=== PATIENT | male | born 1970 | race African-American/Black ===

== ENCOUNTER 2016-06-14 00:32 | Inpatient (IN) | payer MEDICAID, MEDICARE ==
[2016-06-14] VITALS (7 sets, daily range): BP systolic 142–179; BP diastolic 80–104
[~2016-06-14] VITALS: Ht 165.1 cm; Wt 84.8 kg
[~2016-06-14 00:32] MED LIST: ACET-2154 PO; ACID1TAB4 PO; AMLO1CAP PO; CALC667C6 PO; CARV25TA PO; CINA90TA PO; CLON-418 PO; CLON0.2T PO; DIPH50VI5 IV; FOLI0.8T23 PO; HYDR-548 PO; HYDR500C2 PO; MINO2.5T PO; PROT946L PO
[2016-06-14] MEDS ORDERED: LABETALOL HCL 100 MG/20 ML VIAL IV ONE (00:45)
[2016-06-14] MEDS ORDERED: HYDROMORPHONE 1 MG/1 ML DISP.SYRIN IV ONE ×2 (00:45→01:45)
[2016-06-14] MEDS ORDERED: diphenhydrAMINE 50 MG/1 ML VIAL IV ONE ×2 (01:00→01:45)
[2016-06-14] MEDS ORDERED: diphenhydrAMINE 50 MG/1 ML VIAL ONE ×3 (01:10→05:18)
[2016-06-14] MEDS ORDERED: HYDROMORPHONE 2 MG/1 ML DISP.SYRIN ONE ×2 (01:10→05:19)
[2016-06-14] MEDS ORDERED: LABETALOL HCL 100 MG/20 ML VIAL ONE (01:10)
[2016-06-14 01:26] LABS: CALCIUM 7.1 mg/dL (8.5-10.1); POTASSIUM 5.8 mmol/L (3.5-5.1)
[2016-06-14 01:33] LABS: CREATININE 11.1 mg/dL (0.6-1.3)
[2016-06-14] MEDS ORDERED: HYDROMORPHONE 1 MG/1 ML DISP.SYRIN ONE (01:53)
[2016-06-14] MEDS ORDERED: SODIUM BICARBONATE 8.4% 50 MEQ/50 ML DISP.SYRIN IV ONE (02:14)
[2016-06-14] MEDS ORDERED: SODIUM BICARBONATE 8.4% 50 MEQ/50 ML VIAL IV ONE (02:15)
[2016-06-14 02:31] LABS: HEMOGLOBIN 5.7 g/dL (14.0-18.0); RED BLOOD CELL COUNT(AUTO) 1.96 MIL/uL (4.70-6.10); WHITE BLOOD COUNT (AUTO) 9.6 K/uL (4.0-11.2)
[2016-06-14 02:32] LABS: HEMATOCRIT 16.8 % (40.0-50.0); MEAN CORPUSCULAR HEMOGLOBIN 28.8 uug (27.0-31.0); MEAN CORPUSCULAR HGB CONC 34 g/dL (32.0-37.0); MEAN CORPUSCULAR VOLUME 85.3 fL (82.0-92.0); RED CELL DISTRIBUTION WIDTH 17.3 % (11.5-14.5)
[2016-06-14 02:33] LABS: BASOPHILS % (AUTO) 0.5 % (0.0-2.0); LYMPHOCYTES # (AUTO) 3.2 K/uL (0.8-4.8); LYMPHOCYTES % (AUTO) 32.8 % (20.5-51.5); MONOCYTES # (AUTO) 1.1 K/uL (0.1-1.30); MONOCYTES % (AUTO) 11.4 % (0.0-11.0); NEUTROPHILS # (AUTO) 4.9 K/uL (1.8-8.9); NEUTROPHILS % (AUTO) 51.3 % (38.5-71.5); PLATELET COUNT (AUTO) 38 K/uL (150-450)
[2016-06-14 02:34] LABS: EOSINOPHILS # (AUTO) 0.4 K/uL (0.0-0.7)
[2016-06-14] MEDS: diphenhydrAMINE 50 MG/1 ML VIAL IV PRN ×3 (05:17→19:30)
[2016-06-14] MEDS: HYDROMORPHONE 2 MG/1 ML DISP.SYRIN IV PRN ×4 (05:17→19:30)
[2016-06-14 05:33] LABS: BAND % (MANUAL) 4 % (0-10); EOSINOPHILS % (MANUAL) 6 % (0-8); LYMPHOCYTES % (MANUAL) 34 % (20-40); MONOCYTES % (MANUAL) 10 % (2-10); NEUTROPHILS % (MANUAL) 46 % (42-75)
[2016-06-14 05:34] LABS: PLATELET ESTIMATE DECREASED
[2016-06-14 05:35] LABS: ANISOCYTOSIS 2+
[2016-06-14] MEDS ORDERED: diphenhydrAMINE 50 MG/1 ML VIAL IV PRN (07:30)
[2016-06-14] MEDS ORDERED: CLONIDINE HCL 0.2 MG TABLET PO PRN (07:30)
[2016-06-14] MEDS ORDERED: HYDROCODONE/APAP 10-325 MG TABLET PO PRN (07:30)
[2016-06-14] MEDS ORDERED: MISCELLANEOUS MED XX PRN (07:30)
[2016-06-14] MEDS: PROTEIN SUPPLEMENT (PROSTAT) 30 ML LIQUID PO SCH ×2 (08:00→17:00)
[2016-06-14] MEDS: CALCIUM ACETATE 667 MG CAPSULE PO SCH ×3 (10:45→17:09)
[2016-06-14] MEDS: CLONIDINE HCL 0.2 MG TABLET PO SCH ×3 (10:48→17:09)
[2016-06-14] MEDS: CINACALCET HCL 30 MG TABLET PO SCH (10:48)
[2016-06-14] MEDS: ACIDOPHILUS/BULGARICUS CHEW TAB PO SCH ×2 (10:48→17:09)
[2016-06-14] MEDS: FOLIC ACID/VITAMIN B COMP W-C TABLET PO SCH (10:48)
[2016-06-14] MEDS: LISINOPRIL 20 MG TABLET PO SCH (10:49)
[2016-06-14] MEDS: MINOXIDIL 2.5 MG TABLET PO SCH ×3 (10:49→17:09)
[2016-06-14] MEDS: AMLODIPINE 10 MG TABLET PO SCH (10:49)
[2016-06-14] MEDS: HYDROXYUREA 500 MG CAPSULE PO SCH (10:51)
[2016-06-14] MEDS: CARVEDILOL 25 MG TABLET PO SCH ×2 (10:52→17:09)
[2016-06-15] VITALS: BP 143/76
[2016-06-15] MEDS: diphenhydrAMINE 50 MG/1 ML VIAL IV PRN ×6 (00:08→20:57)
[2016-06-15] MEDS: HYDROMORPHONE 2 MG/1 ML DISP.SYRIN IV PRN ×6 (00:08→20:29)
[2016-06-15 04:45] VITALS: BP 157/92
[2016-06-15 07:02] LABS: BILIRUBIN,TOTAL 1.4 mg/dL (0.2-1.0); CALCIUM 6.9 mg/dL (8.5-10.1); MAGNESIUM 2.4 mg/dL (1.8-2.4); PHOSPHOROUS 7.1 mg/dL (2.5-4.9); POTASSIUM 5.5 mmol/L (3.5-5.1); TOTAL PROTEIN, SERUM 6.9 g/dL (6.4-8.2)
[2016-06-15 07:04] LABS: CREATININE 9.6 mg/dL (0.6-1.3)
[2016-06-15 08:11] LABS: WHITE BLOOD COUNT (AUTO) 8.8 K/uL (4.0-11.2)
[2016-06-15 08:13] LABS: RED BLOOD CELL COUNT(AUTO) 2.38 MIL/uL (4.70-6.10)
[2016-06-15 08:14] LABS: HEMATOCRIT 20.2 % (40.0-50.0); HEMOGLOBIN 6.8 g/dL (14.0-18.0)
[2016-06-15 08:15] LABS: MEAN CORPUSCULAR HEMOGLOBIN 28.5 uug (27.0-31.0); MEAN CORPUSCULAR HGB CONC 34 g/dL (32.0-37.0)
[2016-06-15 08:16] LABS: PLATELET COUNT (AUTO) 39 K/uL (150-450)
[2016-06-15 08:17] LABS: BASOPHILS % (AUTO) 0.5 % (0.0-2.0); LYMPHOCYTES % (AUTO) 36.8 % (20.5-51.5); MONOCYTES % (AUTO) 11.6 % (0.0-11.0); NEUTROPHILS % (AUTO) 43.1 % (38.5-71.5)
[2016-06-15 08:19] LABS: EOSINOPHILS # (AUTO) 0.7 K/uL (0.0-0.7); LYMPHOCYTES # (AUTO) 3.2 K/uL (0.8-4.8); NEUTROPHILS # (AUTO) 3.8 K/uL (1.8-8.9)
[2016-06-15] MEDS: CARVEDILOL 25 MG TABLET PO SCH ×2 (08:24→18:00)
[2016-06-15] MEDS: MINOXIDIL 2.5 MG TABLET PO SCH ×3 (08:24→16:18)
[2016-06-15] MEDS: AMLODIPINE 10 MG TABLET PO SCH (08:24)
[2016-06-15] MEDS: LISINOPRIL 20 MG TABLET PO SCH (08:24)
[2016-06-15] MEDS: ACIDOPHILUS/BULGARICUS CHEW TAB PO SCH ×2 (08:24→16:12)
[2016-06-15] MEDS: CLONIDINE HCL 0.2 MG TABLET PO SCH ×3 (08:25→16:12)
[2016-06-15] MEDS: CALCIUM ACETATE 667 MG CAPSULE PO SCH ×3 (08:25→16:12)
[2016-06-15] MEDS: CINACALCET HCL 30 MG TABLET PO SCH (08:25)
[2016-06-15] MEDS: FOLIC ACID/VITAMIN B COMP W-C TABLET PO SCH (08:25)
[2016-06-15] MEDS: PROTEIN SUPPLEMENT (PROSTAT) 30 ML LIQUID PO SCH ×2 (08:26→16:13)
[2016-06-15] MEDS: HYDROXYUREA 500 MG CAPSULE PO SCH (08:29)
[2016-06-15 09:50] LABS: BASOPHILS % (MANUAL) 1 % (0-2); EOSINOPHILS % (MANUAL) 10 % (0-8); LYMPHOCYTES % (MANUAL) 36 % (20-40); MONOCYTES % (MANUAL) 8 % (2-10); NEUTROPHILS % (MANUAL) 45 % (42-75)
[2016-06-15 09:51] LABS: PLATELET ESTIMATE DECREASED
[2016-06-15 09:52] LABS: ANISOCYTOSIS 1+
[2016-06-15 09:53] LABS: OVALOCYTES 1+
[2016-06-15 10:24] VITALS: BP 147/82
[2016-06-15 16:00] VITALS: BP 145/80
[2016-06-15 20:00] VITALS: BP 122/74
[2016-06-16] VITALS (44 sets, daily range): BP systolic 64–135; BP diastolic 33–75
[2016-06-16] MEDS: HYDROMORPHONE 2 MG/1 ML DISP.SYRIN IV PRN ×6 (00:46→22:00)
[2016-06-16] MEDS: ACETAMINOPHEN 325 MG TABLET PO PRN ×3 (03:01→17:10)
[2016-06-16 03:49] LABS: CALCIUM 6.4 mg/dL (8.5-10.1); POTASSIUM 4.7 mmol/L (3.5-5.1)
[2016-06-16 03:51] LABS: CREATININE 8.9 mg/dL (0.6-1.3)
[2016-06-16 03:56] LABS: BASOPHILS % (AUTO) 0.3 % (0.0-2.0); EOSINOPHILS # (AUTO) 0.1 K/uL (0.0-0.7)
[2016-06-16 03:58] LABS: MAGNESIUM 1.9 mg/dL (1.8-2.4); PHOSPHOROUS 5.6 mg/dL (2.5-4.9)
[2016-06-16 03:59] LABS: EOSINOPHILS % (AUTO) 0.9 % (0.0-7.0); LYMPHOCYTES % (AUTO) 10.4 % (20.5-51.5); MEAN CORPUSCULAR HEMOGLOBIN 28.5 uug (27.0-31.0); MEAN CORPUSCULAR HGB CONC 34 g/dL (32.0-37.0); MEAN CORPUSCULAR VOLUME 82.7 fL (82.0-92.0); MONOCYTES # (AUTO) 0.6 K/uL (0.1-1.30); MONOCYTES % (AUTO) 6.4 % (0.0-11.0); NEUTROPHILS # (AUTO) 8.1 K/uL (1.8-8.9); RED CELL DISTRIBUTION WIDTH 15.7 % (11.5-14.5); WHITE BLOOD COUNT (AUTO) 9.8 K/uL (4.0-11.2)
[2016-06-16] MEDS ORDERED: DOSING BY PHARMACY-MD TO SPECIFY MED/ROUTE XX PRN ×2 (04:00→07:00)
[2016-06-16 04:09] LABS: HEMOGLOBIN 6.8 g/dL (14.0-18.0); RED BLOOD CELL COUNT(AUTO) 2.38 MIL/uL (4.70-6.10)
[2016-06-16 04:10] LABS: HEMATOCRIT 19.6 % (40.0-50.0); PLATELET COUNT (AUTO) 38 K/uL (150-450)
[2016-06-16 04:13] LABS: BAND % (MANUAL) 5 % (0-10); LYMPHOCYTES % (MANUAL) 12 % (20-40); MONOCYTES % (MANUAL) 4 % (2-10); NEUTROPHILS % (MANUAL) 77 % (42-75)
[2016-06-16 04:14] LABS: PLATELET ESTIMATE MARKED DECREASED
[2016-06-16] MEDS ORDERED: PIPERACILLIN/TAZO 0.75 G in IV DEXTROSE 5% 50 ML IV SCH (04:15)
[2016-06-16] MEDS ORDERED: VANCOMYCIN IV 1,250 MG in IV DEXTROSE 5% 500 ML IV ONE (04:15)
[2016-06-16 04:16] LABS: ANISOCYTOSIS 2+; HYPOCHROMASIA 1+; TARGET CELLS 1+
[2016-06-16] MEDS ORDERED: VANCOMYCIN 1000 MG VIAL ONE (04:38)
[2016-06-16] MEDS ORDERED: VANCOMYCIN HCL 500 MG VIAL ONE (04:38)
[2016-06-16] MEDS ORDERED: PIPERACILLIN/TAZO 2.25 GM VIAL ONE (04:39)
[2016-06-16] MEDS ORDERED: ALBUMIN HUMAN 25% 100 ML IV STA (06:41)
[2016-06-16] MEDS ORDERED: ALBUTEROL SULFATE 2.5 MG/ 0.5 ML NEBU NEB ONE (06:45)
[2016-06-16] MEDS: CARVEDILOL 25 MG TABLET PO SCH (08:00)
[2016-06-16] MEDS: PROTEIN SUPPLEMENT (PROSTAT) 30 ML LIQUID PO SCH ×2 (08:00→16:52)
[2016-06-16 08:22] LABS: ABG BASE EXCESS -1.6 mmol/L; ABG HCO3 24.6 mmol/L; ABG PCO2 49.5 mmHg (35.0-45.0); ABG PH 7.314 (7.350-7.450); ABG PO2 254.7 mmHg (75.0-100.0); ABG SITE LEFT RADIAL; ABG TOTAL HEMOGLOBIN 7.8 G/dL (13.5-18.0); COHb 2.8 % (0.5-1.5); MetHb 0.5 % (0.0-1.5); O2Hb 96.1 % (94.0-97.0); VENT MODE BIPAP
[2016-06-16] MEDS: diphenhydrAMINE 50 MG/1 ML VIAL IV PRN ×3 (08:50→22:00)
[2016-06-16] MEDS: CLONIDINE HCL 0.2 MG TABLET PO SCH (09:00)
[2016-06-16] MEDS: LISINOPRIL 20 MG TABLET PO SCH (09:00)
[2016-06-16] MEDS: ACIDOPHILUS/BULGARICUS CHEW TAB PO SCH ×2 (09:04→16:52)
[2016-06-16] MEDS: CALCIUM ACETATE 667 MG CAPSULE PO SCH ×3 (09:04→16:52)
[2016-06-16] MEDS: FOLIC ACID/VITAMIN B COMP W-C TABLET PO SCH (09:04)
[2016-06-16] MEDS: CINACALCET HCL 30 MG TABLET PO SCH (09:12)
[2016-06-16] MEDS: HYDROXYUREA 500 MG CAPSULE PO SCH (09:13)
[2016-06-16] MEDS ORDERED: ALBUTEROL SULFATE 1.25 MG/3 ML NEBU NEB PRN (09:15)
[2016-06-16] MEDS ORDERED: IPRATROPIUM BROMIDE 0.5 MG/2.5 ML NEBU NEB PRN (09:15)
[2016-06-16] MEDS ORDERED: PIPERACILLIN/TAZOBACTAM/D5W 2.25 G in PREMIXED 1 EACH IV SCH (11:00)
[2016-06-16] MEDS ORDERED: PIPERACILLIN/TAZO 0.75 G in IV DEXTROSE 5% 50 ML IV PRN (11:00)
[2016-06-16] MEDS: methylPREDNISolone SOD SUCC 40 MG/ML VIAL IV SCH ×2 (13:25→21:47)
[2016-06-16] MEDS: PIPERACILLIN/TAZOBACTAM/D5W 2.25 G in PREMIXED 1 EACH IV SCH ×2 (14:01→21:47)
[2016-06-16 15:14] LABS: ABG BASE EXCESS -1.2 mmol/L; ABG HCO3 23.9 mmol/L; ABG PCO2 41.3 mmHg (35.0-45.0); ABG PO2 104.5 mmHg (75.0-100.0); ABG SITE LEFT RADIAL; ABG TOTAL HEMOGLOBIN 8.1 G/dL (13.5-18.0); COHb 2.2 % (0.5-1.5); MetHb 0.7 % (0.0-1.5); O2Hb 94.6 % (94.0-97.0); VENT MODE BIPAP
[2016-06-16] MEDS ORDERED: ALBUMIN HUMAN 25% 50 ML IV ONE (15:15)
[2016-06-16] MEDS ORDERED: IV NORMAL SALINE 500 ML IV ONE (15:15)
[2016-06-16] MEDS: NOREPINEPHRINE BITARTRATE 16 MG in IV DEXTROSE 5% 500 ML IV PRN (17:43)
[2016-06-17] VITALS (100 sets, daily range): BP systolic 74–146; BP diastolic 23–90
[2016-06-17] MEDS: diphenhydrAMINE 50 MG/1 ML VIAL IV PRN ×4 (03:52→17:06)
[2016-06-17] MEDS: HYDROMORPHONE 2 MG/1 ML DISP.SYRIN IV PRN ×5 (03:56→21:12)
[2016-06-17 05:10] LABS: MEAN CORPUSCULAR VOLUME 84.4 fL (82.0-92.0); RED BLOOD CELL COUNT(AUTO) 2.61 MIL/uL (4.70-6.10)
[2016-06-17 05:13] LABS: BASOPHILS % (AUTO) 0.1 % (0.0-2.0); EOSINOPHILS % (AUTO) 0.2 % (0.0-7.0); HEMOGLOBIN 7.6 g/dL (14.0-18.0); LYMPHOCYTES # (AUTO) 1.6 K/uL (0.8-4.8); LYMPHOCYTES % (AUTO) 11.4 % (20.5-51.5); MEAN CORPUSCULAR HEMOGLOBIN 29.2 uug (27.0-31.0); MEAN CORPUSCULAR HGB CONC 35 g/dL (32.0-37.0); MONOCYTES # (AUTO) 0.7 K/uL (0.1-1.30); MONOCYTES % (AUTO) 4.8 % (0.0-11.0); NEUTROPHILS # (AUTO) 12.2 K/uL (1.8-8.9); NEUTROPHILS % (AUTO) 83.5 % (38.5-71.5); PLATELET COUNT (AUTO) 53 K/uL (150-450); RED CELL DISTRIBUTION WIDTH 15.9 % (11.5-14.5); WHITE BLOOD COUNT (AUTO) 14.5 K/uL (4.0-11.2)
[2016-06-17 05:18] LABS: ALBUMIN 2.3 g/dL (3.4-5.0); BILIRUBIN,TOTAL 5.8 mg/dL (0.2-1.0); CALCIUM 6.3 mg/dL (8.5-10.1); MAGNESIUM 1.9 mg/dL (1.8-2.4); POTASSIUM 4.9 mmol/L (3.5-5.1)
[2016-06-17] MEDS: methylPREDNISolone SOD SUCC 40 MG/ML VIAL IV SCH ×3 (05:18→21:10)
[2016-06-17] MEDS: PIPERACILLIN/TAZOBACTAM/D5W 2.25 G in PREMIXED 1 EACH IV SCH ×3 (05:19→21:10)
[2016-06-17 05:24] LABS: CREATININE 7.7 mg/dL (0.6-1.3)
[2016-06-17 05:44] LABS: BAND % (MANUAL) 13 % (0-10); EOSINOPHILS % (MANUAL) 1 % (0-8); LYMPHOCYTES % (MANUAL) 12 % (20-40); METAMYELOCYTES % 2 % (0-1); MONOCYTES % (MANUAL) 6 % (2-10); MYELOCYTES % 2 % (0-0); NEUTROPHILS % (MANUAL) 64 % (42-75)
[2016-06-17 05:46] LABS: ANISOCYTOSIS 1+; HYPOCHROMASIA 1+; PLATELET ESTIMATE MARKED DECREASED; TARGET CELLS 1+
[2016-06-17] MEDS: PROTEIN SUPPLEMENT (PROSTAT) 30 ML LIQUID PO SCH ×2 (08:00→16:22)
[2016-06-17] MEDS: FOLIC ACID/VITAMIN B COMP W-C TABLET PO SCH (08:06)
[2016-06-17] MEDS: CALCIUM ACETATE 667 MG CAPSULE PO SCH ×3 (08:06→16:22)
[2016-06-17] MEDS: ACIDOPHILUS/BULGARICUS CHEW TAB PO SCH ×2 (08:06→16:22)
[2016-06-17] MEDS: HYDROXYUREA 500 MG CAPSULE PO SCH (08:08)
[2016-06-17] MEDS: NOREPINEPHRINE BITARTRATE 16 MG in IV DEXTROSE 5% 500 ML IV PRN ×2 (08:11→17:15)
[2016-06-17 09:43] LABS: ABG BASE EXCESS -8.4 mmol/L; ABG HCO3 17.4 mmol/L; ABG PCO2 36.8 mmHg (35.0-45.0); ABG PH 7.293 (7.350-7.450); ABG PO2 58.3 mmHg (75.0-100.0); ABG SITE LEFT RADIAL; ABG TOTAL HEMOGLOBIN 9.2 G/dL (13.5-18.0); COHb 2.3 % (0.5-1.5); MetHb 0.4 % (0.0-1.5); O2Hb 84.2 % (94.0-97.0); VENT MODE Nasal Cannula
[2016-06-17] MEDS: ACETAMINOPHEN 325 MG TABLET PO PRN (11:16)
[2016-06-17] MEDS ORDERED: PHENYLEPHRINE IV 40 MG in IV DEXTROSE 5% 250 ML IV PRN (13:15)
[2016-06-17 15:03] LABS: PROTEIN, BODY FLUID 3.6 G/DL
[2016-06-17 16:18] LABS: TOTAL VOLUME,BODY FLUID 200 mL
[2016-06-17 16:19] LABS: MONOCYTES,BODY FLUID 2 %; POLYNUCLEAR, BODY FLUID 89 % (0-25%); WBC, BODY FLUID 19000 /cu. mm (0-200/cu.mm)
[2016-06-18] VITALS (88 sets, daily range): BP systolic 66–153; BP diastolic 25–81
[2016-06-18] MEDS: HYDROMORPHONE 2 MG/1 ML DISP.SYRIN IV PRN ×4 (01:03→19:36)
[2016-06-18] MEDS: diphenhydrAMINE 50 MG/1 ML VIAL IV PRN ×4 (01:08→19:33)
[2016-06-18 05:05] LABS: BASOPHILS % (AUTO) 0.1 % (0.0-2.0); EOSINOPHILS # (AUTO) 0.3 K/uL (0.0-0.7); LYMPHOCYTES # (AUTO) 1.2 K/uL (0.8-4.8); LYMPHOCYTES % (AUTO) 4.7 % (20.5-51.5); MEAN CORPUSCULAR HEMOGLOBIN 30.3 uug (27.0-31.0); MEAN CORPUSCULAR HGB CONC 36 g/dL (32.0-37.0); MEAN CORPUSCULAR VOLUME 83.8 fL (82.0-92.0); MONOCYTES # (AUTO) 0.7 K/uL (0.1-1.30); MONOCYTES % (AUTO) 2.7 % (0.0-11.0); NEUTROPHILS # (AUTO) 24.3 K/uL (1.8-8.9); NEUTROPHILS % (AUTO) 91.5 % (38.5-71.5); RED CELL DISTRIBUTION WIDTH 16.1 % (11.5-14.5); WHITE BLOOD COUNT (AUTO) 26.5 K/uL (4.0-11.2)
[2016-06-18 05:16] LABS: HEMOGLOBIN 7.3 g/dL (14.0-18.0); RED BLOOD CELL COUNT(AUTO) 2.41 MIL/uL (4.70-6.10)
[2016-06-18 05:17] LABS: HEMATOCRIT 20.2 % (40.0-50.0); PLATELET COUNT (AUTO) 34 K/uL (150-450)
[2016-06-18 05:21] LABS: ALBUMIN 2.2 g/dL (3.4-5.0); BAND % (MANUAL) 18 % (0-10); BILIRUBIN,TOTAL 11.9 mg/dL (0.2-1.0); LYMPHOCYTES % (MANUAL) 10 % (20-40); MAGNESIUM 2.1 mg/dL (1.8-2.4); METAMYELOCYTES % 1 % (0-1); MONOCYTES % (MANUAL) 6 % (2-10); MYELOCYTES % 2 % (0-0); NEUTROPHILS % (MANUAL) 63 % (42-75); PHOSPHOROUS 7.4 mg/dL (2.5-4.9)
[2016-06-18 05:22] LABS: PLATELET ESTIMATE MARKED DECREASED
[2016-06-18 05:23] LABS: ANISOCYTOSIS 1+; OVALOCYTES 1+
[2016-06-18 05:37] LABS: CALCIUM 5.4 mg/dL (8.5-10.1); POTASSIUM 6.6 mmol/L (3.5-5.1)
[2016-06-18 05:38] LABS: CREATININE 8.2 mg/dL (0.6-1.3)
[2016-06-18] MEDS: methylPREDNISolone SOD SUCC 40 MG/ML VIAL IV SCH ×3 (06:03→21:30)
[2016-06-18] MEDS: PIPERACILLIN/TAZOBACTAM/D5W 2.25 G in PREMIXED 1 EACH IV SCH ×3 (06:03→21:30)
[2016-06-18] MEDS: NOREPINEPHRINE BITARTRATE 16 MG in IV DEXTROSE 5% 500 ML IV PRN ×2 (06:42→18:35)
[2016-06-18] MEDS ORDERED: DOSING PER PHARMACY-AMIKACIN IV XX PRN (07:45)
[2016-06-18] MEDS: PROTEIN SUPPLEMENT (PROSTAT) 30 ML LIQUID PO SCH ×2 (08:00→17:00)
[2016-06-18] MEDS: CALCIUM ACETATE 667 MG CAPSULE PO SCH ×3 (08:47→18:00)
[2016-06-18] MEDS: FOLIC ACID/VITAMIN B COMP W-C TABLET PO SCH (08:47)
[2016-06-18] MEDS: ACIDOPHILUS/BULGARICUS CHEW TAB PO SCH ×2 (08:47→17:59)
[2016-06-18] MEDS: HYDROXYUREA 500 MG CAPSULE PO SCH (08:48)
[2016-06-18 08:57] LABS: ABG HCO3 17.9 mmol/L; ABG PCO2 38.2 mmHg (35.0-45.0); ABG PH 7.289 (7.350-7.450); ABG PO2 69.1 mmHg (75.0-100.0); ABG SITE LEFT RADIAL; COHb 3.7 % (0.5-1.5); MetHb 0.4 % (0.0-1.5); O2Hb 87.8 % (94.0-97.0); VENT MODE Nasal Cannula
[2016-06-18] MEDS ORDERED: VANCOMYCIN IV 1 G in PREMIXED 0 EACH IV ONE (16:00)
[2016-06-18] MEDS ORDERED: AMIKACIN IV ONE (18:00)
[2016-06-18] MEDS ORDERED: DEXTROSE 5% IV ONE (18:00)
[2016-06-18] MEDS ORDERED: AMIODARONE HCL IV 150 MG in IV DEXTROSE 5% 100 ML IV ONE (18:30)
[2016-06-18] MEDS ORDERED: AMIODARONE HCL IV 900 MG in IV DEXTROSE 5% 482 ML IV PRN (18:30)
[2016-06-19] VITALS (55 sets, daily range): BP systolic 83–145; BP diastolic 48–83
[2016-06-19] MEDS: diphenhydrAMINE 50 MG/1 ML VIAL IV PRN ×4 (00:57→20:23)
[2016-06-19] MEDS: HYDROMORPHONE 2 MG/1 ML DISP.SYRIN IV PRN ×5 (01:00→20:23)
[2016-06-19 05:02] LABS: EOSINOPHILS # (AUTO) 0.3 K/uL (0.0-0.7); EOSINOPHILS % (AUTO) 1.1 % (0.0-7.0); LYMPHOCYTES # (AUTO) 1.7 K/uL (0.8-4.8); MONOCYTES # (AUTO) 1.3 K/uL (0.1-1.30); MONOCYTES % (AUTO) 4.4 % (0.0-11.0); NEUTROPHILS # (AUTO) 25.8 K/uL (1.8-8.9); NEUTROPHILS % (AUTO) 88.5 % (38.5-71.5)
[2016-06-19 05:07] LABS: MEAN CORPUSCULAR HEMOGLOBIN 29.8 uug (27.0-31.0); MEAN CORPUSCULAR HGB CONC 35 g/dL (32.0-37.0); MEAN CORPUSCULAR VOLUME 84.6 fL (82.0-92.0); RED CELL DISTRIBUTION WIDTH 16.1 % (11.5-14.5); WHITE BLOOD COUNT (AUTO) 29.2 K/uL (4.0-11.2)
[2016-06-19] MEDS: methylPREDNISolone SOD SUCC 40 MG/ML VIAL IV SCH ×3 (05:08→22:08)
[2016-06-19] MEDS: PIPERACILLIN/TAZOBACTAM/D5W 2.25 G in PREMIXED 1 EACH IV SCH ×3 (05:08→22:09)
[2016-06-19 05:17] LABS: BILIRUBIN,TOTAL 14.7 mg/dL (0.2-1.0); MAGNESIUM 2.2 mg/dL (1.8-2.4); PHOSPHOROUS 6.2 mg/dL (2.5-4.9); TOTAL PROTEIN, SERUM 5.8 g/dL (6.4-8.2)
[2016-06-19 05:26] LABS: RED BLOOD CELL COUNT(AUTO) 2.17 MIL/uL (4.70-6.10)
[2016-06-19 05:27] LABS: HEMATOCRIT 18.3 % (40.0-50.0); HEMOGLOBIN 6.4 g/dL (14.0-18.0)
[2016-06-19 05:28] LABS: PLATELET COUNT (AUTO) 19 K/uL (150-450)
[2016-06-19 05:30] LABS: BAND % (MANUAL) 11 % (0-10); LYMPHOCYTES % (MANUAL) 4 % (20-40); METAMYELOCYTES % 1 % (0-1); MONOCYTES % (MANUAL) 2 % (2-10); MYELOCYTES % 1 % (0-0); NEUTROPHILS % (MANUAL) 81 % (42-75)
[2016-06-19 05:31] LABS: ANISOCYTOSIS 1+; PLATELET ESTIMATE MARKED DECREASED; TARGET CELLS 1+
[2016-06-19 05:34] LABS: CALCIUM 5.8 mg/dL (8.5-10.1); POTASSIUM 6.2 mmol/L (3.5-5.1)
[2016-06-19 05:35] LABS: CREATININE 6.9 mg/dL (0.6-1.3)
[2016-06-19] MEDS: CALCIUM ACETATE 667 MG CAPSULE PO SCH ×3 (08:35→17:22)
[2016-06-19] MEDS: ACIDOPHILUS/BULGARICUS CHEW TAB PO SCH ×2 (08:35→17:22)
[2016-06-19] MEDS: FOLIC ACID/VITAMIN B COMP W-C TABLET PO SCH (08:35)
[2016-06-19] MEDS: PROTEIN SUPPLEMENT (PROSTAT) 30 ML LIQUID PO SCH ×2 (08:36→17:00)
[2016-06-19] MEDS: HYDROXYUREA 500 MG CAPSULE PO SCH (08:36)
[2016-06-19 08:43] LABS: ABG BASE EXCESS -3.4 mmol/L; ABG HCO3 21.6 mmol/L; ABG PCO2 38.1 mmHg (35.0-45.0); ABG PH 7.371 (7.350-7.450); ABG PO2 65.6 mmHg (75.0-100.0); ABG SITE LEFT RADIAL; ABG TOTAL HEMOGLOBIN 6.5 G/dL (13.5-18.0); COHb 4.6 % (0.5-1.5); MetHb 0.3 % (0.0-1.5); O2Hb 86.7 % (94.0-97.0); VENT MODE room air
[2016-06-19 17:26] LABS: HEMATOCRIT 24.3 % (40.0-50.0); HEMOGLOBIN 8.5 g/dL (14.0-18.0); MEAN CORPUSCULAR HEMOGLOBIN 29.8 uug (27.0-31.0); MEAN CORPUSCULAR HGB CONC 35 g/dL (32.0-37.0); MEAN CORPUSCULAR VOLUME 84.8 fL (82.0-92.0); RED BLOOD CELL COUNT(AUTO) 2.87 MIL/uL (4.70-6.10); RED CELL DISTRIBUTION WIDTH 15.6 % (11.5-14.5); WHITE BLOOD COUNT (AUTO) 26.2 K/uL (4.0-11.2)
[2016-06-19 17:30] LABS: CALCIUM 8.7 mg/dL (8.5-10.1); POTASSIUM 3.6 mmol/L (3.5-5.1)
[2016-06-19] MEDS ORDERED: VANCOMYCIN IV 500 MG in IV DEXTROSE 5% 100 ML IV ONE (17:30)
[2016-06-19 17:33] LABS: PLATELET COUNT (AUTO) 16 K/uL (150-450)
[2016-06-19 17:36] LABS: ALBUMIN 2.4 g/dL (3.4-5.0); BILIRUBIN,TOTAL 15.8 mg/dL (0.2-1.0); CREATININE 3.8 mg/dL (0.6-1.3); MAGNESIUM 2.1 mg/dL (1.8-2.4); PHOSPHOROUS 4.3 mg/dL (2.5-4.9); TOTAL PROTEIN, SERUM 6.6 g/dL (6.4-8.2)
[2016-06-19 17:49] LABS: BAND % (MANUAL) 11 % (0-10); LYMPHOCYTES % (MANUAL) 2 % (20-40); MONOCYTES % (MANUAL) 1 % (2-10); NEUTROPHILS % (MANUAL) 86 % (42-75); PLATELET ESTIMATE MARKED DECREASED
[2016-06-19 17:50] LABS: ACANTHOCYTES 1+; ANISOCYTOSIS 1+
[2016-06-19] MEDS ORDERED: AMIODARONE HCL IV 150 MG in IV DEXTROSE 5% 100 ML IV ONE (20:45)
[2016-06-19] MEDS ORDERED: AMIODARONE HCL IV 900 MG in IV DEXTROSE 5% 482 ML IV PRN (20:45)
[2016-06-19] MEDS ORDERED: AMIKACIN IV PRN (20:45)
[2016-06-19] MEDS ORDERED: DEXTROSE 5% IV PRN (20:45)
[2016-06-20] VITALS (21 sets, daily range): BP systolic 13–141; BP diastolic 66–84
[2016-06-20] MEDS: diphenhydrAMINE 50 MG/1 ML VIAL IV PRN ×4 (02:09→19:49)
[2016-06-20] MEDS: HYDROMORPHONE 2 MG/1 ML DISP.SYRIN IV PRN ×4 (02:17→19:50)
[2016-06-20] MEDS: methylPREDNISolone SOD SUCC 40 MG/ML VIAL IV SCH ×2 (05:35→17:58)
[2016-06-20] MEDS: PIPERACILLIN/TAZOBACTAM/D5W 2.25 G in PREMIXED 1 EACH IV SCH ×3 (05:35→21:35)
[2016-06-20 05:51] LABS: ALBUMIN 2.1 g/dL (3.4-5.0); MAGNESIUM 2.3 mg/dL (1.8-2.4); PHOSPHOROUS 6.2 mg/dL (2.5-4.9); POTASSIUM 5.2 mmol/L (3.5-5.1); TOTAL PROTEIN, SERUM 6.2 g/dL (6.4-8.2)
[2016-06-20 05:54] LABS: CREATININE 5.1 mg/dL (0.6-1.3); HEMATOCRIT 23.4 % (40.0-50.0); HEMOGLOBIN 8.2 g/dL (14.0-18.0); MEAN CORPUSCULAR HEMOGLOBIN 29.8 uug (27.0-31.0); MEAN CORPUSCULAR HGB CONC 35 g/dL (32.0-37.0); PLATELET COUNT (AUTO) 96 K/uL (150-450); RED BLOOD CELL COUNT(AUTO) 2.75 MIL/uL (4.70-6.10); RED CELL DISTRIBUTION WIDTH 15.3 % (11.5-14.5); WHITE BLOOD COUNT (AUTO) 27.6 K/uL (4.0-11.2)
[2016-06-20] MEDS: HYDROXYUREA 500 MG CAPSULE PO SCH (08:41)
[2016-06-20] MEDS: CALCIUM ACETATE 667 MG CAPSULE PO SCH ×3 (08:42→17:57)
[2016-06-20] MEDS: FOLIC ACID/VITAMIN B COMP W-C TABLET PO SCH (08:42)
[2016-06-20] MEDS: ACIDOPHILUS/BULGARICUS CHEW TAB PO SCH ×2 (08:42→17:57)
[2016-06-20] MEDS: PROTEIN SUPPLEMENT (PROSTAT) 30 ML LIQUID PO SCH ×2 (08:43→17:58)
[2016-06-20 11:13] LABS: BAND % (MANUAL) 1 % (0-10); LYMPHOCYTES % (MANUAL) 13 % (20-40); MONOCYTES % (MANUAL) 1 % (2-10); NEUTROPHILS % (MANUAL) 85 % (42-75)
[2016-06-20 11:14] LABS: ANISOCYTOSIS 1+; HYPOCHROMASIA 1+; PLATELET ESTIMATE SLIGHT DECREASED; TARGET CELLS 1+
[2016-06-20] MEDS: METOPROLOL TARTRATE 25 MG TABLET PO SCH ×2 (12:28→21:10)
[2016-06-20] MEDS ORDERED: VANCOMYCIN IV 1 G in PREMIXED 0 EACH IV ONE (17:00)
[2016-06-21 00:01] VITALS: BP 130/77
[2016-06-21] MEDS: HYDROMORPHONE 2 MG/1 ML DISP.SYRIN IV PRN ×6 (00:28→22:05)
[2016-06-21] MEDS: diphenhydrAMINE 50 MG/1 ML VIAL IV PRN ×6 (00:28→22:04)
[2016-06-21 04:00] VITALS: BP 133/76
[2016-06-21 05:14] LABS: HEMATOCRIT 22.4 % (40.0-50.0); MEAN CORPUSCULAR HEMOGLOBIN 30.4 uug (27.0-31.0); MEAN CORPUSCULAR HGB CONC 36 g/dL (32.0-37.0); MEAN CORPUSCULAR VOLUME 84.9 fL (82.0-92.0); PLATELET COUNT (AUTO) 61 K/uL (150-450); RED BLOOD CELL COUNT(AUTO) 2.64 MIL/uL (4.70-6.10); RED CELL DISTRIBUTION WIDTH 15.2 % (11.5-14.5); WHITE BLOOD COUNT (AUTO) 23.7 K/uL (4.0-11.2)
[2016-06-21 05:36] LABS: BAND % (MANUAL) 4 % (0-10); LYMPHOCYTES % (MANUAL) 9 % (20-40); MONOCYTES % (MANUAL) 4 % (2-10); NEUTROPHILS % (MANUAL) 83 % (42-75)
[2016-06-21 05:38] LABS: ALBUMIN 2.1 g/dL (3.4-5.0); BILIRUBIN,TOTAL 12.8 mg/dL (0.2-1.0); CALCIUM 7.7 mg/dL (8.5-10.1); MAGNESIUM 2.3 mg/dL (1.8-2.4); PHOSPHOROUS 6.2 mg/dL (2.5-4.9); POTASSIUM 5.1 mmol/L (3.5-5.1); TOTAL PROTEIN, SERUM 6.1 g/dL (6.4-8.2)
[2016-06-21 05:40] LABS: PLATELET ESTIMATE DECREASED
[2016-06-21 05:41] LABS: ANISOCYTOSIS 1+; SMUDGE CELLS 1+; TARGET CELLS 1+
[2016-06-21 05:53] LABS: CREATININE 4.7 mg/dL (0.6-1.3)
[2016-06-21] MEDS: PIPERACILLIN/TAZOBACTAM/D5W 2.25 G in PREMIXED 1 EACH IV SCH ×3 (06:22→22:04)
[2016-06-21 08:00] VITALS: BP 133/76
[2016-06-21] MEDS: ACIDOPHILUS/BULGARICUS CHEW TAB PO SCH ×2 (08:04→17:05)
[2016-06-21] MEDS: METOPROLOL TARTRATE 25 MG TABLET PO SCH ×2 (08:04→21:10)
[2016-06-21] MEDS: methylPREDNISolone SOD SUCC 40 MG/ML VIAL IV SCH ×2 (08:04→17:05)
[2016-06-21] MEDS: FOLIC ACID/VITAMIN B COMP W-C TABLET PO SCH (08:04)
[2016-06-21] MEDS: CALCIUM ACETATE 667 MG CAPSULE PO SCH ×3 (08:04→17:05)
[2016-06-21] MEDS: PROTEIN SUPPLEMENT (PROSTAT) 30 ML LIQUID PO SCH ×2 (08:06→17:06)
[2016-06-21] MEDS: HYDROXYUREA 500 MG CAPSULE PO SCH (08:09)
[2016-06-21 12:00] VITALS: BP 111/70
[2016-06-21 16:00] VITALS: BP 118/70
[2016-06-21 20:00] VITALS: BP 124/84
[2016-06-22] VITALS (12 sets, daily range): BP systolic 110–132; BP diastolic 62–83
[2016-06-22] MEDS: diphenhydrAMINE 50 MG/1 ML VIAL IV PRN ×5 (03:44→22:34)
[2016-06-22] MEDS: HYDROMORPHONE 2 MG/1 ML DISP.SYRIN IV PRN ×5 (03:44→22:33)
[2016-06-22] MEDS: PIPERACILLIN/TAZOBACTAM/D5W 2.25 G in PREMIXED 1 EACH IV SCH ×3 (05:52→23:17)
[2016-06-22] MEDS: PROTEIN SUPPLEMENT (PROSTAT) 30 ML LIQUID PO SCH ×2 (08:00→17:46)
[2016-06-22] MEDS: methylPREDNISolone SOD SUCC 40 MG/ML VIAL IV SCH ×2 (08:09→17:46)
[2016-06-22] MEDS: FOLIC ACID/VITAMIN B COMP W-C TABLET PO SCH (08:10)
[2016-06-22] MEDS: CALCIUM ACETATE 667 MG CAPSULE PO SCH ×3 (08:10→17:46)
[2016-06-22] MEDS: ACIDOPHILUS/BULGARICUS CHEW TAB PO SCH ×2 (08:10→17:46)
[2016-06-22] MEDS: HYDROXYUREA 500 MG CAPSULE PO SCH (08:14)
[2016-06-22] MEDS: METOPROLOL TARTRATE 25 MG TABLET PO SCH ×2 (08:15→22:08)
[2016-06-22 08:44] LABS: MEAN CORPUSCULAR HEMOGLOBIN 29.7 uug (27.0-31.0); MEAN CORPUSCULAR HGB CONC 35 g/dL (32.0-37.0); MEAN CORPUSCULAR VOLUME 84.4 fL (82.0-92.0); RED CELL DISTRIBUTION WIDTH 15.1 % (11.5-14.5); WHITE BLOOD COUNT (AUTO) 24.5 K/uL (4.0-11.2)
[2016-06-22 08:49] LABS: BILIRUBIN,TOTAL 10.4 mg/dL (0.2-1.0); CALCIUM 7.7 mg/dL (8.5-10.1); HEMATOCRIT 18.5 % (40.0-50.0); HEMOGLOBIN 6.5 g/dL (14.0-18.0); MAGNESIUM 2.2 mg/dL (1.8-2.4); PHOSPHOROUS 7.6 mg/dL (2.5-4.9); POTASSIUM 5.9 mmol/L (3.5-5.1); TOTAL PROTEIN, SERUM 6.1 g/dL (6.4-8.2)
[2016-06-22 08:50] LABS: PLATELET COUNT (AUTO) 44 K/uL (150-450)
[2016-06-22 08:52] LABS: CREATININE 5.6 mg/dL (0.6-1.3)
[2016-06-22 13:43] LABS: BAND % (MANUAL) 3 % (0-10); LYMPHOCYTES % (MANUAL) 5 % (20-40); METAMYELOCYTES % 1 % (0-1); MONOCYTES % (MANUAL) 2 % (2-10); NEUTROPHILS % (MANUAL) 89 % (42-75)
[2016-06-22 13:44] LABS: ANISOCYTOSIS 1+; PLATELET ESTIMATE DECREASED
[2016-06-23] VITALS: BP 121/82
[2016-06-23] MEDS: HYDROMORPHONE 2 MG/1 ML DISP.SYRIN IV PRN ×5 (03:53→21:00)
[2016-06-23] MEDS: diphenhydrAMINE 50 MG/1 ML VIAL IV PRN ×5 (03:57→21:00)
[2016-06-23 04:00] VITALS: BP 112/72
[2016-06-23] MEDS: PIPERACILLIN/TAZOBACTAM/D5W 2.25 G in PREMIXED 1 EACH IV SCH ×3 (05:45→21:00)
[2016-06-23] MEDS: methylPREDNISolone SOD SUCC 40 MG/ML VIAL IV SCH ×2 (08:42→17:37)
[2016-06-23] MEDS: PROTEIN SUPPLEMENT (PROSTAT) 30 ML LIQUID PO SCH ×2 (08:42→17:37)
[2016-06-23] MEDS: ACIDOPHILUS/BULGARICUS CHEW TAB PO SCH ×2 (08:42→17:37)
[2016-06-23] MEDS: METOPROLOL TARTRATE 25 MG TABLET PO SCH ×2 (08:43→21:00)
[2016-06-23] MEDS: CALCIUM ACETATE 667 MG CAPSULE PO SCH ×3 (08:43→17:37)
[2016-06-23] MEDS: FOLIC ACID/VITAMIN B COMP W-C TABLET PO SCH (08:43)
[2016-06-23] MEDS: HYDROXYUREA 500 MG CAPSULE PO SCH (08:45)
[2016-06-23 11:40] VITALS: BP 128/69
[2016-06-23 12:10] VITALS: BP 127/82
[2016-06-23 16:16] VITALS: BP 126/84
[2016-06-23 19:00] VITALS: BP 135/79
[2016-06-24] MEDS: HYDROMORPHONE 2 MG/1 ML DISP.SYRIN IV PRN ×5 (00:23→20:31)
[2016-06-24] MEDS: diphenhydrAMINE 50 MG/1 ML VIAL IV PRN ×5 (00:23→20:31)
[2016-06-24 00:37] VITALS: BP 137/77
[2016-06-24 04:00] VITALS: BP 127/79
[2016-06-24] MEDS: PIPERACILLIN/TAZOBACTAM/D5W 2.25 G in PREMIXED 1 EACH IV SCH (05:24)
[2016-06-24 07:01] LABS: HEMATOCRIT 27.1 % (40.0-50.0); HEMOGLOBIN 9.1 g/dL (14.0-18.0); MEAN CORPUSCULAR HEMOGLOBIN 28.6 uug (27.0-31.0); MEAN CORPUSCULAR HGB CONC 34 g/dL (32.0-37.0); MEAN CORPUSCULAR VOLUME 85.6 fL (82.0-92.0); PLATELET COUNT (AUTO) 82 K/uL (150-450); RED BLOOD CELL COUNT(AUTO) 3.17 MIL/uL (4.70-6.10); RED CELL DISTRIBUTION WIDTH 14.5 % (11.5-14.5); WHITE BLOOD COUNT (AUTO) 23.1 K/uL (4.0-11.2)
[2016-06-24 07:42] LABS: ALBUMIN 2.1 g/dL (3.4-5.0); CALCIUM 8.4 mg/dL (8.5-10.1); MAGNESIUM 2.4 mg/dL (1.8-2.4); TOTAL PROTEIN, SERUM 6.3 g/dL (6.4-8.2)
[2016-06-24 07:50] LABS: CREATININE 6.4 mg/dL (0.6-1.3)
[2016-06-24 07:52] LABS: BILIRUBIN,TOTAL 8.1 mg/dL (0.2-1.0); PHOSPHOROUS 8.7 mg/dL (2.5-4.9); POTASSIUM 6.3 mmol/L (3.5-5.1)
[2016-06-24] MEDS: PROTEIN SUPPLEMENT (PROSTAT) 30 ML LIQUID PO SCH ×2 (09:00→17:00)
[2016-06-24] MEDS: ACIDOPHILUS/BULGARICUS CHEW TAB PO SCH ×2 (09:03→17:23)
[2016-06-24] MEDS: FOLIC ACID/VITAMIN B COMP W-C TABLET PO SCH (09:03)
[2016-06-24] MEDS: CALCIUM ACETATE 667 MG CAPSULE PO SCH ×3 (09:03→17:23)
[2016-06-24] MEDS: METOPROLOL TARTRATE 25 MG TABLET PO SCH ×2 (09:04→20:43)
[2016-06-24] MEDS: HYDROXYUREA 500 MG CAPSULE PO SCH (09:05)
[2016-06-24] MEDS: methylPREDNISolone SOD SUCC 40 MG/ML VIAL IV SCH ×2 (09:05→17:23)
[2016-06-24 09:15] LABS: LYMPHOCYTES % (MANUAL) 13 % (20-40); MONOCYTES % (MANUAL) 4 % (2-10); NEUTROPHILS % (MANUAL) 83 % (42-75)
[2016-06-24 09:16] LABS: PLATELET ESTIMATE DECREASED
[2016-06-24 11:54] VITALS: BP 139/88
[2016-06-24] MEDS ORDERED: LEVOFLOXACIN 750 MG TABLET PO SCH (13:00)
[2016-06-24 16:11] VITALS: BP 153/91
[2016-06-24 19:00] VITALS: BP 161/88
[2016-06-25] VITALS: BP 152/84
[2016-06-25] MEDS: diphenhydrAMINE 50 MG/1 ML VIAL IV PRN ×5 (01:24→23:23)
[2016-06-25] MEDS: HYDROMORPHONE 2 MG/1 ML DISP.SYRIN IV PRN ×6 (01:25→23:24)
[2016-06-25 05:00] VITALS: BP 149/98
[2016-06-25 06:52] LABS: HEMATOCRIT 24.8 % (40.0-50.0); HEMOGLOBIN 8.8 g/dL (14.0-18.0); MEAN CORPUSCULAR HEMOGLOBIN 30.1 uug (27.0-31.0); MEAN CORPUSCULAR HGB CONC 35 g/dL (32.0-37.0); MEAN CORPUSCULAR VOLUME 85.2 fL (82.0-92.0); PLATELET COUNT (AUTO) 93 K/uL (150-450); RED BLOOD CELL COUNT(AUTO) 2.91 MIL/uL (4.70-6.10); RED CELL DISTRIBUTION WIDTH 14.5 % (11.5-14.5); WHITE BLOOD COUNT (AUTO) 22.8 K/uL (4.0-11.2)
[2016-06-25 07:17] LABS: ALBUMIN 2.1 g/dL (3.4-5.0); CALCIUM 8.5 mg/dL (8.5-10.1); MAGNESIUM 2.1 mg/dL (1.8-2.4); PHOSPHOROUS 7.2 mg/dL (2.5-4.9); POTASSIUM 5.2 mmol/L (3.5-5.1); TOTAL PROTEIN, SERUM 6.2 g/dL (6.4-8.2)
[2016-06-25 07:32] LABS: CREATININE 5.7 mg/dL (0.6-1.3)
[2016-06-25 07:33] LABS: BILIRUBIN,TOTAL 6.7 mg/dL (0.2-1.0)
[2016-06-25] MEDS: ACIDOPHILUS/BULGARICUS CHEW TAB PO SCH ×2 (08:17→18:23)
[2016-06-25] MEDS: CALCIUM ACETATE 667 MG CAPSULE PO SCH ×3 (08:17→18:23)
[2016-06-25] MEDS: FOLIC ACID/VITAMIN B COMP W-C TABLET PO SCH (08:17)
[2016-06-25] MEDS: METOPROLOL TARTRATE 25 MG TABLET PO SCH ×2 (08:20→21:14)
[2016-06-25] MEDS: methylPREDNISolone SOD SUCC 40 MG/ML VIAL IV SCH ×2 (08:20→18:22)
[2016-06-25] MEDS: PROTEIN SUPPLEMENT (PROSTAT) 30 ML LIQUID PO SCH ×2 (08:21→17:00)
[2016-06-25] MEDS: HYDROXYUREA 500 MG CAPSULE PO SCH (08:30)
[2016-06-25 11:29] LABS: HYPOCHROMASIA 1+; LYMPHOCYTES % (MANUAL) 3 % (20-40); MONOCYTES % (MANUAL) 6 % (2-10); NEUTROPHILS % (MANUAL) 91 % (42-75); PLATELET ESTIMATE DECREASED
[2016-06-25 11:30] LABS: TARGET CELLS 1+
[2016-06-25 11:53] VITALS: BP 157/92
[2016-06-25] MEDS ORDERED: GUAIFENESIN/DEXTROMETHORPHAN 5 ML UDC PO PRN (13:00)
[2016-06-25 15:48] VITALS: BP 152/91
[2016-06-25 20:00] VITALS: BP 154/92
[2016-06-26] MEDS: HYDROMORPHONE 2 MG/1 ML DISP.SYRIN IV PRN ×5 (03:15→20:55)
[2016-06-26] MEDS: diphenhydrAMINE 50 MG/1 ML VIAL IV PRN ×5 (03:15→20:55)
[2016-06-26 04:00] VITALS: BP 157/95
[2016-06-26 07:39] LABS: HEMATOCRIT 23.6 % (40.0-50.0); HEMOGLOBIN 8.1 g/dL (14.0-18.0); MEAN CORPUSCULAR HEMOGLOBIN 29.6 uug (27.0-31.0); MEAN CORPUSCULAR HGB CONC 34 g/dL (32.0-37.0); MEAN CORPUSCULAR VOLUME 86.4 fL (82.0-92.0); PLATELET COUNT (AUTO) 86 K/uL (150-450); RED BLOOD CELL COUNT(AUTO) 2.73 MIL/uL (4.70-6.10); RED CELL DISTRIBUTION WIDTH 15.1 % (11.5-14.5)
[2016-06-26 07:57] LABS: BILIRUBIN,TOTAL 6.5 mg/dL (0.2-1.0); CALCIUM 8.6 mg/dL (8.5-10.1); PHOSPHOROUS 7.5 mg/dL (2.5-4.9); POTASSIUM 5.1 mmol/L (3.5-5.1); TOTAL PROTEIN, SERUM 6.1 g/dL (6.4-8.2)
[2016-06-26 08:04] LABS: WHITE BLOOD COUNT (AUTO) 32.4 K/uL (4.0-11.2)
[2016-06-26 08:09] LABS: CREATININE 5.5 mg/dL (0.6-1.3)
[2016-06-26] MEDS: methylPREDNISolone SOD SUCC 40 MG/ML VIAL IV SCH ×2 (08:15→16:33)
[2016-06-26] MEDS: FOLIC ACID/VITAMIN B COMP W-C TABLET PO SCH (08:16)
[2016-06-26] MEDS: ACIDOPHILUS/BULGARICUS CHEW TAB PO SCH ×2 (08:16→16:33)
[2016-06-26] MEDS: CALCIUM ACETATE 667 MG CAPSULE PO SCH ×3 (08:16→16:33)
[2016-06-26] MEDS: PROTEIN SUPPLEMENT (PROSTAT) 30 ML LIQUID PO SCH ×2 (08:17→16:35)
[2016-06-26] MEDS: METOPROLOL TARTRATE 25 MG TABLET PO SCH ×2 (08:17→20:13)
[2016-06-26] MEDS: HYDROXYUREA 500 MG CAPSULE PO SCH (08:22)
[2016-06-26] MEDS ORDERED: LEVO500T15 PO (08:56)
[2016-06-26] MEDS ORDERED: PRED20TA PO (08:59)
[2016-06-26 11:06] LABS: ANISOCYTOSIS 1+; TARGET CELLS 1+
[2016-06-26 11:07] LABS: NEUTROPHILS % (MANUAL) 68 % (42-75)
[2016-06-26 11:08] LABS: EOSINOPHILS % (MANUAL) 1 % (0-8); LYMPHOCYTES % (MANUAL) 27 % (20-40); MONOCYTES % (MANUAL) 4 % (2-10)
[2016-06-26 11:12] VITALS: BP 139/80
[2016-06-26] MEDS ORDERED: LEVOFLOXACIN 500 MG TABLET PO SCH (14:00)
[2016-06-26 15:10] VITALS: BP 154/84
[2016-06-26 19:00] VITALS: BP 175/99
[2016-06-27] MEDS: diphenhydrAMINE 50 MG/1 ML VIAL IV PRN ×5 (00:43→19:04)
[2016-06-27] MEDS: HYDROMORPHONE 2 MG/1 ML DISP.SYRIN IV PRN ×5 (00:44→19:01)
[2016-06-27 04:00] VITALS: BP 142/91
[2016-06-27] MEDS ORDERED: HYDROMORPHONE 2 MG/1 ML DISP.SYRIN ONE (04:52)
[2016-06-27] MEDS: methylPREDNISolone SOD SUCC 40 MG/ML VIAL IV SCH (08:38)
[2016-06-27] MEDS: FOLIC ACID/VITAMIN B COMP W-C TABLET PO SCH (08:39)
[2016-06-27] MEDS: ACIDOPHILUS/BULGARICUS CHEW TAB PO SCH (08:39)
[2016-06-27] MEDS: CALCIUM ACETATE 667 MG CAPSULE PO SCH ×2 (08:39→13:29)
[2016-06-27] MEDS: PROTEIN SUPPLEMENT (PROSTAT) 30 ML LIQUID PO SCH (08:39)
[2016-06-27] MEDS: HYDROXYUREA 500 MG CAPSULE PO SCH (08:41)
[2016-06-27] MEDS: METOPROLOL TARTRATE 25 MG TABLET PO SCH (08:41)
[2016-06-27 12:12] VITALS: BP 124/68
[2016-06-27 12:14] VITALS: BP 167/103
[2016-06-27 16:11] VITALS: BP 134/61
== END 2016-06-27 21:40 | disposition home or self-care (01) | DRG 720 ==
LOC: ER 00:35 → TELE 03:01 → MED 06-15 11:33 → CCU 06-16 06:45 → TELE 06-21 19:56 → MED 06-24 22:00
PROVIDERS: ADMIT Internal Medicine; ATTEND Internal Medicine
PROC: 30233N1 Transfusion of Nonautologous Red Blood Cells into Peripheral Vein, Percutaneous Approach (ICD-10-PCS; 2016-06-14)
PROC: 5A1D60Z (ICD-10-PCS; 2016-06-14)
PROC: 5A09457 Assistance with Respiratory Ventilation, 24-96 Consecutive Hours, Continuous Positive Airway Pressure (ICD-10-PCS; 2016-06-16)
PROC: 0W993ZZ Drainage of Right Pleural Cavity, Percutaneous Approach (ICD-10-PCS; principal; 2016-06-17)
PROC: 30233K1 Transfusion of Nonautologous Frozen Plasma into Peripheral Vein, Percutaneous Approach (ICD-10-PCS; 2016-06-17)
PROC: 30233R1 Transfusion of Nonautologous Platelets into Peripheral Vein, Percutaneous Approach (ICD-10-PCS; 2016-06-19)
DX: A41.9 Sepsis, unspecified organism (principal); I21.4 Non-ST elevation (NSTEMI) myocardial infarction; R65.21 Severe sepsis with septic shock; J86.9 Pyothorax without fistula; J96.01 Acute respiratory failure with hypoxia; J96.02 Acute respiratory failure with hypercapnia; I50.33 Acute on chronic diastolic (congestive) heart failure; J90 Pleural effusion, not elsewhere classified; D68.9 Coagulation defect, unspecified; N18.6 End stage renal disease; J15.0 Pneumonia due to Klebsiella pneumoniae; D57.1 Sickle-cell disease without crisis; J15.9 Unspecified bacterial pneumonia; Z99.2 Dependence on renal dialysis; M19.90 Unspecified osteoarthritis, unspecified site; K21.9 Gastro-esophageal reflux disease without esophagitis; G89.29 Other chronic pain; I31.3 Pericardial effusion (noninflammatory); D69.6 Thrombocytopenia, unspecified; E87.5 Hyperkalemia; I47.1 Supraventricular tachycardia; K21.0 Gastro-esophageal reflux disease with esophagitis; K29.50 Unspecified chronic gastritis without bleeding; K76.0 Fatty (change of) liver, not elsewhere classified; T38.0X5A Adverse effect of glucocorticoids and synthetic analogues, initial encounter; Z96.643 Presence of artificial hip joint, bilateral; Z87.01 Personal history of pneumonia (recurrent); I13.2 Hypertensive heart and chronic kidney disease with heart failure and with stage 5 chronic kidney disease, or end stage renal disease; D63.8 Anemia in other chronic diseases classified elsewhere; I36.1 Nonrheumatic tricuspid (valve) insufficiency; C64.9 Malignant neoplasm of unspecified kidney, except renal pelvis; C79.9 Secondary malignant neoplasm of unspecified site; I27.2 Other secondary pulmonary hypertension
CPT/HCPCS: 32555; 36415; 36600; 70030-TC; 71010; 83615; 83735; 83986; 84100; 84145; 84155; 85025; 85730; 86850; 86900; 86901; 86920; 87040; 87070; 87075; 87077; 87205; 87400; 87798; 90937; 93005; 93307; 94660; 94664; A4663; J0278; J0282; J1170; J1200; J2543; J2920; J3370; J3490; J7040; J7050; J7060; P9016-BL; P9017-BL; P9021; P9035-BL; P9047

== ENCOUNTER 2016-08-01 21:30 | Inpatient (IN) | payer MEDICAID, MEDICARE ==
[~2016-08-01] VITALS: Ht 177.8 cm; Wt 83.0 kg
[~2016-08-01 21:30] MED LIST changes: +LEVO500T15 PO; +PRED20TA PO
[2016-08-01 23:21] LABS: ALBUMIN 2.1 g/dL (3.4-5.0); BILIRUBIN,DIRECT 1.3 mg/dL (0.0-0.2); BILIRUBIN,TOTAL 1.8 mg/dL (0.2-1.0); CALCIUM 7.8 mg/dL (8.5-10.1); POTASSIUM 4.3 mmol/L (3.5-5.1); TOTAL PROTEIN, SERUM 7.9 g/dL (6.4-8.2)
[2016-08-01 23:22] LABS: BASOPHILS % (AUTO) 0.2 % (0.0-2.0); EOSINOPHILS # (AUTO) 0.3 K/uL (0.0-0.7); EOSINOPHILS % (AUTO) 2.3 % (0.0-7.0); LYMPHOCYTES # (AUTO) 2.2 K/uL (20.0-40.0); LYMPHOCYTES % (AUTO) 16.7 % (20.5-51.5); MEAN CORPUSCULAR HEMOGLOBIN 29.7 uug (23.8-33.4); MEAN CORPUSCULAR HGB CONC 34 g/dL (32.5-36.3); MEAN CORPUSCULAR VOLUME 86.4 fL (73.0-96.2); MONOCYTES # (AUTO) 1.4 K/uL (2.0-10.0); MONOCYTES % (AUTO) 10.9 % (0.0-11.0); NEUTROPHILS # (AUTO) 9.4 K/uL (1.8-8.9); NEUTROPHILS % (AUTO) 69.9 % (38.5-71.5); PLATELET COUNT (AUTO) 55 K/uL (152-348); RED CELL DISTRIBUTION WIDTH 15.2 % (12.1-16.2); WHITE BLOOD COUNT (AUTO) 13.3 K/uL (3.6-10.2)
[2016-08-01 23:23] LABS: RED BLOOD CELL COUNT(AUTO) 2.14 MIL/uL (4.06-5.63)
[2016-08-01 23:25] LABS: HEMATOCRIT 18.5 % (36.7-47.1); HEMOGLOBIN 6.4 g/dL (12.5-16.3)
[2016-08-01 23:28] LABS: CREATININE 7.3 mg/dL (0.6-1.3)
[2016-08-01 23:31] LABS: EOSINOPHILS % (MANUAL) 3 % (0-8); LYMPHOCYTES % (MANUAL) 20 % (20-40); MONOCYTES % (MANUAL) 11 % (2-10); NEUTROPHILS % (MANUAL) 66 % (42-75)
[2016-08-01 23:34] LABS: ANISOCYTOSIS 1+; PLATELET ESTIMATE DECREASED
[2016-08-01 23:35] LABS: TARGET CELLS 1+
[2016-08-01] MEDS ORDERED: HYDROMORPHONE 1 MG/1 ML DISP.SYRIN ONE (23:59)
[2016-08-02] MEDS ORDERED: diphenhydrAMINE 50 MG/1 ML VIAL IV ONE
[2016-08-02] MEDS ORDERED: HYDROMORPHONE 1 MG/1 ML DISP.SYRIN IV ONE
--- NOTE | 2016-08-02 01:00 | NUR ---
RECEIVED PATIENT VIA W/C FROM ER. PATIENT IS A/O X4. C/O DISCOMFORT UPON ADMISSION TO THE FLOOR. BP ELEVATED. ALL OTHER VSS. PLACED ON TELE ORDERED, SR IN THE 90'S. NO RESP. DISTRESS NOTED. FAY-CATH NOTED TO RIGHT UPPER CHEST AND AV SHUNT NOTED TO RIGHT UPPER ARM. CALL LIGHT IN REACH. ALL NEEDS ATTENDED. WILL CONTINUE TO MONITOR.
[2016-08-02 01:20] VITALS: BP 169/105
--- NOTE | 2016-08-02 01:24 | NUR ---
Pt. admitted to Telemetry , under care of Dr. Roberson. Dx: Anemia Belongs List completed
[2016-08-02] MEDS: HYDROMORPHONE 2 MG/1 ML DISP.SYRIN IV PRN ×5 (01:57→22:29)
[2016-08-02] MEDS ORDERED: HYDROMORPHONE 2 MG/1 ML DISP.SYRIN ONE ×2 (02:01→06:27)
--- NOTE | 2016-08-02 02:01 | NUR ---
PATIENT GIVEN DILAUDID 1MG IV PRN PER CLASSIFIED ADVERTISING SUPERVISOR FOR PAIN.
[2016-08-02 04:00] VITALS: BP 144/75
[2016-08-02] MEDS: diphenhydrAMINE 50 MG/1 ML VIAL IV PRN ×3 (06:24→22:28)
[2016-08-02] MEDS ORDERED: diphenhydrAMINE 50 MG/1 ML VIAL ONE ×2 (06:25)
--- NOTE | 2016-08-02 06:25 | NUR ---
PATIENT AWAKE IN BED. C/O PAIN. PATIENT GIVEN DILAUDID 1MG IV PRN FOR PAIN AND BENADRYL 25MG IV PRN FOR ITCHING. VSS. ON TELE SR. CALL LIGHT IN REACH, ALL NEEDS ATTENDED. WILL CONTINUE TO MONITOR.
--- NOTE | 2016-08-02 06:34 | NUR ---
PATIENT RESTING IN BED. SLEPT WELL THROUGHOUT THE NIGHT. VSS. NO RESP. DISTRESS NOTED. CONTINUED ON O2 2L NC. CALL LIGHT IN REACH. ALL NEEDS ATTENDED. WILL CONTINUE TO MONITOR. Addendum: 08/02/16 at 0636 by KATHERINE LARA LVN ERROR- INCORRECT PATIENT.
[2016-08-02] MEDS ORDERED: CLONIDINE HCL 0.2 MG TABLET PO PRN (08:00)
[2016-08-02] MEDS ORDERED: predniSONE 20 MG TABLET PO SCH (08:00)
[2016-08-02] MEDS ORDERED: PROTEIN SUPPLEMENT (PROSTAT) 30 ML LIQUID PO SCH (08:00)
[2016-08-02] MEDS ORDERED: diphenhydrAMINE 50 MG/1 ML VIAL IV PRN (08:00)
[2016-08-02] MEDS ORDERED: HYDROCODONE/APAP 10-325 MG TABLET PO PRN (08:00)
[2016-08-02] MEDS ORDERED: ACETAMINOPHEN 325 MG TABLET PO PRN (08:00)
[2016-08-02 08:36] LABS: BASOPHILS # (AUTO) 0.1 K/uL (0.0-8.0); BASOPHILS % (AUTO) 0.3 % (0.0-2.0); EOSINOPHILS # (AUTO) 0.5 K/uL (0.0-0.7); EOSINOPHILS % (AUTO) 2.6 % (0.0-7.0); LYMPHOCYTES # (AUTO) 3.3 K/uL (20.0-40.0); LYMPHOCYTES % (AUTO) 18.6 % (20.5-51.5); MEAN CORPUSCULAR HEMOGLOBIN 30.1 uug (23.8-33.4); MEAN CORPUSCULAR HGB CONC 35 g/dL (32.5-36.3); MONOCYTES # (AUTO) 2.1 K/uL (2.0-10.0); MONOCYTES % (AUTO) 11.5 % (0.0-11.0); NEUTROPHILS # (AUTO) 11.9 K/uL (1.8-8.9); PLATELET COUNT (AUTO) 53 K/uL (152-348); RED CELL DISTRIBUTION WIDTH 15.2 % (12.1-16.2); WHITE BLOOD COUNT (AUTO) 17.9 K/uL (3.6-10.2)
[2016-08-02 08:38] LABS: RED BLOOD CELL COUNT(AUTO) 2.29 MIL/uL (4.06-5.63)
[2016-08-02 08:42] LABS: HEMOGLOBIN 6.9 g/dL (12.5-16.3)
[2016-08-02 08:43] LABS: HEMATOCRIT 19.7 % (36.7-47.1)
[2016-08-02 08:44] LABS: CALCIUM 8.3 mg/dL (8.5-10.1); MAGNESIUM 2.5 mg/dL (1.8-2.4); PHOSPHOROUS 4.7 mg/dL (2.5-4.9); POTASSIUM 4.1 mmol/L (3.5-5.1)
[2016-08-02 08:49] LABS: CREATININE 7.7 mg/dL (0.6-1.3)
[2016-08-02] MEDS ORDERED: LEVOFLOXACIN 500 MG TABLET PO SCH (09:00)
[2016-08-02] MEDS ORDERED: ACIDOPHILUS/BULGARICUS CHEW TAB PO SCH (09:00)
[2016-08-02] MEDS ORDERED: Medication Not On Formulary EA (Amlodipine Besylate/Benazepril (Lotrel 10-20 Mg Capsule) PO SCH (09:00)
[2016-08-02 09:15] LABS: EOSINOPHILS % (MANUAL) 5 % (0-8); LYMPHOCYTES % (MANUAL) 25 % (20-40); MONOCYTES % (MANUAL) 7 % (2-10); NEUTROPHILS % (MANUAL) 63 % (42-75)
[2016-08-02 09:16] LABS: PLATELET ESTIMATE DECRE
[2016-08-02 09:17] LABS: ANISOCYTOSIS 1+
[2016-08-02 09:18] LABS: HYPOCHROMASIA 1+
[2016-08-02] MEDS: CLONIDINE HCL 0.2 MG TABLET PO SCH ×3 (09:48→22:27)
[2016-08-02] MEDS: CARVEDILOL 25 MG TABLET PO SCH ×2 (09:48→17:23)
[2016-08-02] MEDS: HYDROXYUREA 500 MG CAPSULE PO SCH (09:49)
[2016-08-02] MEDS: CALCIUM ACETATE 667 MG CAPSULE PO SCH ×3 (09:49→17:23)
[2016-08-02] MEDS: BENAZEPRIL HCL 20 MG TABLET PO SCH (09:50)
[2016-08-02] MEDS: MINOXIDIL 2.5 MG TABLET PO SCH ×3 (09:50→17:22)
[2016-08-02] MEDS: FOLIC ACID/VITAMIN B COMP W-C TABLET PO SCH (09:50)
[2016-08-02] MEDS: AMLODIPINE 10 MG TABLET PO SCH (09:50)
[2016-08-02] MEDS: CINACALCET HCL 30 MG TABLET PO SCH (09:51)
[2016-08-02 11:25] VITALS: BP 140/88
[2016-08-02 15:35] VITALS: BP 133/77
[2016-08-02 19:00] VITALS: BP 124/74
--- NOTE | 2016-08-02 20:00 | NUR ---
PATIENT ASLEEP IN BED, RECEIVING DIALYSIS. NO RESP. DISTRESS NOTED. VSS. CALL LIGHT IN REACH, ALL NEEDS ATTENDED. WILL CONTINUE TO MONITOR.
--- NOTE | 2016-08-02 21:00 | NUR ---
PATIENT FINISHED HD. 4L REMOVED.
[2016-08-03 00:06] VITALS: BP 121/63
[2016-08-03] MEDS: diphenhydrAMINE 50 MG/1 ML VIAL IV PRN ×6 (02:24→23:13)
[2016-08-03] MEDS: HYDROMORPHONE 2 MG/1 ML DISP.SYRIN IV PRN ×6 (02:25→23:14)
[2016-08-03 04:00] VITALS: BP 101/59
[2016-08-03] MEDS: CLONIDINE HCL 0.2 MG TABLET PO SCH ×3 (06:00→22:07)
--- NOTE | 2016-08-03 06:18 | NUR ---
PATIENT AWAKE IN BED. SLEPT AT SMALL INTERVALS. CLONIDINE NOT GIVEN AT 0600 DUE TO LOW BP 101/59. WILL CONTINUE TO MONITOR. ALL NEEDS ATTENDED.
[2016-08-03 07:52] LABS: BASOPHILS % (AUTO) 0.1 % (0.0-2.0); EOSINOPHILS # (AUTO) 0.4 K/uL (0.0-0.7); LYMPHOCYTES # (AUTO) 3.2 K/uL (20.0-40.0); LYMPHOCYTES % (AUTO) 15.9 % (20.5-51.5); MEAN CORPUSCULAR HEMOGLOBIN 31.3 uug (23.8-33.4); MEAN CORPUSCULAR HGB CONC 36 g/dL (32.5-36.3); MEAN CORPUSCULAR VOLUME 86.9 fL (73.0-96.2); MONOCYTES # (AUTO) 2.2 K/uL (2.0-10.0); NEUTROPHILS # (AUTO) 14.2 K/uL (1.8-8.9); PLATELET COUNT (AUTO) 56 K/uL (152-348); RED CELL DISTRIBUTION WIDTH 15.6 % (12.1-16.2)
[2016-08-03 08:07] LABS: HEMOGLOBIN 6.6 g/dL (12.5-16.3)
[2016-08-03 08:09] LABS: HEMATOCRIT 18.2 % (36.7-47.1)
[2016-08-03] MEDS: CALCIUM ACETATE 667 MG CAPSULE PO SCH ×3 (08:59→19:12)
[2016-08-03] MEDS: CARVEDILOL 25 MG TABLET PO SCH ×2 (08:59→19:11)
[2016-08-03] MEDS: AMLODIPINE 10 MG TABLET PO SCH (09:00)
[2016-08-03] MEDS: BENAZEPRIL HCL 20 MG TABLET PO SCH (09:00)
[2016-08-03] MEDS: MINOXIDIL 2.5 MG TABLET PO SCH ×3 (09:00→19:09)
[2016-08-03] MEDS: HYDROXYUREA 500 MG CAPSULE PO SCH (09:21)
[2016-08-03] MEDS: FOLIC ACID/VITAMIN B COMP W-C TABLET PO SCH (09:23)
[2016-08-03] MEDS: CINACALCET HCL 30 MG TABLET PO SCH (09:24)
[2016-08-03 10:05] LABS: EOSINOPHILS % (MANUAL) 4 % (0-8); LYMPHOCYTES % (MANUAL) 13 % (20-40); MONOCYTES % (MANUAL) 8 % (2-10); NEUTROPHILS % (MANUAL) 75 % (42-75)
[2016-08-03 10:06] LABS: ANISOCYTOSIS 1+; HYPOCHROMASIA 1+; PLATELET ESTIMATE DECREASED
[2016-08-03 10:53] LABS: ALBUMIN 2.3 g/dL (3.4-5.0); BILIRUBIN,TOTAL 2.1 mg/dL (0.2-1.0); CALCIUM 7.3 mg/dL (8.5-10.1); MAGNESIUM 2.3 mg/dL (1.8-2.4); POTASSIUM 4.7 mmol/L (3.5-5.1); TOTAL PROTEIN, SERUM 7.7 g/dL (6.4-8.2)
[2016-08-03 11:06] LABS: CREATININE 6.3 mg/dL (0.6-1.3)
--- NOTE | 2016-08-03 11:39 | NUR ---
Clinical Pharmacy Note: Vancomycin Dosing per Pharmacy Subjective: Vancomycin IV to start on this 45 yo male, HD patient for cellulitis Objective: BUN 60/Scr 6.3 WBC 20 Temperature 99.6 ht 5' 10'' wt 177 lb Assessment/Plan: No HD has been scheduled for today. Will give vancomycin 1250mg IVPB x1 dose today. Will continue to dose as per vancomycin dosing protocol for dialysis patient using vanco pre-HD level. Plan to order vancomycin random level before next HD (not yet ordered). Will continue to dose per pre-HD vancomycin level. Will follow closely daily with you.
[2016-08-03 11:51] VITALS: BP 140/86
[2016-08-03] MEDS ORDERED: VANCOMYCIN IV 1,250 MG in IV DEXTROSE 5% 500 ML IV ONE (13:00)
[2016-08-03] MEDS ORDERED: VANCOMYCIN IV 1,500 MG in IV DEXTROSE 5% 500 ML IV ONE (13:00)
[2016-08-03 16:10] VITALS: BP 134/82
[2016-08-03 16:12] VITALS: BP 132/61
--- NOTE | 2016-08-03 19:30 | NUR ---
RESTING IN BED COMFORTABLY. NO ACUTE DISTRESS NOTED. ABLE TO MAKE NEEDS KNOWN. NEEDS ATTENDED. CALL LIGHT WITHIN REACH. WILL CONTINUE TO MONITOR
[2016-08-03 20:00] VITALS: BP 130/74
[2016-08-04] VITALS (9 sets, daily range): BP systolic 98–127; BP diastolic 49–72
[2016-08-04] MEDS: diphenhydrAMINE 50 MG/1 ML VIAL IV PRN ×5 (03:13→22:59)
[2016-08-04] MEDS: HYDROMORPHONE 2 MG/1 ML DISP.SYRIN IV PRN ×6 (03:13→23:00)
[2016-08-04] MEDS: CLONIDINE HCL 0.2 MG TABLET PO SCH ×3 (05:50→22:00)
--- NOTE | 2016-08-04 06:18 | NUR ---
SLEPT INTERMITTENTLY DURING THE SHIFT. NO ACUTE DISTRESS NOTED. HELD AM BP MED D/T LOW BLOOD PRESSURE. PAIN CONTROLLED WITH MEDICATION ORDERED. ALL DUE MEDS GIVEN ORDERED. KEPT COMFORTABLE AT ALL TIMES. NEEDS ATTENDED. CALL LIGHT WITHIN REACH
[2016-08-04 07:38] LABS: EOSINOPHILS # (AUTO) 0.2 K/uL (0.0-0.7); EOSINOPHILS % (AUTO) 1.2 % (0.0-7.0); LYMPHOCYTES # (AUTO) 3.8 K/uL (20.0-40.0); LYMPHOCYTES % (AUTO) 19.8 % (20.5-51.5); MEAN CORPUSCULAR HEMOGLOBIN 29.2 uug (23.8-33.4); MEAN CORPUSCULAR HGB CONC 34 g/dL (32.5-36.3); MEAN CORPUSCULAR VOLUME 85.9 fL (73.0-96.2); MONOCYTES # (AUTO) 2.1 K/uL (2.0-10.0); MONOCYTES % (AUTO) 10.7 % (0.0-11.0); NEUTROPHILS # (AUTO) 13.2 K/uL (1.8-8.9); NEUTROPHILS % (AUTO) 68.3 % (38.5-71.5); PLATELET COUNT (AUTO) 59 K/uL (152-348); RED CELL DISTRIBUTION WIDTH 15.6 % (12.1-16.2); WHITE BLOOD COUNT (AUTO) 19.3 K/uL (3.6-10.2)
[2016-08-04 07:42] LABS: RED BLOOD CELL COUNT(AUTO) 2.03 MIL/uL (4.06-5.63)
[2016-08-04 07:43] LABS: HEMOGLOBIN 5.9 g/dL (12.5-16.3)
[2016-08-04 07:44] LABS: HEMATOCRIT 17.5 % (36.7-47.1)
[2016-08-04 07:57] LABS: ALBUMIN 2.2 g/dL (3.4-5.0); BILIRUBIN,TOTAL 2.2 mg/dL (0.2-1.0); MAGNESIUM 2.4 mg/dL (1.8-2.4); PHOSPHOROUS 4.7 mg/dL (2.5-4.9); POTASSIUM 5.4 mmol/L (3.5-5.1); TOTAL PROTEIN, SERUM 7.4 g/dL (6.4-8.2)
--- NOTE | 2016-08-04 08:00 | NUR ---
awake alert and oriented, states pain 06/20- explained plan of care-verbalized understanding, portacath on the right upper chest area, patent, right arm av shunt width good thrill/bruit, call klite within reach, needs attended
[2016-08-04] MEDS: CARVEDILOL 25 MG TABLET PO SCH ×2 (08:12→17:41)
[2016-08-04] MEDS: CALCIUM ACETATE 667 MG CAPSULE PO SCH ×3 (08:12→17:40)
[2016-08-04 08:18] LABS: CREATININE 7.3 mg/dL (0.6-1.3)
[2016-08-04] MEDS: CINACALCET HCL 30 MG TABLET PO SCH (08:33)
[2016-08-04] MEDS: FOLIC ACID/VITAMIN B COMP W-C TABLET PO SCH (08:33)
[2016-08-04] MEDS: HYDROXYUREA 500 MG CAPSULE PO SCH (08:36)
[2016-08-04] MEDS: BENAZEPRIL HCL 20 MG TABLET PO SCH ×2 (08:38→14:36)
[2016-08-04] MEDS: MINOXIDIL 2.5 MG TABLET PO SCH ×3 (08:39→17:41)
--- NOTE | 2016-08-04 09:00 | NUR ---
BP meds not given- for dialysis today
--- NOTE | 2016-08-04 09:30 | NUR ---
telephone diaphragm assembler here-opt to have 2 units PRBC with dialysis
--- NOTE | 2016-08-04 09:38 | NUR ---
first unit started- vss- will monitor closely
--- NOTE | 2016-08-04 09:55 | NUR ---
vs s- no blood reaction noted, dialysis in progress
--- NOTE | 2016-08-04 09:56 | NUR ---
clarified width Dr Holland re order of PRBC- pt needs only 2 PRBC which was ordered 08/02
--- NOTE | 2016-08-04 10:15 | NUR ---
first unit completed, 2 nd unit started thereafter, vs stable - will continue to monitor closely
[2016-08-04 10:49] LABS: BASOPHILS % (MANUAL) 1 % (0-2); EOSINOPHILS % (MANUAL) 2 % (0-8); LYMPHOCYTES % (MANUAL) 20 % (20-40); MONOCYTES % (MANUAL) 4 % (2-10); NEUTROPHILS % (MANUAL) 73 % (42-75)
[2016-08-04 10:50] LABS: HYPOCHROMASIA 1+; PLATELET ESTIMATE DECREASED
[2016-08-04 10:51] LABS: ANISOCYTOSIS 1+; TARGET CELLS 1+
--- NOTE | 2016-08-04 11:05 | NUR ---
BT completed, vs stable, no blood transfusion reaction noted
--- NOTE | 2016-08-04 13:29 | NUR ---
Discharge Plan: Spoke to Helena, admissions from [facility] [ ; [address], [place] [address]] and she confirmed that they will admit him once stable.
--- NOTE | 2016-08-04 16:50 | NUR ---
Clinical Pharmacy Note: Vancomycin Dosing per Pharmacy Subjective: Vancomycin IV to continue on this 45 yo male, HD patient for cellulitis Objective: BUN 71/Scr 7.3 WBC 19.3 Temperature 98.6 ht 5' 10'' wt 177 lb Pre HD level 15.6 Assessment/Plan: HD scheduled for today. Based on preHD level, will give vancomycin 500mg x1 dose today. Due at 1530 today after HD completed. Will continue to dose as per vancomycin dosing protocol for dialysis patient using vanco pre-HD level. Plan to order vancomycin random level before next HD (not yet ordered). Will continue to dose per pre-HD vancomycin level. Will follow closely daily with you.
[2016-08-04] MEDS ORDERED: VANCOMYCIN IV 500 MG in IV DEXTROSE 5% 100 ML IV ONE (17:30)
--- NOTE | 2016-08-04 18:34 | NUR ---
resting in bed, appetite fair to good, all needs attended and met, call light within reach, no distress noted
--- NOTE | 2016-08-04 20:00 | NUR ---
RECEIVED PATIENT ASLEEP IN BED. EASILY AROUSABLE. NO C/O PAIN AT THIS TIME. NO RESP. DISTRESS NOTED. VSS. CALL LIGHT IN REACH. ALL NEEDS ATTENDED. WILL CONTINUE TO MONITOR.
[2016-08-05] MEDS: diphenhydrAMINE 50 MG/1 ML VIAL IV PRN ×3 (03:05→11:40)
[2016-08-05] MEDS: HYDROMORPHONE 2 MG/1 ML DISP.SYRIN IV PRN ×4 (03:06→15:30)
[2016-08-05 04:00] VITALS: BP 102/60
[2016-08-05] MEDS: CLONIDINE HCL 0.2 MG TABLET PO SCH ×2 (06:00→14:09)
--- NOTE | 2016-08-05 06:18 | NUR ---
PATIENT ASLEEP IN BED. VSS. NO C/O PAIN OR DISCOMFORT AT THIS TIME. NO RESP. DISTRESS NOTED. CALL LIGHT IN REACH. ALL NEEDS ATTENDED. WILL CONTINUE TO MONITOR AND ASSESS .
[2016-08-05 06:52] LABS: EOSINOPHILS # (AUTO) 0.2 K/uL (0.0-0.7); EOSINOPHILS % (AUTO) 1.3 % (0.0-7.0); HEMATOCRIT 22.5 % (36.7-47.1); HEMOGLOBIN 8.1 g/dL (12.5-16.3); LYMPHOCYTES # (AUTO) 2.7 K/uL (20.0-40.0); LYMPHOCYTES % (AUTO) 18.2 % (20.5-51.5); MEAN CORPUSCULAR HEMOGLOBIN 30.8 uug (23.8-33.4); MEAN CORPUSCULAR HGB CONC 36 g/dL (32.5-36.3); MEAN CORPUSCULAR VOLUME 85.9 fL (73.0-96.2); MONOCYTES # (AUTO) 1.5 K/uL (2.0-10.0); MONOCYTES % (AUTO) 10.3 % (0.0-11.0); NEUTROPHILS # (AUTO) 10.5 K/uL (1.8-8.9); NEUTROPHILS % (AUTO) 70.2 % (38.5-71.5); PLATELET COUNT (AUTO) 65 K/uL (152-348); RED BLOOD CELL COUNT(AUTO) 2.62 MIL/uL (4.06-5.63); RED CELL DISTRIBUTION WIDTH 15.4 % (12.1-16.2); WHITE BLOOD COUNT (AUTO) 14.9 K/uL (3.6-10.2)
[2016-08-05 07:07] LABS: ALBUMIN 2.3 g/dL (3.4-5.0); CALCIUM 6.5 mg/dL (8.5-10.1); MAGNESIUM 2.1 mg/dL (1.8-2.4); PHOSPHOROUS 4.1 mg/dL (2.5-4.9); POTASSIUM 4.4 mmol/L (3.5-5.1); TOTAL PROTEIN, SERUM 7.8 g/dL (6.4-8.2)
[2016-08-05 07:35] LABS: CREATININE 6.2 mg/dL (0.6-1.3)
--- NOTE | 2016-08-05 08:00 | NUR ---
awake alert and oriented, medicated for c/o lower back, right arm av shunt with good thrill/bruit, right upper chest area portacath- patent and in place, explained plan of care- verbalized understanding, call lite within reach
[2016-08-05] MEDS: CARVEDILOL 25 MG TABLET PO SCH (08:10)
[2016-08-05] MEDS: CALCIUM ACETATE 667 MG CAPSULE PO SCH ×2 (08:10→12:23)
[2016-08-05] MEDS: MINOXIDIL 2.5 MG TABLET PO SCH ×2 (08:11→12:24)
[2016-08-05] MEDS: FOLIC ACID/VITAMIN B COMP W-C TABLET PO SCH (08:11)
[2016-08-05] MEDS: CINACALCET HCL 30 MG TABLET PO SCH (08:11)
[2016-08-05] MEDS: BENAZEPRIL HCL 20 MG TABLET PO SCH (08:11)
[2016-08-05] MEDS: HYDROXYUREA 500 MG CAPSULE PO SCH (08:13)
[2016-08-05] MEDS ORDERED: RXVAN XX (08:52)
[2016-08-05] MEDS ORDERED: BENA20TA2 PO (08:52)
--- NOTE | 2016-08-05 09:00 | NUR ---
Dr Shaikh here and saw pt [facility] pt informed and in agreement
[2016-08-05 11:38] VITALS: BP 125/71
[2016-08-05] MEDS ORDERED: VANCOMYCIN IV 500 MG in IV DEXTROSE 5% 100 ML IV ONE (11:45)
--- NOTE | 2016-08-05 12:00 | NUR ---
lunch served- appetite fair, all needs attended and met
--- NOTE | 2016-08-05 13:30 | NUR ---
ambulance here- report given, pt states car is parked at the pt loading only- security called and informed- spoke to pt- cannot move his car but will have car parked in the area until pt's friend will come to pick it up. Addendum: 08/05/16 at 1558 by BARRY YOUNGBLOOD RN erroe time should be 1530
--- NOTE | 2016-08-05 13:45 | NUR ---
called [facility] and report given to Naima - to leave portacat accessed- pt will be on Vancomycin post HD
--- NOTE | 2016-08-05 14:08 | NUR ---
Clinical Pharmacy Note: Vancomycin Dosing per Pharmacy Subjective: Vancomycin IV to continue on this 45 yo male, HD patient for cellulitis Objective: BUN 59/Scr 6.2 WBC 14.9 Temperature 97.7 Assessment/Plan: No HD scheduled for today. No dose shall be due today as per vancomycin dosing protocol for HD patients. Will continue to dose as Will continue to dose per pre-HD vancomycin level. Will follow closely daily with you.
[2016-08-05 14:09] VITALS: BP 119/65
--- NOTE | 2016-08-05 15:30 | NUR ---
c/o pain low back 11/20- medicated with Dilaudid 2mg iv as prn BP 119/65 HR 72
--- NOTE | 2016-08-05 15:40 | NUR ---
taken per stretcher in stable condition with all belongings
[2016-08-22] MEDS ORDERED: ACID1TAB4 PO (07:08)
== END 2016-08-05 15:35 | DRG 194 ==
LOC: ER 21:34 → TELE 08-02 00:31 → MED 08-03 08:05
PROVIDERS: ADMIT Internal Medicine; ATTEND Internal Medicine
PROC: 5A1D60Z (ICD-10-PCS; principal; 2016-08-02)
PROC: 30233N1 Transfusion of Nonautologous Red Blood Cells into Peripheral Vein, Percutaneous Approach (ICD-10-PCS; 2016-08-04)
DX: I13.2 Hypertensive heart and chronic kidney disease with heart failure and with stage 5 chronic kidney disease, or end stage renal disease (principal); N18.6 End stage renal disease; Z99.2 Dependence on renal dialysis; I50.32 Chronic diastolic (congestive) heart failure; D57.1 Sickle-cell disease without crisis; I25.10 Atherosclerotic heart disease of native coronary artery without angina pectoris; K21.9 Gastro-esophageal reflux disease without esophagitis; G89.4 Chronic pain syndrome; D72.829 Elevated white blood cell count, unspecified; Z96.643 Presence of artificial hip joint, bilateral; D64.9 Anemia, unspecified; N28.89 Other specified disorders of kidney and ureter
CPT/HCPCS: 36415; 70030-TC; 71010; 83735; 84100; 85025; 85730; 86850; 86900; 86901; 86920; 90937; 97001; 97110; 97116; 97530; A4663; J1170; J1200; J3370; J7030; J7050; J7060; P9016-BL; P9021

== ENCOUNTER 2016-08-12 02:02 | Inpatient (IN) | payer MEDICAID, MEDICARE ==
[~2016-08-12] VITALS: Ht 177.8 cm; Wt 84.4 kg
[2016-08-12] VITALS (10 sets, daily range): BP systolic 87–115; BP diastolic 47–75
[~2016-08-12 02:02] MED LIST changes: -ACID1TAB4 PO; -AMLO1CAP PO; +BENA20TA2 PO; -DIPH50VI5 IV; -LEVO500T15 PO; -PRED20TA PO; -PROT946L PO; +RXVAN XX
--- NOTE | 2016-08-12 02:15 | NUR ---
pt bib rescue, pt c/o generalized body pain. pt is alert, oriented x 4, no resp distress noted or reported upon assessment... md at bedside...
[2016-08-12] MEDS ORDERED: HYDROMORPHONE 1 MG/1 ML DISP.SYRIN IV ONE ×4 (02:30→07:15)
[2016-08-12] MEDS ORDERED: diphenhydrAMINE 50 MG/1 ML VIAL IV ONE ×3 (02:45→07:15)
[2016-08-12 02:51] LABS: CALCIUM 8.4 mg/dL (8.5-10.1); CREATININE 5.2 mg/dL (0.6-1.3); MEAN CORPUSCULAR HGB CONC 36 g/dL (32.5-36.3); POTASSIUM 4.2 mmol/L (3.5-5.1)
[2016-08-12] MEDS ORDERED: diphenhydrAMINE 50 MG/1 ML VIAL ONE ×3 (02:51→07:25)
[2016-08-12] MEDS ORDERED: HYDROMORPHONE 2 MG/1 ML DISP.SYRIN ONE (02:52)
[2016-08-12 02:54] LABS: MEAN CORPUSCULAR HEMOGLOBIN 30.3 uug (23.8-33.4); MEAN CORPUSCULAR VOLUME 84.2 fL (73.0-96.2); RED CELL DISTRIBUTION WIDTH 15.7 % (12.1-16.2); WHITE BLOOD COUNT (AUTO) 10.8 K/uL (3.6-10.2)
[2016-08-12 02:55] LABS: RED BLOOD CELL COUNT(AUTO) 1.91 MIL/uL (4.06-5.63)
[2016-08-12 02:56] LABS: HEMATOCRIT 16.1 % (36.7-47.1); HEMOGLOBIN 5.8 g/dL (12.5-16.3); PLATELET COUNT (AUTO) 36 K/uL (152-348)
[2016-08-12 02:57] LABS: ALBUMIN 2.1 g/dL (3.4-5.0); BILIRUBIN,DIRECT 1.7 mg/dL (0.0-0.2); BILIRUBIN,TOTAL 2.3 mg/dL (0.2-1.0); TOTAL PROTEIN, SERUM 7.1 g/dL (6.4-8.2)
[2016-08-12] MEDS ORDERED: ONDANSETRON 4 MG/2 ML VIAL ONE ×2 (03:00→04:57)
[2016-08-12] MEDS ORDERED: ONDANSETRON 4 MG/2 ML VIAL IV ONE ×2 (03:00→05:00)
[2016-08-12 03:05] LABS: EOSINOPHILS % (MANUAL) 3 % (0-8); LYMPHOCYTES % (MANUAL) 23 % (20-40); MONOCYTES % (MANUAL) 13 % (2-10); NEUTROPHILS % (MANUAL) 61 % (42-75)
[2016-08-12 03:06] LABS: PLATELET ESTIMATE MARKED DECREASED
[2016-08-12 03:07] LABS: ANISOCYTOSIS 2+; TARGET CELLS 1+
[2016-08-12] MEDS ORDERED: HYDROMORPHONE 1 MG/1 ML DISP.SYRIN ONE ×3 (03:55→07:26)
[2016-08-12] MEDS ORDERED: DICL30AD3 PO (04:03)
[2016-08-12] MEDS ORDERED: DILAUDID (04:06)
[2016-08-12] MEDS ORDERED: LACTOBACILLUS PO (04:10)
[2016-08-12] MEDS ORDERED: PROT946L PO (04:11)
--- NOTE | 2016-08-12 04:15 | NUR ---
SECRETARY OF STATE TO TAKE PT FOR SCAN...
[2016-08-12] MEDS ORDERED: VANC1VIA4 IV (04:16)
[2016-08-12] MEDS ORDERED: ASCO250T7 PO (04:17)
[2016-08-12] MEDS ORDERED: DIPH25PI2 IV (04:27)
--- NOTE | 2016-08-12 04:35 | NUR ---
PT RETURNED TO FROM CT SCAN...
--- NOTE | 2016-08-12 05:29 | NUR ---
PT IN BED AWAKE, RESTING, NO RESP DISTRESS NOTED OR REPORTED... WILL CONTINUE TO MONITOR PT FOR SAFETY, COMFORT, AND PAIN...
--- NOTE | 2016-08-12 05:50 | NUR ---
PER DEIRDRE CONTACTED [facility], SPOKE WITH GROOMING ASSISTANT CLINT WHO STATED WILL PAGE DR. RUSSO....
[2016-08-12] MEDS ORDERED: LEVOFLOXACIN 500 MG/D5W 100ML PIGGYBACK IV ONE (06:00)
[2016-08-12] MEDS ORDERED: PIPERACILLIN SODIUM/TAZOBACTAM 2.25 G in IV DEXTROSE 5% 50 ML IV ONE (06:00)
[2016-08-12] MEDS ORDERED: LEVOFLOXACIN 500 MG/D5W 100 ML ONE (06:07)
--- NOTE | 2016-08-12 06:16 | NUR ---
[facility] CALL [facility], SPOKE WITH JOAO, STATES WILL HAVE MD RUSSO PAGED...
[2016-08-12] MEDS ORDERED: PIPERACILLIN/TAZO 2.25 GM VIAL ONE (07:26)
[2016-08-12] MEDS ORDERED: PIPERACILLIN/TAZOBACTAM/D5W 50 ML IV ONE (07:27)
--- NOTE | 2016-08-12 07:46 | NUR ---
Pt trans to tele floor, NAD noted.
--- NOTE | 2016-08-12 07:54 | NUR ---
admitted from snf via er with adm dx of pneumonia/esrd alert and oreinted x3 no signs of acute distress, seen by dr HAGEN WITH ORDERS
[2016-08-12] MEDS ORDERED: ACETAMINOPHEN 325 MG TABLET PO PRN (09:00)
[2016-08-12] MEDS ORDERED: HYDROCODONE/APAP 10-325 MG TABLET PO PRN (09:00)
[2016-08-12] MEDS ORDERED: CLONIDINE HCL 0.2 MG TABLET PO PRN (09:00)
--- NOTE | 2016-08-12 09:15 | NUR ---
HEMODIALYSIS STARTED AT BEDSIDE
[2016-08-12] MEDS: HYDROMORPHONE 2 MG/1 ML DISP.SYRIN IV PRN ×3 (09:51→22:05)
[2016-08-12] MEDS: CINACALCET HCL 30 MG TABLET PO SCH (09:52)
[2016-08-12] MEDS: FOLIC ACID/VITAMIN B COMP W-C TABLET PO SCH (09:52)
[2016-08-12] MEDS: MINOXIDIL 2.5 MG TABLET PO SCH ×3 (09:52→17:00)
[2016-08-12] MEDS: ASCORBIC ACID 250 MG TABLET PO SCH (09:52)
[2016-08-12] MEDS: BENAZEPRIL HCL 20 MG TABLET PO SCH (09:53)
[2016-08-12] MEDS: CALCIUM ACETATE 667 MG CAPSULE PO SCH ×3 (09:54→17:24)
[2016-08-12] MEDS: CARVEDILOL 25 MG TABLET PO SCH ×2 (09:54→17:25)
--- NOTE | 2016-08-12 11:00 | NUR ---
FIRST UNIT OF BLOOD STARTED AND CLOSELY MONITORED
[2016-08-12] MEDS: HYDROXYUREA 500 MG CAPSULE PO SCH (11:10)
--- NOTE | 2016-08-12 11:32 | NUR ---
NO BLOOD TRANSFUSSION REACTION NOTED
--- NOTE | 2016-08-12 11:33 | NUR ---
FIRST UNIT OF BLOOD COMPLETED BY DIALYSIS
--- NOTE | 2016-08-12 11:41 | NUR ---
SECOND UNIT OF BLOOD STARTED
--- NOTE | 2016-08-12 12:03 | NUR ---
NO REACTION FROM SECOND UNIT OF BLOOD
--- NOTE | 2016-08-12 12:18 | NUR ---
END DIALYSIS, NO REACTIONS NOTED
--- NOTE | 2016-08-12 12:42 | NUR ---
Clinical Pharmacy Note: Vancomycin Dosing per Pharmacy Subjective: Vancomycin IV to continue on this 45 yo male dialysis patient for pna (continue from home) Objective: BUN 51/Scr 5.2 WBC 10.8 Temperature 97.4 Pre-HD level: 22.2 Assessment/Plan: HD has been scheduled for today as per HD RN. Since vancomycin pre-HD level is above 20 mcg/ml, no vancomycin dose shall be due today as per vancomycin dosing protocol for HD patients. Will continue to dose vancomycin per pre-HD level as per vancomycin dosing protocol for HD patients. Will continue to follow daily.
[2016-08-12] MEDS: PROTEIN SUPPLEMENT (PROSTAT) 30 ML LIQUID PO SCH ×2 (12:55→17:26)
--- NOTE | 2016-08-12 12:55 | NUR ---
1200 DOSE PHOSLO NOT GIVEN TOO FROM INITIAL DOSE
--- NOTE | 2016-08-12 12:57 | NUR ---
MINOXIDIL FOR 1300 NOT GIVEN TOO CLOSE FROM INITIAL DOSE
[2016-08-12] MEDS: ACIDOPHILUS/BULGARICUS CHEW TAB PO SCH ×2 (13:58→22:04)
[2016-08-12] MEDS: CLONIDINE HCL 0.2 MG TABLET PO SCH ×2 (13:58→22:00)
[2016-08-12] MEDS: diphenhydrAMINE 50 MG/1 ML VIAL IV PRN ×3 (13:58→22:05)
[2016-08-13] VITALS (9 sets, daily range): BP systolic 96–132; BP diastolic 46–64
[2016-08-13] MEDS: HYDROMORPHONE 2 MG/1 ML DISP.SYRIN IV PRN ×6 (02:07→23:07)
[2016-08-13] MEDS: diphenhydrAMINE 50 MG/1 ML VIAL IV PRN ×6 (02:08→23:00)
[2016-08-13] MEDS: CLONIDINE HCL 0.2 MG TABLET PO SCH ×2 (05:32→14:00)
[2016-08-13] MEDS: ACIDOPHILUS/BULGARICUS CHEW TAB PO SCH ×3 (06:03→21:01)
--- NOTE | 2016-08-13 06:37 | NUR ---
PT IN BED RESTING, ABLE TO MAKE NEEDS KNOWN. ON PAIN MANAGEMENT FOR LOWER BACK AND BILATERAL LEG PAIN, CONTROLLED WITH DILAUDID PRESCRIBED. CLONIDINE HELD LAST NIGHT AND THIS AM, BP LOW. V/S CHECKED AND RECORDED. AFEBRILE. FAY CATH ON R UPPER CHEST PATENT AND INTACT. ANURIC. SAFETY MAINTAINED. CALL LIGHT WITHIN REACH.
[2016-08-13 06:51] LABS: BASOPHILS # (AUTO) 0.1 K/uL (0.0-8.0); BASOPHILS % (AUTO) 0.4 % (0.0-2.0); EOSINOPHILS # (AUTO) 0.5 K/uL (0.0-0.7); EOSINOPHILS % (AUTO) 3.6 % (0.0-7.0); LYMPHOCYTES # (AUTO) 2.2 K/uL (20.0-40.0); LYMPHOCYTES % (AUTO) 16.4 % (20.5-51.5); MEAN CORPUSCULAR HEMOGLOBIN 30.6 uug (23.8-33.4); MEAN CORPUSCULAR HGB CONC 36 g/dL (32.5-36.3); MEAN CORPUSCULAR VOLUME 86.1 fL (73.0-96.2); MONOCYTES # (AUTO) 1.4 K/uL (2.0-10.0); MONOCYTES % (AUTO) 10.2 % (0.0-11.0); NEUTROPHILS # (AUTO) 9.3 K/uL (1.8-8.9); NEUTROPHILS % (AUTO) 69.4 % (38.5-71.5); RED CELL DISTRIBUTION WIDTH 15.8 % (12.1-16.2); WHITE BLOOD COUNT (AUTO) 13.5 K/uL (3.6-10.2)
[2016-08-13 07:20] LABS: RED BLOOD CELL COUNT(AUTO) 2.15 MIL/uL (4.06-5.63)
[2016-08-13 07:26] LABS: HEMOGLOBIN 6.6 g/dL (12.5-16.3)
[2016-08-13 07:27] LABS: HEMATOCRIT 18.5 % (36.7-47.1); PLATELET COUNT (AUTO) 21 K/uL (152-348)
[2016-08-13] MEDS: PROTEIN SUPPLEMENT (PROSTAT) 30 ML LIQUID PO SCH ×3 (08:00→17:00)
[2016-08-13] MEDS: CARVEDILOL 25 MG TABLET PO SCH ×2 (08:00→17:22)
--- NOTE | 2016-08-13 08:00 | NUR ---
RECEIVED PATIENT AWAKE, ALERT AND ORIENTED, NO S/S OF DISTRESS NOTED, NO SOB.
[2016-08-13] MEDS: CALCIUM ACETATE 667 MG CAPSULE PO SCH ×3 (08:24→17:21)
[2016-08-13] MEDS: FOLIC ACID/VITAMIN B COMP W-C TABLET PO SCH (08:24)
[2016-08-13] MEDS: CINACALCET HCL 30 MG TABLET PO SCH (08:24)
[2016-08-13] MEDS: ASCORBIC ACID 250 MG TABLET PO SCH (08:25)
[2016-08-13] MEDS: MINOXIDIL 2.5 MG TABLET PO SCH ×3 (08:26→17:00)
[2016-08-13] MEDS: HYDROXYUREA 500 MG CAPSULE PO SCH (08:26)
[2016-08-13] MEDS: BENAZEPRIL HCL 20 MG TABLET PO SCH (08:26)
[2016-08-13] MEDS ORDERED: VANCOMYCIN IV 1,250 MG in IV DEXTROSE 5% 500 ML IV ONE (08:30)
[2016-08-13 08:37] LABS: ALBUMIN 2.2 g/dL (3.4-5.0); BILIRUBIN,TOTAL 2.3 mg/dL (0.2-1.0); CALCIUM 7.4 mg/dL (8.5-10.1); MAGNESIUM 2.2 mg/dL (1.8-2.4); PHOSPHOROUS 4.9 mg/dL (2.5-4.9); POTASSIUM 5.3 mmol/L (3.5-5.1); TOTAL PROTEIN, SERUM 7.2 g/dL (6.4-8.2)
[2016-08-13 08:59] LABS: CREATININE 5.5 mg/dL (0.6-1.3)
--- NOTE | 2016-08-13 10:00 | NUR ---
SEEN BY DR PAGE, NOTED LABS AND STARTED PT ON ANTIBIOTICS.
[2016-08-13 11:17] LABS: EOSINOPHILS % (MANUAL) 2 % (0-8); LYMPHOCYTES % (MANUAL) 17 % (20-40); MONOCYTES % (MANUAL) 10 % (2-10); NEUTROPHILS % (MANUAL) 71 % (42-75); PLATELET ESTIMATE MARKED DECREASED
[2016-08-13 11:19] LABS: ANISOCYTOSIS 1+; HYPOCHROMASIA 2+; TARGET CELLS 1+
[2016-08-13 11:59] LABS: THYROID STIMULATING HORMONE 3.247 mIU/mL (0.358-3.740)
--- NOTE | 2016-08-13 12:00 | NUR ---
CONTINUE WITH PAIN MANAGEMENT, SCHEDULED FOR HEMODIALYSIS
--- NOTE | 2016-08-13 12:26 | NUR ---
Clinical Pharmacy Note: Vancomycin Dosing per Pharmacy Subjective: Vancomycin IV to continue on this 45 yo male dialysis patient for pna (continue from home) Objective: BUN 62/Scr 5.5 WBC 13.5 Temperature 98.6 Pre-HD level: 18.1 Assessment/Plan: HD has been scheduled for today, will dose one time of 500mg today after dialysis per pre-HD level per vancomycin dosing protocol for HD patients. Will continue to dose vancomycin per pre-HD level as per vancomycin dosing protocol for HD patients. Will continue to follow daily.
--- NOTE | 2016-08-13 13:00 | NUR ---
VOMITED SMALL AMOUNT OF ORANGE-LIKE VOMITUS, DR PAGE VERIFIED ORDERS FOR ZOFRAN W/GOOD RESULTS.
[2016-08-13] MEDS ORDERED: ONDANSETRON 4 MG/2 ML VIAL IV PRN (13:45)
--- NOTE | 2016-08-13 14:56 | NUR ---
FIRST UNIT OF BLOOD STARTED
--- NOTE | 2016-08-13 15:22 | NUR ---
FIRST UNIT COMPLETED NO REACTION NOTED
--- NOTE | 2016-08-13 15:25 | NUR ---
SECOND UNIT OF BLOOD STARTED
--- NOTE | 2016-08-13 15:45 | NUR ---
SECOND UNIT OF BLOOD COMPLETED NO ADVERSE REACTIONS
[2016-08-13] MEDS: PIPERACILLIN/TAZOBACTAM/D5W 50 ML IV SCH ×2 (16:52→21:01)
[2016-08-13] MEDS ORDERED: VANCOMYCIN IV 500 MG in IV DEXTROSE 5% 100 ML IV ONE (17:00)
[2016-08-13] MEDS ORDERED: PIPERACILLIN/TAZO 0.75 G in IV DEXTROSE 5% 50 ML IV ONE (18:00)
--- NOTE | 2016-08-13 18:16 | NUR ---
STARTED ZOSYN AND VANCOMYCIN WITH NO REACTION, WILL CONTINUE TO MONITOR VANCO TROUGH THROUGH PHARMACY, CONTINUE ORDERED.
--- NOTE | 2016-08-13 19:00 | NUR ---
PATIENT ALERT ORIENTED, NO SOB NO CHEST PAIN, SHUNT ON R UPPER ARM DRESSING INTACT NO BLEEDING NOTED, FAY CATH PATENT, NO S/S OF DISTRESS.
[2016-08-14] MEDS: HYDROMORPHONE 2 MG/1 ML DISP.SYRIN IV PRN ×5 (02:57→20:04)
[2016-08-14] MEDS: diphenhydrAMINE 50 MG/1 ML VIAL IV PRN ×5 (03:03→20:03)
--- NOTE | 2016-08-14 03:11 | NUR ---
Criteria Noted INITIAL ASSESSMENT Nutritional Assessment None of the Above Nutritional Risk Moderate Diagnosis ANEMIA Pertinent Medical Surgical History THYROID DISEASE LUNG MASS RESPIRATOR DISORDERS ESRD ANXIETY DEPRESSION SICKEL CELL DISEASE Subjective Information Pt is 45 y/o male who id admitted w/anemia sec to sickle cell s/p blood transfusion, patient was on HD time of visit. Education provided multiple times HEIGHT charted differently from when patient readmitted, as Ht was 65",69"70" Tolerating current diet, PO intake fluctuates, ranging between 0-100% of meals Anthropometry: Ht is 70", current wt is 192 lb,BMI 26.3, patient was 187lb on june 2016,wt might reflect due to fluid shift/HD Per MD notes; ESRD on HD today for uremia Sickle cell-transfusion with HD Physical assessment report suggest mild/moderate fat and muscle atrophy Current Diet Order renal 80 gm Pertinent Medications coreg, vit c, phoslo,nephrovite,vanco-no DNI Pertinent Labs 08/13: WBC-13.5 (h), h/h- 6.6/18.5 (l/l),Na-133 (l), k+5.3 (h), bun/cr-62/5.5 (h/h), Iron 207 (h), TIBC-175 (l), Ferritin-1136 (h), AST/ALT-106/113 (h/h), ALK Phos-248 (h) lactose dehydrogenase-236 (h), Hemocrit-18.2 (l) Intake and Output 5/3-1495 mls Height (Feet) 5 feet Height (Inches) 10.00 inches Patient Height 70 in Weight (Pounds) 183 pounds Patient Weight 192 Skin Breakdown No Skin Integrity Comment SKIN INTACT Recent Weight Change Yes - REFER TO SUBJ [place] Body Weight 166 % [place] Body Weight 110% Body Mass Index 26.3 Weight Status Above Difficulty With Chewing/Swallowing Prior to Admission No Food Allergies No Food Intolerances No Usual Diet At Home REGULAR Usual Appetite FAIR Cultural/Ethnic/Islam Considerations [place] Method Of Calculation 75 KB IBW Calories/Kcals/Kg 30-35 Kcals Calculated 9636-6740 Protein - g/kg 1.3-1.5 Protein Calculated 98-113 Fluid ml/kg 20-25 Fluid Calculated 2353-3234 Current Dietary Intake Fair(50-74%) Comments PO INTAKE < 75%,ELEVATED RENAL LABS,ANEMIA Abdominal Distention No Gastrointestinal Symptoms None Last BM 5/2 BM PRESENT Chewing/Swallowing NO DIFFICULTIES NOTED Nutrition Tolerance Comments TOLERATING CURRENT DIET Nutrition Problem #1 ALTERED NUTRITION LABS Nutrition Intervention/Recommendation #1 none indicated at this time Etiology #1 ESRD,ANEMIA Signs/Symptoms #1 REFER TO LABS Nutrition Problem #2 SUBOPTIMAL PO INTAKE Nutrition Intervention/Recommendation #2 IF PO INTAKE DECLINE < 75%,ADD KENNEDYJASIELYANN RENAL Etiology #2 CURRENT CONDITION,ON HD Signs/Symptoms #2 PO INTAKE < 75% OF MEALS Expected Outcomes/Goals IMPROVE IN PO INTAKE >60% IN 2-5 DAYS IMROVE IN RENAL,RBC ,WBC LABS IN 2-5 DAYS NO SIGNIFICANT WT CHANGES DURING HOSPITAL STAY NO N/V/D/c Addendum: 08/15/16 at [address] Amended: Links added.
[2016-08-14 04:00] VITALS: BP 112/63
[2016-08-14] MEDS: PIPERACILLIN/TAZOBACTAM/D5W 50 ML IV SCH ×3 (06:03→21:32)
[2016-08-14] MEDS: ACIDOPHILUS/BULGARICUS CHEW TAB PO SCH ×3 (06:03→21:32)
[2016-08-14 06:49] LABS: ALBUMIN 2.2 g/dL (3.4-5.0); BILIRUBIN,TOTAL 2.5 mg/dL (0.2-1.0); MAGNESIUM 2.1 mg/dL (1.8-2.4); PHOSPHOROUS 4.6 mg/dL (2.5-4.9); TOTAL PROTEIN, SERUM 7.3 g/dL (6.4-8.2)
[2016-08-14 06:56] LABS: CREATININE 5.5 mg/dL (0.6-1.3)
[2016-08-14 06:59] LABS: BASOPHILS % (AUTO) 0.1 % (0.0-2.0); EOSINOPHILS # (AUTO) 0.5 K/uL (0.0-0.7); EOSINOPHILS % (AUTO) 4.3 % (0.0-7.0); LYMPHOCYTES # (AUTO) 2.2 K/uL (20.0-40.0); MEAN CORPUSCULAR HEMOGLOBIN 30.3 UUG (27.0-31.0); MEAN CORPUSCULAR HGB CONC 35 g/dL (32.0-37.0); MEAN CORPUSCULAR VOLUME 86.8 FL (82.0-92.0); MONOCYTES # (AUTO) 1.4 K/uL (2.0-10.0); MONOCYTES % (AUTO) 12.3 % (0.0-11.0); NEUTROPHILS % (AUTO) 63.3 % (38.5-71.5); RED BLOOD CELL COUNT(AUTO) 2.61 MIL/UL (4.7-6.1); RED CELL DISTRIBUTION WIDTH 15.2 % (11.5-14.5); WHITE BLOOD COUNT (AUTO) 11.1 K/UL (4.0-11.2)
--- NOTE | 2016-08-14 07:07 | NUR ---
SLEPT MOST OF THE NIGHT, FAY CATH PATENT INTACT, SHUNT ON R UPPER ARM NO BLEEDING NOTED, CONT ON PAIN MANAGEMENT, NO DISTRESS.
[2016-08-14 07:28] LABS: HEMATOCRIT 22.6 % (40-50)
[2016-08-14 07:29] LABS: HEMOGLOBIN 7.9 G/DL (14.0-18.0); PLATELET COUNT (AUTO) 24 K/UL (150-450)
--- NOTE | 2016-08-14 07:46 | NUR ---
SEEN BY DR MELENDEZ WITH ORDERS. SEE NOTES
[2016-08-14] MEDS ORDERED: CARVEDILOL 25 MG TABLET PO SCH (08:00)
[2016-08-14] MEDS: PROTEIN SUPPLEMENT (PROSTAT) 30 ML LIQUID PO SCH ×3 (08:00→17:00)
[2016-08-14] MEDS: CINACALCET HCL 30 MG TABLET PO SCH (08:07)
[2016-08-14] MEDS: CALCIUM ACETATE 667 MG CAPSULE PO SCH ×3 (08:07→17:56)
[2016-08-14] MEDS: HYDROXYUREA 500 MG CAPSULE PO SCH (08:08)
[2016-08-14] MEDS: FOLIC ACID/VITAMIN B COMP W-C TABLET PO SCH (08:08)
[2016-08-14] MEDS: ASCORBIC ACID 250 MG TABLET PO SCH (08:08)
[2016-08-14 08:09] LABS: VIT D, 25-HYDROXY 9.3 ng/mL (30.0-100.0)
[2016-08-14] MEDS: BENAZEPRIL HCL 20 MG TABLET PO SCH (08:09)
[2016-08-14] MEDS: MINOXIDIL 2.5 MG TABLET PO SCH ×3 (08:09→17:57)
[2016-08-14] MEDS: CARVEDILOL 6.25 MG TABLET PO SCH ×2 (08:09→17:58)
--- NOTE | 2016-08-14 10:16 | NUR ---
Clinical Pharmacy Note: Vancomycin Dosing per Pharmacy Subjective: Vancomycin IV to continue on this 45 yo male dialysis patient for pna (continue from home) Objective: BUN 68/Scr 5.5 WBC 11.1 Temperature 97.8 Assessment/Plan: No HD has been scheduled for today per HD RN. No dose shall be due today per vancomycin dosing protocol for HD patients. Will continue to dose vancomycin per pre-HD level as per vancomycin dosing protocol for HD patients. Will continue to follow daily.
[2016-08-14 10:27] LABS: EOSINOPHILS % (MANUAL) 6 % (0-8); LYMPHOCYTES % (MANUAL) 20 % (20-40); MONOCYTES % (MANUAL) 11 % (2-10); NEUTROPHILS % (MANUAL) 63 % (42-75)
[2016-08-14 10:28] LABS: ANISOCYTOSIS 1+; PLATELET ESTIMATE MARKED DECREASED
[2016-08-14 10:29] LABS: OVALOCYTES 1+; TARGET CELLS 1+
[2016-08-14 10:31] LABS: HYPOCHROMASIA 1+
[2016-08-14 11:45] VITALS: BP 121/72
--- NOTE | 2016-08-14 12:00 | NUR ---
no acute change
--- NOTE | 2016-08-14 15:04 | NUR ---
Criteria Noted INITIAL ASSESSMENT Nutritional Assessment None of the Above Nutritional Risk Moderate Diagnosis ANEMIA Pertinent Medical Surgical History THYROID DISEASE LUNG MASS RESPIRATOR DISORDERS ESRD ANXIETY DEPRESSION SICKEL CELL DISEASE Subjective Information Pt is 45 y/o male who id admitted w/anemia sec to sickle cell s/p blood transfusion,is on HD, Education provided multiple times HEIGHT charted differently from when patient readmitted, as Ht was 65",69"70" Tolerating current diet, PO intake fluctuates, ranging between 0-100% of meals Anthropometry: Ht is 70", current wt is 192lb,BMI 27.6, patient was 187 lb on june 2016,wt might reflect due to fluid shift/HD Per MD notes; ESRD on HD today Sickle cell-transfusion with HD Physical assessment report suggest mild/moderate fat and muscle atrophy Current Diet Order renal 80 gm Pertinent Medications coreg, vit c, phoslo, nephrovite, vanco -no DNI Pertinent Labs 08/13: wbc-13.5 (h), h/h-6.6/18.5 (l/l), Na-133 (l),k+5.3 (h), BUN/Cr- 62/5.5 (h/h), ast/alt-106/113, alk phos-248 (h) lactose dehydrogenase-236 (h) Intake and Output 08/13-1495 mls Height (Feet) 5 feet Height (Inches) 10.00 inches Patient Height 70 in Weight (Pounds) 183 pounds Patient Weight 183 lb 183 lb Skin Breakdown No Skin Integrity Comment SKIN INTACT Recent Weight Change Yes - REFER TO SUBJ [place] Body Weight 166 % [place] Body Weight 110% Body Mass Index 26.3 Weight Status Above Difficulty With Chewing/Swallowing Prior to Admission No Food Allergies No Food Intolerances No Usual Diet At Home REGULAR Usual Appetite FAIR Cultural/Ethnic/Quaker Considerations [place] Method Of Calculation 75 KB IBW Calories/Kcals/Kg 30-35 Kcals Calculated 5582-4898 Protein - g/kg 1.3-1.5 Protein Calculated 98-113 Fluid ml/kg 20-25 Fluid Calculated 5495-4225 Current Dietary Intake Fair(50-74%) Comments PO INTAKE < 75%,ELEVATED RENAL LABS,ANEMIA Abdominal Distention No Gastrointestinal Symptoms None Last BM 08/03 BM PRESENT Chewing/Swallowing NO DIFFICULTIES NOTED Nutrition Tolerance Comments TOLERATING CURRENT DIET Nutrition Problem #1 ALTERED NUTRITION LABS Nutrition Intervention/Recommendation #1 REC NO PROTEIN RESTRICTION DIET,ON HD Etiology #1 ESRD,ANEMIA Signs/Symptoms #1 REFER TO LABS Nutrition Problem #2 SUBOPTIMAL PO INTAKE Nutrition Intervention/Recommendation #2 IF PO INTAKE DECLINE < 75%,WILL CONSIDER NOVASOURCE RENAL Etiology #2 CURRENT CONDITION,ON HD Signs/Symptoms #2 PO INTAKE < 75% OF MEALS Expected Outcomes/Goals IMPROVE IN PO INTAKE >60% IN 2-5 DAYS IMROVE IN RENAL,RBC ,WBC LABS IN 2-5 DAYS NO SIGNIFICANT WT CHANGES DURING HOSPITAL STAY NO N/V/D
[2016-08-14 15:48] VITALS: BP 114/62
--- NOTE | 2016-08-14 18:28 | NUR ---
CONTINUE WITH PAIN MANAGEMENT AND PLAN DC TOMORROW PER DR CLARK.
[2016-08-14 20:00] VITALS: BP 115/70
[2016-08-15] MEDS: HYDROMORPHONE 2 MG/1 ML DISP.SYRIN IV PRN ×6 (00:13→20:45)
[2016-08-15] MEDS: diphenhydrAMINE 50 MG/1 ML VIAL IV PRN ×6 (00:13→20:45)
[2016-08-15 05:06] LABS: HAPTOGLOBIN <10 mg/dL (34-200)
[2016-08-15] MEDS: ACIDOPHILUS/BULGARICUS CHEW TAB PO SCH ×3 (05:19→22:14)
[2016-08-15] MEDS: PIPERACILLIN/TAZOBACTAM/D5W 50 ML IV SCH ×3 (05:19→21:55)
[2016-08-15 06:01] VITALS: BP 121/75
--- NOTE | 2016-08-15 06:46 | NUR ---
PT RESTING IN BED, REMAINS ON PAIN MANAGEMENT. IN NO ACUTE SIGNS OF DISTRESS. ABLE TO MAKE NEEDS KNOWN. V/S CHECKED AND RECORDED. FAY CATH ON R CHEST PATENT AND INTACT. SAFETY MAINTAINED. CALL LIGHT WITHIN REACH.
--- NOTE | 2016-08-15 07:10 | NUR ---
PT IS LAYING IN BED COMFORTABLY. NO S/S OF RESPIRATORY DISTRESS NOTED. PT IS ON 3L NC. NO PAIN REPORTED. ALL SAFETY NEEDS ARE MET. WILL CONTINUE TO MONITOR.
[2016-08-15] MEDS: CARVEDILOL 6.25 MG TABLET PO SCH ×2 (08:00→18:07)
[2016-08-15] MEDS: FOLIC ACID/VITAMIN B COMP W-C TABLET PO SCH (08:08)
[2016-08-15] MEDS: ASCORBIC ACID 250 MG TABLET PO SCH (08:08)
[2016-08-15] MEDS: CALCIUM ACETATE 667 MG CAPSULE PO SCH ×3 (08:08→18:07)
[2016-08-15] MEDS: CINACALCET HCL 30 MG TABLET PO SCH (08:08)
[2016-08-15] MEDS: MINOXIDIL 2.5 MG TABLET PO SCH ×3 (08:09→16:15)
[2016-08-15] MEDS: BENAZEPRIL HCL 20 MG TABLET PO SCH (08:09)
[2016-08-15] MEDS: PROTEIN SUPPLEMENT (PROSTAT) 30 ML LIQUID PO SCH ×3 (08:17→16:16)
[2016-08-15] MEDS: HYDROXYUREA 500 MG CAPSULE PO SCH (08:17)
[2016-08-15 11:44] VITALS: BP 98/45
[2016-08-15 12:10] VITALS: BP 122/60
--- NOTE | 2016-08-15 13:24 | NUR ---
PT RECEIVED DIALYSIS, 3L OUT. NO S/S OF RESPIRATORY DISTRESS NOTED.
--- NOTE | 2016-08-15 15:14 | NUR ---
Clinical Pharmacy Note: Vancomycin Dosing per Pharmacy Subjective: Vancomycin IV to continue on this 45 yo male dialysis patient for pna (continue from home) Objective: BUN 68/Scr 5.5 (08/14) WBC 11.1 (08/14) Temperature 98.3 Post-HD level: 16.5 (today @1405), HD done in am and no am labs were taken today Assessment/Plan: HD done today, will dose one time 500mg vanco dose per post-HD level. Will continue to dose vancomycin per pre-HD level as per vancomycin dosing protocol for HD patients. Will continue to follow daily.
--- NOTE | 2016-08-15 15:33 | NUR ---
The patient will be discharged back to [facility] [ ; [address], [place] [address]] once medically cleared. Spoke to Val from [facility] who confirmed that they will re-admit the patient once stable.
[2016-08-15 15:50] VITALS: BP 127/67
[2016-08-15] MEDS ORDERED: VANCOMYCIN IV 500 MG in IV DEXTROSE 5% 100 ML IV ONE (16:00)
--- NOTE | 2016-08-15 18:32 | NUR ---
END OF SHIFT NOTE: V/S WNL. NO S/S OF RESPIRATORY DISTRESS NOTED. NO PAIN REPORTED/NOTED. ALL SAFETY NEEDS ARE MET.
[2016-08-15 19:00] VITALS: BP 121/64
--- NOTE | 2016-08-15 20:00 | NUR ---
RECEIVED PATIENT AWAKE IN BED. PATIENT IS A/O X4. C/O PAIN. PATIENT AWARE THAT PAIN MEDICATION IS NOT DUE UNTIL 2029. VSS. NO RESP. DISTRESS NOTED. FAY-CATH NOTED TO RIGHT UPPER CHEST. ON O2 3L NC. CALL LIGHT IN REACH. ALL NEEDS ATTENDED. WILL CONTINUE TO MONITOR.
[2016-08-15 20:14] VITALS: BP 121/64
[2016-08-16] VITALS (14 sets, daily range): BP systolic 115–144; BP diastolic 60–89
[2016-08-16] MEDS: HYDROMORPHONE 2 MG/1 ML DISP.SYRIN IV PRN ×6 (00:36→20:47)
[2016-08-16] MEDS: diphenhydrAMINE 50 MG/1 ML VIAL IV PRN ×5 (04:41→20:47)
[2016-08-16] MEDS: ACIDOPHILUS/BULGARICUS CHEW TAB PO SCH ×3 (05:26→21:38)
[2016-08-16] MEDS: PIPERACILLIN/TAZOBACTAM/D5W 50 ML IV SCH ×3 (05:36→21:38)
--- NOTE | 2016-08-16 06:20 | NUR ---
PATIENT DOZING ON AND OFF IN BED. NO S/S OF PAIN OR DISCOMFORT AT THIS TIME. NO RESP. DISTRESS NOTED. VSS. SLEPT AT INTERVALS THROUGHOUT THE NIGHT. CALL LIGHT IN REACH. ALL NEEDS ATTENDED. WILL CONTINUE TO MONITOR.
--- NOTE | 2016-08-16 07:00 | NUR ---
PT IS SLEEPING IN BED COMFORTABLY. NO S/S OF RESPIRATORY DISTRESS NOTED. PT IS ON 3L NC. NO PAIN NOTED. PORTACATH IS INTACT/PATENT. ALL SAFETY NEEDS ARE MET. WILL CONTINUE TO MONITOR.
[2016-08-16 07:02] LABS: BASOPHILS % (AUTO) 0.1 % (0.0-2.0); EOSINOPHILS # (AUTO) 0.6 K/uL (0.0-0.7); EOSINOPHILS % (AUTO) 5.1 % (0.0-7.0); LYMPHOCYTES # (AUTO) 2.6 K/uL (20.0-40.0); LYMPHOCYTES % (AUTO) 23.5 % (20.5-51.5); MEAN CORPUSCULAR HEMOGLOBIN 30.2 UUG (27.0-31.0); MEAN CORPUSCULAR HGB CONC 35 g/dL (32.0-37.0); MEAN CORPUSCULAR VOLUME 86.6 FL (82.0-92.0); MONOCYTES # (AUTO) 1.4 K/uL (2.0-10.0); MONOCYTES % (AUTO) 12.3 % (0.0-11.0); NEUTROPHILS # (AUTO) 6.5 K/uL (1.8-8.9); RED CELL DISTRIBUTION WIDTH 15.5 % (11.5-14.5); WHITE BLOOD COUNT (AUTO) 11.1 K/UL (4.0-11.2)
[2016-08-16 07:07] LABS: RED BLOOD CELL COUNT(AUTO) 2.47 MIL/UL (4.7-6.1)
[2016-08-16 07:08] LABS: ALBUMIN 2.2 g/dL (3.4-5.0); BILIRUBIN,TOTAL 1.8 mg/dL (0.2-1.0); CALCIUM 6.9 mg/dL (8.5-10.1); HEMATOCRIT 21.4 % (40-50); HEMOGLOBIN 7.5 G/DL (14.0-18.0); MAGNESIUM 2.1 mg/dL (1.8-2.4); PHOSPHOROUS 5.4 mg/dL (2.5-4.9); POTASSIUM 5.1 mmol/L (3.5-5.1); TOTAL PROTEIN, SERUM 7.3 g/dL (6.4-8.2)
[2016-08-16 07:09] LABS: PLATELET COUNT (AUTO) 22 K/UL (150-450)
[2016-08-16 07:12] LABS: CREATININE 5.7 mg/dL (0.6-1.3)
[2016-08-16] MEDS: BENAZEPRIL HCL 20 MG TABLET PO SCH (08:44)
[2016-08-16] MEDS: CINACALCET HCL 30 MG TABLET PO SCH (08:44)
[2016-08-16] MEDS: CALCIUM ACETATE 667 MG CAPSULE PO SCH ×3 (08:44→17:38)
[2016-08-16] MEDS: FOLIC ACID/VITAMIN B COMP W-C TABLET PO SCH (08:44)
[2016-08-16] MEDS: ASCORBIC ACID 250 MG TABLET PO SCH (08:44)
[2016-08-16] MEDS: MINOXIDIL 2.5 MG TABLET PO SCH ×3 (08:45→16:46)
[2016-08-16] MEDS: CARVEDILOL 6.25 MG TABLET PO SCH ×2 (08:45→17:38)
[2016-08-16] MEDS: HYDROXYUREA 500 MG CAPSULE PO SCH (08:47)
[2016-08-16] MEDS: PROTEIN SUPPLEMENT (PROSTAT) 30 ML LIQUID PO SCH ×3 (08:47→16:46)
--- NOTE | 2016-08-16 09:19 | NUR ---
DR. STEVENS STATES "PLEASE CALL ME, PT 'S LAB VALUE FOR HGB WILL BE LOW". NO NEW ORDERS Addendum: 08/16/16 at 1119 by CHRISTOPHER ALEX RN "PLEASE DON'T CALL ME..." PER DR. STEVENS
[2016-08-16 10:12] LABS: BASOPHILS % (MANUAL) 1 % (0-2); EOSINOPHILS % (MANUAL) 7 % (0-8); LYMPHOCYTES % (MANUAL) 18 % (20-40); MONOCYTES % (MANUAL) 12 % (2-10); NEUTROPHILS % (MANUAL) 62 % (42-75)
[2016-08-16 10:14] LABS: ANISOCYTOSIS 1+; TARGET CELLS 1+
[2016-08-16 10:15] LABS: PLATELET ESTIMATE MARKE
--- NOTE | 2016-08-16 13:37 | NUR ---
2700 ML OUT WITH DIALYSIS
--- NOTE | 2016-08-16 17:28 | NUR ---
Clinical Pharmacy Note: Vancomycin Dosing per Pharmacy Subjective: Vancomycin IV to continue on this 45 yo male dialysis patient for pna (continue from home) Objective: BUN 74/Scr 5.7 WBC 11.1 Temperature 98.7 PRE-HD level was ordered on AM blood (06:24)= 22.1 Assessment/Plan: HD done today, will hold the dose for now since level is above 20 and will order another level prior to next HD. Will continue to follow.
--- NOTE | 2016-08-16 19:27 | NUR ---
NO CHANGES NOTED. ALL SAFETY NEEDS ARE MET. NO S/S OF RESPIRATORY DISTRESS NOTED. PT IS ON 3L NC. V/S WNL. NO BLOOD TRANSFUSION REACTIONS NOTED.
--- NOTE | 2016-08-16 19:30 | NUR ---
SITTING ON BED. NO ACUTE DISTRESS NOTED. ABLE TO MAKE NEEDS KNOWN. S/P BLOOD TRANSFUSION. NO ADVERSE REACTION NOTED. CALL LIGHT WITHIN REACH. WILL CONTINUE TO MONITOR
--- NOTE | 2016-08-16 22:25 | NUR ---
PATIENT STATED HE HAD BM COUPLE OF DAYS WHILE HE IS ADMITTED. STILL OFFERED PRUNE JUICE
[2016-08-17] MEDS: diphenhydrAMINE 50 MG/1 ML VIAL IV PRN ×3 (00:47→08:48)
[2016-08-17] MEDS: HYDROMORPHONE 2 MG/1 ML DISP.SYRIN IV PRN ×3 (00:47→08:48)
[2016-08-17 05:25] VITALS: BP 135/84
[2016-08-17] MEDS: ACIDOPHILUS/BULGARICUS CHEW TAB PO SCH (05:31)
[2016-08-17] MEDS: PIPERACILLIN/TAZOBACTAM/D5W 50 ML IV SCH (05:31)
--- NOTE | 2016-08-17 06:04 | NUR ---
ABLE TO HAVE A BM TODAY. NO ACUTE DISTRESS NOTED. PAIN CONTROLLED WITH MEDICATIONS ORDERED. ALL DUE MEDS GIVEN ORDERED. NEEDS ATTENDED. CALL LIGHT WITHIN REACH
--- NOTE | 2016-08-17 07:48 | NUR ---
NO CHANGES NOTED. PT IS SLEEPING IN BED COMFORTABLY. ALL SAFETY NEEDS ARE MET.
[2016-08-17] MEDS: PROTEIN SUPPLEMENT (PROSTAT) 30 ML LIQUID PO SCH ×2 (08:12→11:14)
[2016-08-17] MEDS: BENAZEPRIL HCL 20 MG TABLET PO SCH (08:48)
[2016-08-17] MEDS: FOLIC ACID/VITAMIN B COMP W-C TABLET PO SCH (08:49)
[2016-08-17] MEDS: MINOXIDIL 2.5 MG TABLET PO SCH (08:49)
[2016-08-17] MEDS: CALCIUM ACETATE 667 MG CAPSULE PO SCH ×2 (08:49→11:14)
[2016-08-17] MEDS: CINACALCET HCL 30 MG TABLET PO SCH (08:49)
[2016-08-17] MEDS: CARVEDILOL 6.25 MG TABLET PO SCH (08:49)
[2016-08-17] MEDS: ASCORBIC ACID 250 MG TABLET PO SCH (08:49)
[2016-08-17] MEDS: HYDROXYUREA 500 MG CAPSULE PO SCH (08:59)
--- NOTE | 2016-08-17 10:06 | NUR ---
The patient will be discharged today back to [facility] [ ; [address] [place] [address]] via [facility]. He is in agreement with his discharge. His RN, Tatum, is aware of his discharge and will call the facility for the report.
[2016-08-17 11:30] VITALS: BP 136/80
--- NOTE | 2016-08-17 11:38 | NUR ---
DISCHARGE NOTE: PT IS ON 2L NC WITH 97% O2 SAT. NO RESPIRATORY DISTRESS NOTED. PORTACATH IS INTACT/PATENT. ALL SAFETY NEEDS ARE MET. BELONGING'S LIST IS SIGNED. EDUCATION IS PROVIDED. PT LEFT VIA AMBULANCE.
--- NOTE | 2016-08-17 11:40 | NUR ---
Clinical Pharmacy Note: Vancomycin Dosing per Pharmacy Subjective: Vancomycin IV to continue on this 45 yo male dialysis patient for pna (continue from home) Objective: BUN 74/Scr 5.7 (08/16) WBC 11.1 (08/16) Temperature 98.2 Assessment/Plan: No HD has been scheduled for today per HD RN. No dose shall be due today per vancomycin dosing protocol for HD patients. Will continue to dose vancomycin per pre-HD level as per vancomycin dosing protocol for HD patients. Will continue to follow daily.
== END 2016-08-17 11:44 | DRG 137 ==
LOC: ER 02:06 → TELE 07:32 → MED 08-13 08:54
PROVIDERS: ADMIT Internal Medicine; ATTEND Internal Medicine
PROC: 5A1D60Z (ICD-10-PCS; principal; 2016-08-12)
PROC: 30233N1 Transfusion of Nonautologous Red Blood Cells into Peripheral Vein, Percutaneous Approach (ICD-10-PCS; principal; 2016-08-12)
DX: J15.6 Pneumonia due to other Gram-negative bacteria (principal); I13.2 Hypertensive heart and chronic kidney disease with heart failure and with stage 5 chronic kidney disease, or end stage renal disease; D69.6 Thrombocytopenia, unspecified; N18.6 End stage renal disease; C79.9 Secondary malignant neoplasm of unspecified site; I27.2 Other secondary pulmonary hypertension; I50.32 Chronic diastolic (congestive) heart failure; C64.9 Malignant neoplasm of unspecified kidney, except renal pelvis; D57.1 Sickle-cell disease without crisis; Z99.2 Dependence on renal dialysis; K21.9 Gastro-esophageal reflux disease without esophagitis; N50.89 Other specified disorders of the male genital organs; G89.4 Chronic pain syndrome; Z96.643 Presence of artificial hip joint, bilateral; D64.9 Anemia, unspecified
CPT/HCPCS: 36415; 70030-TC; 71010; 82306; 82747; 83010; 83550; 83615; 83735; 84100; 84443; 85014; 85025; 85730; 86850; 86900; 86901; 86920; 87040; 93005; A4663; J1170; J1200; J1956; J2405; J2543; J3370; J7030; J7040; J7050; J7060; P9016-BL; P9021

== ENCOUNTER 2016-08-18 04:57 | Inpatient (IN) | payer MEDICAID, MEDICARE ==
[~2016-08-18] VITALS: Ht 177.8 cm; Wt 77.1 kg
[~2016-08-18 04:57] MED LIST changes: +ASCO250T7 PO; +DICL30AD3 PO; +DILAUDID; +DIPH25PI2 IV; +LACTOBACILLUS PO; +PROT946L PO; +VANC1VIA4 IV
[2016-08-18] MEDS ORDERED: HYDROMORPHONE 1 MG/1 ML DISP.SYRIN IV ONE ×3 (05:15→08:00)
[2016-08-18] MEDS ORDERED: ONDANSETRON 4 MG/2 ML VIAL IV ONE ×2 (05:15→08:00)
[2016-08-18] MEDS ORDERED: diphenhydrAMINE 50 MG/1 ML VIAL IV ONE ×2 (05:15→08:00)
--- NOTE | 2016-08-18 05:20 | NUR ---
pt in b/b private ambulance c/o nosebleed from rt nostril. c/o body ache (sickle cell).. seen and examined by dr Enamorado.
[2016-08-18 05:22] LABS: BASOPHILS # (AUTO) 0.1 K/uL (0.0-8.0); BASOPHILS % (AUTO) 0.7 % (0.0-2.0); EOSINOPHILS # (AUTO) 0.4 K/uL (0.0-0.7); EOSINOPHILS % (AUTO) 3.7 % (0.0-7.0); HEMOGLOBIN 7.7 G/DL (14.0-18.0); LYMPHOCYTES # (AUTO) 1.9 K/uL (20.0-40.0); LYMPHOCYTES % (AUTO) 18.5 % (20.5-51.5); MEAN CORPUSCULAR HEMOGLOBIN 29.2 UUG (27.0-31.0); MEAN CORPUSCULAR HGB CONC 34 g/dL (32.0-37.0); MEAN CORPUSCULAR VOLUME 85.3 FL (82.0-92.0); MONOCYTES # (AUTO) 1.2 K/uL (2.0-10.0); MONOCYTES % (AUTO) 11.5 % (0.0-11.0); NEUTROPHILS # (AUTO) 6.8 K/uL (1.8-8.9); NEUTROPHILS % (AUTO) 65.6 % (38.5-71.5); RED BLOOD CELL COUNT(AUTO) 2.62 MIL/UL (4.7-6.1); RED CELL DISTRIBUTION WIDTH 14.9 % (11.5-14.5); WHITE BLOOD COUNT (AUTO) 10.4 K/UL (4.0-11.2)
[2016-08-18] MEDS ORDERED: diphenhydrAMINE 50 MG/1 ML VIAL ONE ×2 (05:24→08:15)
[2016-08-18] MEDS ORDERED: HYDROMORPHONE 2 MG/1 ML DISP.SYRIN ONE (05:25)
[2016-08-18] MEDS ORDERED: ONDANSETRON 4 MG/2 ML VIAL ONE ×2 (05:25→08:16)
[2016-08-18 05:29] LABS: HEMATOCRIT 22.4 % (40-50); PLATELET COUNT (AUTO) 20 K/UL (150-450)
[2016-08-18] MEDS ORDERED: LET TOPICAL SOLUTION 8 ML UDC TP ONE (05:30)
[2016-08-18 05:34] LABS: ALBUMIN 2.3 g/dL (3.4-5.0); BILIRUBIN,DIRECT 1.1 mg/dL (0.0-0.2); BILIRUBIN,TOTAL 1.7 mg/dL (0.2-1.0); CALCIUM 7.5 mg/dL (8.5-10.1); POTASSIUM 4.9 mmol/L (3.5-5.1); TOTAL PROTEIN, SERUM 7.3 g/dL (6.4-8.2)
[2016-08-18 05:38] LABS: CREATININE 5.8 mg/dL (0.6-1.3)
[2016-08-18] MEDS ORDERED: LET TOPICAL SOLUTION 8 ML UDC ONE (05:41)
--- NOTE | 2016-08-18 05:51 | NUR ---
pt given iv pain meds and LET applied to nose.
--- NOTE | 2016-08-18 06:00 | NUR ---
short nasal packing inserted to rt nosetril by dr Enamorado.
[2016-08-18 06:25] LABS: BASOPHILS % (MANUAL) 1 % (0-2); EOSINOPHILS % (MANUAL) 5 % (0-8); LYMPHOCYTES % (MANUAL) 17 % (20-40); MONOCYTES % (MANUAL) 11 % (2-10); NEUTROPHILS % (MANUAL) 66 % (42-75)
[2016-08-18 06:27] LABS: PLATELET ESTIMATE MARKED DECREASED
[2016-08-18 06:28] LABS: ANISOCYTOSIS 1+; TARGET CELLS 1+; TEAR DROP CELLS 1+
[2016-08-18] MEDS ORDERED: HYDROMORPHONE 1 MG/1 ML DISP.SYRIN ONE ×2 (06:44→08:15)
--- NOTE | 2016-08-18 07:00 | NUR ---
pt for disch back to ns home, pt called and said he has chest pain, dr lama called and evaluated the pt , w/ orders.
[2016-08-18] MEDS ORDERED: NITROGLYCERIN 0.4 MG/TAB BOTTLE SL ONE ×2 (07:15→07:18)
--- NOTE | 2016-08-18 07:34 | NUR ---
Ntg sl, given to pt.x3.
--- NOTE | 2016-08-18 09:00 | NUR ---
hospital tray breakfast provided per pt request.
--- NOTE | 2016-08-18 09:45 | NUR ---
RECEIVED PATIENT FOR ADMISSION 45 YEARS OLD MALE FROM ED WITH DX OF CHEST PAIN PLACED INTO BED FIXED AND MADE COMFORTABLE.PATIENT IS ALERT AND ORIENTED DENIES PAIN OR DISCOMFORTS AT THIS TIME.HE HAS RIGHT NARES PACKING WITH NO BLEEDING AT THIS TIME.NO SHORTNESS OF BREATH.BOTH LOWER EXT VERY SWOLLEN ENCOURAGED TO ELEVATE ON THE PILLOW AND HE EXPRESSED UNDERSTANDING.PATIENT HAS RIGHT CHEST FAY CATH INTACT.RIGHT UPPER ARM WITH SHUNT INTACT.CALLED AND LEFT MESSAGE WITH DR MCKEON AWAITING FOR ORDERS.
[2016-08-18 10:00] VITALS: BP 142/112
[2016-08-18] MEDS ORDERED: MAGNESIUM HYDROXIDE 30 ML LIQUID UDC PO PRN (10:00)
[2016-08-18] MEDS ORDERED: ZOLPIDEM 5 MG TABLET PO PRN (10:00)
--- NOTE | 2016-08-18 10:30 | NUR ---
DR RUSHINGIAN AWARE THAT THE PATIENT IS HERE WITH NEW ORDERS AND NOTED.
[2016-08-18 11:52] VITALS: BP 156/98
[2016-08-18] MEDS: HYDROMORPHONE 1 MG/1 ML DISP.SYRIN IV PRN ×3 (12:06→21:35)
[2016-08-18] MEDS ORDERED: CLONIDINE HCL 0.2 MG PO SCH (12:15)
[2016-08-18] MEDS ORDERED: ACETAMINOPHEN 325 MG TABLET PO PRN (12:15)
[2016-08-18] MEDS ORDERED: CINACALCET HCL 90 MG PO SCH (12:15)
[2016-08-18] MEDS ORDERED: HYDROCODONE/APAP 10-325 MG TABLET PO SCH (12:15)
[2016-08-18] MEDS ORDERED: CLONIDINE HCL 0.2 MG TABLET PO PRN (12:45)
[2016-08-18] MEDS ORDERED: Medication Not On Formulary EA (Protein Supplement (Promod) 30 ML) PO SCH (13:00)
[2016-08-18] MEDS ORDERED: LACTOBACILLUS PO SCH (13:00)
[2016-08-18] MEDS: diphenhydrAMINE 50 MG/1 ML VIAL IV PRN ×3 (13:11→21:42)
[2016-08-18] MEDS: CINACALCET HCL 30 MG TABLET PO SCH (13:11)
[2016-08-18] MEDS: CARVEDILOL 25 MG TABLET PO SCH ×2 (13:12→17:04)
[2016-08-18] MEDS: ACIDOPHILUS/BULGARICUS CHEW TAB PO SCH ×2 (13:12→21:02)
[2016-08-18] MEDS: ASCORBIC ACID 250 MG TABLET PO SCH (13:12)
[2016-08-18] MEDS: CALCIUM ACETATE 667 MG CAPSULE PO SCH ×2 (13:12→17:00)
[2016-08-18] MEDS: CLONIDINE HCL 0.2 MG TABLET PO SCH ×2 (13:13→17:00)
[2016-08-18] MEDS: HYDROXYUREA 500 MG CAPSULE PO SCH (13:14)
[2016-08-18] MEDS: FOLIC ACID/VITAMIN B COMP W-C TABLET PO SCH (13:15)
[2016-08-18] MEDS: MINOXIDIL 2.5 MG TABLET PO SCH ×2 (13:16→17:00)
[2016-08-18] MEDS: PROTEIN SUPPLEMENT (PROSTAT) 30 ML LIQUID PO SCH ×2 (13:17→17:00)
[2016-08-18 15:15] VITALS: BP 143/73
[2016-08-18] MEDS: ONDANSETRON 4 MG/2 ML VIAL IV PRN (17:04)
--- NOTE | 2016-08-18 17:13 | NUR ---
PHARMACY CLINICAL NOTES ( VANCOMYCIN DOSING) Subjective: 45 yo HD patient was on vanco on previous admission for PNA. got discharged on 08/17 and was re-admitted today 08/18 MD ordered to continue Vancomycin per RX dosing. Patient is being dialyzed today Objective: BUN/SCR 84/5.8, WBC 10.4, Temp 98.3, ordered pre dialysis level 17.4 Assessment/plan : will administer Vancomycin 500 mg X 1 post dialysis and follow up dialysis schedule and order another pre-HD level and dose according to level.
--- NOTE | 2016-08-18 17:20 | NUR ---
PATIENT IS HAVING DIALYSIS AT THE MOMENT AND STATED THAT HE WILL NOT TAKE ANY MEDICATIONS AT THIS TIME.
--- NOTE | 2016-08-18 18:29 | NUR ---
PATIENT REMAIN ON DIALYSIS ORDERED AT THIS TIME AND IS TOLERATING WELL.
--- NOTE | 2016-08-18 19:09 | NUR ---
DIALYSIS COMPLETED AND THE OUTPUT IS 2700ML
--- NOTE | 2016-08-18 19:15 | NUR ---
PATIENT ALERT ORIENTED, NO SOB NO CHEST PAIN NOTED, NO FURTHER BLEEDING FROM THE NOSE, AV SHUNT DRESSING INTACT, FAY CATH PATENT, NO S/S OF DISTRESS, CONT TO MONITOR.
[2016-08-18] MEDS ORDERED: VANCOMYCIN IV 500 MG in IV DEXTROSE 5% 100 ML IV ONE (20:00)
[2016-08-18 20:23] VITALS: BP 139/82
[2016-08-18] MEDS ORDERED: AMOXICILLIN-CLAVUL 875-125MG TABLET PO SCH (21:00)
[2016-08-19] VITALS (12 sets, daily range): BP systolic 117–141; BP diastolic 65–76
[2016-08-19] MEDS: diphenhydrAMINE 50 MG/1 ML VIAL IV PRN ×5 (02:08→22:42)
[2016-08-19] MEDS: HYDROMORPHONE 1 MG/1 ML DISP.SYRIN IV PRN ×6 (02:09→22:43)
--- NOTE | 2016-08-19 05:20 | NUR ---
PATIENT SLEPT MOST OF THE NIGHT, CONT ON PAIN MANAGEMENT, PAIN MEDS EFFECTIVE AT THIS TIME, NO CHEST PAIN NO SOB, NO FURTHER NASAL BLEEDING NOTED, R UPPER ARM AV SHUNT DRESSING REMOVED BY PATIENT NO BLEEDING NOTED, FAY CATH PATENT CONT TO MONITOR
[2016-08-19] MEDS: ACIDOPHILUS/BULGARICUS CHEW TAB PO SCH ×3 (06:09→21:37)
[2016-08-19 06:33] LABS: BASOPHILS % (AUTO) 0.4 % (0.0-2.0); EOSINOPHILS # (AUTO) 0.3 K/uL (0.0-0.7); EOSINOPHILS % (AUTO) 2.7 % (0.0-7.0); HEMOGLOBIN 7.5 G/DL (14.0-18.0); LYMPHOCYTES # (AUTO) 2.6 K/UL (0.8-4.8); LYMPHOCYTES % (AUTO) 21.8 % (20.5-51.5); MEAN CORPUSCULAR HEMOGLOBIN 29.9 UUG (27.0-31.0); MEAN CORPUSCULAR HGB CONC 36 g/dL (32.0-37.0); MEAN CORPUSCULAR VOLUME 82.8 FL (82.0-92.0); MONOCYTES # (AUTO) 1.1 K/UL (0.1-1.30); MONOCYTES % (AUTO) 9.4 % (0.0-11.0); NEUTROPHILS # (AUTO) 7.9 K/UL (1.8-8.9); NEUTROPHILS % (AUTO) 65.7 % (38.5-71.5); RED BLOOD CELL COUNT(AUTO) 2.52 MIL/UL (4.7-6.1); RED CELL DISTRIBUTION WIDTH 14.8 % (11.5-14.5); WHITE BLOOD COUNT (AUTO) 11.9 K/UL (4.0-11.2)
[2016-08-19 06:40] LABS: HEMATOCRIT 20.9 % (40-50)
[2016-08-19 06:41] LABS: PLATELET COUNT (AUTO) 20 K/UL (150-450)
--- NOTE | 2016-08-19 06:58 | NUR ---
PATIENT HGH 7.5, HCT 20.9 , PLATELETS 20. LAB VALUES ARE LOWER COMPARE TO YESTERDAY LAB RESULTS, PLACE A CALL TO DR. STEVE HENDRIX, AWAITING FOR RESPONSE. ENDORSED TO NEXT SHIFT.
[2016-08-19 06:59] LABS: CALCIUM 7.6 mg/dL (8.5-10.1); MAGNESIUM 2.3 mg/dL (1.8-2.4); PHOSPHOROUS 4.6 mg/dL (2.5-4.9)
[2016-08-19 07:00] LABS: CREATININE 5.3 mg/dL (0.6-1.3)
--- NOTE | 2016-08-19 07:50 | NUR ---
CALL RECEIVED FROM DR SIMEON RUSHING H/H 7.5/20.9 WITH NO NEW ORDERS AT THIS TIME.
[2016-08-19 08:01] LABS: LYMPHOCYTES % (MANUAL) 26 % (20-40); MONOCYTES % (MANUAL) 2 % (2-10); NEUTROPHILS % (MANUAL) 72 % (42-75)
[2016-08-19 08:02] LABS: PLATELET ESTIMATE DECREASED; TARGET CELLS 1+
[2016-08-19] MEDS: CALCIUM ACETATE 667 MG CAPSULE PO SCH ×3 (08:35→17:12)
[2016-08-19] MEDS: CINACALCET HCL 30 MG TABLET PO SCH (08:35)
[2016-08-19] MEDS: ASCORBIC ACID 250 MG TABLET PO SCH (08:36)
[2016-08-19] MEDS: FOLIC ACID/VITAMIN B COMP W-C TABLET PO SCH (08:36)
[2016-08-19] MEDS: CARVEDILOL 25 MG TABLET PO SCH ×2 (08:38→17:14)
[2016-08-19] MEDS: CLONIDINE HCL 0.2 MG TABLET PO SCH ×3 (08:38→17:14)
[2016-08-19] MEDS: MINOXIDIL 2.5 MG TABLET PO SCH ×3 (08:38→17:12)
[2016-08-19] MEDS: PROTEIN SUPPLEMENT (PROSTAT) 30 ML LIQUID PO SCH ×3 (08:40→17:00)
[2016-08-19] MEDS: HYDROXYUREA 500 MG CAPSULE PO SCH (08:41)
[2016-08-19] MEDS ORDERED: AMOXICILLIN-CLAVUL 875-125MG TABLET PO SCH (09:00)
--- NOTE | 2016-08-19 09:04 | NUR ---
DR HAGEN HERE TO SEE PATIENT WITH NEW ORDERS AND NOTED. NO NASAL BLEEDING AT THIS TIME.
--- NOTE | 2016-08-19 09:13 | NUR ---
Clinical Pharmacy Note: Vancomycin Dosing per Pharmacy Subjective: Vancomycin IV to continue on this 45 yo male dialysis patient for pna (continue from home) Objective: BUN 75/Scr 5.3 WBC 11.9 Temperature 98.4 Assessment/Plan: No HD has been scheduled for today per HD RN. No dose shall be due today per vancomycin dosing protocol for HD patients. Will continue to dose vancomycin per pre-HD level as per vancomycin dosing protocol for HD patients. Will continue to follow daily. Addendum: 08/19/16 at 1307 by PASCUAL GODINEZ PATIENT WAS DIALYZED TODAY. VANCO PRE-HD LEVEL:19.7 PER VANCO DOSING PROTOCOL FOR HD PATIENTS, WILL GIVE VANCOMYCIN 500MG IVPB X1 DOSE TODAY
--- NOTE | 2016-08-19 09:34 | NUR ---
PATIENT STARTED ON DIALYSIS AND CALLED THE LAB TO GET THE PLATELETS BUT THEY STATED THAT IT IS NOT READY AND THEY WILL CALL US WHEN IT IS READY.
[2016-08-19] MEDS: ONDANSETRON 4 MG/2 ML VIAL IV PRN ×4 (10:25→22:42)
--- NOTE | 2016-08-19 12:17 | NUR ---
DIALYSIS COMPLETED AND 3000 ML REMOVED AND PATIENT TOLERATED PROCEDURE WELL.
[2016-08-19] MEDS ORDERED: AMOXICILLIN-CLAVUL 500-125MG TABLET PO PRN ×2 (12:45)
--- NOTE | 2016-08-19 14:54 | NUR ---
FIRST UNIT OF PLATELETS STARTED ORDERED AND WILL OBSERVE PATIENT.
--- NOTE | 2016-08-19 15:10 | NUR ---
VITALS CHECKED AND DOCUMENTED AND PATIENT IS TOLERATING THE PLATELETS WELL.
[2016-08-19] MEDS ORDERED: VANCOMYCIN IV 500 MG in IV DEXTROSE 5% 100 ML IV ONE (17:00)
--- NOTE | 2016-08-19 18:00 | NUR ---
SECOND UNIT OF PLATELETS COMPLETED ORDERED WITH NO ADVERSE OR ALLERGIC REACTIONS AT THIS TIME.
--- NOTE | 2016-08-19 19:45 | NUR ---
PT RECEIVED IN BED, DOZING OFF, EASILY AWOKEN. NO ACUTE DISTRESS NOTED. DENIES N/V AT THIS TIME. STATES PAIN AT TOLERABLE LEVEL THIS MOMENT. PT ON ROOM AIR, WITH EVEN AND NONLABORED BREATHING NOTED. CALL LIGHT IS WITHIN REACH AND SAFETY MEASURES IN PLACE. WILL CONTINUE MONITORING.
[2016-08-19] MEDS: AMOXICILLIN-CLAVUL 500-125MG TABLET PO SCH (21:37)
--- NOTE | 2016-08-19 22:45 | NUR ---
Patient endorsed to me midshift, endorsed by Ave. Received patient alert, responsive, in no acute distress. Will continue plan of care. Call light within reach, bed alarm on. Will continue to monitor.
--- NOTE | 2016-08-19 22:45 | NUR ---
PT C/O PAIN, NAUSEA AND ITCHING, PRN MEDS GIVEN PRESCRIBED. PLAN OF CARE ENDORSED TO MAR [place].
[2016-08-20] MEDS: diphenhydrAMINE 50 MG/1 ML VIAL IV PRN ×5 (02:51→18:58)
[2016-08-20] MEDS: HYDROMORPHONE 1 MG/1 ML DISP.SYRIN IV PRN ×6 (02:52→23:06)
[2016-08-20 04:00] VITALS: BP 129/72
--- NOTE | 2016-08-20 06:00 | NUR ---
Patient slept intermittently, in no acute distress. NOEMI dialysis access noted to have slight bleeding, reinforced with dressing. Will endorse to the AM shift RN. Call light within reach, bed alarm on, will continue to monitor.
[2016-08-20] MEDS: ACIDOPHILUS/BULGARICUS CHEW TAB PO SCH ×3 (06:25→21:00)
--- NOTE | 2016-08-20 08:05 | NUR ---
SBAR REPORT RECIVE FROM RICH/MAR.
--- NOTE | 2016-08-20 08:15 | NUR ---
PT.IN BED EATING BREAKFAST,NO S/S OF ACUTE DISTRESS,DENIES PAIN.
[2016-08-20] MEDS: ASCORBIC ACID 250 MG TABLET PO SCH (08:52)
[2016-08-20] MEDS: FOLIC ACID/VITAMIN B COMP W-C TABLET PO SCH (08:52)
[2016-08-20] MEDS: MINOXIDIL 2.5 MG TABLET PO SCH ×3 (08:52→17:33)
[2016-08-20] MEDS: CINACALCET HCL 30 MG TABLET PO SCH (08:52)
[2016-08-20] MEDS: CALCIUM ACETATE 667 MG CAPSULE PO SCH ×3 (08:52→17:33)
[2016-08-20] MEDS: CLONIDINE HCL 0.2 MG TABLET PO SCH ×3 (08:53→17:33)
[2016-08-20] MEDS: CARVEDILOL 25 MG TABLET PO SCH ×2 (08:53→17:34)
[2016-08-20] MEDS: PROTEIN SUPPLEMENT (PROSTAT) 30 ML LIQUID PO SCH ×3 (08:54→17:00)
--- NOTE | 2016-08-20 09:30 | NUR ---
PT.WAS SEEN BY .
--- NOTE | 2016-08-20 10:30 | NUR ---
Clinical Pharmacy Note: Vancomycin Dosing per Pharmacy Subjective: Vancomycin IV to continue on this 45 yo male dialysis patient for pna (continue from home) Objective: BUN 75/Scr 5.3 (08/19) WBC 11.9 (08/19) Temperature 98 Assessment/Plan: No HD has been scheduled for today per HD RN. No dose shall be due today per vancomycin dosing protocol for HD patients. Will continue to dose vancomycin per pre-HD level as per vancomycin dosing protocol for HD patients. Will continue to follow daily.
[2016-08-20 11:09] VITALS: BP 123/69
[2016-08-20 15:22] VITALS: BP 116/61
[2016-08-20] MEDS: ONDANSETRON 4 MG/2 ML VIAL IV PRN (17:35)
[2016-08-20 19:00] VITALS: BP 131/72
--- NOTE | 2016-08-20 19:18 | NUR ---
PATIENT ALERT ORIENTED, AV SHUNT ON RIGHT UPPER ARM DRESSING INTACT NO BLEEDING NOTED, NO NASAL BLEEDING NOTED, LEFT UPPER ARM DIALYSIS SITE INTACT NO BLEEDING NOTED, CONT TO MONITOR.
[2016-08-20] MEDS: AMOXICILLIN-CLAVUL 500-125MG TABLET PO SCH (20:49)
[2016-08-21] MEDS: HYDROMORPHONE 1 MG/1 ML DISP.SYRIN IV PRN ×6 (02:58→22:58)
[2016-08-21 05:00] VITALS: BP 123/64
--- NOTE | 2016-08-21 05:22 | NUR ---
PATIENT SLEPT MOST OF THE NIGHT, NO SOB NO CHEST PAIN, NO S/S OF BLEEDING NOTED, ON LEFT UPPER ARM DIALYSIS SITE, AND RIGHT UPPER ARM DIALYSIS SITE. CONT ON PAIN MANAGEMENT
[2016-08-21] MEDS: ACIDOPHILUS/BULGARICUS CHEW TAB PO SCH ×3 (06:00→21:03)
[2016-08-21] MEDS: diphenhydrAMINE 50 MG/1 ML VIAL IV PRN ×5 (06:57→22:58)
[2016-08-21 08:31] LABS: BASOPHILS % (AUTO) 0.3 % (0.0-2.0); EOSINOPHILS # (AUTO) 0.4 K/uL (0.0-0.7); EOSINOPHILS % (AUTO) 3.3 % (0.0-7.0); HEMOGLOBIN 7.2 G/DL (14.0-18.0); LYMPHOCYTES # (AUTO) 2.3 K/UL (0.8-4.8); LYMPHOCYTES % (AUTO) 21.1 % (20.5-51.5); MEAN CORPUSCULAR HEMOGLOBIN 29.8 UUG (27.0-31.0); MEAN CORPUSCULAR HGB CONC 35 g/dL (32.0-37.0); MEAN CORPUSCULAR VOLUME 84.5 FL (82.0-92.0); MONOCYTES % (AUTO) 9.4 % (0.0-11.0); NEUTROPHILS % (AUTO) 65.9 % (38.5-71.5); PLATELET COUNT (AUTO) 52 K/UL (150-450); RED CELL DISTRIBUTION WIDTH 14.8 % (11.5-14.5); WHITE BLOOD COUNT (AUTO) 10.7 K/UL (4.0-11.2)
[2016-08-21 08:44] LABS: ALBUMIN 2.3 g/dL (3.4-5.0); BILIRUBIN,TOTAL 1.5 mg/dL (0.2-1.0); CALCIUM 7.3 mg/dL (8.5-10.1); CREATININE 6.2 mg/dL (0.6-1.3); MAGNESIUM 2.3 mg/dL (1.8-2.4); PHOSPHOROUS 5.7 mg/dL (2.5-4.9); POTASSIUM 5.1 mmol/L (3.5-5.1); TOTAL PROTEIN, SERUM 7.2 g/dL (6.4-8.2)
[2016-08-21] MEDS: CLONIDINE HCL 0.2 MG TABLET PO SCH ×3 (08:46→17:06)
[2016-08-21] MEDS: CALCIUM ACETATE 667 MG CAPSULE PO SCH ×3 (08:46→17:05)
[2016-08-21] MEDS: PROTEIN SUPPLEMENT (PROSTAT) 30 ML LIQUID PO SCH ×3 (08:46→17:06)
[2016-08-21] MEDS: MINOXIDIL 2.5 MG TABLET PO SCH ×3 (08:46→17:05)
[2016-08-21] MEDS: ASCORBIC ACID 250 MG TABLET PO SCH (08:46)
[2016-08-21] MEDS: CINACALCET HCL 30 MG TABLET PO SCH (08:46)
[2016-08-21] MEDS: FOLIC ACID/VITAMIN B COMP W-C TABLET PO SCH (08:46)
[2016-08-21] MEDS: CARVEDILOL 25 MG TABLET PO SCH ×2 (08:46→18:48)
[2016-08-21 08:50] LABS: HEMATOCRIT 20.3 % (40-50)
[2016-08-21 09:10] LABS: EOSINOPHILS % (MANUAL) 4 % (0-8); LYMPHOCYTES % (MANUAL) 20 % (20-40); MONOCYTES % (MANUAL) 5 % (2-10); NEUTROPHILS % (MANUAL) 71 % (42-75); PLATELET ESTIMATE DECREASED
[2016-08-21 11:15] VITALS: BP 121/74
--- NOTE | 2016-08-21 12:50 | NUR ---
PT HAD DIALYSIS THIS AM WITH 2L OUT. AMOXICILLIN WAS GIVEN ORDERED DURING HD AND AFTER HD. PT IN BED EATING LUNCH A THIS TIME, ALL SAFETY AND COMFORT MEASURES ATTENDED TO, CALL LIGHT IN REACH
[2016-08-21] MEDS ORDERED: VANCOMYCIN IV 500 MG in IV DEXTROSE 5% 100 ML IV ONE (14:00)
[2016-08-21 15:08] VITALS: BP 120/60
--- NOTE | 2016-08-21 15:28 | NUR ---
Clinical Pharmacy Note: Vancomycin Dosing per Pharmacy Subjective: Vancomycin IV to continue on this 45 yo male dialysis patient for pna (continue from home) Objective: BUN 83/Scr 6.2 WBC 11.9 (08/19) Temperature 97.8 pre-HD level: 18.4 Assessment/Plan: HD scheduled and given today, thus scheduled 500mg x 1 post-HD per vancomycin dosing protocol for HD patients. Will continue to dose vancomycin per pre-HD level as per vancomycin dosing protocol for HD patients. Will continue to follow daily.
[2016-08-21 19:00] VITALS: BP 119/63
--- NOTE | 2016-08-21 19:15 | NUR ---
PATIENT ALERT ORIENTED, SHUNT DRESSING INTACT NO BLEEDING NOTED, CONT ON PAIN MANAGEMENT, NO S/S OF DISTRESS.
[2016-08-21] MEDS: AMOXICILLIN-CLAVUL 500-125MG TABLET PO SCH (21:03)
[2016-08-22] MEDS: HYDROMORPHONE 1 MG/1 ML DISP.SYRIN IV PRN ×5 (02:55→17:43)
--- NOTE | 2016-08-22 05:15 | NUR ---
PATIENT SLEPT ON AND OFF WATCHED TELEVISION, NO SOB NO CHEST PAIN NOTED, STILL ON PAIN MANAGEMENT, NO S/S BLEEDING NOTED AT THIS TIME. CONT TO MONITOR.
[2016-08-22] MEDS: ACIDOPHILUS/BULGARICUS CHEW TAB PO SCH ×2 (06:21→13:29)
[2016-08-22] MEDS: diphenhydrAMINE 50 MG/1 ML VIAL IV PRN ×4 (06:21→17:42)
[2016-08-22] MEDS ORDERED: ACID1TAB4 PO (07:08)
[2016-08-22] MEDS: ASCORBIC ACID 250 MG TABLET PO SCH (08:19)
[2016-08-22] MEDS: MINOXIDIL 2.5 MG TABLET PO SCH ×3 (08:19→16:48)
[2016-08-22] MEDS: CLONIDINE HCL 0.2 MG TABLET PO SCH ×3 (08:19→16:49)
[2016-08-22] MEDS: CALCIUM ACETATE 667 MG CAPSULE PO SCH ×2 (08:19→12:49)
[2016-08-22] MEDS: FOLIC ACID/VITAMIN B COMP W-C TABLET PO SCH (08:19)
[2016-08-22] MEDS: CARVEDILOL 25 MG TABLET PO SCH (08:19)
[2016-08-22] MEDS: CINACALCET HCL 30 MG TABLET PO SCH (08:19)
[2016-08-22] MEDS: PROTEIN SUPPLEMENT (PROSTAT) 30 ML LIQUID PO SCH ×3 (08:19→16:49)
--- NOTE | 2016-08-22 08:52 | NUR ---
PT AWAKE IN BED, NO SIGNS OF BLEEDING, NO COMPLAINTS OF CHEST PAIN, ALL DUE MEDICATIONS GIVEN. DISCHARGE ORDER NOTED. ALL SAFETY AND COMFORT MEASURES ATTENDED TO, CALL LIGHT IN REACH, WILL CONTINUE TO MONITOR
[2016-08-22 11:13] VITALS: BP 113/53
[2016-08-22 15:32] VITALS: BP 115/59
[2016-08-22 16:49] VITALS: BP 120/56
--- NOTE | 2016-08-22 17:34 | NUR ---
DISCHARGE PROTOCOL FOLLOWED, PT BELONGINGS ACCOUNTED FOR AND RETURNED TO PT. EDUCATION ON DISCHARGE PROVIDED TO PT, PT VERBALIZED UNDERSTANDING. REPORT GIVEN TO RN AT SNF. AWAITING AMBULANCE ARRIVAL. REPORT GIVEN TO CHARGE NURSE.
--- NOTE | 2016-08-22 18:21 | NUR ---
AMBULANCE HERE TO PICK PT UP, REPORT GIVEN TO AMBULANCE STAFF. PT LEFT VIA GURNEY WITH AMBULANCE STAFF
== END 2016-08-22 18:23 | DRG 662 ==
LOC: ER 05:01 → TELE 09:11 → MED 19:40
PROVIDERS: ADMIT Internal Medicine; ATTEND Internal Medicine
PROC: 2Y41X5Z Packing of Nasal Region using Packing Material (ICD-10-PCS; principal; 2016-08-18)
PROC: 5A1D60Z (ICD-10-PCS; principal; 2016-08-18)
PROC: 30233R1 Transfusion of Nonautologous Platelets into Peripheral Vein, Percutaneous Approach (ICD-10-PCS; 2016-08-19)
DX: D57.00 Hb-SS disease with crisis, unspecified (principal); I13.2 Hypertensive heart and chronic kidney disease with heart failure and with stage 5 chronic kidney disease, or end stage renal disease; J18.9 Pneumonia, unspecified organism; N18.6 End stage renal disease; C79.9 Secondary malignant neoplasm of unspecified site; E44.0 Moderate protein-calorie malnutrition; D69.6 Thrombocytopenia, unspecified; I50.32 Chronic diastolic (congestive) heart failure; I27.2 Other secondary pulmonary hypertension; R04.0 Epistaxis; K21.9 Gastro-esophageal reflux disease without esophagitis; Z99.2 Dependence on renal dialysis; Z85.118 Personal history of other malignant neoplasm of bronchus and lung; Z87.01 Personal history of pneumonia (recurrent); Z87.891 Personal history of nicotine dependence; Z96.643 Presence of artificial hip joint, bilateral; G89.4 Chronic pain syndrome; C64.9 Malignant neoplasm of unspecified kidney, except renal pelvis; D50.0 Iron deficiency anemia secondary to blood loss (chronic); Z68.24 Body mass index [BMI] 24.0-24.9, adult; D63.1 Anemia in chronic kidney disease; N50.89 Other specified disorders of the male genital organs
CPT/HCPCS: 36415; 70030-TC; 71010; 83735; 84100; 85025; 85730; 86900; 86901; 93005; A4663; J1170; J1200; J2405; J3370; J7050; J7060; P9021; P9035-BL

== ENCOUNTER 2016-08-27 02:55 | Emergency (ER) | payer MEDICARE, MEDICAID ==
[~2016-08-27] VITALS: Ht 175.3 cm; Wt 77.1 kg
[~2016-08-27 02:55] MED LIST changes: +ACID1TAB4 PO; -DICL30AD3 PO; -DILAUDID
[2016-08-27] MEDS ORDERED: diphenhydrAMINE 50 MG/1 ML VIAL IV ONE ×2 (03:15→04:00)
[2016-08-27] MEDS ORDERED: HYDROMORPHONE 1 MG/1 ML DISP.SYRIN IV ONE ×2 (03:15→03:45)
[2016-08-27] MEDS ORDERED: HYDROMORPHONE 2 MG/1 ML DISP.SYRIN ONE ×2 (03:29→04:04)
[2016-08-27] MEDS ORDERED: diphenhydrAMINE 50 MG/1 ML VIAL ONE ×2 (03:30→04:04)
--- NOTE | 2016-08-27 03:30 | NUR ---
Patient arrived with accessed portacath, site noted with visible dirt, tubing noted with visible dirt and hair. Old access tubing/need removed. Site cleaned. Right upper chest portacath reaccessed. no complications noted. Blood return noted. Flushed with no complications.
[2016-08-27 03:42] LABS: MEAN CORPUSCULAR HEMOGLOBIN 31.5 UUG (27.0-31.0); MEAN CORPUSCULAR HGB CONC 38 g/dL (32.0-37.0); MEAN CORPUSCULAR VOLUME 83.5 FL (82.0-92.0); WHITE BLOOD COUNT (AUTO) 10.2 K/UL (4.0-11.2)
[2016-08-27 03:43] LABS: ALBUMIN 2.4 g/dL (3.4-5.0); BILIRUBIN,DIRECT 1.6 mg/dL (0.0-0.2); BILIRUBIN,TOTAL 2.2 mg/dL (0.2-1.0); CALCIUM 8.9 mg/dL (8.5-10.1); POTASSIUM 4.2 mmol/L (3.5-5.1); TOTAL PROTEIN, SERUM 7.7 g/dL (6.4-8.2)
[2016-08-27 03:45] LABS: RED BLOOD CELL COUNT(AUTO) 1.98 MIL/UL (4.7-6.1)
[2016-08-27 03:46] LABS: HEMATOCRIT 16.5 % (40-50); HEMOGLOBIN 6.2 G/DL (14.0-18.0); PLATELET COUNT (AUTO) 36 K/UL (150-450)
[2016-08-27 03:51] LABS: EOSINOPHILS % (MANUAL) 7 % (0-8); LYMPHOCYTES % (MANUAL) 27 % (20-40); MONOCYTES % (MANUAL) 6 % (2-10); NEUTROPHILS % (MANUAL) 60 % (42-75)
[2016-08-27 03:52] LABS: ANISOCYTOSIS 1+; PLATELET ESTIMATE MARKED DECREASED; TARGET CELLS 1+
--- NOTE | 2016-08-27 04:19 | NUR ---
Patient discharged to home in stable conditon. Written and verbal after care instructions given. Patient verbalizes understanding of instructions. Patient picked up by BLS transport [facility] . All belongings with patient. Report given to Juany Evans Charge nurse Indira.
[2016-08-27 04:23] VITALS: BP 137/82
[2016-08-28] MEDS ORDERED: HYDR2DIS IV (15:32)
[2016-08-28] MEDS ORDERED: DIPH50DI IV (15:32)
[2016-08-28] MEDS ORDERED: GABA-532 PO (15:32)
[2016-08-28] MEDS ORDERED: LACT1TAB20 PO (15:32)
[2016-08-28] MEDS ORDERED: DIPH25CA83 PO (15:32)
[2016-08-31] MEDS ORDERED: HYDR-548 PO (11:51)
== END 2016-08-27 04:24 | disposition home or self-care (01) ==
LOC: ER 03:00
DX: D57.00 Hb-SS disease with crisis, unspecified (principal); I12.0 Hypertensive chronic kidney disease with stage 5 chronic kidney disease or end stage renal disease; N18.6 End stage renal disease; K21.9 Gastro-esophageal reflux disease without esophagitis; F10.20 Alcohol dependence, uncomplicated; Z99.2 Dependence on renal dialysis
CPT/HCPCS: 36415; 85025; A4663; J1170; J1200

== ENCOUNTER 2016-08-28 14:38 | Inpatient (IN) | payer MEDICAID, MEDICARE ==
[~2016-08-28] VITALS: Ht 172.7 cm; Wt 80.1 kg
[2016-08-28] VITALS (7 sets, daily range): BP systolic 104–119; BP diastolic 47–74
[2016-08-28] MEDS ORDERED: GABA-532 PO (15:32)
[2016-08-28] MEDS ORDERED: LACT1TAB20 PO (15:32)
[2016-08-28] MEDS ORDERED: DIPH25CA83 PO (15:32)
[2016-08-28] MEDS ORDERED: HYDR2DIS IV (15:32)
[2016-08-28] MEDS ORDERED: DIPH50DI IV (15:32)
--- NOTE | 2016-08-28 15:44 | NUR ---
PT HAS PORT A CATH ON RT CHEST THAT WAS ACCESSED IN THE GROUP HOME. ABLE TO SALINE FLUSH AND DRAW BLOOD. AWARE.
[2016-08-28 16:09] LABS: MEAN CORPUSCULAR HEMOGLOBIN 28.5 UUG (27.0-31.0); MEAN CORPUSCULAR HGB CONC 34 g/dL (32.0-37.0); MEAN CORPUSCULAR VOLUME 84.2 FL (82.0-92.0); WHITE BLOOD COUNT (AUTO) 10.5 K/UL (4.0-11.2)
[2016-08-28] MEDS ORDERED: diphenhydrAMINE 50 MG/1 ML VIAL IV ONE (16:15)
[2016-08-28] MEDS ORDERED: ONDANSETRON 4 MG/2 ML VIAL IV ONE (16:15)
[2016-08-28] MEDS ORDERED: HYDROMORPHONE 1 MG/1 ML DISP.SYRIN IV ONE (16:15)
[2016-08-28 16:16] LABS: BILIRUBIN,DIRECT 2.2 mg/dL (0.0-0.2); POTASSIUM 5.1 mmol/L (3.5-5.1); TOTAL PROTEIN, SERUM 7.8 g/dL (6.4-8.2)
[2016-08-28 16:17] LABS: CREATININE 5.4 mg/dL (0.6-1.3)
[2016-08-28 16:19] LABS: RED BLOOD CELL COUNT(AUTO) 1.94 MIL/UL (4.7-6.1)
[2016-08-28 16:20] LABS: HEMATOCRIT 16.4 % (40-50); HEMOGLOBIN 5.6 G/DL (14.0-18.0); PLATELET COUNT (AUTO) 40 K/UL (150-450)
[2016-08-28] MEDS ORDERED: diphenhydrAMINE 50 MG/1 ML VIAL ONE (16:26)
[2016-08-28] MEDS ORDERED: HYDROMORPHONE 1 MG/1 ML DISP.SYRIN ONE (16:27)
[2016-08-28] MEDS ORDERED: ONDANSETRON 4 MG/2 ML VIAL ONE (16:27)
--- NOTE | 2016-08-28 16:42 | NUR ---
Patient is resting comfortably in bed with eyes closed, NAD noted.
--- NOTE | 2016-08-28 16:56 | NUR ---
paged dr sanabria for admin. awaiting call back.
[2016-08-28 17:50] LABS: EOSINOPHILS % (MANUAL) 3 % (0-8); NEUTROPHILS % (MANUAL) 65 % (42-75)
[2016-08-28 17:52] LABS: LYMPHOCYTES % (MANUAL) 17 % (20-40); MONOCYTES % (MANUAL) 15 % (2-10)
--- NOTE | 2016-08-28 18:27 | NUR ---
45 year old male pt received from via [facility] for severe anemia .v/s are stable .
[2016-08-28] MEDS ORDERED: ZOLPIDEM 5 MG TABLET PO PRN (18:30)
[2016-08-28] MEDS ORDERED: ONDANSETRON 4 MG/2 ML VIAL IV PRN (18:30)
[2016-08-28] MEDS ORDERED: HYDROCODONE/APAP 10-325 MG TABLET PO PRN ×2 (19:00→19:45)
[2016-08-28] MEDS ORDERED: ACETAMINOPHEN 325 MG TABLET PO PRN (19:00)
[2016-08-28] MEDS ORDERED: HYDROMORPHONE 2 MG/1 ML DISP.SYRIN IV PRN (19:15)
[2016-08-28] MEDS ORDERED: diphenhydrAMINE 25 MG CAP PO PRN ×2 (19:15→19:45)
[2016-08-28] MEDS ORDERED: CLONIDINE HCL 0.2 MG TABLET PO PRN (19:15)
[2016-08-28] MEDS ORDERED: diphenhydrAMINE 50 MG/1 ML VIAL IV PRN (19:15)
[2016-08-28] MEDS: diphenhydrAMINE 50 MG/1 ML VIAL IV PRN ×2 (19:58→23:41)
[2016-08-28] MEDS: HYDROMORPHONE 1 MG/1 ML DISP.SYRIN IV PRN ×2 (19:59→23:41)
--- NOTE | 2016-08-28 20:49 | NUR ---
start 1 unit of prbc,recheck vital signs and stable ,patient tolerated well,no immediate reverse reaction noted,continue closely monitor.
[2016-08-28] MEDS ORDERED: ACIDOPHILUS/BULGARICUS CHEW TAB GT SCH (22:00)
[2016-08-28] MEDS: ACIDOPHILUS/BULGARICUS CHEW TAB PO SCH (22:07)
--- NOTE | 2016-08-28 23:35 | NUR ---
1 unit of prbc completed ,vital signs stable , no reaction noted,patient c/o abdominal pain and itching, medicated with Dilaudid and Benadryl iv as needed ,effective.
[2016-08-29] VITALS (8 sets, daily range): BP systolic 97–130; BP diastolic 54–68
--- NOTE | 2016-08-29 01:28 | NUR ---
patient sleeping appears comfortable,NSR on monitor.
[2016-08-29] MEDS: HYDROMORPHONE 1 MG/1 ML DISP.SYRIN IV PRN ×5 (04:19→21:06)
[2016-08-29] MEDS: diphenhydrAMINE 50 MG/1 ML VIAL IV PRN ×5 (04:20→21:06)
[2016-08-29] MEDS: ACIDOPHILUS/BULGARICUS CHEW TAB PO SCH ×3 (06:12→21:06)
[2016-08-29 06:40] LABS: BILIRUBIN,TOTAL 3.5 mg/dL (0.2-1.0); CREATININE 6.1 mg/dL (0.6-1.3); MAGNESIUM 2.5 mg/dL (1.8-2.4); PHOSPHOROUS 6.3 mg/dL (2.5-4.9); TOTAL PROTEIN, SERUM 7.6 g/dL (6.4-8.2)
[2016-08-29] MEDS: PROTEIN SUPPLEMENT (PROSTAT) 30 ML LIQUID PO SCH ×3 (08:00→16:14)
[2016-08-29] MEDS: CARVEDILOL 25 MG TABLET PO SCH ×2 (08:00→17:20)
[2016-08-29 08:01] LABS: MEAN CORPUSCULAR HEMOGLOBIN 28.7 UUG (27.0-31.0); MEAN CORPUSCULAR HGB CONC 34 g/dL (32.0-37.0); MEAN CORPUSCULAR VOLUME 84.2 FL (82.0-92.0); WHITE BLOOD COUNT (AUTO) 12.6 K/UL (4.0-11.2)
[2016-08-29] MEDS: ASCORBIC ACID 250 MG TABLET PO SCH (08:01)
[2016-08-29] MEDS: CINACALCET HCL 30 MG TABLET PO SCH (08:01)
[2016-08-29] MEDS: MINOXIDIL 2.5 MG TABLET PO SCH ×3 (08:01→16:13)
[2016-08-29] MEDS: FOLIC ACID/VITAMIN B COMP W-C TABLET PO SCH (08:01)
[2016-08-29] MEDS: CALCIUM ACETATE 667 MG CAPSULE PO SCH ×3 (08:01→16:13)
[2016-08-29] MEDS: HYDROXYUREA 500 MG CAPSULE PO SCH (08:02)
[2016-08-29] MEDS: BENAZEPRIL HCL 20 MG TABLET PO SCH (08:12)
[2016-08-29] MEDS: CLONIDINE HCL 0.2 MG TABLET PO SCH ×3 (08:12→16:13)
[2016-08-29 08:22] LABS: RED BLOOD CELL COUNT(AUTO) 2.15 MIL/UL (4.7-6.1)
[2016-08-29 08:23] LABS: HEMATOCRIT 18.1 % (40-50); HEMOGLOBIN 6.2 G/DL (14.0-18.0); PLATELET COUNT (AUTO) 37 K/UL (150-450)
[2016-08-29] MEDS ORDERED: GABAPENTIN 100 MG CAPSULE PO SCH ×2 (09:00)
[2016-08-29 09:44] LABS: BAND % (MANUAL) 1 % (0-10); BASOPHILS % (MANUAL) 1 % (0-2); EOSINOPHILS % (MANUAL) 6 % (0-8); LYMPHOCYTES % (MANUAL) 19 % (20-40); MONOCYTES % (MANUAL) 7 % (2-10); NEUTROPHILS % (MANUAL) 66 % (42-75)
[2016-08-29] MEDS ORDERED: GABAPENTIN 100 MG CAPSULE PO ONE (13:00)
--- NOTE | 2016-08-29 17:14 | NUR ---
ONE UNIT PRBC GIVEN PER MD ORDERS WITH DIALYSIS,TOLERATED WELL.NO A/R NOTED.
[2016-08-30] VITALS (7 sets, daily range): BP systolic 109–136; BP diastolic 55–84
[2016-08-30] MEDS: HYDROMORPHONE 1 MG/1 ML DISP.SYRIN IV PRN ×6 (00:57→20:52)
[2016-08-30] MEDS: diphenhydrAMINE 50 MG/1 ML VIAL IV PRN ×6 (00:57→20:53)
[2016-08-30] MEDS: ACIDOPHILUS/BULGARICUS CHEW TAB PO SCH ×3 (05:35→21:44)
[2016-08-30 07:20] LABS: BILIRUBIN,TOTAL 3.2 mg/dL (0.2-1.0); MAGNESIUM 2.3 mg/dL (1.8-2.4); PHOSPHOROUS 5.5 mg/dL (2.5-4.9); TOTAL PROTEIN, SERUM 7.8 g/dL (6.4-8.2)
[2016-08-30 07:25] LABS: CREATININE 5.4 mg/dL (0.6-1.3)
[2016-08-30 07:52] LABS: MEAN CORPUSCULAR HEMOGLOBIN 28.4 UUG (27.0-31.0); MEAN CORPUSCULAR HGB CONC 34 g/dL (32.0-37.0); MEAN CORPUSCULAR VOLUME 83.7 FL (82.0-92.0); WHITE BLOOD COUNT (AUTO) 11.2 K/UL (4.0-11.2)
[2016-08-30] MEDS: CARVEDILOL 25 MG TABLET PO SCH ×2 (07:56→18:00)
[2016-08-30] MEDS: PROTEIN SUPPLEMENT (PROSTAT) 30 ML LIQUID PO SCH ×3 (07:56→16:19)
[2016-08-30] MEDS: GABAPENTIN 100 MG CAPSULE PO SCH (08:04)
[2016-08-30] MEDS: CALCIUM ACETATE 667 MG CAPSULE PO SCH ×3 (08:04→16:18)
[2016-08-30] MEDS: ASCORBIC ACID 250 MG TABLET PO SCH (08:04)
[2016-08-30] MEDS: CINACALCET HCL 30 MG TABLET PO SCH (08:04)
[2016-08-30] MEDS: HYDROXYUREA 500 MG CAPSULE PO SCH (08:04)
[2016-08-30] MEDS: BENAZEPRIL HCL 20 MG TABLET PO SCH (08:05)
[2016-08-30] MEDS: FOLIC ACID/VITAMIN B COMP W-C TABLET PO SCH (08:05)
[2016-08-30] MEDS: CLONIDINE HCL 0.2 MG TABLET PO SCH ×3 (08:05→16:19)
[2016-08-30] MEDS: MINOXIDIL 2.5 MG TABLET PO SCH ×3 (08:05→16:18)
[2016-08-30 08:32] LABS: HEMATOCRIT 20.4 % (40-50); HEMOGLOBIN 6.9 G/DL (14.0-18.0); RED BLOOD CELL COUNT(AUTO) 2.43 MIL/UL (4.7-6.1)
[2016-08-30 08:33] LABS: PLATELET COUNT (AUTO) 44 K/UL (150-450)
[2016-08-30 08:50] LABS: BAND % (MANUAL) 1 % (0-10); EOSINOPHILS % (MANUAL) 1 % (0-8); LYMPHOCYTES % (MANUAL) 21 % (20-40); MONOCYTES % (MANUAL) 6 % (2-10); NEUTROPHILS % (MANUAL) 71 % (42-75)
--- NOTE | 2016-08-30 17:57 | NUR ---
ONE UNIT PRBC GIVEN WITH DIALYSIS PER MD ORDERS.V/S ARE STABLE.NO A/R NOTED.
--- NOTE | 2016-08-30 21:00 | NUR ---
patient resting in bed,vital signs stable,no acute distress noted,continue pain management with Dilaudid 1 mg iv as needed with relieved and Benadryl given for c/o itching,patient appears comfortable.
[2016-08-31 00:16] VITALS: BP 123/71
[2016-08-31] MEDS: HYDROMORPHONE 1 MG/1 ML DISP.SYRIN IV PRN ×5 (00:58→17:03)
[2016-08-31 04:30] VITALS: BP 115/65
[2016-08-31] MEDS: diphenhydrAMINE 50 MG/1 ML VIAL IV PRN ×4 (05:05→17:03)
[2016-08-31] MEDS: ACIDOPHILUS/BULGARICUS CHEW TAB PO SCH ×2 (05:06→13:04)
--- NOTE | 2016-08-31 06:00 | NUR ---
no acute change /shift, patient remains stable,continue medicated with Dilaudid iv for pain control,bp 115/65,NSR on tele monitor,needs attended.
[2016-08-31 06:49] LABS: MEAN CORPUSCULAR HEMOGLOBIN 28.7 UUG (27.0-31.0); MEAN CORPUSCULAR HGB CONC 34 g/dL (32.0-37.0); MEAN CORPUSCULAR VOLUME 84.3 FL (82.0-92.0); RED BLOOD CELL COUNT(AUTO) 2.51 MIL/UL (4.7-6.1); WHITE BLOOD COUNT (AUTO) 9.6 K/UL (4.0-11.2)
[2016-08-31 07:15] LABS: BILIRUBIN,TOTAL 2.2 mg/dL (0.2-1.0); MAGNESIUM 2.2 mg/dL (1.8-2.4); PHOSPHOROUS 5.4 mg/dL (2.5-4.9); POTASSIUM 4.6 mmol/L (3.5-5.1); TOTAL PROTEIN, SERUM 7.6 g/dL (6.4-8.2)
[2016-08-31 07:18] LABS: PLATELET COUNT (AUTO) 39 K/UL (150-450)
[2016-08-31 07:19] LABS: HEMATOCRIT 21.2 % (40-50); HEMOGLOBIN 7.2 G/DL (14.0-18.0)
[2016-08-31 07:20] LABS: CREATININE 5.2 mg/dL (0.6-1.3)
[2016-08-31 07:29] LABS: EOSINOPHILS % (MANUAL) 4 % (0-8); LYMPHOCYTES % (MANUAL) 20 % (20-40); MONOCYTES % (MANUAL) 9 % (2-10); NEUTROPHILS % (MANUAL) 67 % (42-75)
[2016-08-31] MEDS: PROTEIN SUPPLEMENT (PROSTAT) 30 ML LIQUID PO SCH ×3 (07:46→16:19)
[2016-08-31] MEDS: CALCIUM ACETATE 667 MG CAPSULE PO SCH ×3 (07:47→16:19)
[2016-08-31] MEDS: CARVEDILOL 25 MG TABLET PO SCH (07:49)
[2016-08-31] MEDS: CINACALCET HCL 30 MG TABLET PO SCH (08:01)
[2016-08-31] MEDS: GABAPENTIN 100 MG CAPSULE PO SCH (08:01)
[2016-08-31] MEDS: MINOXIDIL 2.5 MG TABLET PO SCH ×3 (08:01→16:19)
[2016-08-31] MEDS: FOLIC ACID/VITAMIN B COMP W-C TABLET PO SCH (08:01)
[2016-08-31] MEDS: ASCORBIC ACID 250 MG TABLET PO SCH (08:02)
[2016-08-31] MEDS: CLONIDINE HCL 0.2 MG TABLET PO SCH ×3 (08:02→16:19)
[2016-08-31] MEDS: HYDROXYUREA 500 MG CAPSULE PO SCH (08:02)
[2016-08-31] MEDS: BENAZEPRIL HCL 20 MG TABLET PO SCH (08:03)
[2016-08-31 11:39] VITALS: BP 125/68
[2016-08-31] MEDS ORDERED: HYDR-548 PO (11:51)
[2016-08-31 15:22] VITALS: BP 138/80
[2016-08-31 16:19] VITALS: BP 138/80
--- NOTE | 2016-08-31 17:49 | NUR ---
D/C ORDERS RECEIVED NOTED AND CARRIED OUT.D/C INSTRUCTIONS AND RN REPORT GIVEN OVER [facility].PT LEFT THE FACILITY VIA AMBULANCES IN STABLE CONDITION.
== END 2016-08-31 18:00 | DRG 662 ==
LOC: ER 14:45 → TELE 17:24
PROVIDERS: ADMIT Internal Medicine; ATTEND Internal Medicine
PROC: 30233N1 Transfusion of Nonautologous Red Blood Cells into Peripheral Vein, Percutaneous Approach (ICD-10-PCS; principal; 2016-08-28)
PROC: 5A1D60Z (ICD-10-PCS; principal; 2016-08-28)
DX: D57.00 Hb-SS disease with crisis, unspecified (principal); I13.2 Hypertensive heart and chronic kidney disease with heart failure and with stage 5 chronic kidney disease, or end stage renal disease; E43 Unspecified severe protein-calorie malnutrition; J15.6 Pneumonia due to other Gram-negative bacteria; N18.6 End stage renal disease; D69.6 Thrombocytopenia, unspecified; I27.2 Other secondary pulmonary hypertension; I50.32 Chronic diastolic (congestive) heart failure; C64.9 Malignant neoplasm of unspecified kidney, except renal pelvis; E87.5 Hyperkalemia; E44.0 Moderate protein-calorie malnutrition; Z99.2 Dependence on renal dialysis; K21.9 Gastro-esophageal reflux disease without esophagitis; G89.29 Other chronic pain; Z96.643 Presence of artificial hip joint, bilateral; D50.0 Iron deficiency anemia secondary to blood loss (chronic); R91.8 Other nonspecific abnormal finding of lung field; K80.20 Calculus of gallbladder without cholecystitis without obstruction; N50.89 Other specified disorders of the male genital organs; Z79.899 Other long term (current) drug therapy; S30.22XA Contusion of scrotum and testes, initial encounter
CPT/HCPCS: 36415; 70030-TC; 71010; 83735; 84100; 85025; 85730; 86850; 86900; 86901; 86920; 90937; 93005; 97161; A4663; J1170; J1200; J2405; J7050; P9016-BL; P9021

== ENCOUNTER 2016-09-04 22:27 | Inpatient (IN) | payer MEDICAID, MEDICARE ==
[~2016-09-04] VITALS: Ht 177.8 cm; Wt 83.5 kg
[~2016-09-04 22:27] MED LIST changes: +DIPH25CA83 PO; -DIPH25PI2 IV; +DIPH50DI IV; +GABA-532 PO; +HYDR2DIS IV; +LACT1TAB20 PO; -LACTOBACILLUS PO; -RXVAN XX; -VANC1VIA4 IV
[2016-09-04] MEDS ORDERED: ONDANSETRON 4 MG/2 ML VIAL IV ONE (22:45)
[2016-09-04] MEDS ORDERED: diphenhydrAMINE 50 MG/1 ML VIAL IV ONE (22:45)
[2016-09-04] MEDS ORDERED: HYDROMORPHONE 1 MG/1 ML DISP.SYRIN IV ONE (22:45)
[2016-09-04] MEDS ORDERED: BENA20TA2 PO (22:51)
[2016-09-04] MEDS ORDERED: diphenhydrAMINE 50 MG/1 ML VIAL ONE (23:03)
[2016-09-04] MEDS ORDERED: HYDROMORPHONE 1 MG/1 ML DISP.SYRIN ONE (23:03)
[2016-09-04] MEDS ORDERED: ONDANSETRON 4 MG/2 ML VIAL ONE (23:03)
[2016-09-04 23:31] LABS: MEAN CORPUSCULAR HGB CONC 35 g/dL (32.0-37.0); MEAN CORPUSCULAR VOLUME 83.9 FL (82.0-92.0); WHITE BLOOD COUNT (AUTO) 8.6 K/UL (4.0-11.2)
[2016-09-04 23:32] LABS: RED BLOOD CELL COUNT(AUTO) 2.11 MIL/UL (4.7-6.1)
[2016-09-04 23:33] LABS: BILIRUBIN,DIRECT 1.3 mg/dL (0.0-0.2); HEMATOCRIT 17.7 % (40-50); HEMOGLOBIN 6.1 G/DL (14.0-18.0); PLATELET COUNT (AUTO) 19 K/UL (150-450); POTASSIUM 4.8 mmol/L (3.5-5.1); TOTAL PROTEIN, SERUM 7.6 g/dL (6.4-8.2)
[2016-09-04 23:46] LABS: CREATININE 4.9 mg/dL (0.6-1.3)
--- NOTE | 2016-09-04 23:48 | NUR ---
PER DEIRDRE, PAGED DR MCKEON GROUP, PER [employer]OP BLACKSMITH ADVISED DR. HENDRIX WILL BE CALLING BACK....
[2016-09-04 23:52] LABS: EOSINOPHILS % (MANUAL) 1 % (0-8); LYMPHOCYTES % (MANUAL) 26 % (20-40); MONOCYTES % (MANUAL) 8 % (2-10); NEUTROPHILS % (MANUAL) 65 % (42-75)
[2016-09-05] VITALS (16 sets, daily range): BP systolic 92–117; BP diastolic 49–66
--- NOTE | 2016-09-05 00:07 | NUR ---
Pt. admitted to TELE, under care of Dr. Hodges Belongs List completed
--- NOTE | 2016-09-05 00:25 | NUR ---
RECEIVED PATIENT VIA GURNEY FROM ER. PATIENT IS A/O X4. C/O PAIN UPON ARRIVAL TO FLOOR. PATIENT PLACED ON TELE ORDERED, SR. VSS. NO RESP. DISTRESS NOTED. FAY-CATH NOTED TO RIGHT UPPER CHEST AND AV SHUNT NOTED TO RIGHT ARM. SKIN INTACT. BILATERAL SWELLING NOTED TO LOWER EXTREMITIES. HEELS OFF-LOADED FOR PRESSURE RELIEF. NO SKIN ISSUES NOTED ON ADMISSION. ORIENTED PATIENT TO ROOM AND CALL LIGHT. CALL LIGHT IN REACH. ALL NEEDS ATTENDED. WILL CONTINUE TO MONITOR. Addendum: 09/05/16 at 0653 by KATHERINE LARA LVN CLARIFICATION- PATIENTS SKIN RE-ASSESSED AND SMALL OPEN AREA NOTED TO SACRAL AREA. PICTURE TAKEN AND PLACED IN CHART. MEPILEX APPLIED TO AFFECTED AREA. WILL CONTINUE TO MONITOR.
[2016-09-05] MEDS: diphenhydrAMINE 50 MG/1 ML VIAL IV PRN ×6 (00:59→21:44)
[2016-09-05] MEDS: HYDROMORPHONE 2 MG/1 ML DISP.SYRIN IV PRN ×7 (01:00→21:57)
--- NOTE | 2016-09-05 01:00 | NUR ---
PATIENT GIVEN DILAUDID 2MG IV AND BENADRYL 25MG IV PER THERMITE WELDER. VSS. WILL CONTINUE TO MONITOR.
[2016-09-05] MEDS ORDERED: HYDROMORPHONE 2 MG/1 ML DISP.SYRIN ONE ×2 (01:02→05:15)
--- NOTE | 2016-09-05 01:05 | NUR ---
RECEIVED ORDER FOR PATIENT TO HAVE 2 UNITS OF PRBC TO BE INFUSED OVER 4 HOURS. CONSENT SIGNED. 1ST UNIT STARTED PER CUE WORKER. VSS. CALL LIGHT IN REACH. ALL NEEDS ATTENDED. WILL CONTINUE TO MONITOR.
--- NOTE | 2016-09-05 01:20 | NUR ---
1ST UNIT OF BLOOD TRANSFUSING WELL. NO TRANSFUSION REACTION NOTED. NO RESP. DISTRESS NOTED. VSS. CALL LIGHT IN REACH. ALL NEEDS ATTENDED, WILL CONTINUE TO MONITOR.
--- NOTE | 2016-09-05 02:00 | NUR ---
PATIENT ASLEEP IN BED. EASILY AROUSABLE. VSS. CALL LIGHT IN REACH. ALL NEEDS ATTENDED. WILL CONTINUE TO MONITOR.
--- NOTE | 2016-09-05 05:07 | NUR ---
1ST UNIT OF BLOOD TRANSFUSED. VSS. AFEBRILE. PATIENT C/O PAIN AND ITCHING. PATIENT GIVEN DILAUDID 2MG IV AND BENADRYL 25MG IV PER TRAY PACKER. PATIENT ON O2 2L NC SATING 99%. WILL CONTINUE TO MONITOR.
[2016-09-05] MEDS ORDERED: diphenhydrAMINE 50 MG/1 ML VIAL ONE (05:14)
--- NOTE | 2016-09-05 05:52 | NUR ---
UNABLE TO ADMINISTER 2ND UNIT OF BLOOD DUE TO BARCODE NOT SCANNING. DIGITAL MEDIA COORDINATOR AT BEDSIDE. BLOOD RETURNED TO LAB AND WILL RE-ORDER 1 UNIT OF PRBC. HOME HELP AIDE AT BEDSIDE. PATIENTS NOSE BLEEDING. PATIENT STATED, "THIS HAPPENS ALL THE TIME." CALLED OUT TO DR. HENDRIX FOR FURTHER ORDERS.
--- NOTE | 2016-09-05 05:56 | NUR ---
PATIENT GIVEN NOSE CLIP TO HELP STOP THE BLEEDING. CALL MADE OUT TO DR. HENDRIX FOR FURTHER ORDERS.
--- NOTE | 2016-09-05 06:00 | NUR ---
SPOKE WITH DR. HENDRIX REGARDING NOSE BLEED. NO NEW ORDERS AT THIS TIME. WAITING FOR CALL BACK FROM LAB FOR 2ND UNIT OF BLOOD. ALL NEEDS ATTENDED.
--- NOTE | 2016-09-05 06:34 | NUR ---
2ND UNIT OF BLOOD STARTED. VSS. WILL CONTINUE TO MONITOR.
--- NOTE | 2016-09-05 06:49 | NUR ---
2ND UNIT OF BLOOD TRANSFUSING WELL. VSS. NO REACTION NOTED. NOSE CLIP ON PATIENT AND NOSE BLEEDING DIMINISHED. MD AWARE OF BLEEDING WITH NO NEW ORDERS. TIE CARRIER AWARE. ON TELE SR. CALL LIGHT IN REACH. ALL NEEDS ATTENDED. WILL CONTINUE TO MONITOR.
--- NOTE | 2016-09-05 07:23 | NUR ---
INFORMED DR. MCKEON OF PATIENTS NOSE BLEEDING. MD AWARE AND WILL ORDER PLATELETS. RN RECEIVING PATIENT NOTIFIED THAT MD WILL ORDER.
--- NOTE | 2016-09-05 08:00 | NUR ---
Awake, complaining of pain. Blood transfusion infusing to right chest portacath. Vital signs taken and recorded. Noted nose bleeding.
[2016-09-05] MEDS ORDERED: DESMOPRESSIN INJ 20 MCG in IV NORMAL SALINE 50 ML IV ONE (09:00)
[2016-09-05] MEDS ORDERED: HYDROCODONE/APAP 10-325 MG TABLET PO PRN (09:30)
[2016-09-05] MEDS: CLONIDINE HCL 0.2 MG TABLET PO SCH ×3 (09:30→21:32)
[2016-09-05] MEDS: CARVEDILOL 25 MG TABLET PO SCH ×2 (09:30→17:00)
[2016-09-05] MEDS: BENAZEPRIL HCL 20 MG TABLET PO SCH (09:30)
[2016-09-05] MEDS ORDERED: ACETAMINOPHEN 325 MG TABLET PO PRN (09:30)
[2016-09-05] MEDS ORDERED: CLONIDINE HCL 0.2 MG TABLET PO PRN (09:30)
[2016-09-05] MEDS: MINOXIDIL 2.5 MG TABLET PO SCH ×3 (09:30→21:31)
--- NOTE | 2016-09-05 09:45 | NUR ---
2nd unit PRBC finished. No blood transfusion reaction noted.
[2016-09-05] MEDS: VITAMIN E CREAM 56.7 GM JAR TP SCH ×2 (10:12→21:32)
[2016-09-05] MEDS: ACIDOPHILUS/BULGARICUS CHEW TAB PO SCH ×3 (10:26→18:00)
[2016-09-05] MEDS: CALCIUM ACETATE 667 MG CAPSULE PO SCH ×3 (10:27→18:00)
[2016-09-05] MEDS: FOLIC ACID/VITAMIN B COMP W-C TABLET PO SCH (10:27)
[2016-09-05] MEDS: ASCORBIC ACID 250 MG TABLET PO SCH (10:28)
[2016-09-05] MEDS: CINACALCET HCL 30 MG TABLET PO SCH (10:28)
[2016-09-05 11:52] LABS: MEAN CORPUSCULAR HEMOGLOBIN 28.4 UUG (27.0-31.0); MEAN CORPUSCULAR HGB CONC 33 g/dL (32.0-37.0); WHITE BLOOD COUNT (AUTO) 11.6 K/UL (4.0-11.2)
[2016-09-05] MEDS: PROTEIN SUPPLEMENT (PROSTAT) 30 ML LIQUID PO SCH ×2 (12:00→17:00)
[2016-09-05 12:13] LABS: POTASSIUM 5.6 mmol/L (3.5-5.1)
[2016-09-05 12:17] LABS: CREATININE 5.5 mg/dL (0.6-1.3)
[2016-09-05 12:35] LABS: HEMATOCRIT 20.9 % (40-50); RED BLOOD CELL COUNT(AUTO) 2.45 MIL/UL (4.7-6.1)
[2016-09-05 12:36] LABS: PLATELET COUNT (AUTO) 18 K/UL (150-450)
[2016-09-05] MEDS: GABAPENTIN 100 MG CAPSULE PO SCH ×2 (13:17→18:00)
[2016-09-05] MEDS: HYDROXYUREA 500 MG CAPSULE PO SCH (13:17)
--- NOTE | 2016-09-05 14:17 | NUR ---
WOUND CARE CONSULT: PT NOT SEEN FOR SKIN ASSESSMENT AT THIS TIME DUE TO PT HAVING DIALYSIS. RECOMMENDATIONS MADE BASED ON NURSING REPORT OF PARTIAL THICKNESS WOUND TO SACRUM, PRESENT ON ADMISSION. WILL SEE PT PT CONDITION PERMITS. CULLEN SCORE IS 19. IN AGREEMENT WITH PLAN OF CARE.
[2016-09-05 14:23] LABS: EOSINOPHILS % (MANUAL) 2 % (0-8); LYMPHOCYTES % (MANUAL) 19 % (20-40); MONOCYTES % (MANUAL) 9 % (2-10); NEUTROPHILS % (MANUAL) 70 % (42-75)
--- NOTE | 2016-09-05 15:00 | NUR ---
HD ongoing. Platelet followed up several times, still not available.
--- NOTE | 2016-09-05 18:30 | NUR ---
Platelet followed up again , still not available. Kept dry and comfortable. Still with nose bleeding. Endorsed for further care
--- NOTE | 2016-09-05 21:57 | NUR ---
Dilaudid IV 2mg wasted, accidentally fell on the floor.
[2016-09-06] VITALS (7 sets, daily range): BP systolic 91–127; BP diastolic 43–67
[2016-09-06] MEDS: diphenhydrAMINE 50 MG/1 ML VIAL IV PRN ×6 (02:18→22:57)
[2016-09-06] MEDS: HYDROMORPHONE 2 MG/1 ML DISP.SYRIN IV PRN ×6 (02:18→22:57)
--- NOTE | 2016-09-06 02:31 | NUR ---
S/P 1 unit platelets transfusion, patient tolerated. No signs of transfusion reaction noted. Sinus rhythm on th monitor.
[2016-09-06] MEDS: MINOXIDIL 2.5 MG TABLET PO SCH ×3 (05:41→21:17)
[2016-09-06] MEDS: CLONIDINE HCL 0.2 MG TABLET PO SCH ×3 (05:41→21:17)
--- NOTE | 2016-09-06 06:30 | NUR ---
Morning care provided. Nasal bleeding stopped. No acute resp distress. Pain management continues. Morning BP meds held for now due to low blood pressure. Sinus rhythm on the monitor.
[2016-09-06 06:32] LABS: BILIRUBIN,TOTAL 1.9 mg/dL (0.2-1.0); MAGNESIUM 2.2 mg/dL (1.8-2.4); PHOSPHOROUS 7.1 mg/dL (2.5-4.9); POTASSIUM 5.1 mmol/L (3.5-5.1); TOTAL PROTEIN, SERUM 7.7 g/dL (6.4-8.2)
[2016-09-06 06:40] LABS: MEAN CORPUSCULAR HEMOGLOBIN 29.6 UUG (27.0-31.0); MEAN CORPUSCULAR HGB CONC 35 g/dL (32.0-37.0); MEAN CORPUSCULAR VOLUME 85.4 FL (82.0-92.0); WHITE BLOOD COUNT (AUTO) 10.6 K/UL (4.0-11.2)
[2016-09-06 07:06] LABS: CREATININE 5.3 mg/dL (0.6-1.3)
[2016-09-06 07:50] LABS: HEMATOCRIT 18.2 % (40-50); HEMOGLOBIN 6.3 G/DL (14.0-18.0); PLATELET COUNT (AUTO) 38 K/UL (150-450); RED BLOOD CELL COUNT(AUTO) 2.13 MIL/UL (4.7-6.1)
[2016-09-06] MEDS: PROTEIN SUPPLEMENT (PROSTAT) 30 ML LIQUID PO SCH ×3 (08:00→16:34)
--- NOTE | 2016-09-06 08:00 | NUR ---
H/H 6.3/18.2 DR CHOE AWARE WITH NO NEW ORDERS AT THIS TIME
[2016-09-06 08:45] LABS: EOSINOPHILS % (MANUAL) 5 % (0-8); LYMPHOCYTES % (MANUAL) 26 % (20-40); MONOCYTES % (MANUAL) 8 % (2-10); NEUTROPHILS % (MANUAL) 61 % (42-75)
[2016-09-06] MEDS: BENAZEPRIL HCL 20 MG TABLET PO SCH (08:53)
[2016-09-06] MEDS: CARVEDILOL 25 MG TABLET PO SCH ×2 (08:54→16:37)
[2016-09-06] MEDS: CALCIUM ACETATE 667 MG CAPSULE PO SCH ×3 (09:11→16:34)
[2016-09-06] MEDS: GABAPENTIN 100 MG CAPSULE PO SCH ×3 (09:12→16:34)
[2016-09-06] MEDS: CINACALCET HCL 30 MG TABLET PO SCH (09:12)
[2016-09-06] MEDS: ASCORBIC ACID 250 MG TABLET PO SCH (09:12)
[2016-09-06] MEDS: FOLIC ACID/VITAMIN B COMP W-C TABLET PO SCH (09:12)
[2016-09-06] MEDS: ACIDOPHILUS/BULGARICUS CHEW TAB PO SCH ×3 (09:12→16:34)
[2016-09-06] MEDS: HYDROXYUREA 500 MG CAPSULE PO SCH (09:13)
[2016-09-06] MEDS: VITAMIN E CREAM 56.7 GM JAR TP SCH ×2 (09:14→21:17)
--- NOTE | 2016-09-06 13:00 | NUR ---
DR HAGEN HERE REMINDED HIM OF TH LOW H/H STATED THAT HE WILL HAVE THE HEMATOLOGY ONCOLOGIST TO SEE PATIENT DID NOT WANT TO TRANSFUSE PATIENT AT THIS TIME.
--- NOTE | 2016-09-06 18:00 | NUR ---
PATIENT REMAIN ON PAIN MEDICATION ORDERED AND HELPFUL HE WAS ALSO EDUCATED ON LYING SIDE TO SIDE TO AVOID PRESSURE ON HIS SACRAL AREA AND HE EXPRESSED UNDERSTANDING.
[2016-09-07] VITALS (10 sets, daily range): BP systolic 110–137; BP diastolic 56–81
[2016-09-07] MEDS: HYDROMORPHONE 2 MG/1 ML DISP.SYRIN IV PRN ×6 (03:12→22:45)
[2016-09-07] MEDS: diphenhydrAMINE 50 MG/1 ML VIAL IV PRN ×6 (03:12→22:46)
[2016-09-07] MEDS: CLONIDINE HCL 0.2 MG TABLET PO SCH ×3 (06:00→21:57)
[2016-09-07] MEDS: MINOXIDIL 2.5 MG TABLET PO SCH ×3 (06:00→21:57)
[2016-09-07 07:09] LABS: BASOPHILS # (AUTO) 0.1 K/uL (0.0-8.0); BASOPHILS % (AUTO) 0.6 % (0.0-2.0); EOSINOPHILS # (AUTO) 0.2 K/uL (0.0-0.7); EOSINOPHILS % (AUTO) 1.3 % (0.0-7.0); LYMPHOCYTES # (AUTO) 3.1 K/UL (0.8-4.8); LYMPHOCYTES % (AUTO) 25.8 % (20.5-51.5); MEAN CORPUSCULAR HEMOGLOBIN 28.3 UUG (27.0-31.0); MEAN CORPUSCULAR HGB CONC 33 g/dL (32.0-37.0); MEAN CORPUSCULAR VOLUME 84.9 FL (82.0-92.0); MONOCYTES # (AUTO) 1.5 K/UL (0.1-1.30); MONOCYTES % (AUTO) 12.5 % (0.0-11.0); NEUTROPHILS % (AUTO) 59.8 % (38.5-71.5); WHITE BLOOD COUNT (AUTO) 11.9 K/UL (4.0-11.2)
[2016-09-07 07:16] LABS: PLATELET COUNT (AUTO) 24 K/UL (150-450); POTASSIUM 6.1 mmol/L (3.5-5.1); RED BLOOD CELL COUNT(AUTO) 2.12 MIL/UL (4.7-6.1)
[2016-09-07 07:17] LABS: CREATININE 6.4 mg/dL (0.6-1.3)
--- NOTE | 2016-09-07 07:45 | NUR ---
H/H IS 6.0/24.0 RECEIVED FROM THE LAB AND CALLED TO DR HAGEN WITH NO NEW ORDERS AT THIS TIME.
[2016-09-07] MEDS: PROTEIN SUPPLEMENT (PROSTAT) 30 ML LIQUID PO SCH ×3 (08:00→16:32)
[2016-09-07] MEDS: CINACALCET HCL 30 MG TABLET PO SCH (08:10)
[2016-09-07] MEDS: ASCORBIC ACID 250 MG TABLET PO SCH (08:10)
[2016-09-07] MEDS: GABAPENTIN 100 MG CAPSULE PO SCH ×3 (08:11→16:32)
[2016-09-07] MEDS: ACIDOPHILUS/BULGARICUS CHEW TAB PO SCH ×3 (08:11→16:32)
[2016-09-07] MEDS: CALCIUM ACETATE 667 MG CAPSULE PO SCH ×3 (08:11→16:32)
[2016-09-07] MEDS: FOLIC ACID/VITAMIN B COMP W-C TABLET PO SCH (08:11)
[2016-09-07] MEDS: CARVEDILOL 25 MG TABLET PO SCH ×2 (08:11→16:33)
[2016-09-07] MEDS: BENAZEPRIL HCL 20 MG TABLET PO SCH (08:12)
[2016-09-07] MEDS: HYDROXYUREA 500 MG CAPSULE PO SCH (08:14)
[2016-09-07] MEDS: VITAMIN E CREAM 56.7 GM JAR TP SCH ×2 (08:17→20:43)
[2016-09-07 08:48] LABS: EOSINOPHILS % (MANUAL) 2 % (0-8); LYMPHOCYTES % (MANUAL) 31 % (20-40); MONOCYTES % (MANUAL) 11 % (2-10); NEUTROPHILS % (MANUAL) 56 % (42-75)
--- NOTE | 2016-09-07 12:18 | NUR ---
DR HAGEN HERE TO SEE PATIENT WITH ORDER TO TRANSFUSE 2 UNITS OF BLOOD WITH DIALYSIS.
--- NOTE | 2016-09-07 15:00 | NUR ---
SPOKE WITH THE LINING MAKER AND SHE STATED WILL BE HERE IN ABOUT 2 HORS FOR THE DIALYSIS AND WILL TRANSFUSE THE PATIENT THEN.PATIENT AWARE AND HAD PREVIOUSLY SIGNED THE BLOOD TRANSFUSION CONSCENT.
--- NOTE | 2016-09-07 17:13 | NUR ---
BOILERS INSPECTOR HERE AND FIRST UNIT OF BLOOD TRANSFUSSION STARTED ORDERED GIVEN BY WITH THE DIALYSIS.
--- NOTE | 2016-09-07 17:54 | NUR ---
2 UNITS OF BLOOD COMPLETED WITH DIALYSIS WITH NO ADVERSE OR ALLERGIC REACTIONS AT THIS TIME.DIALYSIS REMAIN IN PROGRESS AND TOLERATING WELL.
--- NOTE | 2016-09-07 19:03 | NUR ---
DIALYSIS REMAINS IN PROGRESS ORDERED AND TOLERATING WELL.
--- NOTE | 2016-09-07 19:45 | NUR ---
RESTING IN BED COMFORTABLY IN BED. ABLE TO MAKE NEEDS KNOWN. NO ACUTE DISTRESS NOTED. HD FINISHED, TOLERATED WELL. 3700 FLUID OUT. V/S STABLE. NEEDS ATTENDED. CALL LIGHT WITHIN REACH
[2016-09-08 00:10] VITALS: BP 137/72
[2016-09-08] MEDS: HYDROMORPHONE 2 MG/1 ML DISP.SYRIN IV PRN ×6 (02:43→22:49)
[2016-09-08] MEDS: diphenhydrAMINE 50 MG/1 ML VIAL IV PRN ×6 (02:43→22:49)
[2016-09-08 04:00] VITALS: BP 126/63
[2016-09-08] MEDS: MINOXIDIL 2.5 MG TABLET PO SCH ×3 (05:35→21:09)
[2016-09-08] MEDS: CLONIDINE HCL 0.2 MG TABLET PO SCH ×3 (05:35→21:09)
--- NOTE | 2016-09-08 06:02 | NUR ---
SLEPT INTERMITTENTLY DURING THE SHIFT. NO ACUTE DISTRESS NOTED. SINUS RHYTHM ON MONITOR. ALL DUE MEDS GIVEN ORDERED. PAIN CONTROLLED WITH MEDICATION ORDERED. NO BLEEDING NOTED THROUGH OUT THE SHIFT. NEEDS ATTENDED. KEPT COMFORTABLE AT ALL TIMES. CALL LIGHT WITHIN REACH
[2016-09-08 07:36] LABS: MEAN CORPUSCULAR HEMOGLOBIN 30.8 UUG (27.0-31.0); MEAN CORPUSCULAR HGB CONC 36 g/dL (32.0-37.0); MEAN CORPUSCULAR VOLUME 86.3 FL (82.0-92.0)
[2016-09-08 07:42] LABS: POTASSIUM 5.1 mmol/L (3.5-5.1)
[2016-09-08 07:45] LABS: CREATININE 6.6 mg/dL (0.6-1.3)
[2016-09-08 07:55] LABS: RED BLOOD CELL COUNT(AUTO) 2.44 MIL/UL (4.7-6.1)
[2016-09-08 07:56] LABS: HEMOGLOBIN 7.5 G/DL (14.0-18.0)
[2016-09-08 07:57] LABS: PLATELET COUNT (AUTO) 46 K/UL (150-450)
[2016-09-08] MEDS: PROTEIN SUPPLEMENT (PROSTAT) 30 ML LIQUID PO SCH ×3 (08:00→16:07)
[2016-09-08] MEDS: CALCIUM ACETATE 667 MG CAPSULE PO SCH ×3 (08:12→16:07)
[2016-09-08] MEDS: BENAZEPRIL HCL 20 MG TABLET PO SCH (08:12)
[2016-09-08] MEDS: ACIDOPHILUS/BULGARICUS CHEW TAB PO SCH ×3 (08:12→16:07)
[2016-09-08] MEDS: ASCORBIC ACID 250 MG TABLET PO SCH (08:12)
[2016-09-08] MEDS: CINACALCET HCL 30 MG TABLET PO SCH (08:12)
[2016-09-08] MEDS: GABAPENTIN 100 MG CAPSULE PO SCH ×3 (08:12→16:07)
[2016-09-08] MEDS: FOLIC ACID/VITAMIN B COMP W-C TABLET PO SCH (08:12)
[2016-09-08] MEDS: CARVEDILOL 25 MG TABLET PO SCH ×2 (08:13→16:08)
[2016-09-08] MEDS: VITAMIN E CREAM 56.7 GM JAR TP SCH ×2 (08:26→21:10)
--- NOTE | 2016-09-08 08:30 | NUR ---
ALERT ORIENTED AND VERBALLY RESPONSIVE STATED COMFORTABLE AT THIS TIME WITH NO PAIN.RIGHT CHEST FAY CATH REMAINS INTACT AND RIGHT UPPER ARM AV SHUNT WITH BRUIT AND THRILL ENCOURAGED TO TURN AND REPOSITION MADE COMFORTABLE WITH NO DISTRESS AT THIS TIME.
[2016-09-08 08:54] LABS: EOSINOPHILS % (MANUAL) 3 % (0-8); LYMPHOCYTES % (MANUAL) 22 % (20-40); METAMYELOCYTES % 2 % (0-1); MONOCYTES % (MANUAL) 7 % (2-10); NEUTROPHILS % (MANUAL) 66 % (42-75)
[2016-09-08] MEDS: HYDROXYUREA 500 MG CAPSULE PO SCH (09:20)
[2016-09-08 11:42] VITALS: BP 107/54
--- NOTE | 2016-09-08 12:54 | NUR ---
PATIENT SEEN AND EXAMINED BY DR HAGEN WITH NEW ORDERS AND NOTED.
[2016-09-08 15:34] VITALS: BP 113/65
--- NOTE | 2016-09-08 17:42 | NUR ---
THE DEAD MAIL CHECKER HERE AND PATIENT IS FOR DIALYSIS TODAY
--- NOTE | 2016-09-08 18:27 | NUR ---
REMAIN ON DIALYSIS ORDERED WITH NO ADVERSE EFFECTS AT THIS TIME.WILL CONTINUE TO MONITOR.
--- NOTE | 2016-09-08 20:00 | NUR ---
Patient post dialysis, dozing intermittently, in no acute distress, no c/o of SOB, chest pain, nausea/vomiting. Output of 3700cc per correctional nurse. NOEMI AV shunt with bruit and thrill, dressing dry/clean/intact, no signs of bleeding noted. Patient is on tele - sinus rhythm. Call light within reach, bed alarm on. Will continue plan of care and monitor.
[2016-09-08 20:40] VITALS: BP 111/61
[2016-09-09] VITALS: BP 123/69
[2016-09-09] MEDS: diphenhydrAMINE 50 MG/1 ML VIAL IV PRN ×4 (03:43→16:01)
[2016-09-09] MEDS: HYDROMORPHONE 2 MG/1 ML DISP.SYRIN IV PRN ×4 (03:44→16:02)
[2016-09-09 04:00] VITALS: BP 121/69
[2016-09-09] MEDS: MINOXIDIL 2.5 MG TABLET PO SCH ×2 (05:28→13:19)
[2016-09-09] MEDS: CLONIDINE HCL 0.2 MG TABLET PO SCH ×2 (05:32→13:18)
--- NOTE | 2016-09-09 05:41 | NUR ---
Patient slept intermittently, in no acute distress, no SOB or chest pain, remains afebrile. Patient is on tele SR. Pain management administered as ordered. Right upper chest port-a-cath patent, no s/s of infection/bleeding, dressing changed per protocol. NOEMI AV shunt with bruit and thrill, dressing clean/dry/intact, no s/s of bleeding. Sacral ulcer cleansed with NS, applied hydrogel and cover with mepilex as ordered, no s/s of infection. Call light within reach, bed alarm on. Will continue plan of care and monitor
[2016-09-09] MEDS: PROTEIN SUPPLEMENT (PROSTAT) 30 ML LIQUID PO SCH ×3 (08:00→16:28)
[2016-09-09] MEDS ORDERED: HYDR2DIS IV (08:31)
[2016-09-09] MEDS: CALCIUM ACETATE 667 MG CAPSULE PO SCH ×3 (08:38→16:27)
[2016-09-09] MEDS: ASCORBIC ACID 250 MG TABLET PO SCH (08:39)
[2016-09-09] MEDS: GABAPENTIN 100 MG CAPSULE PO SCH ×3 (08:39→16:27)
[2016-09-09] MEDS: ACIDOPHILUS/BULGARICUS CHEW TAB PO SCH ×3 (08:39→16:27)
[2016-09-09] MEDS: FOLIC ACID/VITAMIN B COMP W-C TABLET PO SCH (08:39)
[2016-09-09] MEDS: CINACALCET HCL 30 MG TABLET PO SCH (08:39)
[2016-09-09] MEDS: CARVEDILOL 25 MG TABLET PO SCH ×2 (08:40→16:28)
[2016-09-09] MEDS: VITAMIN E CREAM 56.7 GM JAR TP SCH (08:41)
[2016-09-09] MEDS: BENAZEPRIL HCL 20 MG TABLET PO SCH (08:41)
[2016-09-09] MEDS: HYDROXYUREA 500 MG CAPSULE PO SCH (08:43)
--- NOTE | 2016-09-09 08:49 | NUR ---
PATIENT SEEN AND EXAMINED BY DR HAGEN WITH ORDER TO DISCHARGE PATIENT BACK TO [facility] TODAY.PATIENT IS AWARE AND STATED THAT HE WANTS TO LEAVE AFTER LUNCH. ALERT ORIENTED WITH S/S OF BLEEDING AT THIS TIME.PATIENT WAS MEDICATED FOR PAIN AND HE IS COMFORTABLE AT THIS TIME.
[2016-09-09 11:40] VITALS: BP 101/47
--- NOTE | 2016-09-09 11:54 | NUR ---
PER THE TONGUE STITCHER THE PRE WAVE ASSEMBLER IS STILL ARRANGING HIS DISCHARGE DESTINATION.PATIENT AWARE.
--- NOTE | 2016-09-09 13:00 | NUR ---
NEW ORDERS NOTED FROM DR MICHAELS TO D/C TELEMETRY AND NOTED.
[2016-09-09 15:33] VITALS: BP 113/51
--- NOTE | 2016-09-09 16:04 | NUR ---
CALLED MARILEE ADAM AND REPORT GIVEN TO RADHA FOR CONTINUING CARE PATIENT WILL BE PICKED UP ABOUT 183 BY THE [facility] AND PATIENT AWARE.
[2016-09-09 16:28] VITALS: BP 107/66
--- NOTE | 2016-09-09 17:30 | NUR ---
DISCHARGE INSTRUCTIONS GIVEN AND EXPLAINED TO PATIENT THAT HE SHOULD CONTINUE WITH HIS DIALYSIS ORDERED AND FOLLOW UP WITH HIS PRIMARY DOCTOR WITHIN THE NEXT ONE TO TWO WEEKS AND HE SIGNED AND EXPRESSED UNDERSTANDING AWAITING FOR THE AMBULANCE GRINDING WHEEL OPERATOR SCHEDULED FOR 1829
--- NOTE | 2016-09-09 19:35 | NUR ---
Patient picked up by ambulance via gurney. Report given to paramedics. Patient is alert, responsive, in no acute distress. All belongings with him and accounted for.
== END 2016-09-09 19:52 | DRG 662 ==
LOC: ER 22:32 → TELE 23:00 → MED 09-09 13:11
PROVIDERS: ADMIT Internal Medicine Nephrology; ATTEND Internal Medicine
PROC: 30233N1 Transfusion of Nonautologous Red Blood Cells into Peripheral Vein, Percutaneous Approach (ICD-10-PCS; principal; 2016-09-04)
PROC: 30233R1 Transfusion of Nonautologous Platelets into Peripheral Vein, Percutaneous Approach (ICD-10-PCS; 2016-09-05)
PROC: 5A1D60Z (ICD-10-PCS; 2016-09-05)
DX: D57.00 Hb-SS disease with crisis, unspecified (principal); I13.2 Hypertensive heart and chronic kidney disease with heart failure and with stage 5 chronic kidney disease, or end stage renal disease; D61.818 Other pancytopenia; J18.9 Pneumonia, unspecified organism; E44.0 Moderate protein-calorie malnutrition; N18.6 End stage renal disease; I50.32 Chronic diastolic (congestive) heart failure; D69.6 Thrombocytopenia, unspecified; K80.20 Calculus of gallbladder without cholecystitis without obstruction; Z99.2 Dependence on renal dialysis; G89.4 Chronic pain syndrome; D64.9 Anemia, unspecified; C64.9 Malignant neoplasm of unspecified kidney, except renal pelvis; R04.0 Epistaxis
CPT/HCPCS: 36415; 70030-TC; 71010; 83735; 84100; 85025; 85730; 86850; 86900; 86901; 86920; 93005; A4663; J1170; J1200; J2405; J2597; J3490; J7040; J7050; P9016-BL; P9021; P9035-BL

== ENCOUNTER 2016-09-17 23:25 | Inpatient (IN) | payer MEDICAID, MEDICARE ==
[~2016-09-17] VITALS: Ht 177.8 cm; Wt 86.8 kg
[~2016-09-17 23:25] MED LIST changes: -ACID1TAB4 PO; -DIPH25CA83 PO
[2016-09-18] VITALS (9 sets, daily range): BP systolic 98–133; BP diastolic 51–63
[2016-09-18] MEDS ORDERED: HYDROMORPHONE 1 MG/1 ML DISP.SYRIN IV ONE
[2016-09-18] MEDS ORDERED: diphenhydrAMINE 50 MG/1 ML VIAL IV ONE
[2016-09-18] MEDS ORDERED: ONDANSETRON IV *ER 4 MG/2 ML VIAL IV ONE
--- NOTE | 2016-09-18 | NUR ---
PATIENT BROUGHT IN BY [facility] AMBULANCE FROM SNF FOR C/O RIGHT NARES NOSE BLEED X1 DAY. PATIENT ARRIVED WITH RIGHT UPPER CHEST FAY CATH WHICH WAS ALREADY ACCESS
[2016-09-18] MEDS ORDERED: diphenhydrAMINE 50 MG/1 ML VIAL ONE ×2 (00:19→03:00)
[2016-09-18] MEDS ORDERED: ONDANSETRON 4 MG/2 ML VIAL ONE (00:19)
[2016-09-18] MEDS ORDERED: HYDROMORPHONE 2 MG/1 ML DISP.SYRIN ONE ×2 (00:19→03:01)
[2016-09-18 00:20] LABS: MEAN CORPUSCULAR HEMOGLOBIN 29.9 UUG (27.0-31.0); MEAN CORPUSCULAR HGB CONC 36 g/dL (32.0-37.0); WHITE BLOOD COUNT (AUTO) 9.1 K/UL (4.0-11.2)
[2016-09-18 00:24] LABS: CREATININE 3.5 mg/dL (0.6-1.3); POTASSIUM 4.1 mmol/L (3.5-5.1)
[2016-09-18 00:30] LABS: BILIRUBIN,TOTAL 1.7 mg/dL (0.2-1.0); TOTAL PROTEIN, SERUM 7.2 g/dL (6.4-8.2)
[2016-09-18 00:31] LABS: HEMOGLOBIN 5.4 G/DL (14.0-18.0); RED BLOOD CELL COUNT(AUTO) 1.81 MIL/UL (4.7-6.1)
[2016-09-18 00:32] LABS: HEMATOCRIT 15.2 % (40-50); PLATELET COUNT (AUTO) 43 K/UL (150-450)
[2016-09-18 00:35] LABS: BAND % (MANUAL) 1 % (0-10); EOSINOPHILS % (MANUAL) 1 % (0-8); LYMPHOCYTES % (MANUAL) 19 % (20-40); MONOCYTES % (MANUAL) 14 % (2-10); NEUTROPHILS % (MANUAL) 65 % (42-75)
--- NOTE | 2016-09-18 01:14 | NUR ---
TRANSFERED TO MED SURG 2ND FLOOR VIA [facility]
--- NOTE | 2016-09-18 01:15 | NUR ---
RECEIVED PATIENT AWAKE IN BED. PATIENT IS A/O X 4. C/O PAIN, PATIENT WAS MEDICATED AT 0015 PER RN. PATIENT ON RA SATING 91%, DENIES ANY SOB. NO RESP. DISTRESS NOTED. PATIENT PLACED ON O2 2L NC. ALL OTHER VSS. FAY-CATH NOTED TO RIGHT UPPER CHEST, INTACT AND AV SHUNT NOTED TO RIGHT UPPER ARM. ORIENTED PATIENT TO ROOM AND CALL LIGHT. CALL LIGHT IN REACH. ALL NEEDS ATTENDED. WILL CONTINUE TO MONITOR.
--- NOTE | 2016-09-18 01:30 | NUR ---
CLOSED HEALED WOUND NOTED TO SACRAL. SCARRED AND SLIGHT PINK NOTED AROUND SCAR. MEPILEX AND HYDROGEL APPLIED FOR PREVENTION AND PATIENT EDUCATION ON PRESSURE RELIEF.
[2016-09-18] MEDS ORDERED: ONDANSETRON 4 MG/2 ML VIAL IV PRN (01:45)
[2016-09-18] MEDS ORDERED: DESMOPRESSIN 0.1 MG TABLET PO PRN (01:45)
--- NOTE | 2016-09-18 02:00 | NUR ---
PATIENT ASLEEP IN BED. NO S/S OF PAIN OR DISCOMFORT. NO FACIAL GRIMACE NOTED. ALL NEEDS ATTENDED. CALL LIGHT IN REACH.
--- NOTE | 2016-09-18 04:00 | NUR ---
PATIENT GIVEN DILAUDID 2 MG AND BENADRYL 25 MG IV GIVEN PER RN. PATIENT ON RA SATING 89-91%. PATIENT REFUSES TO WEAR O2. TURF KEEPER NOTIFIED. WILL CONTINUE TO MONITOR.
--- NOTE | 2016-09-18 06:30 | NUR ---
PATIENT ASLEEP IN BED. VSS. ON RA SATING 92%. O2 2L NC AT BEDSIDE. ALL NEEDS ATTENDED, WILL CONTINUE TO MONITOR.
[2016-09-18] MEDS: diphenhydrAMINE 50 MG/1 ML VIAL IV PRN ×5 (06:49→22:35)
[2016-09-18] MEDS: HYDROMORPHONE 2 MG/1 ML DISP.SYRIN IV PRN ×5 (06:51→22:35)
[2016-09-18 07:53] LABS: BILIRUBIN,TOTAL 1.8 mg/dL (0.2-1.0); CREATININE 3.8 mg/dL (0.6-1.3); MAGNESIUM 2.1 mg/dL (1.8-2.4); PHOSPHOROUS 5.7 mg/dL (2.5-4.9); POTASSIUM 4.7 mmol/L (3.5-5.1); TOTAL PROTEIN, SERUM 7.3 g/dL (6.4-8.2)
--- NOTE | 2016-09-18 07:57 | NUR ---
Awake, alert, oriented x 4, on moderate high back rest. O2 at 2L/NC. Discussed plan of care.
[2016-09-18 08:41] LABS: MEAN CORPUSCULAR HEMOGLOBIN 29.3 UUG (27.0-31.0); MEAN CORPUSCULAR HGB CONC 35 g/dL (32.0-37.0); MEAN CORPUSCULAR VOLUME 83.8 FL (82.0-92.0); WHITE BLOOD COUNT (AUTO) 9.3 K/UL (4.0-11.2)
[2016-09-18 08:55] LABS: HEMATOCRIT 15.2 % (40-50); HEMOGLOBIN 5.3 G/DL (14.0-18.0); PLATELET COUNT (AUTO) 29 K/UL (150-450); RED BLOOD CELL COUNT(AUTO) 1.81 MIL/UL (4.7-6.1)
[2016-09-18] MEDS: CARVEDILOL 25 MG TABLET PO SCH ×2 (09:00→17:32)
[2016-09-18] MEDS ORDERED: CLONIDINE HCL 0.2 MG TABLET PO PRN (09:00)
[2016-09-18] MEDS: HYDROXYUREA 500 MG CAPSULE PO SCH (09:00)
[2016-09-18] MEDS: MINOXIDIL 2.5 MG TABLET PO SCH ×3 (09:00→17:00)
[2016-09-18] MEDS ORDERED: ACETAMINOPHEN 325 MG TABLET PO PRN (09:00)
[2016-09-18] MEDS ORDERED: HYDROCODONE/APAP 10-325 MG TABLET PO PRN (09:00)
[2016-09-18] MEDS: BENAZEPRIL HCL 20 MG TABLET PO SCH (09:00)
[2016-09-18] MEDS ORDERED: HYDROMORPHONE 2 MG/1 ML DISP.SYRIN IV PRN (09:00)
[2016-09-18] MEDS: CLONIDINE HCL 0.2 MG TABLET PO SCH ×3 (09:00→17:00)
[2016-09-18] MEDS ORDERED: diphenhydrAMINE 50 MG/1 ML VIAL IV PRN (09:00)
[2016-09-18] MEDS: LACTOBACILLUS RHAMNOSUS GG 1 EACH CAPSULE PO SCH ×3 (09:23→17:29)
[2016-09-18] MEDS: CALCIUM ACETATE 667 MG CAPSULE PO SCH ×3 (09:23→17:30)
[2016-09-18] MEDS: FOLIC ACID/VITAMIN B COMP W-C TABLET PO SCH (09:23)
[2016-09-18] MEDS: GABAPENTIN 100 MG CAPSULE PO SCH ×3 (09:24→17:30)
[2016-09-18] MEDS: CINACALCET HCL 30 MG TABLET PO SCH (09:24)
[2016-09-18] MEDS: ASCORBIC ACID 250 MG TABLET PO SCH (09:24)
--- NOTE | 2016-09-18 09:34 | NUR ---
BP medications not given, for HD today
[2016-09-18 10:52] LABS: BAND % (MANUAL) 3 % (0-10); LYMPHOCYTES % (MANUAL) 23 % (20-40); MONOCYTES % (MANUAL) 9 % (2-10); NEUTROPHILS % (MANUAL) 65 % (42-75)
--- NOTE | 2016-09-18 11:40 | NUR ---
Hemodialysis started. Hgb5.3, Hct 15.2, 1st unit PRBC given
--- NOTE | 2016-09-18 11:55 | NUR ---
2nd unit PRBC given with Hemodialysis.
[2016-09-18] MEDS: PROTEIN SUPPLEMENT (PROSTAT) 30 ML LIQUID PO SCH ×2 (12:00→17:00)
--- NOTE | 2016-09-18 13:30 | NUR ---
Hemodialysis done with 3L output. BP 106/51
--- NOTE | 2016-09-18 17:30 | NUR ---
Dilaudid and Benadryl IV given for pain and itchiness. BP medications not given for low BP. Not in distress, no bleeding noted.
--- NOTE | 2016-09-18 19:30 | NUR ---
RECEIVED REPORT FROM AM NURSE. PATIENT ASLEEP WITH BED IN HIGH FOWLERS POSITION, SIDE RAILS X'S 2. PATIENT IS IN 2L O2 NC. FAY-CATH IN THE UPPER RIGHT CHEST, CLEAN, PATENT AND INTACT. SAFETY INITIATED. NO ACUTE DISTRESS NOTED. CALL LIGHT WITHIN REACH.
[2016-09-19] VITALS (8 sets, daily range): BP systolic 83–115; BP diastolic 42–66
[2016-09-19] MEDS: HYDROMORPHONE 2 MG/1 ML DISP.SYRIN IV PRN ×6 (02:24→22:12)
[2016-09-19] MEDS: diphenhydrAMINE 50 MG/1 ML VIAL IV PRN ×6 (02:24→22:12)
--- NOTE | 2016-09-19 06:43 | NUR ---
PATIENT SLEPT INTERMITTENTLY THROUGHOUT THE NIGHT. FREQUENTLY ASKS FOR PAIN MEDICATIONS ORDERED FOR DILAUDID 2 MG IVP. STATED RELIEF. ALL MEDS GIVEN ORDERED. ALL NEEDS MET. CALL LIGHT WITHIN REACH.
[2016-09-19 06:56] LABS: MEAN CORPUSCULAR HEMOGLOBIN 31.1 UUG (27.0-31.0); MEAN CORPUSCULAR HGB CONC 38 g/dL (32.0-37.0); MEAN CORPUSCULAR VOLUME 82.9 FL (82.0-92.0)
[2016-09-19 07:29] LABS: HEMATOCRIT 18.1 % (40-50); HEMOGLOBIN 6.8 G/DL (14.0-18.0); PLATELET COUNT (AUTO) 37 K/UL (150-450); RED BLOOD CELL COUNT(AUTO) 2.18 MIL/UL (4.7-6.1)
--- NOTE | 2016-09-19 08:00 | NUR ---
CRITICAL VALUES RECEIVED BY [employer]. NOTIFIED DR. COLEY. PATIENT IS IN ROOM IN STABLE CONDITIONS. NC 2L. WILL CONTINUE MONITORING THROUGHOUT THE DAY.
[2016-09-19] MEDS: CINACALCET HCL 30 MG TABLET PO SCH (08:09)
[2016-09-19] MEDS: CARVEDILOL 25 MG TABLET PO SCH ×2 (08:10→18:11)
[2016-09-19] MEDS: CLONIDINE HCL 0.2 MG TABLET PO SCH ×3 (08:11→16:59)
[2016-09-19] MEDS: BENAZEPRIL HCL 20 MG TABLET PO SCH (08:12)
[2016-09-19] MEDS: MINOXIDIL 2.5 MG TABLET PO SCH ×3 (08:12→16:59)
[2016-09-19] MEDS: PROTEIN SUPPLEMENT (PROSTAT) 30 ML LIQUID PO SCH ×3 (08:13→16:59)
[2016-09-19] MEDS: LACTOBACILLUS RHAMNOSUS GG 1 EACH CAPSULE PO SCH ×3 (08:15→16:58)
[2016-09-19] MEDS: ASCORBIC ACID 250 MG TABLET PO SCH (08:15)
[2016-09-19] MEDS: FOLIC ACID/VITAMIN B COMP W-C TABLET PO SCH (08:15)
[2016-09-19] MEDS: CALCIUM ACETATE 667 MG CAPSULE PO SCH ×3 (08:15→16:58)
[2016-09-19] MEDS: GABAPENTIN 100 MG CAPSULE PO SCH ×3 (08:16→16:58)
[2016-09-19] MEDS: HYDROXYUREA 500 MG CAPSULE PO SCH (08:19)
[2016-09-19 10:40] LABS: EOSINOPHILS % (MANUAL) 3 % (0-8); LYMPHOCYTES % (MANUAL) 25 % (20-40); MONOCYTES % (MANUAL) 3 % (2-10); NEUTROPHILS % (MANUAL) 69 % (42-75)
--- NOTE | 2016-09-19 11:43 | NUR ---
WOUND CARE CONSULT: PT REFUSED SKIN ASSESSMENT AT THIS TIME. SCARRING NOTED TO SACRAL AREA IN ADMISSION PHOTO. CONTINUE ALL SKIN PROTECTION MEASURES. MD IN AGREEMENT WITH PLAN OF CARE.
[2016-09-19] MEDS: Z GUARD REMEDY PASTE 57 GM TUBE TOP SCH ×2 (11:45→21:00)
[2016-09-19] MEDS ORDERED: Z GUARD REMEDY PASTE 57 GM TUBE TOP PRN (11:45)
--- NOTE | 2016-09-19 12:12 | NUR ---
Patient started to have nose bleed. Refused to have his oxygen NC. o2 SAT 86% PER abraham Chaparro report. Humidified oxygen was administered by RT. Dialyzes RN at the room at this moment. Will continue monitoring
--- NOTE | 2016-09-19 15:00 | NUR ---
UNIT OF PRBC WAS ADMINISTERED BY DIALYSIS NURSE, VERIFIED BY MAR GOMEZ AND MAR BRADLEY. NO REACTION NOTED, V/S WNL. 3 LITERS OF FLUIDS WAS TAKING OUT IN DIALYSIS. PATIENT CONTINUE BLEEDING FROM THE NOSE, ENCOURAGE TO MAINTAIN HIS HEAD BACK TO DECREASE BLEEDING. WILL CONTINUE MONITORING.
--- NOTE | 2016-09-19 18:18 | NUR ---
PATIENT IN BED EATING NOW. NO S/S OF DISTRESS NOTED DURING MY SHIFT. C/O OF LOWER BACK PAIN, MEDICATED ORDERED. PATIENT REFUSED TO HAVE HUMIDIFIED OXYGEN STATING THAT HIS BLEEDING IS GETTING WORST. BP BEEN CONTROLLED. SAFETY AND COMFORT PROVIDED DURING BY THE STAFF. WILL CONTINUE MONITORING.
--- NOTE | 2016-09-19 19:10 | NUR ---
Bedside reporting with MAR Maldonado. Received patient awake, sitting on bed, eating his salad. Assessed pain, its location, intensity, duration, effect and affect, claiming on scale of 2/10 at this time. Denies itchiness. Generalized edema noted. Refused elevation of BLE at this time. Will continue to monitor.
[2016-09-20] MEDS: diphenhydrAMINE 50 MG/1 ML VIAL IV PRN ×5 (02:02→21:29)
[2016-09-20] MEDS: HYDROMORPHONE 2 MG/1 ML DISP.SYRIN IV PRN ×4 (02:02→16:18)
[2016-09-20 05:31] VITALS: BP 111/50
--- NOTE | 2016-09-20 06:28 | NUR ---
Medicated for pain every 4 hours as ordered and needed with moderate effect. All needs attended and met. No significant event reported all night. Continue care as planned.
[2016-09-20] MEDS: MINOXIDIL 2.5 MG TABLET PO SCH ×3 (08:02→16:19)
[2016-09-20] MEDS: CARVEDILOL 25 MG TABLET PO SCH ×2 (08:02→17:09)
[2016-09-20] MEDS: LACTOBACILLUS RHAMNOSUS GG 1 EACH CAPSULE PO SCH ×3 (08:02→16:16)
[2016-09-20] MEDS: BENAZEPRIL HCL 20 MG TABLET PO SCH (08:03)
[2016-09-20] MEDS: ASCORBIC ACID 250 MG TABLET PO SCH (08:03)
[2016-09-20] MEDS: CINACALCET HCL 30 MG TABLET PO SCH (08:03)
[2016-09-20] MEDS: GABAPENTIN 100 MG CAPSULE PO SCH ×3 (08:03→16:17)
[2016-09-20] MEDS: CLONIDINE HCL 0.2 MG TABLET PO SCH ×3 (08:06→16:19)
[2016-09-20] MEDS: HYDROXYUREA 500 MG CAPSULE PO SCH (08:09)
[2016-09-20] MEDS: PROTEIN SUPPLEMENT (PROSTAT) 30 ML LIQUID PO SCH ×3 (08:10→16:17)
[2016-09-20] MEDS: Z GUARD REMEDY PASTE 57 GM TUBE TOP SCH ×2 (08:10→21:29)
[2016-09-20] MEDS: FOLIC ACID/VITAMIN B COMP W-C TABLET PO SCH (08:13)
[2016-09-20] MEDS: CALCIUM ACETATE 667 MG CAPSULE PO SCH ×3 (08:13→16:17)
--- NOTE | 2016-09-20 09:25 | NUR ---
Patient in bed eating breakfast. No s/s of distress noted. No signs of nose bleed. Refused to have Oxygen on. Patient is breathing fine, no complains of SOB at the moment. Pain medication was given as ordered for low back and legs pain. Safety and comfort provided. Will continue monitoring.
[2016-09-20 11:49] VITALS: BP 99/55
[2016-09-20 16:33] VITALS: BP 165/68
[2016-09-20 20:00] VITALS: BP 100/56
[2016-09-21] MEDS: HYDROMORPHONE 2 MG/1 ML DISP.SYRIN IV PRN ×6 (00:54→21:40)
[2016-09-21] MEDS: diphenhydrAMINE 50 MG/1 ML VIAL IV PRN ×6 (00:54→21:38)
[2016-09-21 04:00] VITALS: BP 113/59
[2016-09-21 05:00] VITALS: BP 113/59
[2016-09-21 07:36] LABS: MEAN CORPUSCULAR HEMOGLOBIN 29.2 UUG (27.0-31.0); MEAN CORPUSCULAR HGB CONC 35 g/dL (32.0-37.0); MEAN CORPUSCULAR VOLUME 83.8 FL (82.0-92.0); WHITE BLOOD COUNT (AUTO) 9.1 K/UL (4.0-11.2)
[2016-09-21] MEDS: CARVEDILOL 25 MG TABLET PO SCH ×2 (08:00→18:00)
--- NOTE | 2016-09-21 08:00 | NUR ---
AWAKE COOERATE WELL NO SOB EAT BREAKFAST MOD AMT STATE PAIN MEDICINE HELP RELIEF PAIN ON FALL PRECAUTION CALL LIGHT WITHIN REACH AND REMIND TO CALL WHEN NEEDED
[2016-09-21 08:06] LABS: CREATININE 5.7 mg/dL (0.6-1.3); MAGNESIUM 2.2 mg/dL (1.8-2.4); PHOSPHOROUS 5.8 mg/dL (2.5-4.9)
[2016-09-21 08:08] LABS: HEMATOCRIT 20.1 % (40-50); PLATELET COUNT (AUTO) 32 K/UL (150-450)
[2016-09-21] MEDS: MINOXIDIL 2.5 MG TABLET PO SCH ×3 (08:41→16:55)
[2016-09-21] MEDS: LACTOBACILLUS RHAMNOSUS GG 1 EACH CAPSULE PO SCH ×3 (08:41→16:55)
[2016-09-21] MEDS: FOLIC ACID/VITAMIN B COMP W-C TABLET PO SCH (08:41)
[2016-09-21] MEDS: GABAPENTIN 100 MG CAPSULE PO SCH ×3 (08:41→16:55)
[2016-09-21] MEDS: CALCIUM ACETATE 667 MG CAPSULE PO SCH ×3 (08:41→16:55)
[2016-09-21] MEDS: ASCORBIC ACID 250 MG TABLET PO SCH (08:41)
[2016-09-21] MEDS: Z GUARD REMEDY PASTE 57 GM TUBE TOP SCH ×2 (08:48→21:38)
[2016-09-21] MEDS: HYDROXYUREA 500 MG CAPSULE PO SCH (08:48)
[2016-09-21] MEDS: PROTEIN SUPPLEMENT (PROSTAT) 30 ML LIQUID PO SCH ×3 (08:52→16:56)
[2016-09-21] MEDS: BENAZEPRIL HCL 20 MG TABLET PO SCH (09:00)
[2016-09-21] MEDS: CLONIDINE HCL 0.2 MG TABLET PO SCH ×3 (09:00→16:53)
[2016-09-21] MEDS: CINACALCET HCL 30 MG TABLET PO SCH ×2 (09:00→15:00)
[2016-09-21 11:16] LABS: EOSINOPHILS % (MANUAL) 4 % (0-8); LYMPHOCYTES % (MANUAL) 27 % (20-40); MONOCYTES % (MANUAL) 6 % (2-10); NEUTROPHILS % (MANUAL) 63 % (42-75)
[2016-09-21 11:53] VITALS: BP 108/67
--- NOTE | 2016-09-21 13:00 | NUR ---
SCHEDULE FOR HD TODAY INFORM TO PATIENT ,UNDERSTAND
[2016-09-21 15:45] VITALS: BP 98/46
--- NOTE | 2016-09-21 17:30 | NUR ---
HD START AT BEDSIDE GARCIA PROCEDURE WELL EAT DINNER MOD AMT
--- NOTE | 2016-09-21 18:09 | NUR ---
HEMODYNAMIC STATUS STABLE ,PAIN UNDER CONTROL SAFETY MEASURE PROVIDED CALL LIGHT WITHIN REACH NO RESPIRATORY DISTRESS
[2016-09-21 20:00] VITALS: BP 122/71
--- NOTE | 2016-09-21 20:00 | NUR ---
H/D DONE, REMOVED 1500 ML,PATIENT TOLERATED WELL.
--- NOTE | 2016-09-21 22:10 | NUR ---
DILAUDID 2 MG IV AND BENADRYL 25 MG IV ADMIN FOR PAIN AND ITCHING,EFFECTIVE.
--- NOTE | 2016-09-22 00:37 | NUR ---
HANDS OFF REPORT FROM MAR RUDD.
[2016-09-22] MEDS: diphenhydrAMINE 50 MG/1 ML VIAL IV PRN ×6 (01:39→21:20)
[2016-09-22] MEDS: HYDROMORPHONE 2 MG/1 ML DISP.SYRIN IV PRN ×6 (01:39→21:20)
[2016-09-22 04:31] VITALS: BP 109/55
--- NOTE | 2016-09-22 06:30 | NUR ---
PT IN BED, SLEEPING, AROUSABLE TO NAME AND TOUCH. ON PAIN MANAGEMENT DILAUDID FOR GEN PAIN, EFFECTIVE FOR FEW HOURS. ALL NEEDS RENDERED. SAFETY MAINTAINED. CALL LIGHT WITHIN REACH.
[2016-09-22 06:46] LABS: MEAN CORPUSCULAR HEMOGLOBIN 29.7 UUG (27.0-31.0); MEAN CORPUSCULAR HGB CONC 35 g/dL (32.0-37.0)
[2016-09-22 07:11] LABS: CREATININE 5.6 mg/dL (0.6-1.3); MAGNESIUM 2.2 mg/dL (1.8-2.4); PHOSPHOROUS 5.2 mg/dL (2.5-4.9); POTASSIUM 4.7 mmol/L (3.5-5.1)
[2016-09-22 07:13] LABS: HEMATOCRIT 19.2 % (40-50); HEMOGLOBIN 6.8 G/DL (14.0-18.0); PLATELET COUNT (AUTO) 28 K/UL (150-450); RED BLOOD CELL COUNT(AUTO) 2.28 MIL/UL (4.7-6.1)
--- NOTE | 2016-09-22 07:18 | NUR ---
SPOKE TO [facility] (LAB) CRITICAL LAB RESULT FOR H/H 6.8/ 19.[address] HENDRIX, SHED HAND FOR DR. MCKEON. AWAITING TO CALL BACK. Addendum: 09/22/16 at 0720 by CHRISTY EDWARDS RN ENDORSED TO BRANDON CALLAHAN.
--- NOTE | 2016-09-22 07:29 | NUR ---
DR. HENDRIX CALLED BACK, ORDERED 2 UNITS OF PRBC TO TRANSFUSE. ENDORSED TO AM NURSE.
[2016-09-22] MEDS: PROTEIN SUPPLEMENT (PROSTAT) 30 ML LIQUID PO SCH ×3 (08:00→17:00)
[2016-09-22] MEDS: CARVEDILOL 25 MG TABLET PO SCH (08:00)
--- NOTE | 2016-09-22 08:30 | NUR ---
RESTING WELL NO SOB OR PAIN EAT BREAKFAST MOD AMT SAFETY MEASURE PROVIDED CALL HORTON IN REACH
[2016-09-22] MEDS: MINOXIDIL 2.5 MG TABLET PO SCH ×3 (08:53→19:06)
[2016-09-22] MEDS: FOLIC ACID/VITAMIN B COMP W-C TABLET PO SCH (08:53)
[2016-09-22] MEDS: ASCORBIC ACID 250 MG TABLET PO SCH (08:53)
[2016-09-22] MEDS: CINACALCET HCL 30 MG TABLET PO SCH (08:53)
[2016-09-22] MEDS: CALCIUM ACETATE 667 MG CAPSULE PO SCH ×3 (08:53→19:05)
[2016-09-22] MEDS: LACTOBACILLUS RHAMNOSUS GG 1 EACH CAPSULE PO SCH ×3 (08:53→19:05)
[2016-09-22] MEDS: GABAPENTIN 100 MG CAPSULE PO SCH ×3 (08:53→19:06)
[2016-09-22] MEDS: CLONIDINE HCL 0.2 MG TABLET PO SCH (08:56)
[2016-09-22] MEDS: BENAZEPRIL HCL 20 MG TABLET PO SCH (08:56)
--- NOTE | 2016-09-22 09:00 | NUR ---
DR MCKEON SEE PATIENT AND LAB RESULT ORDER TO HAVE HD TODAY AND OK TO GIVE BLOOD 1 UNIT DURING HD TODAY ORDER
[2016-09-22] MEDS: HYDROXYUREA 500 MG CAPSULE PO SCH (09:09)
[2016-09-22] MEDS: Z GUARD REMEDY PASTE 57 GM TUBE TOP SCH ×2 (09:10→20:22)
[2016-09-22 10:27] LABS: NEUTROPHILS % (MANUAL) 61 % (42-75)
[2016-09-22 10:28] LABS: LYMPHOCYTES % (MANUAL) 31 % (20-40)
[2016-09-22 10:29] LABS: EOSINOPHILS % (MANUAL) 4 % (0-8); MONOCYTES % (MANUAL) 4 % (2-10)
[2016-09-22] MEDS: CLONIDINE HCL 0.1 MG TABLET PO SCH ×2 (12:19→17:00)
[2016-09-22] MEDS ORDERED: CLONIDINE HCL 0.2 MG TABLET PO SCH (13:00)
[2016-09-22 13:14] VITALS: BP 119/65
--- NOTE | 2016-09-22 15:30 | NUR ---
START HD AT THIS TIME GARCIA PROCEDURE WELL RESTING VS STABLE
[2016-09-22 16:00] VITALS: BP 101/52
[2016-09-22 16:47] VITALS: BP 102/50
--- NOTE | 2016-09-22 16:47 | NUR ---
START BLOOD TRANSFUSION BY HD NURSE DURING HD ORDER GARCIA PROCEDURE WELL NO REACTION VS TAKEN STABLE NO PAIN OR SOB CLOSED OBSERVATION
--- NOTE | 2016-09-22 17:00 | NUR ---
VS STABLE SEE HD VS RECORD SHEET REFUSED TO EAT DINNER AT THIS TIME ,WILL EAT AND TAKE PO MEDICINE LATER
[2016-09-22 17:15] VITALS: BP 98/51
--- NOTE | 2016-09-22 17:15 | NUR ---
BLOOD TRANSFUSION COMPLETE BY HD NURSE VS TAKEN STABLE NO FEVER NO REACTION
--- NOTE | 2016-09-22 17:30 | NUR ---
STABLE HEMODYNAMIC ,PAIN UNDER CONTROL NO RESPIRATORY DISTRESS SAFETY MEASURE PROVIDED CALL HORTON IN REACH
[2016-09-22] MEDS ORDERED: CARVEDILOL 25 MG TABLET PO SCH (18:00)
[2016-09-22] MEDS: CARVEDILOL 12.5 MG TABLET PO SCH (18:30)
--- NOTE | 2016-09-22 19:00 | NUR ---
HD TAKE OUT FLD 2000ML EAT DINNER WELL AT THIS TIME
--- NOTE | 2016-09-22 19:51 | NUR ---
PATIENT COMFORTABLE. ALERT AND ORIENTED X4. NO ACUTE DISTRESS NOTED. SAFETY INITIATED. CALL LIGHT WITHIN REACH.
[2016-09-22 20:00] VITALS: BP 112/47
[2016-09-23] VITALS (8 sets, daily range): BP systolic 94–120; BP diastolic 49–66
[2016-09-23] MEDS: diphenhydrAMINE 50 MG/1 ML VIAL IV PRN ×6 (02:18→22:39)
[2016-09-23] MEDS: HYDROMORPHONE 2 MG/1 ML DISP.SYRIN IV PRN ×6 (02:18→22:39)
--- NOTE | 2016-09-23 06:55 | NUR ---
SLEPT INTERMITTENTLY THROUGHOUT THE NIGHT. NO ACUTE DISTRESS NOTED. FREQUENTLY ASKS FOR PAIN MEDS ORDERED, PAIN CONTROLLED. STATED RELIEF. ALL ORDERED MEDS GIVEN. CALL LIGHT WITHIN REACH. NEEDS ATTENDED.
--- NOTE | 2016-09-23 08:30 | NUR ---
UNITE PRBC WERE ORDERED YESTERDAY, ONE UNIT WAS GIVEN YESTERDAY WAS NEE. I CALLED LAB TO VERIFY, AND THEY STATED THAT THEY HAVE 3UNITS READY FOR PATIENT. I VERIFIED THE ORDER WITH DR. ERNST AND HE SAID TO GIVE ONLY ONE UNIT TODAY.
[2016-09-23] MEDS: GABAPENTIN 100 MG CAPSULE PO SCH ×3 (08:42→17:21)
[2016-09-23] MEDS: CINACALCET HCL 30 MG TABLET PO SCH (08:42)
[2016-09-23] MEDS: CALCIUM ACETATE 667 MG CAPSULE PO SCH ×3 (08:42→17:21)
[2016-09-23] MEDS: FOLIC ACID/VITAMIN B COMP W-C TABLET PO SCH (08:42)
[2016-09-23] MEDS: MINOXIDIL 2.5 MG TABLET PO SCH ×3 (08:42→17:00)
[2016-09-23] MEDS: CARVEDILOL 12.5 MG TABLET PO SCH ×2 (08:43→17:23)
[2016-09-23] MEDS: PROTEIN SUPPLEMENT (PROSTAT) 30 ML LIQUID PO SCH ×3 (08:43→17:23)
[2016-09-23] MEDS: CLONIDINE HCL 0.1 MG TABLET PO SCH ×3 (08:43→17:00)
[2016-09-23] MEDS: ASCORBIC ACID 250 MG TABLET PO SCH (08:43)
[2016-09-23] MEDS: LACTOBACILLUS RHAMNOSUS GG 1 EACH CAPSULE PO SCH ×3 (08:43→17:21)
[2016-09-23] MEDS: Z GUARD REMEDY PASTE 57 GM TUBE TOP SCH ×2 (08:44→20:39)
[2016-09-23] MEDS: HYDROXYUREA 500 MG CAPSULE PO SCH (08:46)
--- NOTE | 2016-09-23 16:30 | NUR ---
PATIENT RECEIVING UNIT OF PRBC ORDERED BY DR. ERNST. NO S/S OF DISTRESS OR REACTION NOTED. V/S WNL. WILL CONTINUE MONITORING
--- NOTE | 2016-09-23 18:45 | NUR ---
PATIENT IN BED SLEEPING INTERMITTENTLY. NO S/S OF DISTRESS NOTED. C/O OF LOWER BACK PAIN DURING THE DAY. MEDICATED ORDERED. UNIT OF BLOOD STILL INFUSING. NO REACTION NOTED. BP CONTROLLED DURING THE DAY. BP MEDS WERE HELD DUE TO LOVER MICKEY SBP <100. SAFETY AND COMFORT COMFORT PROVIDED. WILL CONTINUE MONITORING.
--- NOTE | 2016-09-23 19:30 | NUR ---
1 UNIT OF PRBC COMPLETED,PATIENT TOLERATED WELL, NO REACTION ,TEMP 98.1,PULSE 74,BP 95/59, O2 SAT 96% IN ROOM AIR,PATIENT RESTING APPEARS COMFORTABLE.
[2016-09-24] MEDS: HYDROMORPHONE 2 MG/1 ML DISP.SYRIN IV PRN ×6 (02:39→22:18)
[2016-09-24] MEDS: diphenhydrAMINE 50 MG/1 ML VIAL IV PRN ×6 (02:40→22:18)
[2016-09-24 04:44] VITALS: BP 123/59
--- NOTE | 2016-09-24 06:00 | NUR ---
PATIENT RECEIVED DILAUDID 2 MG IV FOR PAIN CONTROL AND BENADRYL 25 MG IV FOR C/O ITCHING,BP RE CHECK AND HAS BEEN STABLE,WNL,NO S/S OF ANY ACTIVE BLEEDING NOTED.
[2016-09-24 06:39] LABS: MEAN CORPUSCULAR HEMOGLOBIN 28.9 UUG (27.0-31.0); MEAN CORPUSCULAR HGB CONC 35 g/dL (32.0-37.0); MEAN CORPUSCULAR VOLUME 83.1 FL (82.0-92.0); RED BLOOD CELL COUNT(AUTO) 2.59 MIL/UL (4.7-6.1)
[2016-09-24 07:05] LABS: BILIRUBIN,TOTAL 2.5 mg/dL (0.2-1.0); CREATININE 5.9 mg/dL (0.6-1.3); MAGNESIUM 2.3 mg/dL (1.8-2.4); TOTAL PROTEIN, SERUM 7.6 g/dL (6.4-8.2)
[2016-09-24 07:30] LABS: HEMATOCRIT 21.5 % (40-50); HEMOGLOBIN 7.5 G/DL (14.0-18.0); PLATELET COUNT (AUTO) 23 K/UL (150-450)
--- NOTE | 2016-09-24 07:38 | NUR ---
Pt was seen by
[2016-09-24] MEDS: CARVEDILOL 12.5 MG TABLET PO SCH ×2 (07:58→16:32)
[2016-09-24] MEDS: PROTEIN SUPPLEMENT (PROSTAT) 30 ML LIQUID PO SCH ×3 (08:00→16:32)
[2016-09-24] MEDS: LACTOBACILLUS RHAMNOSUS GG 1 EACH CAPSULE PO SCH ×3 (08:00→16:31)
[2016-09-24] MEDS: GABAPENTIN 100 MG CAPSULE PO SCH ×3 (08:00→16:31)
[2016-09-24] MEDS: ASCORBIC ACID 250 MG TABLET PO SCH (08:00)
[2016-09-24] MEDS: CINACALCET HCL 30 MG TABLET PO SCH (08:01)
[2016-09-24] MEDS: MINOXIDIL 2.5 MG TABLET PO SCH ×3 (08:01→16:31)
[2016-09-24] MEDS: FOLIC ACID/VITAMIN B COMP W-C TABLET PO SCH (08:01)
[2016-09-24] MEDS: CALCIUM ACETATE 667 MG CAPSULE PO SCH ×3 (08:01→16:30)
[2016-09-24] MEDS: CLONIDINE HCL 0.1 MG TABLET PO SCH ×3 (08:01→16:30)
[2016-09-24] MEDS: HYDROXYUREA 500 MG CAPSULE PO SCH (08:02)
[2016-09-24] MEDS: Z GUARD REMEDY PASTE 57 GM TUBE TOP SCH ×2 (08:03→20:52)
[2016-09-24 09:27] LABS: BAND % (MANUAL) 2 % (0-10); LYMPHOCYTES % (MANUAL) 22 % (20-40); MONOCYTES % (MANUAL) 7 % (2-10); NEUTROPHILS % (MANUAL) 69 % (42-75)
--- NOTE | 2016-09-24 12:00 | NUR ---
PT.HAVING HD,TOLERATED WELL.
--- NOTE | 2016-09-24 14:23 | NUR ---
PT.EATING LUNCH,WATCHING TV,NO S/S OF ACUTE DISTRESS.
[2016-09-24 15:42] VITALS: BP 126/71
--- NOTE | 2016-09-24 18:45 | NUR ---
NO CHANGES IN PT.CONDITION NO S/S OF ACUTE DISTRESS OR PAIN NOTED.WATCHING TV
[2016-09-24 20:04] VITALS: BP 100/52
[2016-09-25] MEDS: HYDROMORPHONE 2 MG/1 ML DISP.SYRIN IV PRN ×4 (02:15→14:18)
[2016-09-25] MEDS: diphenhydrAMINE 50 MG/1 ML VIAL IV PRN ×4 (02:15→14:18)
[2016-09-25 05:10] VITALS: BP 117/59
--- NOTE | 2016-09-25 05:48 | NUR ---
PT SLEPT INTERMITTENTLY, IN NO ACUTE DISTRESS. PAIN MANAGEMENT PRN Q4H ORDERED. NOEMI AV SHUNT INTACT, NO S/S OF BLEEDING. CALL LIGHT WITHIN REACH, BED ALARM ON. WILL CONTINUE TO MONITOR.
[2016-09-25] MEDS: CINACALCET HCL 30 MG TABLET PO SCH (08:05)
[2016-09-25] MEDS: GABAPENTIN 100 MG CAPSULE PO SCH ×2 (08:06→12:40)
[2016-09-25] MEDS: LACTOBACILLUS RHAMNOSUS GG 1 EACH CAPSULE PO SCH ×2 (08:06→12:42)
[2016-09-25] MEDS: CARVEDILOL 12.5 MG TABLET PO SCH (08:09)
[2016-09-25] MEDS: CALCIUM ACETATE 667 MG CAPSULE PO SCH ×2 (08:09→12:41)
[2016-09-25] MEDS: FOLIC ACID/VITAMIN B COMP W-C TABLET PO SCH (08:10)
[2016-09-25] MEDS: CLONIDINE HCL 0.1 MG TABLET PO SCH ×2 (08:10→12:41)
[2016-09-25] MEDS: MINOXIDIL 2.5 MG TABLET PO SCH ×2 (08:10→12:41)
[2016-09-25] MEDS: ASCORBIC ACID 250 MG TABLET PO SCH (08:10)
[2016-09-25] MEDS: Z GUARD REMEDY PASTE 57 GM TUBE TOP SCH (08:11)
[2016-09-25] MEDS: HYDROXYUREA 500 MG CAPSULE PO SCH (08:12)
[2016-09-25] MEDS: PROTEIN SUPPLEMENT (PROSTAT) 30 ML LIQUID PO SCH ×2 (08:12→12:42)
[2016-09-25 11:38] VITALS: BP 113/69
--- NOTE | 2016-09-25 13:02 | NUR ---
PATIENT BEEN DISCHARGE TO [facility] IN STABLE CONDITION. NO S/S OF DISTRESS NOTED. NC ON PLACE 2 L O2 SAT >95%. DISCHARGE INSTRUCTIONS WERE SIGNED, BELONGINGS WITH HIM. NO BLEEDING NOTED DURING MY SHIFT. SAFETY AND COMFORT PROVIDED DURING THE DAY. WILL CONTINUE MONITORING.
--- NOTE | 2016-09-25 15:25 | NUR ---
REPORT WAS GIVEN TO MAR KINGSLEY FROM [facility]. PATIENT WAS TAKEN IN AMBULANCE IN SAFE AND STABLE CONDITIONS. ALL BELONGINGS WERE TAKEN. SAFETY AND COMFORT PROVIDED DURING MY SHIFT.
[2016-09-25 15:35] VITALS: BP 95/41
== END 2016-09-25 17:25 | DRG 662 ==
LOC: ER 23:26 → MED 09-18 01:00
PROVIDERS: ADMIT Internal Medicine; ATTEND Internal Medicine
PROC: 30233N1 Transfusion of Nonautologous Red Blood Cells into Peripheral Vein, Percutaneous Approach (ICD-10-PCS; principal; 2016-09-18)
PROC: 5A1D60Z (ICD-10-PCS; principal; 2016-09-18)
DX: D57.00 Hb-SS disease with crisis, unspecified (principal); I50.33 Acute on chronic diastolic (congestive) heart failure; N18.6 End stage renal disease; D69.6 Thrombocytopenia, unspecified; I27.2 Other secondary pulmonary hypertension; E46 Unspecified protein-calorie malnutrition; C64.9 Malignant neoplasm of unspecified kidney, except renal pelvis; K80.20 Calculus of gallbladder without cholecystitis without obstruction; I13.2 Hypertensive heart and chronic kidney disease with heart failure and with stage 5 chronic kidney disease, or end stage renal disease; Z99.2 Dependence on renal dialysis; D63.1 Anemia in chronic kidney disease; K21.9 Gastro-esophageal reflux disease without esophagitis; D63.8 Anemia in other chronic diseases classified elsewhere; S30.22XD Contusion of scrotum and testes, subsequent encounter; X58.XXXD Exposure to other specified factors, subsequent encounter; Z96.643 Presence of artificial hip joint, bilateral; Z87.891 Personal history of nicotine dependence; Z79.899 Other long term (current) drug therapy; R04.0 Epistaxis; G89.29 Other chronic pain; Z68.27 Body mass index [BMI] 27.0-27.9, adult; D57.1 Sickle-cell disease without crisis
CPT/HCPCS: 36415; 83735; 84100; 85025; 85610; 86850; 86900; 86901; 86920; 90937; A4663; J1170; J1200; J2405; J7050; P9016-BL; P9021

== ENCOUNTER 2016-10-08 09:15 | Inpatient (IN) | payer MEDICAID, MEDICARE ==
[~2016-10-08] VITALS: Ht 177.8 cm; Wt 86.2 kg
[2016-10-08] MEDS ORDERED: CINA30TA2 PO (09:54)
[2016-10-08] MEDS ORDERED: PANT40TA2 PO (09:54)
[2016-10-08] MEDS ORDERED: DIPH50CA37 PO (09:54)
[2016-10-08] MEDS ORDERED: MORP30TA PO (09:54)
[2016-10-08] MEDS ORDERED: ACET-2154 PO (09:54)
[2016-10-08] MEDS ORDERED: ASCO500T10 PO (09:54)
[2016-10-08] MEDS ORDERED: AMLO1CAP PO (09:54)
[2016-10-08] MEDS ORDERED: CARV25TA PO (09:54)
[2016-10-08] MEDS ORDERED: FOLI0.8T23 PO (09:54)
[2016-10-08] MEDS ORDERED: MORPHINE SULFATE IV (09:54)
[2016-10-08] MEDS ORDERED: ONDANSETRON IV *ER 4 MG/2 ML VIAL IV ONE (10:45)
[2016-10-08] MEDS ORDERED: MORPHINE SULFATE 4 MG/1 ML DISP.SYRIN IV ONE ×3 (10:45→13:45)
[2016-10-08] MEDS ORDERED: diphenhydrAMINE 50 MG/1 ML VIAL IV ONE ×2 (10:45→12:45)
[2016-10-08] MEDS ORDERED: diphenhydrAMINE 50 MG/1 ML VIAL ONE ×2 (11:03→12:56)
[2016-10-08] MEDS ORDERED: ONDANSETRON 4 MG/2 ML VIAL ONE (11:03)
[2016-10-08] MEDS ORDERED: MORPHINE SULFATE 4 MG/1 ML DISP.SYRIN ONE ×2 (11:03→12:56)
[2016-10-08 11:27] LABS: MEAN CORPUSCULAR HEMOGLOBIN 28.4 UUG (27.0-31.0); MEAN CORPUSCULAR HGB CONC 33 g/dL (32.0-37.0); MEAN CORPUSCULAR VOLUME 85.1 FL (82.0-92.0); POTASSIUM 5.1 mmol/L (3.5-5.1); WHITE BLOOD COUNT (AUTO) 12.2 K/UL (4.0-11.2)
[2016-10-08 11:35] LABS: BILIRUBIN,TOTAL 2.4 mg/dL (0.2-1.0); HEMOGLOBIN 6.3 G/DL (14.0-18.0); PLATELET COUNT (AUTO) 45 K/UL (150-450); RED BLOOD CELL COUNT(AUTO) 2.23 MIL/UL (4.7-6.1); TOTAL PROTEIN, SERUM 6.9 g/dL (6.4-8.2)
[2016-10-08 11:39] LABS: EOSINOPHILS % (MANUAL) 3 % (0-8); LYMPHOCYTES % (MANUAL) 22 % (20-40); MONOCYTES % (MANUAL) 4 % (2-10); NEUTROPHILS % (MANUAL) 71 % (42-75)
[2016-10-08 15:00] VITALS: BP 95/55
[2016-10-08] MEDS ORDERED: CLONIDINE HCL 0.2 MG TABLET PO PRN (18:45)
[2016-10-08 19:00] VITALS: BP 91/70
[2016-10-08] MEDS: PANTOPRAZOLE SODIUM 40 MG TABLET.DR PO SCH (20:20)
[2016-10-08] MEDS: HYDROMORPHONE 2 MG/1 ML DISP.SYRIN IV PRN (20:20)
[2016-10-08] MEDS: CARVEDILOL 25 MG TABLET PO SCH (20:20)
[2016-10-08] MEDS: diphenhydrAMINE 50 MG/1 ML VIAL IV PRN (20:20)
[2016-10-08] MEDS: ACIDOPHILUS/BULGARICUS CHEW TAB GT SCH (23:17)
[2016-10-08] MEDS: CLONIDINE HCL 0.1 MG TABLET PO SCH (23:18)
[2016-10-08 23:19] VITALS: BP 135/69
[2016-10-08 23:30] VITALS: BP 136/70
[2016-10-08 23:50] VITALS: BP 120/61
[2016-10-09] VITALS (10 sets, daily range): BP systolic 96–149; BP diastolic 57–87
[2016-10-09] MEDS: diphenhydrAMINE 50 MG/1 ML VIAL IV PRN ×4 (00:15→22:57)
[2016-10-09] MEDS: HYDROMORPHONE 2 MG/1 ML DISP.SYRIN IV PRN ×4 (00:16→22:57)
[2016-10-09] MEDS: CLONIDINE HCL 0.1 MG TABLET PO SCH ×3 (05:09→22:00)
[2016-10-09] MEDS: ACIDOPHILUS/BULGARICUS CHEW TAB GT SCH ×3 (05:09→22:00)
[2016-10-09] MEDS: PROTEIN SUPPLEMENT (PROSTAT) 30 ML LIQUID PO SCH ×3 (07:56→16:39)
[2016-10-09] MEDS: BENAZEPRIL HCL 20 MG TABLET PO SCH (08:11)
[2016-10-09] MEDS: CARVEDILOL 25 MG TABLET PO SCH ×2 (08:11→16:05)
[2016-10-09] MEDS: MINOXIDIL 2.5 MG TABLET PO SCH ×3 (08:12→16:05)
[2016-10-09] MEDS: GABAPENTIN 100 MG CAPSULE PO SCH ×3 (08:55→17:17)
[2016-10-09] MEDS: FOLIC ACID/VITAMIN B COMP W-C TABLET PO SCH (08:55)
[2016-10-09] MEDS: CALCIUM ACETATE 667 MG CAPSULE PO SCH ×3 (08:55→17:17)
[2016-10-09] MEDS: CINACALCET HCL 30 MG TABLET PO SCH (08:56)
[2016-10-09] MEDS: PANTOPRAZOLE SODIUM 40 MG TABLET.DR PO SCH ×2 (08:56→17:17)
[2016-10-09] MEDS: ASCORBIC ACID 250 MG TABLET PO SCH (08:56)
[2016-10-09] MEDS ORDERED: HYDROXYUREA 500 MG CAPSULE PO SCH (09:00)
[2016-10-09] MEDS ORDERED: AMLODIPINE 10 MG TABLET PO SCH (09:00)
[2016-10-09] MEDS ORDERED: VANCOMYCIN IV 1 G in PREMIXED 0 EACH IV STA (10:32)
[2016-10-09] MEDS ORDERED: VANCOMYCIN IV 1 G in PREMIXED 0 EACH IV SCH (10:45)
[2016-10-09] MEDS: ACETAMINOPHEN 325 MG TABLET PO PRN ×2 (10:49→15:18)
[2016-10-09] MEDS ORDERED: VANCOMYCIN IV 1,250 MG in IV DEXTROSE 5% 500 ML IV ONE (14:00)
[2016-10-09] MEDS ORDERED: MEROPENEM 1 G in IV NORMAL SALINE 100 ML IV SCH (22:00)
[2016-10-09] MEDS: MEROPENEM 0.5 G in IV NORMAL SALINE 50 ML IV SCH (22:22)
[2016-10-10] VITALS (9 sets, daily range): BP systolic 93–138; BP diastolic 43–68
[2016-10-10] MEDS: ACIDOPHILUS/BULGARICUS CHEW TAB GT SCH ×3 (06:00→22:41)
[2016-10-10] MEDS: CLONIDINE HCL 0.1 MG TABLET PO SCH ×3 (06:00→22:00)
[2016-10-10 07:06] LABS: MEAN CORPUSCULAR HGB CONC 35 g/dL (32.0-37.0); MEAN CORPUSCULAR VOLUME 83.1 FL (82.0-92.0)
[2016-10-10 07:32] LABS: BILIRUBIN,TOTAL 3.7 mg/dL (0.2-1.0); CREATININE 6.5 mg/dL (0.6-1.3); MAGNESIUM 2.3 mg/dL (1.8-2.4); POTASSIUM 5.9 mmol/L (3.5-5.1); TOTAL PROTEIN, SERUM 7.2 g/dL (6.4-8.2)
[2016-10-10] MEDS: diphenhydrAMINE 50 MG/1 ML VIAL IV PRN ×4 (07:50→21:43)
[2016-10-10] MEDS: HYDROMORPHONE 2 MG/1 ML DISP.SYRIN IV PRN ×4 (07:50→21:43)
[2016-10-10 07:56] LABS: HEMATOCRIT 19.2 % (40-50); HEMOGLOBIN 6.7 G/DL (14.0-18.0); RED BLOOD CELL COUNT(AUTO) 2.31 MIL/UL (4.7-6.1); WHITE BLOOD COUNT (AUTO) 26.5 K/UL (4.0-11.2)
[2016-10-10 07:57] LABS: PLATELET COUNT (AUTO) 75 K/UL (150-450)
[2016-10-10] MEDS: PROTEIN SUPPLEMENT (PROSTAT) 30 ML LIQUID PO SCH ×3 (07:57→16:10)
[2016-10-10] MEDS: FOLIC ACID/VITAMIN B COMP W-C TABLET PO SCH (08:04)
[2016-10-10] MEDS: CALCIUM ACETATE 667 MG CAPSULE PO SCH ×3 (08:04→16:45)
[2016-10-10] MEDS: ASCORBIC ACID 250 MG TABLET PO SCH (08:04)
[2016-10-10] MEDS: CINACALCET HCL 30 MG TABLET PO SCH (08:04)
[2016-10-10] MEDS: PANTOPRAZOLE SODIUM 40 MG TABLET.DR PO SCH ×2 (08:04→16:45)
[2016-10-10] MEDS: GABAPENTIN 100 MG CAPSULE PO SCH ×3 (08:04→16:45)
[2016-10-10] MEDS: BENAZEPRIL HCL 20 MG TABLET PO SCH (08:05)
[2016-10-10] MEDS: MINOXIDIL 2.5 MG TABLET PO SCH ×3 (08:05→16:09)
[2016-10-10] MEDS: CARVEDILOL 25 MG TABLET PO SCH ×2 (08:05→16:08)
[2016-10-10 08:23] LABS: PHOSPHOROUS 8.1 mg/dL (2.5-4.9)
[2016-10-10 09:11] LABS: BILIRUBIN,TOTAL 3.6 mg/dL (0.2-1.0); CREATININE 6.7 mg/dL (0.6-1.3); MAGNESIUM 2.3 mg/dL (1.8-2.4); TOTAL PROTEIN, SERUM 7.3 g/dL (6.4-8.2)
[2016-10-10 09:29] LABS: MEAN CORPUSCULAR HEMOGLOBIN 28.8 UUG (27.0-31.0); MEAN CORPUSCULAR HGB CONC 35 g/dL (32.0-37.0); PLATELET COUNT (AUTO) 72 K/UL (150-450)
[2016-10-10 09:30] LABS: PHOSPHOROUS 8.3 mg/dL (2.5-4.9)
[2016-10-10 09:33] LABS: HEMATOCRIT 19.3 % (40-50); HEMOGLOBIN 6.7 G/DL (14.0-18.0); RED BLOOD CELL COUNT(AUTO) 2.32 MIL/UL (4.7-6.1)
[2016-10-10 12:19] LABS: BAND % (MANUAL) 2 % (0-10); LYMPHOCYTES % (MANUAL) 9 % (20-40); MONOCYTES % (MANUAL) 5 % (2-10); NEUTROPHILS % (MANUAL) 84 % (42-75)
[2016-10-10 14:08] LABS: BAND % (MANUAL) 1 % (0-10); LYMPHOCYTES % (MANUAL) 11 % (20-40); MONOCYTES % (MANUAL) 4 % (2-10); NEUTROPHILS % (MANUAL) 84 % (42-75)
[2016-10-10] MEDS ORDERED: VANCOMYCIN IV 1 G in PREMIXED 0 EACH IV ONE (16:00)
[2016-10-10] MEDS: MEROPENEM 0.5 G in IV NORMAL SALINE 50 ML IV SCH (21:07)
[2016-10-11] MEDS: HYDROMORPHONE 2 MG/1 ML DISP.SYRIN IV PRN ×4 (03:16→19:51)
[2016-10-11] MEDS: diphenhydrAMINE 50 MG/1 ML VIAL IV PRN ×4 (03:18→19:50)
[2016-10-11] MEDS: ACIDOPHILUS/BULGARICUS CHEW TAB GT SCH ×3 (06:00→21:40)
[2016-10-11] MEDS: CLONIDINE HCL 0.1 MG TABLET PO SCH ×3 (06:00→21:40)
[2016-10-11 06:50] VITALS: BP 108/52
[2016-10-11] MEDS: PROTEIN SUPPLEMENT (PROSTAT) 30 ML LIQUID PO SCH ×3 (08:00→17:00)
[2016-10-11] MEDS: FOLIC ACID/VITAMIN B COMP W-C TABLET PO SCH (08:06)
[2016-10-11] MEDS: MINOXIDIL 2.5 MG TABLET PO SCH ×3 (08:07→17:00)
[2016-10-11] MEDS: CINACALCET HCL 30 MG TABLET PO SCH (08:07)
[2016-10-11] MEDS: GABAPENTIN 100 MG CAPSULE PO SCH ×3 (08:07→17:39)
[2016-10-11] MEDS: PANTOPRAZOLE SODIUM 40 MG TABLET.DR PO SCH ×2 (08:07→17:38)
[2016-10-11] MEDS: CALCIUM ACETATE 667 MG CAPSULE PO SCH ×3 (08:10→17:39)
[2016-10-11] MEDS: ASCORBIC ACID 250 MG TABLET PO SCH (08:11)
[2016-10-11] MEDS: CARVEDILOL 25 MG TABLET PO SCH ×2 (08:11→17:00)
[2016-10-11] MEDS: BENAZEPRIL HCL 20 MG TABLET PO SCH (08:13)
[2016-10-11 11:14] VITALS: BP 109/58
[2016-10-11 15:27] LABS: HEMOGLOBIN 7.7 G/DL (14.0-18.0); MEAN CORPUSCULAR HEMOGLOBIN 29.3 UUG (27.0-31.0); MEAN CORPUSCULAR HGB CONC 34 g/dL (32.0-37.0); MEAN CORPUSCULAR VOLUME 85.4 FL (82.0-92.0); PLATELET COUNT (AUTO) 55 K/UL (150-450); RED BLOOD CELL COUNT(AUTO) 2.62 MIL/UL (4.7-6.1); WHITE BLOOD COUNT (AUTO) 21.2 K/UL (4.0-11.2)
[2016-10-11 15:45] VITALS: BP 93/50
[2016-10-11 15:52] LABS: HEMATOCRIT 22.4 % (40-50)
[2016-10-11 16:14] LABS: BILIRUBIN,TOTAL 3.3 mg/dL (0.2-1.0); CREATININE 6.3 mg/dL (0.6-1.3); MAGNESIUM 2.5 mg/dL (1.8-2.4); POTASSIUM 6.1 mmol/L (3.5-5.1); TOTAL PROTEIN, SERUM 7.5 g/dL (6.4-8.2)
[2016-10-11 16:18] LABS: PHOSPHOROUS 8.6 mg/dL (2.5-4.9)
[2016-10-11 18:12] LABS: BAND % (MANUAL) 1 % (0-10); LYMPHOCYTES % (MANUAL) 16 % (20-40); NEUTROPHILS % (MANUAL) 71 % (42-75)
[2016-10-11 18:13] LABS: EOSINOPHILS % (MANUAL) 1 % (0-8); MONOCYTES % (MANUAL) 11 % (2-10)
[2016-10-11 19:00] VITALS: BP 100/57
[2016-10-11] MEDS: MEROPENEM 0.5 G in IV NORMAL SALINE 50 ML IV SCH (20:46)
[2016-10-12] MEDS: diphenhydrAMINE 50 MG/1 ML VIAL IV PRN ×6 (00:08→23:47)
[2016-10-12] MEDS: HYDROMORPHONE 2 MG/1 ML DISP.SYRIN IV PRN ×6 (00:09→23:47)
[2016-10-12 00:32] VITALS: BP 125/52
[2016-10-12 04:00] VITALS: BP 101/57
[2016-10-12] MEDS: CLONIDINE HCL 0.1 MG TABLET PO SCH ×3 (05:37→20:06)
[2016-10-12] MEDS: ACIDOPHILUS/BULGARICUS CHEW TAB GT SCH ×3 (06:00→20:06)
[2016-10-12] MEDS: PROTEIN SUPPLEMENT (PROSTAT) 30 ML LIQUID PO SCH ×3 (08:02→16:47)
[2016-10-12 08:08] LABS: MEAN CORPUSCULAR HEMOGLOBIN 28.9 UUG (27.0-31.0); MEAN CORPUSCULAR HGB CONC 34 g/dL (32.0-37.0); MEAN CORPUSCULAR VOLUME 85.5 FL (82.0-92.0); PLATELET COUNT (AUTO) 54 K/UL (150-450); WHITE BLOOD COUNT (AUTO) 17.1 K/UL (4.0-11.2)
[2016-10-12 08:10] LABS: HEMATOCRIT 21.4 % (40-50)
[2016-10-12 08:11] LABS: HEMOGLOBIN 7.2 G/DL (14.0-18.0)
[2016-10-12 08:33] LABS: BILIRUBIN,TOTAL 3.1 mg/dL (0.2-1.0); CREATININE 7.1 mg/dL (0.6-1.3); MAGNESIUM 2.6 mg/dL (1.8-2.4); TOTAL PROTEIN, SERUM 7.8 g/dL (6.4-8.2)
[2016-10-12 08:49] LABS: PHOSPHOROUS 9.2 mg/dL (2.5-4.9); POTASSIUM 6.3 mmol/L (3.5-5.1)
[2016-10-12] MEDS: MINOXIDIL 2.5 MG TABLET PO SCH ×3 (09:00→16:46)
[2016-10-12] MEDS: BENAZEPRIL HCL 20 MG TABLET PO SCH (09:00)
[2016-10-12] MEDS: CARVEDILOL 25 MG TABLET PO SCH ×2 (09:00→16:46)
[2016-10-12 09:40] LABS: BAND % (MANUAL) 1 % (0-10); LYMPHOCYTES % (MANUAL) 20 % (20-40); MONOCYTES % (MANUAL) 11 % (2-10); MYELOCYTES % 1 % (0-0); NEUTROPHILS % (MANUAL) 67 % (42-75)
[2016-10-12] MEDS: CALCIUM ACETATE 667 MG CAPSULE PO SCH ×3 (09:49→17:11)
[2016-10-12] MEDS: FOLIC ACID/VITAMIN B COMP W-C TABLET PO SCH (09:49)
[2016-10-12] MEDS: ASCORBIC ACID 250 MG TABLET PO SCH (09:49)
[2016-10-12] MEDS: CINACALCET HCL 30 MG TABLET PO SCH (09:49)
[2016-10-12] MEDS: PANTOPRAZOLE SODIUM 40 MG TABLET.DR PO SCH ×2 (09:50→17:11)
[2016-10-12] MEDS: GABAPENTIN 100 MG CAPSULE PO SCH ×3 (09:50→17:11)
[2016-10-12 11:59] VITALS: BP 92/59
[2016-10-12] MEDS ORDERED: VANCOMYCIN IV 750 MG in IV DEXTROSE 5% 250 ML IV ONE (14:00)
[2016-10-12 16:47] VITALS: BP 97/53
[2016-10-12] MEDS: MEROPENEM 0.5 G in IV NORMAL SALINE 50 ML IV SCH (20:02)
[2016-10-12 20:17] VITALS: BP 116/57
[2016-10-13] VITALS (8 sets, daily range): BP systolic 95–120; BP diastolic 48–61
[2016-10-13] MEDS: ACETAMINOPHEN 325 MG TABLET PO PRN (01:54)
[2016-10-13] MEDS: diphenhydrAMINE 50 MG/1 ML VIAL IV PRN ×4 (04:17→17:40)
[2016-10-13] MEDS: HYDROMORPHONE 2 MG/1 ML DISP.SYRIN IV PRN ×4 (04:17→23:04)
[2016-10-13] MEDS: ACIDOPHILUS/BULGARICUS CHEW TAB GT SCH ×3 (05:38→20:40)
[2016-10-13] MEDS: CLONIDINE HCL 0.1 MG TABLET PO SCH ×3 (06:25→22:00)
[2016-10-13 07:36] LABS: BILIRUBIN,TOTAL 2.4 mg/dL (0.2-1.0); MAGNESIUM 2.5 mg/dL (1.8-2.4); POTASSIUM 5.1 mmol/L (3.5-5.1); TOTAL PROTEIN, SERUM 7.4 g/dL (6.4-8.2)
[2016-10-13 07:49] LABS: PHOSPHOROUS 8.2 mg/dL (2.5-4.9)
[2016-10-13] MEDS: ASCORBIC ACID 250 MG TABLET PO SCH (08:23)
[2016-10-13] MEDS: PANTOPRAZOLE SODIUM 40 MG TABLET.DR PO SCH ×2 (08:23→17:40)
[2016-10-13] MEDS: CINACALCET HCL 30 MG TABLET PO SCH (08:23)
[2016-10-13] MEDS: CALCIUM ACETATE 667 MG CAPSULE PO SCH ×3 (08:23→17:40)
[2016-10-13] MEDS: PROTEIN SUPPLEMENT (PROSTAT) 30 ML LIQUID PO SCH ×3 (08:23→17:08)
[2016-10-13] MEDS: CARVEDILOL 25 MG TABLET PO SCH ×2 (08:23→17:00)
[2016-10-13] MEDS: GABAPENTIN 100 MG CAPSULE PO SCH ×3 (08:23→17:40)
[2016-10-13] MEDS: FOLIC ACID/VITAMIN B COMP W-C TABLET PO SCH (08:23)
[2016-10-13] MEDS: BENAZEPRIL HCL 20 MG TABLET PO SCH (08:24)
[2016-10-13] MEDS: MINOXIDIL 2.5 MG TABLET PO SCH ×3 (08:24→17:00)
[2016-10-13 08:27] LABS: MEAN CORPUSCULAR HEMOGLOBIN 29.3 UUG (27.0-31.0); MEAN CORPUSCULAR HGB CONC 34 g/dL (32.0-37.0); PLATELET COUNT (AUTO) 51 K/UL (150-450)
[2016-10-13 08:32] LABS: HEMATOCRIT 19.6 % (40-50); HEMOGLOBIN 6.7 G/DL (14.0-18.0); RED BLOOD CELL COUNT(AUTO) 2.28 MIL/UL (4.7-6.1)
[2016-10-13] MEDS ORDERED: EPOETIN ALFA 20,000 UNIT/ML ML SQ ONE (09:30)
[2016-10-13] MEDS: SEVELAMER CARBONATE 800 MG TABLET PO SCH ×3 (10:25→17:40)
[2016-10-13 13:40] LABS: EOSINOPHILS % (MANUAL) 1 % (0-8); LYMPHOCYTES % (MANUAL) 21 % (20-40); MONOCYTES % (MANUAL) 5 % (2-10); NEUTROPHILS % (MANUAL) 73 % (42-75)
[2016-10-13] MEDS: METHADONE HCL 10 MG TABLET PO SCH (17:00)
[2016-10-13] MEDS ORDERED: VANCOMYCIN IV 500 MG in IV DEXTROSE 5% 100 ML IV ONE (18:00)
[2016-10-13] MEDS: MEROPENEM 0.5 G in IV NORMAL SALINE 50 ML IV SCH (20:40)
[2016-10-14] MEDS: HYDROMORPHONE 2 MG/1 ML DISP.SYRIN IV PRN ×4 (03:10→18:21)
[2016-10-14] MEDS: diphenhydrAMINE 50 MG/1 ML VIAL IV PRN ×3 (03:11→18:21)
[2016-10-14 05:50] VITALS: BP 102/61
[2016-10-14] MEDS: CLONIDINE HCL 0.1 MG TABLET PO SCH ×3 (06:12→22:00)
[2016-10-14] MEDS: ACIDOPHILUS/BULGARICUS CHEW TAB GT SCH ×3 (06:12→23:01)
[2016-10-14] MEDS: SEVELAMER CARBONATE 800 MG TABLET PO SCH ×3 (08:00→17:25)
[2016-10-14] MEDS: PROTEIN SUPPLEMENT (PROSTAT) 30 ML LIQUID PO SCH ×3 (08:00→17:00)
[2016-10-14] MEDS: CARVEDILOL 25 MG TABLET PO SCH ×2 (09:00→17:25)
[2016-10-14] MEDS: FOLIC ACID/VITAMIN B COMP W-C TABLET PO SCH (09:00)
[2016-10-14] MEDS: GABAPENTIN 100 MG CAPSULE PO SCH ×3 (09:00→17:24)
[2016-10-14] MEDS: PANTOPRAZOLE SODIUM 40 MG TABLET.DR PO SCH ×2 (09:00→17:24)
[2016-10-14] MEDS: METHADONE HCL 10 MG TABLET PO SCH ×2 (09:00→17:24)
[2016-10-14] MEDS: CALCIUM ACETATE 667 MG CAPSULE PO SCH ×3 (09:00→17:24)
[2016-10-14] MEDS: MINOXIDIL 2.5 MG TABLET PO SCH ×3 (09:00→17:23)
[2016-10-14] MEDS: ASCORBIC ACID 250 MG TABLET PO SCH (09:00)
[2016-10-14] MEDS: BENAZEPRIL HCL 20 MG TABLET PO SCH (09:00)
[2016-10-14] MEDS: CINACALCET HCL 30 MG TABLET PO SCH (09:00)
[2016-10-14 11:42] VITALS: BP 118/70
[2016-10-14 15:09] VITALS: BP 110/62
[2016-10-14 20:00] VITALS: BP 112/60
[2016-10-14] MEDS: MEROPENEM 0.5 G in IV NORMAL SALINE 50 ML IV SCH (20:33)
[2016-10-15] VITALS (28 sets, daily range): BP systolic 80–120; BP diastolic 40–90
[2016-10-15] MEDS: CLONIDINE HCL 0.1 MG TABLET PO SCH (06:00)
[2016-10-15] MEDS: ACIDOPHILUS/BULGARICUS CHEW TAB GT SCH (06:00)
[2016-10-15 06:23] LABS: ABG BASE EXCESS 2.5 mmol/L; ABG PCO2 67.1 mmHg (35.0-45.0); ABG PH 7.268 (7.350-7.450); ABG PO2 215.4 mmHg (75.0-100.0); ABG SITE LEFT BRACHIAL; ABG TOTAL HEMOGLOBIN 7.1 G/dL (13.5-18.0); COHb 3.8 % (0.5-1.5); MetHb 0.6 % (0.0-1.5); O2Hb 95.1 % (94.0-97.0)
[2016-10-15] MEDS: HYDROMORPHONE 2 MG/1 ML DISP.SYRIN IV PRN ×2 (06:25→13:22)
[2016-10-15 06:37] LABS: MEAN CORPUSCULAR HEMOGLOBIN 29.2 UUG (27.0-31.0); MEAN CORPUSCULAR HGB CONC 34 g/dL (32.0-37.0); MEAN CORPUSCULAR VOLUME 85.7 FL (82.0-92.0); WHITE BLOOD COUNT (AUTO) 13.4 K/UL (4.0-11.2)
[2016-10-15 06:55] LABS: POTASSIUM 5.1 mmol/L (3.5-5.1)
[2016-10-15 07:32] LABS: HEMATOCRIT 17.1 % (40-50); HEMOGLOBIN 5.8 G/DL (14.0-18.0); PLATELET COUNT (AUTO) 44 K/UL (150-450); RED BLOOD CELL COUNT(AUTO) 1.99 MIL/UL (4.7-6.1)
[2016-10-15] MEDS: PANTOPRAZOLE SODIUM 40 MG VIAL IV SCH (08:25)
[2016-10-15] MEDS ORDERED: DESMOPRESSIN INJ 30 MCG in IV NORMAL SALINE 50 ML IV ONE ×2 (08:30→09:00)
[2016-10-15 11:08] LABS: EOSINOPHILS % (MANUAL) 1 % (0-8); LYMPHOCYTES % (MANUAL) 21 % (20-40); MONOCYTES % (MANUAL) 9 % (2-10); NEUTROPHILS % (MANUAL) 69 % (42-75)
[2016-10-15] MEDS: diphenhydrAMINE 50 MG/1 ML VIAL IV PRN (13:21)
[2016-10-15] MEDS ORDERED: VANCOMYCIN IV 500 MG in IV DEXTROSE 5% 100 ML IV ONE (17:00)
[2016-10-15] MEDS ORDERED: GABAPENTIN 100 MG CAPSULE PO SCH (19:15)
[2016-10-15] MEDS ORDERED: ACIDOPHILUS/BULGARICUS CHEW TAB GT SCH (19:15)
[2016-10-15] MEDS ORDERED: CALCIUM ACETATE 667 MG CAPSULE PO SCH (19:15)
[2016-10-15] MEDS ORDERED: PROTEIN SUPPLEMENT (PROSTAT) 30 ML LIQUID PO SCH (19:15)
[2016-10-15] MEDS ORDERED: BENAZEPRIL HCL 20 MG TABLET PO SCH (19:15)
[2016-10-15] MEDS ORDERED: CINACALCET HCL 30 MG TABLET PO SCH (19:15)
[2016-10-15] MEDS ORDERED: FOLIC ACID/VITAMIN B COMP W-C TABLET PO SCH (19:15)
[2016-10-15] MEDS ORDERED: MINOXIDIL 2.5 MG TABLET PO SCH (19:15)
[2016-10-15] MEDS ORDERED: SEVELAMER CARBONATE 800 MG TABLET PO SCH (19:15)
[2016-10-15] MEDS ORDERED: METHADONE HCL 10 MG TABLET PO SCH (19:15)
[2016-10-15] MEDS ORDERED: CLONIDINE HCL 0.1 MG TABLET PO SCH (19:15)
[2016-10-15] MEDS ORDERED: PANTOPRAZOLE SODIUM 40 MG TABLET.DR PO SCH (19:15)
[2016-10-15] MEDS ORDERED: CARVEDILOL 25 MG TABLET PO SCH (19:15)
[2016-10-15] MEDS ORDERED: ASCORBIC ACID 250 MG TABLET PO SCH (19:15)
[2016-10-15] MEDS: MEROPENEM 0.5 G in IV NORMAL SALINE 50 ML IV SCH (21:07)
[2016-10-16] VITALS (13 sets, daily range): BP systolic 92–125; BP diastolic 41–76
[2016-10-16] MEDS: HYDROMORPHONE 2 MG/1 ML DISP.SYRIN IV PRN ×6 (01:19→22:37)
[2016-10-16] MEDS: diphenhydrAMINE 50 MG/1 ML VIAL IV PRN ×6 (01:33→22:37)
[2016-10-16 05:30] LABS: BILIRUBIN,TOTAL 1.9 mg/dL (0.2-1.0); CREATININE 6.3 mg/dL (0.6-1.3); MAGNESIUM 2.3 mg/dL (1.8-2.4); PHOSPHOROUS 7.8 mg/dL (2.5-4.9); POTASSIUM 4.4 mmol/L (3.5-5.1); TOTAL PROTEIN, SERUM 6.6 g/dL (6.4-8.2)
[2016-10-16 05:41] LABS: MEAN CORPUSCULAR HEMOGLOBIN 28.7 UUG (27.0-31.0); MEAN CORPUSCULAR HGB CONC 34 g/dL (32.0-37.0); MEAN CORPUSCULAR VOLUME 85.4 FL (82.0-92.0); PLATELET COUNT (AUTO) 52 K/UL (150-450); WHITE BLOOD COUNT (AUTO) 12.4 K/UL (4.0-11.2)
[2016-10-16 05:47] LABS: HEMOGLOBIN 6.7 G/DL (14.0-18.0); RED BLOOD CELL COUNT(AUTO) 2.33 MIL/UL (4.7-6.1)
[2016-10-16 05:48] LABS: HEMATOCRIT 19.9 % (40-50)
[2016-10-16 05:52] LABS: BAND % (MANUAL) 2 % (0-10); LYMPHOCYTES % (MANUAL) 28 % (20-40); MONOCYTES % (MANUAL) 6 % (2-10); NEUTROPHILS % (MANUAL) 64 % (42-75)
[2016-10-16 06:34] LABS: BASOPHILS # (AUTO) 0.1 K/uL (0.0-8.0); BASOPHILS % (AUTO) 0.6 % (0.0-2.0); EOSINOPHILS # (AUTO) 0.3 K/uL (0.0-0.7); EOSINOPHILS % (AUTO) 2.3 % (0.0-7.0); LYMPHOCYTES # (AUTO) 2.7 K/UL (0.8-4.8); MEAN CORPUSCULAR HGB CONC 33 g/dL (32.0-37.0); MEAN CORPUSCULAR VOLUME 84.4 FL (82.0-92.0); MONOCYTES # (AUTO) 1.4 K/UL (0.1-1.30); MONOCYTES % (AUTO) 12.5 % (0.0-11.0); NEUTROPHILS # (AUTO) 6.9 K/UL (1.8-8.9); NEUTROPHILS % (AUTO) 60.6 % (38.5-71.5); WHITE BLOOD COUNT (AUTO) 11.4 K/UL (4.0-11.2)
[2016-10-16 06:50] LABS: HEMOGLOBIN 6.7 G/DL (14.0-18.0); PLATELET COUNT (AUTO) 48 K/UL (150-450); RED BLOOD CELL COUNT(AUTO) 2.37 MIL/UL (4.7-6.1)
[2016-10-16] MEDS: PANTOPRAZOLE SODIUM 40 MG VIAL IV SCH (07:44)
[2016-10-16] MEDS ORDERED: DESMOPRESSIN INJ 30 MCG in IV NORMAL SALINE 50 ML IV ONE (09:00)
[2016-10-16] MEDS ORDERED: VANCOMYCIN IV 500 MG in IV DEXTROSE 5% 100 ML IV ONE (17:00)
[2016-10-16] MEDS: IV D5/ 0.9% NACL 1,000 ML IV PRN ×2 (17:49→21:50)
[2016-10-16] MEDS: MEROPENEM 0.5 G in IV NORMAL SALINE 50 ML IV SCH (21:48)
[2016-10-17] MEDS: diphenhydrAMINE 50 MG/1 ML VIAL IV PRN ×5 (02:37→20:29)
[2016-10-17] MEDS: HYDROMORPHONE 2 MG/1 ML DISP.SYRIN IV PRN ×5 (02:38→20:28)
[2016-10-17] MEDS ORDERED: PHENYLEPHRINE 0.5% NS PRN (03:00)
[2016-10-17] MEDS ORDERED: PHENYLEPHRINE 1% (EXTRA STR) NASAL SPRAY NS PRN ×2 (03:00→11:51)
[2016-10-17] MEDS ORDERED: PHENYLEPHRINE 1% (EXTRA STR) NASAL SPRAY NS ONE (03:14)
[2016-10-17 05:00] VITALS: BP 129/63
[2016-10-17 06:57] LABS: BASOPHILS # (AUTO) 0.1 K/uL (0.0-8.0); BASOPHILS % (AUTO) 0.5 % (0.0-2.0); EOSINOPHILS # (AUTO) 0.3 K/uL (0.0-0.7); EOSINOPHILS % (AUTO) 1.9 % (0.0-7.0); LYMPHOCYTES # (AUTO) 2.4 K/UL (0.8-4.8); LYMPHOCYTES % (AUTO) 17.8 % (20.5-51.5); MEAN CORPUSCULAR HEMOGLOBIN 29.5 UUG (27.0-31.0); MEAN CORPUSCULAR HGB CONC 34 g/dL (32.0-37.0); MONOCYTES # (AUTO) 2.1 K/UL (0.1-1.30); MONOCYTES % (AUTO) 15.7 % (0.0-11.0); NEUTROPHILS # (AUTO) 8.3 K/UL (1.8-8.9); NEUTROPHILS % (AUTO) 64.1 % (38.5-71.5); WHITE BLOOD COUNT (AUTO) 13.2 K/UL (4.0-11.2)
[2016-10-17 07:42] LABS: HEMOGLOBIN 6.6 G/DL (14.0-18.0); RED BLOOD CELL COUNT(AUTO) 2.22 MIL/UL (4.7-6.1)
[2016-10-17 07:43] LABS: HEMATOCRIT 19.1 % (40-50); PLATELET COUNT (AUTO) 45 K/UL (150-450)
[2016-10-17] MEDS: PANTOPRAZOLE SODIUM 40 MG VIAL IV SCH (09:58)
[2016-10-17 10:36] LABS: EOSINOPHILS % (MANUAL) 2 % (0-8); LYMPHOCYTES % (MANUAL) 17 % (20-40); MONOCYTES % (MANUAL) 16 % (2-10); NEUTROPHILS % (MANUAL) 65 % (42-75)
[2016-10-17 11:33] VITALS: BP 113/44
[2016-10-17 16:01] VITALS: BP 128/70
[2016-10-17 20:00] VITALS: BP 148/83
[2016-10-18] VITALS (7 sets, daily range): BP systolic 107–142; BP diastolic 44–80
[2016-10-18] MEDS: HYDROMORPHONE 2 MG/1 ML DISP.SYRIN IV PRN ×7 (00:32→22:40)
[2016-10-18] MEDS: diphenhydrAMINE 50 MG/1 ML VIAL IV PRN ×6 (00:32→22:41)
[2016-10-18] MEDS: PANTOPRAZOLE SODIUM 40 MG TABLET.DR PO SCH (07:00)
[2016-10-18 07:07] LABS: BILIRUBIN,TOTAL 1.8 mg/dL (0.2-1.0); CREATININE 7.3 mg/dL (0.6-1.3); MAGNESIUM 2.4 mg/dL (1.8-2.4); PHOSPHOROUS 7.8 mg/dL (2.5-4.9); POTASSIUM 5.1 mmol/L (3.5-5.1)
[2016-10-18 07:49] LABS: BASOPHILS # (AUTO) 0.2 K/uL (0.0-8.0); BASOPHILS % (AUTO) 1.3 % (0.0-2.0); EOSINOPHILS # (AUTO) 0.2 K/uL (0.0-0.7); EOSINOPHILS % (AUTO) 1.5 % (0.0-7.0); LYMPHOCYTES # (AUTO) 2.2 K/UL (0.8-4.8); LYMPHOCYTES % (AUTO) 15.2 % (20.5-51.5); MEAN CORPUSCULAR HEMOGLOBIN 29.6 UUG (27.0-31.0); MEAN CORPUSCULAR HGB CONC 35 g/dL (32.0-37.0); MEAN CORPUSCULAR VOLUME 85.6 FL (82.0-92.0); MONOCYTES # (AUTO) 1.6 K/UL (0.1-1.30); MONOCYTES % (AUTO) 10.9 % (0.0-11.0); NEUTROPHILS # (AUTO) 10.1 K/UL (1.8-8.9); NEUTROPHILS % (AUTO) 71.1 % (38.5-71.5); WHITE BLOOD COUNT (AUTO) 14.3 K/UL (4.0-11.2)
[2016-10-18 08:11] LABS: PLATELET COUNT (AUTO) 54 K/UL (150-450)
[2016-10-18 08:16] LABS: HEMATOCRIT 16.6 % (40-50); HEMOGLOBIN 5.7 G/DL (14.0-18.0); RED BLOOD CELL COUNT(AUTO) 1.99 MIL/UL (4.7-6.1)
[2016-10-18 10:44] LABS: EOSINOPHILS % (MANUAL) 2 % (0-8); LYMPHOCYTES % (MANUAL) 16 % (20-40); MONOCYTES % (MANUAL) 11 % (2-10); NEUTROPHILS % (MANUAL) 71 % (42-75)
[2016-10-18] MEDS: CIPROFLOXACIN-HC OTIC DROP 10 ML BOTTLE LEFT EAR SCH ×2 (18:54→20:49)
[2016-10-19] VITALS (9 sets, daily range): BP systolic 116–141; BP diastolic 67–84
[2016-10-19] MEDS: CIPROFLOXACIN-HC OTIC DROP 10 ML BOTTLE LEFT EAR SCH ×7 (00:25→23:58)
[2016-10-19] MEDS: HYDROMORPHONE 2 MG/1 ML DISP.SYRIN IV PRN ×6 (02:46→23:59)
[2016-10-19] MEDS: diphenhydrAMINE 50 MG/1 ML VIAL IV PRN ×6 (02:46→23:59)
[2016-10-19] MEDS: PANTOPRAZOLE SODIUM 40 MG TABLET.DR PO SCH (06:18)
[2016-10-19 07:22] LABS: BILIRUBIN,TOTAL 1.8 mg/dL (0.2-1.0); MAGNESIUM 2.3 mg/dL (1.8-2.4); TOTAL PROTEIN, SERUM 7.4 g/dL (6.4-8.2)
[2016-10-19 07:41] LABS: EOSINOPHILS # (AUTO) 0.2 K/uL (0.0-0.7); EOSINOPHILS % (AUTO) 1.8 % (0.0-7.0); LYMPHOCYTES # (AUTO) 2.7 K/UL (0.8-4.8); LYMPHOCYTES % (AUTO) 19.8 % (20.5-51.5); MEAN CORPUSCULAR HGB CONC 33 g/dL (32.0-37.0); NEUTROPHILS # (AUTO) 8.5 K/UL (1.8-8.9); NEUTROPHILS % (AUTO) 63.4 % (38.5-71.5); WHITE BLOOD COUNT (AUTO) 13.4 K/UL (4.0-11.2)
[2016-10-19 07:46] LABS: MEAN CORPUSCULAR VOLUME 86.8 FL (82.0-92.0)
[2016-10-19 07:55] LABS: HEMATOCRIT 21.4 % (40-50); HEMOGLOBIN 7.2 G/DL (14.0-18.0); RED BLOOD CELL COUNT(AUTO) 2.47 MIL/UL (4.7-6.1)
[2016-10-19 07:56] LABS: PLATELET COUNT (AUTO) 73 K/UL (150-450)
[2016-10-19 11:28] LABS: BAND % (MANUAL) 2 % (0-10); EOSINOPHILS % (MANUAL) 1 % (0-8); LYMPHOCYTES % (MANUAL) 18 % (20-40); MONOCYTES % (MANUAL) 14 % (2-10); NEUTROPHILS % (MANUAL) 65 % (42-75)
[2016-10-20] MEDS: diphenhydrAMINE 50 MG/1 ML VIAL IV PRN ×5 (04:01→20:15)
[2016-10-20] MEDS: HYDROMORPHONE 2 MG/1 ML DISP.SYRIN IV PRN ×5 (04:02→20:17)
[2016-10-20] MEDS: CIPROFLOXACIN-HC OTIC DROP 10 ML BOTTLE LEFT EAR SCH ×5 (04:04→20:21)
[2016-10-20 04:55] VITALS: BP 144/88
[2016-10-20] MEDS: PANTOPRAZOLE SODIUM 40 MG TABLET.DR PO SCH (06:28)
[2016-10-20 11:10] VITALS: BP 138/101
[2016-10-20 15:10] VITALS: BP 148/89
[2016-10-20 20:24] VITALS: BP 140/75
[2016-10-21] MEDS: diphenhydrAMINE 50 MG/1 ML VIAL IV PRN ×6 (00:12→20:02)
[2016-10-21] MEDS: HYDROMORPHONE 2 MG/1 ML DISP.SYRIN IV PRN ×6 (00:13→20:02)
[2016-10-21] MEDS: CIPROFLOXACIN-HC OTIC DROP 10 ML BOTTLE LEFT EAR SCH ×6 (00:13→20:01)
[2016-10-21 04:00] VITALS: BP 133/69
[2016-10-21] MEDS: PANTOPRAZOLE SODIUM 40 MG TABLET.DR PO SCH (06:27)
[2016-10-21 07:33] LABS: BASOPHILS % (AUTO) 0.1 % (0.0-2.0); EOSINOPHILS # (AUTO) 0.2 K/uL (0.0-0.7); EOSINOPHILS % (AUTO) 1.7 % (0.0-7.0); LYMPHOCYTES # (AUTO) 2.5 K/UL (0.8-4.8); MEAN CORPUSCULAR HEMOGLOBIN 29.3 UUG (27.0-31.0); MEAN CORPUSCULAR HGB CONC 34 g/dL (32.0-37.0); MEAN CORPUSCULAR VOLUME 87.2 FL (82.0-92.0); MONOCYTES # (AUTO) 1.5 K/UL (0.1-1.30); MONOCYTES % (AUTO) 11.1 % (0.0-11.0); NEUTROPHILS # (AUTO) 9.5 K/UL (1.8-8.9); NEUTROPHILS % (AUTO) 69.1 % (38.5-71.5); PLATELET COUNT (AUTO) 72 K/UL (150-450); WHITE BLOOD COUNT (AUTO) 13.7 K/UL (4.0-11.2)
[2016-10-21 07:37] LABS: HEMOGLOBIN 6.9 G/DL (14.0-18.0); RED BLOOD CELL COUNT(AUTO) 2.35 MIL/UL (4.7-6.1)
[2016-10-21 07:38] LABS: HEMATOCRIT 20.5 % (40-50)
[2016-10-21 08:09] LABS: BAND % (MANUAL) 1 % (0-10); EOSINOPHILS % (MANUAL) 1 % (0-8); LYMPHOCYTES % (MANUAL) 22 % (20-40); MONOCYTES % (MANUAL) 5 % (2-10); NEUTROPHILS % (MANUAL) 71 % (42-75)
[2016-10-21 08:25] VITALS: BP 162/110
[2016-10-21 11:19] VITALS: BP 159/84
[2016-10-21] MEDS ORDERED: LEVOFLOXACIN 500 MG TABLET PO SCH (11:30)
[2016-10-21 15:17] VITALS: BP 148/76
[2016-10-21 21:02] VITALS: BP 149/98
[2016-10-21] MEDS ORDERED: ACETAMINOPHEN 325 MG TABLET PO PRN (21:15)
[2016-10-21] MEDS ORDERED: CLONIDINE HCL 0.1 MG TABLET PO PRN (21:15)
[2016-10-21] MEDS ORDERED: diphenhydrAMINE 50 MG/1 ML VIAL IV PRN (21:15)
[2016-10-22] MEDS: diphenhydrAMINE 50 MG/1 ML VIAL IV PRN ×6 (00:07→20:12)
[2016-10-22] MEDS: HYDROMORPHONE 2 MG/1 ML DISP.SYRIN IV PRN ×6 (00:07→20:13)
[2016-10-22] MEDS: CIPROFLOXACIN-HC OTIC DROP 10 ML BOTTLE LEFT EAR SCH ×7 (04:00→23:21)
[2016-10-22 06:32] VITALS: BP 147/102
[2016-10-22] MEDS: PANTOPRAZOLE SODIUM 40 MG TABLET.DR PO SCH (06:32)
[2016-10-22] MEDS: CLONIDINE HCL 0.1 MG TABLET PO SCH ×6 (07:54→22:46)
[2016-10-22] MEDS: CARVEDILOL 25 MG TABLET PO SCH ×2 (07:57→17:08)
[2016-10-22] MEDS: CALCIUM ACETATE 667 MG CAPSULE PO SCH ×3 (07:57→17:08)
[2016-10-22] MEDS: AMLODIPINE 10 MG TABLET PO SCH (08:00)
[2016-10-22] MEDS: PROTEIN SUPPLEMENT (PROSTAT) 30 ML LIQUID PO SCH ×3 (08:00→16:15)
[2016-10-22] MEDS: ASCORBIC ACID 250 MG TABLET PO SCH (08:01)
[2016-10-22] MEDS: CINACALCET HCL 30 MG TABLET PO SCH (08:01)
[2016-10-22] MEDS: MINOXIDIL 2.5 MG TABLET PO SCH ×3 (08:02→16:11)
[2016-10-22] MEDS: FOLIC ACID/VITAMIN B COMP W-C TABLET PO SCH (08:02)
[2016-10-22] MEDS: BENAZEPRIL HCL 20 MG TABLET PO SCH (08:02)
[2016-10-22] MEDS: GABAPENTIN 100 MG CAPSULE PO SCH ×3 (08:03→16:11)
[2016-10-22] MEDS: HYDROXYUREA 500 MG CAPSULE PO SCH (08:42)
[2016-10-22] MEDS ORDERED: LACTOBACILLUS RHAMNOSUS GG 1 EACH CAPSULE PO SCH (09:00)
[2016-10-22] MEDS ORDERED: BENAZEPRIL PO SCH (09:00)
[2016-10-22] MEDS ORDERED: PANTOPRAZOLE SODIUM 40 MG TABLET.DR PO SCH (09:00)
[2016-10-22] MEDS ORDERED: [UNRECOGNIZED DRUG - OTHER] PO SCH (09:00)
[2016-10-22] MEDS ORDERED: AMLODIPINE BESYLATE PO SCH (09:00)
[2016-10-22 09:35] LABS: BASOPHILS % (AUTO) 0.3 % (0.0-2.0); EOSINOPHILS # (AUTO) 0.2 K/uL (0.0-0.7); EOSINOPHILS % (AUTO) 1.4 % (0.0-7.0); LYMPHOCYTES % (AUTO) 14.2 % (20.5-51.5); MEAN CORPUSCULAR HEMOGLOBIN 29.9 UUG (27.0-31.0); MEAN CORPUSCULAR HGB CONC 35 g/dL (32.0-37.0); MEAN CORPUSCULAR VOLUME 86.4 FL (82.0-92.0); MONOCYTES # (AUTO) 1.3 K/UL (0.1-1.30); MONOCYTES % (AUTO) 9.3 % (0.0-11.0); NEUTROPHILS # (AUTO) 10.9 K/UL (1.8-8.9); NEUTROPHILS % (AUTO) 74.8 % (38.5-71.5); PLATELET COUNT (AUTO) 79 K/UL (150-450); WHITE BLOOD COUNT (AUTO) 14.4 K/UL (4.0-11.2)
[2016-10-22 09:56] LABS: HEMATOCRIT 21.2 % (40-50); HEMOGLOBIN 7.3 G/DL (14.0-18.0); RED BLOOD CELL COUNT(AUTO) 2.45 MIL/UL (4.7-6.1)
[2016-10-22] MEDS: LACTOBACILLUS RHAMNOSUS GG 1 EACH CAPSULE PO SCH ×2 (10:05→20:43)
[2016-10-22 11:41] LABS: EOSINOPHILS % (MANUAL) 1 % (0-8); LYMPHOCYTES % (MANUAL) 19 % (20-40); MONOCYTES % (MANUAL) 10 % (2-10); NEUTROPHILS % (MANUAL) 70 % (42-75)
[2016-10-22 11:58] VITALS: BP 136/83
[2016-10-22 16:13] VITALS: BP 124/85
[2016-10-22 20:00] VITALS: BP 108/50
[2016-10-22] MEDS: LEVOFLOXACIN 250 MG TABLET PO SCH (22:46)
[2016-10-23] VITALS (7 sets, daily range): BP systolic 93–119; BP diastolic 40–61
[2016-10-23] MEDS: diphenhydrAMINE 50 MG/1 ML VIAL IV PRN ×6 (00:06→21:32)
[2016-10-23] MEDS: HYDROMORPHONE 2 MG/1 ML DISP.SYRIN IV PRN ×6 (00:07→21:32)
[2016-10-23] MEDS: CIPROFLOXACIN-HC OTIC DROP 10 ML BOTTLE LEFT EAR SCH ×6 (04:04→23:10)
[2016-10-23] MEDS: CLONIDINE HCL 0.1 MG TABLET PO SCH ×6 (05:33→22:00)
[2016-10-23] MEDS: PANTOPRAZOLE SODIUM 40 MG TABLET.DR PO SCH (06:05)
[2016-10-23] MEDS: CALCIUM ACETATE 667 MG CAPSULE PO SCH ×3 (08:07→19:11)
[2016-10-23] MEDS: GABAPENTIN 100 MG CAPSULE PO SCH ×3 (08:08→17:28)
[2016-10-23] MEDS: FOLIC ACID/VITAMIN B COMP W-C TABLET PO SCH (08:08)
[2016-10-23] MEDS: CINACALCET HCL 30 MG TABLET PO SCH (08:08)
[2016-10-23] MEDS: MINOXIDIL 2.5 MG TABLET PO SCH ×3 (08:08→17:28)
[2016-10-23] MEDS: ASCORBIC ACID 250 MG TABLET PO SCH (08:08)
[2016-10-23] MEDS: PROTEIN SUPPLEMENT (PROSTAT) 30 ML LIQUID PO SCH ×3 (08:12→17:28)
[2016-10-23] MEDS: LACTOBACILLUS RHAMNOSUS GG 1 EACH CAPSULE PO SCH ×2 (08:12→20:01)
[2016-10-23] MEDS: BENAZEPRIL HCL 20 MG TABLET PO SCH (08:17)
[2016-10-23] MEDS: AMLODIPINE 10 MG TABLET PO SCH (08:17)
[2016-10-23] MEDS: CARVEDILOL 25 MG TABLET PO SCH ×2 (08:18→18:00)
[2016-10-23 09:45] LABS: BASOPHILS % (AUTO) 0.2 % (0.0-2.0); EOSINOPHILS # (AUTO) 0.2 K/uL (0.0-0.7); EOSINOPHILS % (AUTO) 1.6 % (0.0-7.0); LYMPHOCYTES # (AUTO) 1.7 K/UL (0.8-4.8); LYMPHOCYTES % (AUTO) 12.3 % (20.5-51.5); MEAN CORPUSCULAR HGB CONC 34 g/dL (32.0-37.0); MEAN CORPUSCULAR VOLUME 85.2 FL (82.0-92.0); MONOCYTES # (AUTO) 1.3 K/UL (0.1-1.30); MONOCYTES % (AUTO) 9.4 % (0.0-11.0); NEUTROPHILS # (AUTO) 10.4 K/UL (1.8-8.9); NEUTROPHILS % (AUTO) 76.5 % (38.5-71.5); PLATELET COUNT (AUTO) 71 K/UL (150-450); WHITE BLOOD COUNT (AUTO) 13.6 K/UL (4.0-11.2)
[2016-10-23] MEDS: HYDROXYUREA 500 MG CAPSULE PO SCH (09:58)
[2016-10-23 10:04] LABS: RED BLOOD CELL COUNT(AUTO) 2.11 MIL/UL (4.7-6.1)
[2016-10-23 10:05] LABS: HEMOGLOBIN 6.1 G/DL (14.0-18.0)
[2016-10-23 10:06] LABS: LYMPHOCYTES % (MANUAL) 14 % (20-40); MONOCYTES % (MANUAL) 6 % (2-10); NEUTROPHILS % (MANUAL) 80 % (42-75)
[2016-10-23] MEDS ORDERED: LEVOFLOXACIN 250 MG TABLET PO SCH (11:30)
[2016-10-24] MEDS: diphenhydrAMINE 50 MG/1 ML VIAL IV PRN ×6 (01:25→23:27)
[2016-10-24] MEDS: HYDROMORPHONE 2 MG/1 ML DISP.SYRIN IV PRN ×6 (01:25→23:26)
[2016-10-24 04:00] VITALS: BP 107/53
[2016-10-24] MEDS: CIPROFLOXACIN-HC OTIC DROP 10 ML BOTTLE LEFT EAR SCH ×6 (04:49→23:27)
[2016-10-24] MEDS: CLONIDINE HCL 0.1 MG TABLET PO SCH ×6 (06:05→21:12)
[2016-10-24] MEDS: PANTOPRAZOLE SODIUM 40 MG TABLET.DR PO SCH (06:06)
[2016-10-24 06:33] LABS: EOSINOPHILS # (AUTO) 0.2 K/uL (0.0-0.7); EOSINOPHILS % (AUTO) 1.5 % (0.0-7.0); HEMOGLOBIN 7.2 G/DL (14.0-18.0); LYMPHOCYTES # (AUTO) 1.5 K/UL (0.8-4.8); LYMPHOCYTES % (AUTO) 11.9 % (20.5-51.5); MEAN CORPUSCULAR HEMOGLOBIN 29.1 UUG (27.0-31.0); MEAN CORPUSCULAR HGB CONC 34 g/dL (32.0-37.0); MEAN CORPUSCULAR VOLUME 86.2 FL (82.0-92.0); MONOCYTES # (AUTO) 1.3 K/UL (0.1-1.30); MONOCYTES % (AUTO) 10.4 % (0.0-11.0); NEUTROPHILS # (AUTO) 9.5 K/UL (1.8-8.9); NEUTROPHILS % (AUTO) 76.2 % (38.5-71.5); PLATELET COUNT (AUTO) 60 K/UL (150-450); WHITE BLOOD COUNT (AUTO) 12.5 K/UL (4.0-11.2)
[2016-10-24 06:39] LABS: HEMATOCRIT 21.2 % (40-50); RED BLOOD CELL COUNT(AUTO) 2.46 MIL/UL (4.7-6.1)
[2016-10-24] MEDS ORDERED: CIPR10DR LEFT EAR (07:23)
[2016-10-24] MEDS ORDERED: LEVO250T2 PO (07:23)
[2016-10-24 07:36] LABS: EOSINOPHILS % (MANUAL) 1 % (0-8); LYMPHOCYTES % (MANUAL) 11 % (20-40); MONOCYTES % (MANUAL) 7 % (2-10); NEUTROPHILS % (MANUAL) 81 % (42-75)
[2016-10-24] MEDS: CARVEDILOL 25 MG TABLET PO SCH ×2 (08:38→17:27)
[2016-10-24] MEDS: LACTOBACILLUS RHAMNOSUS GG 1 EACH CAPSULE PO SCH ×2 (08:40→21:10)
[2016-10-24] MEDS: CALCIUM ACETATE 667 MG CAPSULE PO SCH ×3 (08:40→17:26)
[2016-10-24] MEDS: CINACALCET HCL 30 MG TABLET PO SCH (08:41)
[2016-10-24] MEDS: ASCORBIC ACID 250 MG TABLET PO SCH (08:41)
[2016-10-24] MEDS: FOLIC ACID/VITAMIN B COMP W-C TABLET PO SCH (08:41)
[2016-10-24] MEDS: MINOXIDIL 2.5 MG TABLET PO SCH ×3 (08:41→17:26)
[2016-10-24] MEDS: BENAZEPRIL HCL 20 MG TABLET PO SCH (08:41)
[2016-10-24] MEDS: PROTEIN SUPPLEMENT (PROSTAT) 30 ML LIQUID PO SCH ×3 (08:41→17:28)
[2016-10-24] MEDS: GABAPENTIN 100 MG CAPSULE PO SCH ×3 (08:41→17:26)
[2016-10-24] MEDS: HYDROXYUREA 500 MG CAPSULE PO SCH (08:42)
[2016-10-24] MEDS: AMLODIPINE 10 MG TABLET PO SCH (08:43)
[2016-10-24 11:35] VITALS: BP 113/64
[2016-10-24 15:37] VITALS: BP 101/70
[2016-10-24 20:00] VITALS: BP 125/75
[2016-10-24] MEDS: LEVOFLOXACIN 250 MG TABLET PO SCH (22:29)
[2016-10-25] MEDS: CLONIDINE HCL 0.1 MG TABLET PO SCH ×6 (04:59→22:00)
[2016-10-25] MEDS: CIPROFLOXACIN-HC OTIC DROP 10 ML BOTTLE LEFT EAR SCH ×3 (04:59→12:21)
[2016-10-25] MEDS: HYDROMORPHONE 2 MG/1 ML DISP.SYRIN IV PRN ×4 (04:59→21:33)
[2016-10-25] MEDS: diphenhydrAMINE 50 MG/1 ML VIAL IV PRN ×4 (04:59→21:34)
[2016-10-25 05:00] VITALS: BP 116/70
[2016-10-25] MEDS: PANTOPRAZOLE SODIUM 40 MG TABLET.DR PO SCH (05:00)
[2016-10-25] MEDS: CARVEDILOL 25 MG TABLET PO SCH ×2 (08:00→17:28)
[2016-10-25] MEDS: LACTOBACILLUS RHAMNOSUS GG 1 EACH CAPSULE PO SCH ×2 (08:31→20:20)
[2016-10-25] MEDS: ASCORBIC ACID 250 MG TABLET PO SCH (08:31)
[2016-10-25] MEDS: GABAPENTIN 100 MG CAPSULE PO SCH ×3 (08:31→16:51)
[2016-10-25] MEDS: MINOXIDIL 2.5 MG TABLET PO SCH ×3 (08:31→16:51)
[2016-10-25] MEDS: CALCIUM ACETATE 667 MG CAPSULE PO SCH ×3 (08:31→17:45)
[2016-10-25] MEDS: AMLODIPINE 10 MG TABLET PO SCH (08:32)
[2016-10-25] MEDS: FOLIC ACID/VITAMIN B COMP W-C TABLET PO SCH (08:32)
[2016-10-25] MEDS: BENAZEPRIL HCL 20 MG TABLET PO SCH (08:33)
[2016-10-25] MEDS: PROTEIN SUPPLEMENT (PROSTAT) 30 ML LIQUID PO SCH ×3 (08:34→16:51)
[2016-10-25] MEDS: HYDROXYUREA 500 MG CAPSULE PO SCH (08:35)
[2016-10-25] MEDS: CINACALCET HCL 30 MG TABLET PO SCH (08:45)
[2016-10-25 10:22] LABS: BASOPHILS % (AUTO) 0.2 % (0.0-2.0); EOSINOPHILS # (AUTO) 0.1 K/uL (0.0-0.7); EOSINOPHILS % (AUTO) 1.2 % (0.0-7.0); LYMPHOCYTES # (AUTO) 1.6 K/UL (0.8-4.8); LYMPHOCYTES % (AUTO) 13.6 % (20.5-51.5); MEAN CORPUSCULAR HEMOGLOBIN 29.1 UUG (27.0-31.0); MEAN CORPUSCULAR HGB CONC 34 g/dL (32.0-37.0); MEAN CORPUSCULAR VOLUME 86.5 FL (82.0-92.0); MONOCYTES # (AUTO) 1.3 K/UL (0.1-1.30); MONOCYTES % (AUTO) 11.2 % (0.0-11.0); NEUTROPHILS # (AUTO) 8.4 K/UL (1.8-8.9); NEUTROPHILS % (AUTO) 73.8 % (38.5-71.5); WHITE BLOOD COUNT (AUTO) 11.4 K/UL (4.0-11.2)
[2016-10-25 10:34] LABS: HEMATOCRIT 20.2 % (40-50); HEMOGLOBIN 6.8 G/DL (14.0-18.0)
[2016-10-25 10:35] LABS: PLATELET COUNT (AUTO) 48 K/UL (150-450); RED BLOOD CELL COUNT(AUTO) 2.34 MIL/UL (4.7-6.1)
[2016-10-25 10:40] LABS: LYMPHOCYTES % (MANUAL) 18 % (20-40); MONOCYTES % (MANUAL) 7 % (2-10); NEUTROPHILS % (MANUAL) 75 % (42-75)
[2016-10-25 11:04] VITALS: BP 98/51
[2016-10-25 15:37] VITALS: BP 98/76
[2016-10-25] MEDS: GENTAMICIN SULFATE 0.1% OINT 15 GM TUBE TOP SCH (17:28)
[2016-10-25 20:51] VITALS: BP 105/52
[2016-10-26] MEDS: diphenhydrAMINE 50 MG/1 ML VIAL IV PRN ×6 (01:46→22:44)
[2016-10-26] MEDS: HYDROMORPHONE 2 MG/1 ML DISP.SYRIN IV PRN ×3 (01:46→10:22)
[2016-10-26 04:57] VITALS: BP 98/50
[2016-10-26] MEDS: CLONIDINE HCL 0.1 MG TABLET PO SCH ×6 (06:00→22:00)
[2016-10-26] MEDS: PANTOPRAZOLE SODIUM 40 MG TABLET.DR PO SCH (06:07)
[2016-10-26] MEDS: CARVEDILOL 25 MG TABLET PO SCH ×2 (08:00→17:29)
[2016-10-26] MEDS: BENAZEPRIL HCL 20 MG TABLET PO SCH (08:45)
[2016-10-26] MEDS: CINACALCET HCL 30 MG TABLET PO SCH (08:46)
[2016-10-26] MEDS: ASCORBIC ACID 250 MG TABLET PO SCH (08:46)
[2016-10-26] MEDS: PROTEIN SUPPLEMENT (PROSTAT) 30 ML LIQUID PO SCH ×3 (08:46→17:32)
[2016-10-26] MEDS: MINOXIDIL 2.5 MG TABLET PO SCH ×3 (08:46→17:00)
[2016-10-26] MEDS: AMLODIPINE 10 MG TABLET PO SCH (08:46)
[2016-10-26] MEDS: FOLIC ACID/VITAMIN B COMP W-C TABLET PO SCH (08:47)
[2016-10-26] MEDS: GABAPENTIN 100 MG CAPSULE PO SCH ×3 (08:47→17:30)
[2016-10-26] MEDS: GENTAMICIN SULFATE 0.1% OINT 15 GM TUBE TOP SCH (08:48)
[2016-10-26] MEDS: HYDROXYUREA 500 MG CAPSULE PO SCH (08:49)
[2016-10-26] MEDS: CALCIUM ACETATE 667 MG CAPSULE PO SCH ×3 (08:55→17:30)
[2016-10-26] MEDS: LACTOBACILLUS RHAMNOSUS GG 1 EACH CAPSULE PO SCH ×2 (08:58→22:42)
[2016-10-26 10:24] LABS: BASOPHILS % (AUTO) 0.2 % (0.0-2.0); EOSINOPHILS # (AUTO) 0.1 K/uL (0.0-0.7); EOSINOPHILS % (AUTO) 1.1 % (0.0-7.0); LYMPHOCYTES # (AUTO) 1.3 K/UL (0.8-4.8); LYMPHOCYTES % (AUTO) 11.2 % (20.5-51.5); MEAN CORPUSCULAR HGB CONC 34 g/dL (32.0-37.0); MEAN CORPUSCULAR VOLUME 85.3 FL (82.0-92.0); MONOCYTES # (AUTO) 1.5 K/UL (0.1-1.30); MONOCYTES % (AUTO) 13.5 % (0.0-11.0); NEUTROPHILS # (AUTO) 8.4 K/UL (1.8-8.9); WHITE BLOOD COUNT (AUTO) 11.3 K/UL (4.0-11.2)
[2016-10-26 10:28] LABS: HEMATOCRIT 19.5 % (40-50); HEMOGLOBIN 6.6 G/DL (14.0-18.0); RED BLOOD CELL COUNT(AUTO) 2.29 MIL/UL (4.7-6.1)
[2016-10-26 10:29] LABS: PLATELET COUNT (AUTO) 39 K/UL (150-450)
[2016-10-26 11:45] VITALS: BP 93/50
[2016-10-26 11:51] LABS: EOSINOPHILS % (MANUAL) 1 % (0-8); LYMPHOCYTES % (MANUAL) 11 % (20-40); NEUTROPHILS % (MANUAL) 77 % (42-75)
[2016-10-26 11:52] LABS: MONOCYTES % (MANUAL) 11 % (2-10)
[2016-10-26 14:04] VITALS: BP 98/53
[2016-10-26 14:31] VITALS: BP 107/52
[2016-10-26] MEDS: HYDROMORPHONE 1 MG/1 ML DISP.SYRIN IV PRN ×3 (14:33→22:44)
[2016-10-26] MEDS: NEOMY/POLYMYX B/HC OTIC SUSP 10 ML BOTTLE LEFT EAR SCH ×2 (14:34→22:00)
[2016-10-26 15:51] VITALS: BP 101/48
[2016-10-26 20:00] VITALS: BP 103/48
[2016-10-26] MEDS: LEVOFLOXACIN 250 MG TABLET PO SCH (22:46)
[2016-10-27] MEDS: HYDROMORPHONE 1 MG/1 ML DISP.SYRIN IV PRN ×6 (02:52→23:56)
[2016-10-27] MEDS: diphenhydrAMINE 50 MG/1 ML VIAL IV PRN ×6 (02:52→23:55)
[2016-10-27 04:15] VITALS: BP 108/59
[2016-10-27] MEDS: CLONIDINE HCL 0.1 MG TABLET PO SCH ×6 (06:00→21:31)
[2016-10-27] MEDS: NEOMY/POLYMYX B/HC OTIC SUSP 10 ML BOTTLE LEFT EAR SCH ×3 (06:00→22:00)
[2016-10-27] MEDS: PANTOPRAZOLE SODIUM 40 MG TABLET.DR PO SCH (06:14)
[2016-10-27 07:13] LABS: URIC ACID 7.2 mg/dL (3.5-7.2)
[2016-10-27] MEDS ORDERED: EPOETIN ALFA 10,000 UNITS/ML VIAL SQ ONE (07:30)
[2016-10-27] MEDS: CARVEDILOL 25 MG TABLET PO SCH ×2 (08:00→18:00)
[2016-10-27 08:04] LABS: BASOPHILS % (AUTO) 0.2 % (0.0-2.0); EOSINOPHILS # (AUTO) 0.1 K/uL (0.0-0.7); EOSINOPHILS % (AUTO) 0.7 % (0.0-7.0); LYMPHOCYTES # (AUTO) 1.6 K/UL (0.8-4.8); MEAN CORPUSCULAR HGB CONC 34 g/dL (32.0-37.0); MEAN CORPUSCULAR VOLUME 86.3 FL (82.0-92.0); MONOCYTES # (AUTO) 1.4 K/UL (0.1-1.30); MONOCYTES % (AUTO) 13.4 % (0.0-11.0); NEUTROPHILS # (AUTO) 7.1 K/UL (1.8-8.9); NEUTROPHILS % (AUTO) 69.7 % (38.5-71.5); RED BLOOD CELL COUNT(AUTO) 2.56 MIL/UL (4.7-6.1); WHITE BLOOD COUNT (AUTO) 10.2 K/UL (4.0-11.2)
[2016-10-27 08:17] LABS: HEMATOCRIT 22.1 % (40-50); PLATELET COUNT (AUTO) 44 K/UL (150-450)
[2016-10-27 08:18] LABS: HEMOGLOBIN 7.4 G/DL (14.0-18.0)
[2016-10-27] MEDS: MINOXIDIL 2.5 MG TABLET PO SCH ×3 (09:00→17:00)
[2016-10-27] MEDS: AMLODIPINE 10 MG TABLET PO SCH (09:00)
[2016-10-27] MEDS: BENAZEPRIL HCL 20 MG TABLET PO SCH (09:00)
[2016-10-27] MEDS: PROTEIN SUPPLEMENT (PROSTAT) 30 ML LIQUID PO SCH ×3 (09:00→17:00)
[2016-10-27 10:21] LABS: EOSINOPHILS % (MANUAL) 2 % (0-8); LYMPHOCYTES % (MANUAL) 12 % (20-40); MONOCYTES % (MANUAL) 12 % (2-10); NEUTROPHILS % (MANUAL) 74 % (42-75)
[2016-10-27] MEDS: FOLIC ACID/VITAMIN B COMP W-C TABLET PO SCH (10:37)
[2016-10-27] MEDS: ASCORBIC ACID 250 MG TABLET PO SCH (10:37)
[2016-10-27] MEDS: CALCIUM ACETATE 667 MG CAPSULE PO SCH ×3 (10:37→18:36)
[2016-10-27] MEDS: GABAPENTIN 100 MG CAPSULE PO SCH ×3 (10:38→18:37)
[2016-10-27] MEDS: CINACALCET HCL 30 MG TABLET PO SCH (10:38)
[2016-10-27] MEDS: LACTOBACILLUS RHAMNOSUS GG 1 EACH CAPSULE PO SCH ×2 (10:45→19:55)
[2016-10-27] MEDS: HYDROXYUREA 500 MG CAPSULE PO SCH (10:46)
[2016-10-27 12:09] VITALS: BP 106/58
[2016-10-27] MEDS ORDERED: EPOETIN ALFA 20,000 UNIT/ML ML SQ ONE (16:30)
[2016-10-27 16:57] VITALS: BP 104/63
[2016-10-27 20:31] VITALS: BP 126/69
[2016-10-28 04:00] VITALS: BP 117/63
[2016-10-28] MEDS: diphenhydrAMINE 50 MG/1 ML VIAL IV PRN ×4 (04:20→16:39)
[2016-10-28] MEDS: HYDROMORPHONE 1 MG/1 ML DISP.SYRIN IV PRN ×5 (04:20→21:21)
[2016-10-28] MEDS: NEOMY/POLYMYX B/HC OTIC SUSP 10 ML BOTTLE LEFT EAR SCH ×3 (05:45→21:20)
[2016-10-28] MEDS: CLONIDINE HCL 0.1 MG TABLET PO SCH ×6 (05:45→22:00)
[2016-10-28] MEDS: PANTOPRAZOLE SODIUM 40 MG TABLET.DR PO SCH (05:52)
[2016-10-28 08:30] VITALS: BP 106/66
[2016-10-28] MEDS: CALCIUM ACETATE 667 MG CAPSULE PO SCH ×3 (08:35→17:42)
[2016-10-28] MEDS: GABAPENTIN 100 MG CAPSULE PO SCH ×3 (08:35→16:39)
[2016-10-28] MEDS: AMLODIPINE 10 MG TABLET PO SCH (08:37)
[2016-10-28] MEDS: CINACALCET HCL 30 MG TABLET PO SCH (08:37)
[2016-10-28] MEDS: BENAZEPRIL HCL 20 MG TABLET PO SCH (08:37)
[2016-10-28] MEDS: ASCORBIC ACID 250 MG TABLET PO SCH (08:38)
[2016-10-28] MEDS: CARVEDILOL 25 MG TABLET PO SCH ×2 (08:38→17:43)
[2016-10-28] MEDS: HYDROXYUREA 500 MG CAPSULE PO SCH (08:40)
[2016-10-28] MEDS: MINOXIDIL 2.5 MG TABLET PO SCH ×3 (08:42→16:39)
[2016-10-28] MEDS: FOLIC ACID/VITAMIN B COMP W-C TABLET PO SCH (08:52)
[2016-10-28 09:16] LABS: BASOPHILS % (AUTO) 0.4 % (0.0-2.0); EOSINOPHILS # (AUTO) 0.1 K/uL (0.0-0.7); EOSINOPHILS % (AUTO) 0.7 % (0.0-7.0); HEMOGLOBIN 7.3 G/DL (14.0-18.0); LYMPHOCYTES # (AUTO) 1.7 K/UL (0.8-4.8); LYMPHOCYTES % (AUTO) 18.1 % (20.5-51.5); MEAN CORPUSCULAR HEMOGLOBIN 29.7 UUG (27.0-31.0); MEAN CORPUSCULAR HGB CONC 35 g/dL (32.0-37.0); MEAN CORPUSCULAR VOLUME 85.5 FL (82.0-92.0); MONOCYTES # (AUTO) 1.2 K/UL (0.1-1.30); NEUTROPHILS # (AUTO) 6.6 K/UL (1.8-8.9); NEUTROPHILS % (AUTO) 67.8 % (38.5-71.5); WHITE BLOOD COUNT (AUTO) 9.6 K/UL (4.0-11.2)
[2016-10-28 09:21] LABS: HEMATOCRIT 21.1 % (40-50); PLATELET COUNT (AUTO) 48 K/UL (150-450); RED BLOOD CELL COUNT(AUTO) 2.47 MIL/UL (4.7-6.1)
[2016-10-28 09:33] LABS: BILIRUBIN,DIRECT 1.6 mg/dL (0.0-0.2); BILIRUBIN,TOTAL 2.2 mg/dL (0.2-1.0)
[2016-10-28] MEDS: LACTOBACILLUS RHAMNOSUS GG 1 EACH CAPSULE PO SCH ×2 (09:49→21:20)
[2016-10-28] MEDS: PROTEIN SUPPLEMENT (PROSTAT) 30 ML LIQUID PO SCH ×3 (09:49→16:34)
[2016-10-28 11:08] LABS: LYMPHOCYTES % (MANUAL) 15 % (20-40); MONOCYTES % (MANUAL) 9 % (2-10); NEUTROPHILS % (MANUAL) 76 % (42-75)
[2016-10-28 12:30] VITALS: BP 105/59
[2016-10-28 16:00] VITALS: BP 96/55
[2016-10-28 20:00] VITALS: BP 104/47
[2016-10-29] VITALS (19 sets, daily range): BP systolic 88–118; BP diastolic 44–68
[2016-10-29] MEDS: diphenhydrAMINE 50 MG/1 ML VIAL IV PRN ×5 (00:32→20:03)
[2016-10-29] MEDS: HYDROMORPHONE 1 MG/1 ML DISP.SYRIN IV PRN ×5 (00:33→20:03)
[2016-10-29] MEDS: LEVOFLOXACIN 250 MG TABLET PO SCH (00:39)
[2016-10-29] MEDS: NEOMY/POLYMYX B/HC OTIC SUSP 10 ML BOTTLE LEFT EAR SCH ×4 (05:48→21:04)
[2016-10-29] MEDS: CLONIDINE HCL 0.1 MG TABLET PO SCH ×6 (05:49→22:00)
[2016-10-29] MEDS: PANTOPRAZOLE SODIUM 40 MG TABLET.DR PO SCH (06:12)
[2016-10-29] MEDS ORDERED: DESMOPRESSIN INJ 20 MCG in IV NORMAL SALINE 50 ML IV ONE (07:30)
[2016-10-29 07:56] LABS: EOSINOPHILS # (AUTO) 0.1 K/uL (0.0-0.7); WHITE BLOOD COUNT (AUTO) 8.1 K/UL (4.0-11.2)
[2016-10-29 07:58] LABS: EOSINOPHILS % (AUTO) 0.9 % (0.0-7.0); LYMPHOCYTES # (AUTO) 1.7 K/UL (0.8-4.8); LYMPHOCYTES % (AUTO) 21.3 % (20.5-51.5); MEAN CORPUSCULAR HEMOGLOBIN 28.3 UUG (27.0-31.0); MEAN CORPUSCULAR HGB CONC 33 g/dL (32.0-37.0); MEAN CORPUSCULAR VOLUME 84.7 FL (82.0-92.0); MONOCYTES # (AUTO) 0.9 K/UL (0.1-1.30); MONOCYTES % (AUTO) 11.3 % (0.0-11.0); NEUTROPHILS # (AUTO) 5.4 K/UL (1.8-8.9); NEUTROPHILS % (AUTO) 66.5 % (38.5-71.5)
[2016-10-29 08:08] LABS: PLATELET COUNT (AUTO) 46 K/UL (150-450); RED BLOOD CELL COUNT(AUTO) 1.77 MIL/UL (4.7-6.1)
[2016-10-29] MEDS ORDERED: ONDANSETRON 4 MG/2 ML VIAL IV PRN (09:00)
[2016-10-29] MEDS: LACTOBACILLUS RHAMNOSUS GG 1 EACH CAPSULE PO SCH ×2 (09:07→21:03)
[2016-10-29] MEDS: ASCORBIC ACID 250 MG TABLET PO SCH (09:08)
[2016-10-29] MEDS: CARVEDILOL 25 MG TABLET PO SCH ×2 (09:08→17:54)
[2016-10-29] MEDS: FOLIC ACID/VITAMIN B COMP W-C TABLET PO SCH (09:08)
[2016-10-29] MEDS: BENAZEPRIL HCL 20 MG TABLET PO SCH (09:08)
[2016-10-29] MEDS: CALCIUM ACETATE 667 MG CAPSULE PO SCH ×3 (09:08→17:54)
[2016-10-29] MEDS: AMLODIPINE 10 MG TABLET PO SCH (09:09)
[2016-10-29] MEDS: MINOXIDIL 2.5 MG TABLET PO SCH ×3 (09:09→17:00)
[2016-10-29] MEDS: HYDROXYUREA 500 MG CAPSULE PO SCH (09:10)
[2016-10-29] MEDS: CINACALCET HCL 30 MG TABLET PO SCH (09:12)
[2016-10-29] MEDS: PROTEIN SUPPLEMENT (PROSTAT) 30 ML LIQUID PO SCH ×3 (09:12→17:55)
[2016-10-29] MEDS: GABAPENTIN 100 MG CAPSULE PO SCH ×3 (09:12→17:54)
[2016-10-29 10:26] LABS: LYMPHOCYTES % (MANUAL) 16 % (20-40); MONOCYTES % (MANUAL) 8 % (2-10); NEUTROPHILS % (MANUAL) 76 % (42-75)
[2016-10-29] MEDS ORDERED: HEPARIN SODIUM,PORCINE/PF 100 UNIT/ML, 5ML SYR XX PRN (11:00)
[2016-10-29] MEDS ORDERED: HEPARIN SODIUM,PORCINE/PF 100 UNIT/ML, 5ML SYR IV PRN (11:30)
[2016-10-29 11:36] LABS: BASOPHILS % (AUTO) 0.1 % (0.0-2.0); EOSINOPHILS # (AUTO) 0.1 K/uL (0.0-0.7); LYMPHOCYTES # (AUTO) 1.4 K/UL (0.8-4.8); LYMPHOCYTES % (AUTO) 19.1 % (20.5-51.5); MEAN CORPUSCULAR HEMOGLOBIN 27.3 UUG (27.0-31.0); MEAN CORPUSCULAR HGB CONC 32 g/dL (32.0-37.0); MEAN CORPUSCULAR VOLUME 84.5 FL (82.0-92.0); MONOCYTES # (AUTO) 0.9 K/UL (0.1-1.30); MONOCYTES % (AUTO) 12.1 % (0.0-11.0); NEUTROPHILS # (AUTO) 5.1 K/UL (1.8-8.9); NEUTROPHILS % (AUTO) 67.7 % (38.5-71.5); WHITE BLOOD COUNT (AUTO) 7.5 K/UL (4.0-11.2)
[2016-10-29 11:40] LABS: RED BLOOD CELL COUNT(AUTO) 1.73 MIL/UL (4.7-6.1)
[2016-10-29 11:41] LABS: HEMATOCRIT 14.6 % (40-50); HEMOGLOBIN 4.7 G/DL (14.0-18.0); PLATELET COUNT (AUTO) 53 K/UL (150-450)
[2016-10-29 13:22] LABS: LYMPHOCYTES % (MANUAL) 15 % (20-40); MONOCYTES % (MANUAL) 9 % (2-10); NEUTROPHILS % (MANUAL) 76 % (42-75)
[2016-10-29] MEDS ORDERED: LIDOCAINE HCL 1% 20 ML VIAL TP ONE (14:50)
[2016-10-29] MEDS: PANTOPRAZOLE SODIUM IV 80 MG in IV DEXTROSE 5% 500 ML IV SCH (15:47)
[2016-10-29] MEDS ORDERED: ALBUMIN HUMAN 25% 100 ML IV ONE (17:30)
[2016-10-29] MEDS ORDERED: IV NORMAL SALINE 250 ML IV PRN (18:45)
[2016-10-29 20:17] LABS: BASOPHILS % (AUTO) 0.1 % (0.0-2.0); EOSINOPHILS # (AUTO) 0.1 K/uL (0.0-0.7); EOSINOPHILS % (AUTO) 0.8 % (0.0-7.0); LYMPHOCYTES # (AUTO) 1.3 K/UL (0.8-4.8); LYMPHOCYTES % (AUTO) 16.8 % (20.5-51.5); MEAN CORPUSCULAR HEMOGLOBIN 28.2 UUG (27.0-31.0); MEAN CORPUSCULAR HGB CONC 33 g/dL (32.0-37.0); MEAN CORPUSCULAR VOLUME 84.9 FL (82.0-92.0); MONOCYTES % (AUTO) 12.8 % (0.0-11.0); NEUTROPHILS # (AUTO) 5.4 K/UL (1.8-8.9); NEUTROPHILS % (AUTO) 69.5 % (38.5-71.5); PLATELET COUNT (AUTO) 97 K/UL (150-450); WHITE BLOOD COUNT (AUTO) 7.8 K/UL (4.0-11.2)
[2016-10-29 20:21] LABS: RED BLOOD CELL COUNT(AUTO) 1.93 MIL/UL (4.7-6.1)
[2016-10-29 20:22] LABS: HEMATOCRIT 16.4 % (40-50); HEMOGLOBIN 5.5 G/DL (14.0-18.0)
[2016-10-30] VITALS (33 sets, daily range): BP systolic 75–145; BP diastolic 29–70
[2016-10-30] MEDS: PANTOPRAZOLE SODIUM IV 80 MG in IV DEXTROSE 5% 500 ML IV SCH ×3 (00:23→19:35)
[2016-10-30] MEDS: diphenhydrAMINE 50 MG/1 ML VIAL IV PRN ×6 (01:00→22:18)
[2016-10-30] MEDS: HYDROMORPHONE 1 MG/1 ML DISP.SYRIN IV PRN ×6 (01:00→22:19)
[2016-10-30 05:20] LABS: BILIRUBIN,TOTAL 1.9 mg/dL (0.2-1.0); CREATININE 6.8 mg/dL (0.6-1.3); MAGNESIUM 2.2 mg/dL (1.8-2.4); PHOSPHOROUS 6.6 mg/dL (2.5-4.9); POTASSIUM 5.4 mmol/L (3.5-5.1); TOTAL PROTEIN, SERUM 6.7 g/dL (6.4-8.2)
[2016-10-30 05:26] LABS: BASOPHILS % (AUTO) 0.3 % (0.0-2.0); EOSINOPHILS # (AUTO) 0.1 K/uL (0.0-0.7); LYMPHOCYTES # (AUTO) 1.5 K/UL (0.8-4.8); LYMPHOCYTES % (AUTO) 18.3 % (20.5-51.5); MEAN CORPUSCULAR HEMOGLOBIN 28.9 UUG (27.0-31.0); MEAN CORPUSCULAR HGB CONC 34 g/dL (32.0-37.0); MEAN CORPUSCULAR VOLUME 85.1 FL (82.0-92.0); MONOCYTES # (AUTO) 1.2 K/UL (0.1-1.30); NEUTROPHILS # (AUTO) 5.5 K/UL (1.8-8.9); NEUTROPHILS % (AUTO) 66.4 % (38.5-71.5); PLATELET COUNT (AUTO) 82 K/UL (150-450); WHITE BLOOD COUNT (AUTO) 8.3 K/UL (4.0-11.2)
[2016-10-30 05:38] LABS: RED BLOOD CELL COUNT(AUTO) 1.83 MIL/UL (4.7-6.1)
[2016-10-30 05:39] LABS: HEMATOCRIT 15.6 % (40-50); HEMOGLOBIN 5.3 G/DL (14.0-18.0)
[2016-10-30 05:41] LABS: EOSINOPHILS % (MANUAL) 1 % (0-8); LYMPHOCYTES % (MANUAL) 19 % (20-40); MONOCYTES % (MANUAL) 18 % (2-10); NEUTROPHILS % (MANUAL) 62 % (42-75)
[2016-10-30] MEDS: CLONIDINE HCL 0.1 MG TABLET PO SCH ×6 (06:00→21:42)
[2016-10-30] MEDS: NEOMY/POLYMYX B/HC OTIC SUSP 10 ML BOTTLE LEFT EAR SCH ×3 (06:32→21:44)
[2016-10-30] MEDS: CARVEDILOL 25 MG TABLET PO SCH ×2 (08:00→17:02)
[2016-10-30] MEDS: CALCIUM ACETATE 667 MG CAPSULE PO SCH ×3 (08:25→17:04)
[2016-10-30] MEDS: FOLIC ACID/VITAMIN B COMP W-C TABLET PO SCH (08:25)
[2016-10-30] MEDS: LACTOBACILLUS RHAMNOSUS GG 1 EACH CAPSULE PO SCH ×2 (08:25→21:05)
[2016-10-30] MEDS: ASCORBIC ACID 250 MG TABLET PO SCH (08:25)
[2016-10-30] MEDS: MINOXIDIL 2.5 MG TABLET PO SCH ×3 (08:26→16:37)
[2016-10-30] MEDS: BENAZEPRIL HCL 20 MG TABLET PO SCH (08:26)
[2016-10-30] MEDS: AMLODIPINE 10 MG TABLET PO SCH (08:26)
[2016-10-30] MEDS: HYDROXYUREA 500 MG CAPSULE PO SCH (08:32)
[2016-10-30] MEDS: GABAPENTIN 100 MG CAPSULE PO SCH ×3 (08:32→17:04)
[2016-10-30] MEDS: PROTEIN SUPPLEMENT (PROSTAT) 30 ML LIQUID PO SCH ×3 (08:36→17:00)
[2016-10-30] MEDS: CINACALCET HCL 30 MG TABLET PO SCH (09:25)
[2016-10-30] MEDS ORDERED: EPOETIN ALFA 20,000 UNIT/ML ML SQ ONE (14:00)
[2016-10-30 17:52] LABS: HEMATOCRIT 19.5 % (40-50); HEMOGLOBIN 6.6 G/DL (14.0-18.0)
[2016-10-31] VITALS (19 sets, daily range): BP systolic 87–140; BP diastolic 38–95
[2016-10-31] MEDS: HYDROMORPHONE 1 MG/1 ML DISP.SYRIN IV PRN ×6 (02:05→22:45)
[2016-10-31] MEDS: diphenhydrAMINE 50 MG/1 ML VIAL IV PRN ×6 (02:05→22:46)
[2016-10-31] MEDS: PANTOPRAZOLE SODIUM IV 80 MG in IV DEXTROSE 5% 500 ML IV SCH (05:11)
[2016-10-31 05:26] LABS: HEMATOCRIT 34.1 % (40-50)
[2016-10-31 05:28] LABS: HEMOGLOBIN 11.7 G/DL (14.0-18.0)
[2016-10-31] MEDS: CLONIDINE HCL 0.1 MG TABLET PO SCH ×6 (05:33→21:57)
[2016-10-31] MEDS: NEOMY/POLYMYX B/HC OTIC SUSP 10 ML BOTTLE LEFT EAR SCH (05:34)
[2016-10-31] MEDS: CALCIUM ACETATE 667 MG CAPSULE PO SCH ×3 (07:53→18:07)
[2016-10-31] MEDS: HYDROXYUREA 500 MG CAPSULE PO SCH (07:53)
[2016-10-31] MEDS: CARVEDILOL 25 MG TABLET PO SCH ×2 (07:53→18:00)
[2016-10-31] MEDS: MINOXIDIL 2.5 MG TABLET PO SCH ×3 (07:53→17:00)
[2016-10-31] MEDS: LACTOBACILLUS RHAMNOSUS GG 1 EACH CAPSULE PO SCH ×2 (07:53→21:56)
[2016-10-31] MEDS: BENAZEPRIL HCL 20 MG TABLET PO SCH (07:53)
[2016-10-31] MEDS: GABAPENTIN 100 MG CAPSULE PO SCH ×3 (07:54→18:07)
[2016-10-31] MEDS: FOLIC ACID/VITAMIN B COMP W-C TABLET PO SCH (07:54)
[2016-10-31] MEDS: ASCORBIC ACID 250 MG TABLET PO SCH (07:54)
[2016-10-31] MEDS: PROTEIN SUPPLEMENT (PROSTAT) 30 ML LIQUID PO SCH ×3 (07:54→17:00)
[2016-10-31] MEDS: AMLODIPINE 10 MG TABLET PO SCH (07:54)
[2016-10-31] MEDS: CINACALCET HCL 30 MG TABLET PO SCH (07:54)
[2016-10-31] MEDS ORDERED: LIDOCAINE HCL 2% 20 ML VIAL MC ONE (10:18)
[2016-10-31] MEDS ORDERED: PROPOFOL 200 MG/20 ML BOTTLE IV ONE (10:18)
[2016-10-31] MEDS ORDERED: IV NORMAL SALINE 1000 ML BAG IV ONE (10:18)
[2016-10-31] MEDS ORDERED: HYDROMORPHONE 2 MG/1 ML DISP.SYRIN ONE (15:39)
[2016-10-31] MEDS ORDERED: diphenhydrAMINE 50 MG/1 ML VIAL ONE (15:45)
[2016-10-31] MEDS ORDERED: KETAMINE HCL 500 MG/10 ML INJ ONE (17:17)
[2016-10-31] MEDS: PANTOPRAZOLE SODIUM 40 MG TABLET.DR PO SCH (18:06)
[2016-11-01] VITALS (14 sets, daily range): BP systolic 98–146; BP diastolic 23–77
[2016-11-01] MEDS: HYDROMORPHONE 1 MG/1 ML DISP.SYRIN IV PRN ×5 (02:46→20:09)
[2016-11-01] MEDS: diphenhydrAMINE 50 MG/1 ML VIAL IV PRN ×5 (02:46→20:09)
[2016-11-01] MEDS: CLONIDINE HCL 0.1 MG TABLET PO SCH ×6 (06:12→21:54)
[2016-11-01] MEDS: PANTOPRAZOLE SODIUM 40 MG TABLET.DR PO SCH ×2 (06:12→16:08)
[2016-11-01] MEDS: CARVEDILOL 25 MG TABLET PO SCH ×2 (08:00→17:34)
[2016-11-01] MEDS: CALCIUM ACETATE 667 MG CAPSULE PO SCH ×3 (08:10→17:34)
[2016-11-01] MEDS: LACTOBACILLUS RHAMNOSUS GG 1 EACH CAPSULE PO SCH ×2 (08:10→20:18)
[2016-11-01] MEDS: GABAPENTIN 100 MG CAPSULE PO SCH ×3 (08:10→16:08)
[2016-11-01] MEDS: FOLIC ACID/VITAMIN B COMP W-C TABLET PO SCH (08:10)
[2016-11-01] MEDS: HYDROXYUREA 500 MG CAPSULE PO SCH (08:13)
[2016-11-01] MEDS: PROTEIN SUPPLEMENT (PROSTAT) 30 ML LIQUID PO SCH ×3 (09:00→16:09)
[2016-11-01 09:29] LABS: BASOPHILS # (AUTO) 0.1 K/uL (0.0-8.0); BASOPHILS % (AUTO) 0.8 % (0.0-2.0); EOSINOPHILS # (AUTO) 0.1 K/uL (0.0-0.7); EOSINOPHILS % (AUTO) 1.1 % (0.0-7.0); LYMPHOCYTES # (AUTO) 1.2 K/UL (0.8-4.8); MEAN CORPUSCULAR HGB CONC 33 g/dL (32.0-37.0); MEAN CORPUSCULAR VOLUME 88.3 FL (82.0-92.0); MONOCYTES # (AUTO) 1.2 K/UL (0.1-1.30); MONOCYTES % (AUTO) 13.2 % (0.0-11.0); NEUTROPHILS # (AUTO) 6.7 K/UL (1.8-8.9); NEUTROPHILS % (AUTO) 71.9 % (38.5-71.5); WHITE BLOOD COUNT (AUTO) 9.3 K/UL (4.0-11.2)
[2016-11-01] MEDS ORDERED: CELLULOSE,OXIDIZED 4X8 MC ONE (09:30)
[2016-11-01 09:37] LABS: HEMOGLOBIN 8.9 G/DL (14.0-18.0); PLATELET COUNT (AUTO) 60 K/UL (150-450); RED BLOOD CELL COUNT(AUTO) 3.05 MIL/UL (4.7-6.1)
[2016-11-01 09:55] LABS: BASOPHILS % (MANUAL) 1 % (0-2); LYMPHOCYTES % (MANUAL) 12 % (20-40); MONOCYTES % (MANUAL) 11 % (2-10); NEUTROPHILS % (MANUAL) 76 % (42-75)
[2016-11-01] MEDS: AMLODIPINE 10 MG TABLET PO SCH (10:58)
[2016-11-01] MEDS: BENAZEPRIL HCL 20 MG TABLET PO SCH (10:59)
[2016-11-01] MEDS: MINOXIDIL 2.5 MG TABLET PO SCH ×3 (11:02→16:10)
[2016-11-01] MEDS: ASCORBIC ACID 250 MG TABLET PO SCH (11:03)
[2016-11-01] MEDS: CINACALCET HCL 30 MG TABLET PO SCH (11:04)
[2016-11-01 17:48] LABS: *OCCULT BLOOD STOOL POSITIVE (NEGATIVE)
[2016-11-02] MEDS: diphenhydrAMINE 50 MG/1 ML VIAL IV PRN ×6 (00:32→20:40)
[2016-11-02] MEDS: HYDROMORPHONE 1 MG/1 ML DISP.SYRIN IV PRN ×6 (00:33→20:39)
[2016-11-02 00:58] VITALS: BP 96/50
[2016-11-02 04:00] VITALS: BP 105/57
[2016-11-02 04:50] VITALS: BP 105/57
[2016-11-02] MEDS: CLONIDINE HCL 0.1 MG TABLET PO SCH ×6 (06:00→22:18)
[2016-11-02] MEDS: PANTOPRAZOLE SODIUM 40 MG TABLET.DR PO SCH ×2 (06:10→17:14)
[2016-11-02 06:29] LABS: BILIRUBIN,TOTAL 1.4 mg/dL (0.2-1.0); CREATININE 5.8 mg/dL (0.6-1.3); PHOSPHOROUS 6.5 mg/dL (2.5-4.9); POTASSIUM 4.5 mmol/L (3.5-5.1); TOTAL PROTEIN, SERUM 6.9 g/dL (6.4-8.2)
[2016-11-02 07:12] LABS: BASOPHILS % (AUTO) 0.3 % (0.0-2.0); MONOCYTES # (AUTO) 0.9 K/UL (0.1-1.30); NEUTROPHILS # (AUTO) 5.1 K/UL (1.8-8.9); WHITE BLOOD COUNT (AUTO) 7.4 K/UL (4.0-11.2)
[2016-11-02 07:15] LABS: EOSINOPHILS # (AUTO) 0.2 K/uL (0.0-0.7); EOSINOPHILS % (AUTO) 2.2 % (0.0-7.0); LYMPHOCYTES # (AUTO) 1.2 K/UL (0.8-4.8); LYMPHOCYTES % (AUTO) 16.1 % (20.5-51.5); MEAN CORPUSCULAR HEMOGLOBIN 30.5 UUG (27.0-31.0); MEAN CORPUSCULAR HGB CONC 35 g/dL (32.0-37.0); MONOCYTES % (AUTO) 12.1 % (0.0-11.0); NEUTROPHILS % (AUTO) 69.3 % (38.5-71.5); PLATELET COUNT (AUTO) 54 K/UL (150-450)
[2016-11-02 07:21] LABS: HEMATOCRIT 23.7 % (40-50); HEMOGLOBIN 8.2 G/DL (14.0-18.0); RED BLOOD CELL COUNT(AUTO) 2.69 MIL/UL (4.7-6.1)
[2016-11-02 07:49] LABS: EOSINOPHILS % (MANUAL) 1 % (0-8); LYMPHOCYTES % (MANUAL) 15 % (20-40); MONOCYTES % (MANUAL) 10 % (2-10); NEUTROPHILS % (MANUAL) 74 % (42-75)
[2016-11-02] MEDS: CARVEDILOL 25 MG TABLET PO SCH ×2 (08:00→17:07)
[2016-11-02] MEDS: AMLODIPINE 10 MG TABLET PO SCH (08:21)
[2016-11-02] MEDS: MINOXIDIL 2.5 MG TABLET PO SCH ×3 (08:21→16:51)
[2016-11-02] MEDS: BENAZEPRIL HCL 20 MG TABLET PO SCH (08:21)
[2016-11-02] MEDS: CINACALCET HCL 30 MG TABLET PO SCH (08:28)
[2016-11-02] MEDS: FOLIC ACID/VITAMIN B COMP W-C TABLET PO SCH (08:28)
[2016-11-02] MEDS: LACTOBACILLUS RHAMNOSUS GG 1 EACH CAPSULE PO SCH ×2 (08:28→20:40)
[2016-11-02] MEDS: GABAPENTIN 100 MG CAPSULE PO SCH ×3 (08:28→17:14)
[2016-11-02] MEDS: ASCORBIC ACID 250 MG TABLET PO SCH (08:28)
[2016-11-02] MEDS: CALCIUM ACETATE 667 MG CAPSULE PO SCH ×3 (08:28→17:14)
[2016-11-02] MEDS: HYDROXYUREA 500 MG CAPSULE PO SCH (08:29)
[2016-11-02] MEDS: PROTEIN SUPPLEMENT (PROSTAT) 30 ML LIQUID PO SCH ×3 (08:30→17:07)
[2016-11-02 11:47] VITALS: BP 114/63
[2016-11-02 15:39] VITALS: BP 106/54
[2016-11-02 20:00] VITALS: BP 116/56
[2016-11-03] VITALS: BP 126/75
[2016-11-03] MEDS: diphenhydrAMINE 50 MG/1 ML VIAL IV PRN ×6 (00:25→21:06)
[2016-11-03] MEDS: HYDROMORPHONE 1 MG/1 ML DISP.SYRIN IV PRN ×6 (00:25→21:05)
[2016-11-03 04:00] VITALS: BP 105/58
[2016-11-03] MEDS: CLONIDINE HCL 0.1 MG TABLET PO SCH ×4 (06:05→21:03)
[2016-11-03] MEDS: PANTOPRAZOLE SODIUM 40 MG TABLET.DR PO SCH ×2 (06:33→17:41)
[2016-11-03 06:42] LABS: CREATININE 6.8 mg/dL (0.6-1.3); MAGNESIUM 2.2 mg/dL (1.8-2.4); PHOSPHOROUS 6.9 mg/dL (2.5-4.9)
[2016-11-03 06:45] LABS: BASOPHILS % (AUTO) 0.3 % (0.0-2.0); EOSINOPHILS # (AUTO) 0.2 K/uL (0.0-0.7); HEMATOCRIT 25.7 % (40-50); HEMOGLOBIN 8.8 G/DL (14.0-18.0); LYMPHOCYTES # (AUTO) 1.5 K/UL (0.8-4.8); LYMPHOCYTES % (AUTO) 18.7 % (20.5-51.5); MEAN CORPUSCULAR HEMOGLOBIN 30.6 UUG (27.0-31.0); MEAN CORPUSCULAR HGB CONC 34 g/dL (32.0-37.0); MEAN CORPUSCULAR VOLUME 89.1 FL (82.0-92.0); MONOCYTES # (AUTO) 0.8 K/UL (0.1-1.30); MONOCYTES % (AUTO) 10.5 % (0.0-11.0); NEUTROPHILS # (AUTO) 5.6 K/UL (1.8-8.9); NEUTROPHILS % (AUTO) 68.5 % (38.5-71.5); RED BLOOD CELL COUNT(AUTO) 2.88 MIL/UL (4.7-6.1); WHITE BLOOD COUNT (AUTO) 8.1 K/UL (4.0-11.2)
[2016-11-03 06:51] LABS: PLATELET COUNT (AUTO) 46 K/UL (150-450)
[2016-11-03 07:46] LABS: BAND % (MANUAL) 2 % (0-10); EOSINOPHILS % (MANUAL) 2 % (0-8); LYMPHOCYTES % (MANUAL) 19 % (20-40); MONOCYTES % (MANUAL) 8 % (2-10); NEUTROPHILS % (MANUAL) 69 % (42-75)
[2016-11-03] MEDS: CARVEDILOL 25 MG TABLET PO SCH ×2 (08:00→17:32)
[2016-11-03] MEDS: BENAZEPRIL HCL 20 MG TABLET PO SCH (08:47)
[2016-11-03] MEDS: MINOXIDIL 2.5 MG TABLET PO SCH ×3 (08:48→17:00)
[2016-11-03] MEDS: AMLODIPINE 10 MG TABLET PO SCH (08:48)
[2016-11-03] MEDS: LACTOBACILLUS RHAMNOSUS GG 1 EACH CAPSULE PO SCH ×2 (09:00→21:03)
[2016-11-03] MEDS: ASCORBIC ACID 250 MG TABLET PO SCH (09:00)
[2016-11-03] MEDS: FOLIC ACID/VITAMIN B COMP W-C TABLET PO SCH (09:00)
[2016-11-03] MEDS: CALCIUM ACETATE 667 MG CAPSULE PO SCH ×3 (09:00→17:41)
[2016-11-03] MEDS: GABAPENTIN 100 MG CAPSULE PO SCH ×3 (09:00→17:41)
[2016-11-03] MEDS: CINACALCET HCL 30 MG TABLET PO SCH (09:00)
[2016-11-03] MEDS: PROTEIN SUPPLEMENT (PROSTAT) 30 ML LIQUID PO SCH ×3 (09:01→17:31)
[2016-11-03] MEDS: HYDROXYUREA 500 MG CAPSULE PO SCH (09:07)
[2016-11-03 11:44] VITALS: BP 109/72
[2016-11-03 15:49] VITALS: BP 119/63
[2016-11-03 20:34] VITALS: BP 120/63
[2016-11-04] MEDS: HYDROMORPHONE 1 MG/1 ML DISP.SYRIN IV PRN ×5 (01:12→16:48)
[2016-11-04] MEDS: diphenhydrAMINE 50 MG/1 ML VIAL IV PRN ×5 (01:12→16:48)
[2016-11-04 04:00] VITALS: BP 131/78
[2016-11-04] MEDS: CLONIDINE HCL 0.1 MG TABLET PO SCH ×2 (06:06→13:36)
[2016-11-04] MEDS: PANTOPRAZOLE SODIUM 40 MG TABLET.DR PO SCH ×2 (06:06→16:29)
[2016-11-04 07:06] LABS: HEPATITIS A AB, TOTAL Positive (Negative); HEPATITIS B SURFACE AB Reactive (.); HEPATITIS B SURFACE AG Negative (Negative)
[2016-11-04 08:00] VITALS: BP 130/86
[2016-11-04] MEDS: CALCIUM ACETATE 667 MG CAPSULE PO SCH ×2 (08:35→12:07)
[2016-11-04] MEDS: CINACALCET HCL 30 MG TABLET PO SCH (08:35)
[2016-11-04] MEDS: FOLIC ACID/VITAMIN B COMP W-C TABLET PO SCH (08:35)
[2016-11-04] MEDS: HYDROXYUREA 500 MG CAPSULE PO SCH (08:37)
[2016-11-04] MEDS: AMLODIPINE 10 MG TABLET PO SCH (08:38)
[2016-11-04] MEDS: ASCORBIC ACID 250 MG TABLET PO SCH (08:39)
[2016-11-04] MEDS: CARVEDILOL 25 MG TABLET PO SCH (08:39)
[2016-11-04] MEDS: LACTOBACILLUS RHAMNOSUS GG 1 EACH CAPSULE PO SCH (08:39)
[2016-11-04] MEDS: MINOXIDIL 2.5 MG TABLET PO SCH ×3 (08:39→16:29)
[2016-11-04] MEDS: BENAZEPRIL HCL 20 MG TABLET PO SCH (08:40)
[2016-11-04] MEDS: GABAPENTIN 100 MG CAPSULE PO SCH ×3 (08:40→16:25)
[2016-11-04] MEDS: PROTEIN SUPPLEMENT (PROSTAT) 30 ML LIQUID PO SCH ×3 (08:41→16:30)
[2016-11-04 09:01] LABS: BASOPHILS % (AUTO) 0.4 % (0.0-2.0); EOSINOPHILS # (AUTO) 0.2 K/uL (0.0-0.7); EOSINOPHILS % (AUTO) 2.1 % (0.0-7.0); HEMATOCRIT 24.7 % (40-50); HEMOGLOBIN 8.4 G/DL (14.0-18.0); LYMPHOCYTES # (AUTO) 1.3 K/UL (0.8-4.8); LYMPHOCYTES % (AUTO) 14.4 % (20.5-51.5); MEAN CORPUSCULAR HEMOGLOBIN 29.9 UUG (27.0-31.0); MEAN CORPUSCULAR HGB CONC 34 g/dL (32.0-37.0); MEAN CORPUSCULAR VOLUME 88.3 FL (82.0-92.0); MONOCYTES % (AUTO) 10.8 % (0.0-11.0); NEUTROPHILS # (AUTO) 6.7 K/UL (1.8-8.9); NEUTROPHILS % (AUTO) 72.3 % (38.5-71.5); WHITE BLOOD COUNT (AUTO) 9.2 K/UL (4.0-11.2)
[2016-11-04 09:06] LABS: PLATELET COUNT (AUTO) 44 K/UL (150-450)
[2016-11-04 09:20] LABS: EOSINOPHILS % (MANUAL) 2 % (0-8); LYMPHOCYTES % (MANUAL) 19 % (20-40); MONOCYTES % (MANUAL) 11 % (2-10); NEUTROPHILS % (MANUAL) 68 % (42-75)
[2016-11-04 11:41] VITALS: BP 124/73
[2016-11-04 15:30] VITALS: BP 101/51
[2016-11-04 17:00] VITALS: BP 115/78
[2016-11-05 05:08] LABS: HEPATITIS Be ANTIGEN Negative (Negative)
== END 2016-11-04 17:10 | DRG 52 ==
LOC: ER 09:15 → TELE 14:23 → MED 10-09 12:48 → CCU 10-15 02:24 → TELE 10-16 11:14 → MED 10-16 18:25 → CCU 10-29 12:14 → TELE 11-01 18:38 → MED 11-03 12:34
PROVIDERS: ADMIT Internal Medicine; ATTEND Internal Medicine
PROC: 5A1D60Z (ICD-10-PCS; principal; 2016-10-08)
PROC: 30233R1 Transfusion of Nonautologous Platelets into Peripheral Vein, Percutaneous Approach (ICD-10-PCS; 2016-10-29)
PROC: 30233N1 Transfusion of Nonautologous Red Blood Cells into Peripheral Vein, Percutaneous Approach (ICD-10-PCS; 2016-10-29)
PROC: 0DB68ZX Excision of Stomach, Via Natural or Artificial Opening Endoscopic, Diagnostic (ICD-10-PCS; 2016-10-31)
PROC: 02HV33Z Insertion of Infusion Device into Superior Vena Cava, Percutaneous Approach (ICD-10-PCS; 2016-11-01)
DX: G93.40 Encephalopathy, unspecified (principal); A41.9 Sepsis, unspecified organism; I50.43 Acute on chronic combined systolic (congestive) and diastolic (congestive) heart failure; E43 Unspecified severe protein-calorie malnutrition; D57.00 Hb-SS disease with crisis, unspecified; J18.9 Pneumonia, unspecified organism; K85.90 Acute pancreatitis without necrosis or infection, unspecified; N18.6 End stage renal disease; I13.2 Hypertensive heart and chronic kidney disease with heart failure and with stage 5 chronic kidney disease, or end stage renal disease; D69.6 Thrombocytopenia, unspecified; G62.9 Polyneuropathy, unspecified; D72.829 Elevated white blood cell count, unspecified; Z99.2 Dependence on renal dialysis; Z96.643 Presence of artificial hip joint, bilateral; Z79.899 Other long term (current) drug therapy; S30.22XA Contusion of scrotum and testes, initial encounter; R04.0 Epistaxis; D63.1 Anemia in chronic kidney disease; G89.3 Neoplasm related pain (acute) (chronic); K80.20 Calculus of gallbladder without cholecystitis without obstruction; E87.5 Hyperkalemia; E83.51 Hypocalcemia; E87.6 Hypokalemia; F11.20 Opioid dependence, uncomplicated; G89.4 Chronic pain syndrome; I25.2 Old myocardial infarction; K29.50 Unspecified chronic gastritis without bleeding; L02.214 Cutaneous abscess of groin; N45.1 Epididymitis; N43.3 Hydrocele, unspecified; B96.1 Klebsiella pneumoniae [K. pneumoniae] as the cause of diseases classified elsewhere; C64.9 Malignant neoplasm of unspecified kidney, except renal pelvis; H60.392 Other infective otitis externa, left ear; K21.0 Gastro-esophageal reflux disease with esophagitis; K92.0 Hematemesis
CPT/HCPCS: 36415; 36569; 36600; 70450; 71010; 76700; 83010; 83605; 83615; 83735; 84100; 84550; 85018; 85025; 85610; 85651; 85730; 86705; 86706; 86708; 86803; 86850; 86900; 86901; 86920; 87040; 87070; 87077; 87340; 87350; 90937; A4217; A4663; C1751; C9113; J0885; J1170; J1200; J1642; J2185; J2270; J2405; J2597; J3370; J3490; J7030; J7040; J7042; J7050; J7060; P9016-BL; P9021; P9035-BL; P9047

== ENCOUNTER 2016-11-13 02:18 | Inpatient (IN) | payer MEDICAID, MEDICARE ==
[2016-11-13] VITALS (9 sets, daily range): BP systolic 86–138; BP diastolic 47–69
[~2016-11-13] VITALS: Ht 175.3 cm; Wt 90.7 kg
[~2016-11-13 02:18] MED LIST changes: +CIPR10DR LEFT EAR; +LEVO250T2 PO; +MORP30TA PO; +MORPHINE SULFATE IV; +PANT40TA2 PO
--- NOTE | 2016-11-13 02:40 | NUR ---
patient bib ambulance from [facility] for abnormal labs, swelling and pain in lower extremities. patient is a dialysis patient, AV fistula in right upper arm, +thrill/+bruit. patient has right chest port a cath, states that has not been accessed in over 3 weeks and that a central line was placed instead. left groin central line was accessed, blood return checked.
[2016-11-13] MEDS ORDERED: HYDROMORPHONE 1 MG/1 ML DISP.SYRIN IV ONE ×2 (03:00→04:00)
[2016-11-13] MEDS ORDERED: IV NORMAL SALINE 1000 ML BAG IV ONE (03:00)
[2016-11-13] MEDS ORDERED: ONDANSETRON 4 MG/2 ML VIAL IV ONE (03:00)
[2016-11-13] MEDS ORDERED: LACT1CAP57 PO (03:24)
[2016-11-13] MEDS ORDERED: AMLO10TA2 PO (03:24)
[2016-11-13] MEDS ORDERED: BENA20TA2 PO (03:24)
[2016-11-13] MEDS ORDERED: PHEN15SP11 NS (03:24)
[2016-11-13] MEDS ORDERED: diphenhydrAMINE 50 MG/1 ML VIAL IV ONE ×2 (03:30→04:00)
[2016-11-13] MEDS ORDERED: ONDANSETRON 4 MG/2 ML VIAL ONE (03:32)
[2016-11-13] MEDS ORDERED: HYDROMORPHONE 2 MG/1 ML DISP.SYRIN ONE ×2 (03:32→04:13)
--- NOTE | 2016-11-13 03:39 | NUR ---
Pt. admitted to 228 , under care of Dr. Chan Belongs List completed. report called to MAR Porter
[2016-11-13] MEDS ORDERED: diphenhydrAMINE 50 MG/1 ML VIAL ONE ×3 (03:44→21:55)
--- NOTE | 2016-11-13 04:06 | NUR ---
Transported patient to 228 via gurney in stable condition, handoff to MAR Muñoz
--- NOTE | 2016-11-13 04:15 | NUR ---
RECEIVED PATIENT, DROWSY BUT EASILY AROUSABLE, IN NO ACUTE DISTRESS, NO SOB. DX: ESRD AND ANEMIA UNDER THE CARE OF DR. RUSSO WITH NEW ADMISSION ORDERS RECEIVED. PT IS TELE SR. ADMISSION PROCESS AND CARE PLAN INITIATED. SAFETY MEASURES IN PLACE, CALL LIGHT WITHIN REACH, BED ALARM ON. WILL CONTINUE TO MONITOR.
--- NOTE | 2016-11-13 06:30 | NUR ---
BLOOD TRANSFUSION STARTED PER MD'S ORDER, FOLLOWED PROTOCOL. CONSENT SIGNED AND PLACED IN CHART. PT IS AFEBRILE. WILL CONTINUE TO MONITOR.
--- NOTE | 2016-11-13 07:00 | NUR ---
BLOOD TRANSFUSION RUNNING, VS STABLE, PT IS AFEBRILE, PT IS TOLERATING PROCEDURE WELL, NO S/S OF DISTRESS, CP, SOB. ENDORSED TO DAY SHIFT RN. NEW ADMISSION PROCESS TO BE CONTINUED AND COMPLETED BY DAY SHIFT RN.
[2016-11-13] MEDS ORDERED: CLONIDINE HCL 0.2 MG TABLET PO PRN (07:30)
[2016-11-13] MEDS ORDERED: MORPHINE SULFATE 2 MG/1 ML DISP.SYRIN IV PRN (07:30)
[2016-11-13] MEDS ORDERED: HYDROMORPHONE 1 MG/1 ML DISP.SYRIN IV PRN (07:30)
[2016-11-13] MEDS ORDERED: MORPHINE SULFATE IR 30 MG TABLET PO PRN (07:30)
[2016-11-13] MEDS ORDERED: CLONIDINE HCL 0.1 MG TABLET PO PRN (07:30)
[2016-11-13] MEDS ORDERED: PHENYLEPHRINE 0.25% NS PRN (07:30)
[2016-11-13] MEDS ORDERED: ACETAMINOPHEN 325 MG TABLET PO PRN (07:30)
[2016-11-13] MEDS ORDERED: HYDROCODONE/APAP 10-325 MG TABLET PO PRN (07:30)
[2016-11-13 07:52] LABS: BILIRUBIN,TOTAL 1.2 mg/dL (0.2-1.0); CREATININE 5.4 mg/dL (0.6-1.3); POTASSIUM 5.1 mmol/L (3.5-5.1); TOTAL PROTEIN, SERUM 7.8 g/dL (6.4-8.2)
[2016-11-13] MEDS: PROTEIN SUPPLEMENT (PROSTAT) 30 ML LIQUID PO SCH ×3 (08:00→16:58)
--- NOTE | 2016-11-13 08:00 | NUR ---
Received slightly drowsy, weak. PRBC transfusing. Complaining of back, Dilaudid IV given.
[2016-11-13] MEDS: HYDROMORPHONE 1 MG/1 ML DISP.SYRIN IV PRN ×4 (08:40→21:46)
[2016-11-13] MEDS: diphenhydrAMINE 50 MG/1 ML VIAL IV PRN ×3 (08:41→21:47)
[2016-11-13] MEDS: CINACALCET HCL 30 MG TABLET PO SCH (08:45)
[2016-11-13] MEDS: GABAPENTIN 100 MG CAPSULE PO SCH ×3 (08:45→16:57)
[2016-11-13] MEDS: ASCORBIC ACID 250 MG TABLET PO SCH (08:45)
[2016-11-13] MEDS: FOLIC ACID/VITAMIN B COMP W-C TABLET PO SCH (08:45)
[2016-11-13] MEDS: PANTOPRAZOLE SODIUM 40 MG TABLET.DR PO SCH (08:49)
[2016-11-13] MEDS: LACTOBACILLUS RHAMNOSUS GG 1 EACH CAPSULE PO SCH ×2 (08:49→21:48)
[2016-11-13] MEDS: HYDROXYUREA 500 MG CAPSULE PO SCH (08:53)
[2016-11-13] MEDS ORDERED: BENAZEPRIL HCL 20 MG TABLET PO SCH (09:00)
[2016-11-13] MEDS: AMLODIPINE 10 MG TABLET PO SCH (09:00)
[2016-11-13] MEDS: MINOXIDIL 2.5 MG TABLET PO SCH ×3 (09:00→16:57)
[2016-11-13] MEDS: BENAZEPRIL HCL 20 MG TABLET PO SCH (09:00)
[2016-11-13] MEDS: CARVEDILOL 25 MG TABLET PO SCH ×2 (09:00→16:57)
[2016-11-13] MEDS ORDERED: LACTOBACILLUS RHAMNOSUS GG 1 EACH CAPSULE PO SCH (09:00)
[2016-11-13] MEDS ORDERED: CALCIUM ACETATE 667 MG CAPSULE PO SCH (09:00)
--- NOTE | 2016-11-13 09:30 | NUR ---
PRBC unit finished transfusing. Checked with only 1 unit was ordered.
--- NOTE | 2016-11-13 14:12 | NUR ---
2nd unit PRBC started transfusion with hemodialysis.
[2016-11-13] MEDS: CALCIUM ACETATE 667 MG CAPSULE PO SCH (16:58)
--- NOTE | 2016-11-13 18:05 | NUR ---
Noted pause on tele, patient sleeping. Aroused, tele SR. Encouraged to eat dinner
[2016-11-14 00:09] VITALS: BP 90/42
[2016-11-14] MEDS ORDERED: diphenhydrAMINE 50 MG/1 ML VIAL ONE (02:06)
[2016-11-14] MEDS: HYDROMORPHONE 1 MG/1 ML DISP.SYRIN IV PRN ×6 (02:48→20:31)
[2016-11-14] MEDS: diphenhydrAMINE 50 MG/1 ML VIAL IV PRN ×6 (02:49→20:31)
[2016-11-14 04:00] VITALS: BP 107/53
[2016-11-14] MEDS ORDERED: diphenhydrAMINE 50 MG/1 ML VIAL IV PRN (05:15)
[2016-11-14] MEDS: PANTOPRAZOLE SODIUM 40 MG TABLET.DR PO SCH (06:11)
[2016-11-14 06:25] LABS: BASOPHILS % (AUTO) 0.2 % (0.0-2.0); EOSINOPHILS # (AUTO) 0.3 K/uL (0.0-0.7); EOSINOPHILS % (AUTO) 2.3 % (0.0-7.0); LYMPHOCYTES # (AUTO) 2.2 K/UL (0.8-4.8); LYMPHOCYTES % (AUTO) 18.1 % (20.5-51.5); MEAN CORPUSCULAR HEMOGLOBIN 30.5 UUG (27.0-31.0); MEAN CORPUSCULAR HGB CONC 34 g/dL (32.0-37.0); MEAN CORPUSCULAR VOLUME 89.7 FL (82.0-92.0); MONOCYTES # (AUTO) 1.8 K/UL (0.1-1.30); MONOCYTES % (AUTO) 14.6 % (0.0-11.0); NEUTROPHILS # (AUTO) 7.9 K/UL (1.8-8.9); NEUTROPHILS % (AUTO) 64.8 % (38.5-71.5); PLATELET COUNT (AUTO) 76 K/UL (150-450); WHITE BLOOD COUNT (AUTO) 12.3 K/UL (4.0-11.2)
--- NOTE | 2016-11-14 06:30 | NUR ---
PT SLEPT WELL, EASILY AROUSABLE, NO S/S OF DISTRESS, SOB. PAIN MANAGEMENT ORDERED. SAFETY MEASURES IN PLACE, CALL LIGHT WITHIN REACH, BED ALARM ON. WILL CONTINUE TO MONITOR.
--- NOTE | 2016-11-14 06:35 | NUR ---
RECEIVED CALL FROM [facility](LAB) REGARDING CRITICAL LAB RESULTS OF PATIENT (SEE LAB RESULTS). FOLLOWED HOSPITAL PROTOCOL.
[2016-11-14 06:36] LABS: HEMATOCRIT 19.6 % (40-50); HEMOGLOBIN 6.7 G/DL (14.0-18.0); RED BLOOD CELL COUNT(AUTO) 2.18 MIL/UL (4.7-6.1)
[2016-11-14 06:42] LABS: BILIRUBIN,TOTAL 1.2 mg/dL (0.2-1.0); CREATININE 5.5 mg/dL (0.6-1.3); MAGNESIUM 2.1 mg/dL (1.8-2.4); PHOSPHOROUS 5.8 mg/dL (2.5-4.9); POTASSIUM 4.6 mmol/L (3.5-5.1); TOTAL PROTEIN, SERUM 7.3 g/dL (6.4-8.2)
--- NOTE | 2016-11-14 06:45 | NUR ---
PAGED/LEFT A MESSAGE TO DR. RUSSO AND/OR DR. PAGE REGARDING CRITICAL LAB, RESULTS TRENDING IN THE EXPECTED DIRECTION. NO NEW ORDERS, WAITING FOR CALL BACK. PT IS SLEEPING, EASILY AROUSABLE, IN NO ACUTE DISTRESS. WILL CONTINUE TO MONITOR. WILL ENDORSE LAB RESULTS TO THE ONCOMING/NEXT SHIFT RN.
[2016-11-14] MEDS: PROTEIN SUPPLEMENT (PROSTAT) 30 ML LIQUID PO SCH ×3 (08:00→16:26)
[2016-11-14 08:16] LABS: EOSINOPHILS % (MANUAL) 3 % (0-8); LYMPHOCYTES % (MANUAL) 21 % (20-40); MONOCYTES % (MANUAL) 15 % (2-10); NEUTROPHILS % (MANUAL) 61 % (42-75)
[2016-11-14] MEDS: GABAPENTIN 100 MG CAPSULE PO SCH ×3 (08:18→16:25)
[2016-11-14] MEDS: LACTOBACILLUS RHAMNOSUS GG 1 EACH CAPSULE PO SCH ×2 (08:18→20:31)
[2016-11-14] MEDS: CINACALCET HCL 30 MG TABLET PO SCH (08:18)
[2016-11-14] MEDS: FOLIC ACID/VITAMIN B COMP W-C TABLET PO SCH (08:19)
[2016-11-14] MEDS: CALCIUM ACETATE 667 MG CAPSULE PO SCH ×3 (08:19→16:25)
[2016-11-14] MEDS: ASCORBIC ACID 250 MG TABLET PO SCH (08:19)
[2016-11-14] MEDS: HYDROXYUREA 500 MG CAPSULE PO SCH (08:29)
--- NOTE | 2016-11-14 08:31 | NUR ---
Awake, alert, oriented x 4. O2 AT 2L/NC. Complaining of back pain and itchiness. Dilaudid and Benadryl IV given. BP medications not given for hemodialysis
[2016-11-14] MEDS: BENAZEPRIL HCL 20 MG TABLET PO SCH (09:00)
[2016-11-14] MEDS: CARVEDILOL 25 MG TABLET PO SCH ×2 (09:00→16:26)
[2016-11-14] MEDS: AMLODIPINE 10 MG TABLET PO SCH (09:00)
[2016-11-14] MEDS: MINOXIDIL 2.5 MG TABLET PO SCH ×3 (09:00→16:26)
[2016-11-14 11:13] VITALS: BP 120/68
--- NOTE | 2016-11-14 12:00 | NUR ---
Hemodialysis on going
[2016-11-14 15:14] VITALS: BP 110/60
--- NOTE | 2016-11-14 16:30 | NUR ---
Complaining of pain and itchiness. Dilaudid and Benadryl IV given. BP medication not given for decreased BP
--- NOTE | 2016-11-14 18:15 | NUR ---
Tele SR. Not in distress. Kept comfortable
--- NOTE | 2016-11-14 19:30 | NUR ---
RECEIVED PATIENT LAYING COMFORTABLY IN BED. HOB ELEVATED. NO SIGNS OF ACUTE DISTRESS NOTED. SAFETY INITIATED. CALL LIGHT WITHIN REACH. LEFT FEMORAL ARTERY TRIPLE LUMEN, PATENT AND INTACT. O2 2L NC. PATIENT REQUEST FOR A HUMIDIFIER. TELE SR WITH PVS'S. WILL CONTINUE TO MONITOR.
[2016-11-14 20:00] VITALS: BP 104/56
[2016-11-15 00:08] VITALS: BP 121/55
[2016-11-15] MEDS: HYDROMORPHONE 1 MG/1 ML DISP.SYRIN IV PRN ×6 (00:21→21:33)
[2016-11-15] MEDS: diphenhydrAMINE 50 MG/1 ML VIAL IV PRN ×6 (00:21→21:33)
[2016-11-15 04:00] VITALS: BP 128/73
[2016-11-15] MEDS: PANTOPRAZOLE SODIUM 40 MG TABLET.DR PO SCH (06:04)
--- NOTE | 2016-11-15 06:18 | NUR ---
NO CHANGES T/O SHIFT. TELE SINUS SR WITH OCC PVC'S AT 82. NO ACUTE DISTRESS NOTED. FREQUENTLY ASKS FOR PAIN MEDS. GIVEN MEDS. STATED RELIEF. PATIENT IS ON O2 2L NC. PICC LINE IN THE LEFT GROIN PATENT AND INTACT. CALL LIGHT WITHIN REACH. WILL CONTINUE TO MONITOR.
[2016-11-15] MEDS: PROTEIN SUPPLEMENT (PROSTAT) 30 ML LIQUID PO SCH ×3 (08:00→17:00)
--- NOTE | 2016-11-15 08:00 | NUR ---
Received patient in bed awake, verbally responsive, coherent, not in any form of acute distress. He denies any pain or discomfort at this time. Assisted to this needs. Call light placed within reach.
[2016-11-15] MEDS: MINOXIDIL 2.5 MG TABLET PO SCH ×3 (08:46→17:00)
[2016-11-15] MEDS: BENAZEPRIL HCL 20 MG TABLET PO SCH (08:46)
[2016-11-15] MEDS: CALCIUM ACETATE 667 MG CAPSULE PO SCH ×3 (08:46→17:38)
[2016-11-15] MEDS: CINACALCET HCL 30 MG TABLET PO SCH (08:48)
[2016-11-15] MEDS: ASCORBIC ACID 250 MG TABLET PO SCH (08:49)
[2016-11-15] MEDS: GABAPENTIN 100 MG CAPSULE PO SCH ×3 (08:50→17:39)
[2016-11-15] MEDS: FOLIC ACID/VITAMIN B COMP W-C TABLET PO SCH (08:50)
[2016-11-15] MEDS: HYDROXYUREA 500 MG CAPSULE PO SCH (08:53)
[2016-11-15] MEDS: CARVEDILOL 25 MG TABLET PO SCH ×2 (09:00→17:00)
[2016-11-15] MEDS: AMLODIPINE 10 MG TABLET PO SCH (09:00)
[2016-11-15] MEDS: LACTOBACILLUS RHAMNOSUS GG 1 EACH CAPSULE PO SCH ×2 (10:01→20:36)
[2016-11-15 11:21] VITALS: BP 127/73
--- NOTE | 2016-11-15 14:00 | NUR ---
Hemodialysis going on.
--- NOTE | 2016-11-15 16:09 | NUR ---
Hemodialysis done, removed 2800 cc fluid. VS: BP 110/58, P 82, RR 20, SpO2 94% at 2LPM via NC.
[2016-11-15 16:10] VITALS: BP 110/58
[2016-11-15 19:00] VITALS: BP 126/65
--- NOTE | 2016-11-15 21:40 | NUR ---
Benadryl 25mg iv ,and Dilaudid 1 mg iv admin for c/o itching and back pain,patient is afebrile, bp 126/65, SR with occ PVC's ,no SOB,no nausea noted.
[2016-11-15 22:00] VITALS: BP 126/65
[2016-11-16] VITALS (12 sets, daily range): BP systolic 110–145; BP diastolic 56–87
[2016-11-16] MEDS: diphenhydrAMINE 50 MG/1 ML VIAL IV PRN ×5 (01:39→17:55)
[2016-11-16] MEDS: HYDROMORPHONE 1 MG/1 ML DISP.SYRIN IV PRN ×5 (01:40→17:54)
[2016-11-16] MEDS: PANTOPRAZOLE SODIUM 40 MG TABLET.DR PO SCH (05:58)
[2016-11-16 06:42] LABS: BASOPHILS % (AUTO) 0.3 % (0.0-2.0); EOSINOPHILS # (AUTO) 0.4 K/uL (0.0-0.7); LYMPHOCYTES # (AUTO) 2.4 K/UL (0.8-4.8); LYMPHOCYTES % (AUTO) 20.1 % (20.5-51.5); MEAN CORPUSCULAR HEMOGLOBIN 30.8 UUG (27.0-31.0); MEAN CORPUSCULAR HGB CONC 34 g/dL (32.0-37.0); MEAN CORPUSCULAR VOLUME 90.8 FL (82.0-92.0); MONOCYTES # (AUTO) 1.9 K/UL (0.1-1.30); MONOCYTES % (AUTO) 15.8 % (0.0-11.0); NEUTROPHILS # (AUTO) 7.2 K/UL (1.8-8.9); NEUTROPHILS % (AUTO) 60.8 % (38.5-71.5); WHITE BLOOD COUNT (AUTO) 11.9 K/UL (4.0-11.2)
[2016-11-16 07:06] LABS: HEMATOCRIT 20.1 % (40-50); HEMOGLOBIN 6.8 G/DL (14.0-18.0)
[2016-11-16 07:07] LABS: PLATELET COUNT (AUTO) 56 K/UL (150-450); RED BLOOD CELL COUNT(AUTO) 2.22 MIL/UL (4.7-6.1)
[2016-11-16 07:10] LABS: BILIRUBIN,TOTAL 1.4 mg/dL (0.2-1.0); CREATININE 5.3 mg/dL (0.6-1.3); MAGNESIUM 1.9 mg/dL (1.8-2.4); PHOSPHOROUS 4.4 mg/dL (2.5-4.9); POTASSIUM 3.9 mmol/L (3.5-5.1); TOTAL PROTEIN, SERUM 7.7 g/dL (6.4-8.2)
--- NOTE | 2016-11-16 07:27 | NUR ---
RN NOTES: RECEIVED A CALL FROM THE LAB REGARDING THE PATIENT'S CRITICAL; LAB RESULTS OF HGB:6.8, HCT:20.1, RBC:2.2. TRIALS TO CONTACT AND A MASSAGE LEFT.PATIENT IS IN A STABLE CONDITION, NO COMPLAINS OF PAIN OR DISTRESS NOTED. CHARGE NURSE IS AWARE. WILL ENDORSE TO AM SHIFT NURSE TO FOLLOW UP.
[2016-11-16] MEDS: PROTEIN SUPPLEMENT (PROSTAT) 30 ML LIQUID PO SCH ×3 (08:00→16:31)
--- NOTE | 2016-11-16 08:00 | NUR ---
awake alert and oriented, denies of pain at this time, on 2l/nc 02, tele SR 80's, right upper arm AV fistula with thrill/bruit, central line triple lumen on the left femoral area intact and patent. Explained plan of care- verbalized understanding, call light within reach
[2016-11-16] MEDS: CALCIUM ACETATE 667 MG CAPSULE PO SCH ×3 (08:45→16:30)
[2016-11-16] MEDS: AMLODIPINE 10 MG TABLET PO SCH (08:47)
[2016-11-16] MEDS: FOLIC ACID/VITAMIN B COMP W-C TABLET PO SCH (08:48)
[2016-11-16] MEDS: BENAZEPRIL HCL 20 MG TABLET PO SCH (08:48)
[2016-11-16] MEDS: CINACALCET HCL 30 MG TABLET PO SCH (08:48)
[2016-11-16] MEDS: MINOXIDIL 2.5 MG TABLET PO SCH ×3 (08:48→16:30)
[2016-11-16] MEDS: GABAPENTIN 100 MG CAPSULE PO SCH ×3 (08:48→16:30)
[2016-11-16] MEDS: ASCORBIC ACID 250 MG TABLET PO SCH (08:48)
[2016-11-16] MEDS: LACTOBACILLUS RHAMNOSUS GG 1 EACH CAPSULE PO SCH (08:48)
[2016-11-16] MEDS: CARVEDILOL 25 MG TABLET PO SCH ×2 (08:49→16:30)
[2016-11-16] MEDS: HYDROXYUREA 500 MG CAPSULE PO SCH (08:50)
[2016-11-16 09:00] LABS: EOSINOPHILS % (MANUAL) 4 % (0-8); LYMPHOCYTES % (MANUAL) 19 % (20-40); MONOCYTES % (MANUAL) 14 % (2-10); NEUTROPHILS % (MANUAL) 63 % (42-75)
--- NOTE | 2016-11-16 09:00 | NUR ---
Dr Shaikh called and informed of Hgb 6.8/ Hct 20.1o order given to transfuse 1 unit of PRBC - pt informed and in agreement
--- NOTE | 2016-11-16 12:15 | NUR ---
blood transfusion started- vs taken and will monitor closely for any s/s of BT reaction- pt educated and verbalized understanding.
--- NOTE | 2016-11-16 12:30 | NUR ---
BT infusing without problem, no rashes noted, vs stable- will continue to monitor closely
--- NOTE | 2016-11-16 12:45 | NUR ---
resting in bed, no BT reaction noted, vss
--- NOTE | 2016-11-16 13:15 | NUR ---
BT infusing well without any problem, taking lunch
--- NOTE | 2016-11-16 15:33 | NUR ---
blood transfusion completed, for d/c today to [facility]- informed and in agreement
--- NOTE | 2016-11-16 15:45 | NUR ---
called [facility] and report given to Susie MANUEL
--- NOTE | 2016-11-16 16:30 | NUR ---
informed ambulance will be here at 1800, friend Manjeet informed of d/c to [facility] per pt's request.
--- NOTE | 2016-11-16 18:00 | NUR ---
femoral central line dsg changed, no swelling/redness noted on site, c/o fo generalized pain- medicated with Dilaudid 1 mg iv and also requested Benadryl 25mg iv which was given, heels dried and scaly- lotion applied, resting in bed, ambulance here- report given
--- NOTE | 2016-11-16 18:20 | NUR ---
taken per devonte with all belongings in stable condition
== END 2016-11-16 18:20 | DRG 663 ==
LOC: ER 02:23 → TELE 04:02
PROVIDERS: ADMIT Internal Medicine; ATTEND Internal Medicine
PROC: 30233N1 Transfusion of Nonautologous Red Blood Cells into Peripheral Vein, Percutaneous Approach (ICD-10-PCS; principal; 2016-11-13)
PROC: 5A1D60Z (ICD-10-PCS; principal; 2016-11-13)
DX: D57.1 Sickle-cell disease without crisis (principal); I50.33 Acute on chronic diastolic (congestive) heart failure; E43 Unspecified severe protein-calorie malnutrition; J18.9 Pneumonia, unspecified organism; D68.9 Coagulation defect, unspecified; N18.6 End stage renal disease; D69.59 Other secondary thrombocytopenia; G62.9 Polyneuropathy, unspecified; K21.9 Gastro-esophageal reflux disease without esophagitis; D61.9 Aplastic anemia, unspecified; I13.2 Hypertensive heart and chronic kidney disease with heart failure and with stage 5 chronic kidney disease, or end stage renal disease; Z96.643 Presence of artificial hip joint, bilateral; Z99.2 Dependence on renal dialysis; G89.4 Chronic pain syndrome; M89.9 Disorder of bone, unspecified; H60.8X9 Other otitis externa, unspecified ear; B96.1 Klebsiella pneumoniae [K. pneumoniae] as the cause of diseases classified elsewhere; K80.20 Calculus of gallbladder without cholecystitis without obstruction; R04.0 Epistaxis; D50.0 Iron deficiency anemia secondary to blood loss (chronic); N28.89 Other specified disorders of kidney and ureter; Z68.29 Body mass index [BMI] 29.0-29.9, adult
CPT/HCPCS: 36415; 83735; 84100; 85025; 86850; 86900; 86901; 86920; 90937; A4663; J1170; J1200; J2405; J7040; J7050; P9016-BL; P9021

== ENCOUNTER 2016-11-25 02:48 | Inpatient (IN) | payer MEDICAID, MEDICARE ==
[~2016-11-25] VITALS: Ht 175.3 cm; Wt 93.9 kg
[2016-11-25] VITALS (8 sets, daily range): BP systolic 71–106; BP diastolic 34–61
[~2016-11-25 02:48] MED LIST changes: +AMLO10TA2 PO; -CIPR10DR LEFT EAR; -CLON0.2T PO; -DIPH50DI IV; -HYDR-548 PO; +LACT1CAP57 PO; -LACT1TAB20 PO; -LEVO250T2 PO; -MORP30TA PO; -MORPHINE SULFATE IV; +PHEN15SP11 NS
[2016-11-25] MEDS ORDERED: ONDANSETRON 4 MG/2 ML VIAL IV ONE (03:00)
[2016-11-25] MEDS ORDERED: diphenhydrAMINE 50 MG/1 ML VIAL IV ONE (03:00)
[2016-11-25] MEDS ORDERED: HYDROMORPHONE 1 MG/1 ML DISP.SYRIN IV ONE (03:00)
--- NOTE | 2016-11-25 03:00 | NUR ---
Patient brought in by private ambulance from SN[facility] for HGB 6.1 and HCT 17.5. Patient came with triple lumen CVC on left groin, Pt is alert, oriented x 4, no resp distress noted or reported upon assessment... MD at bedside...
[2016-11-25 03:18] LABS: MEAN CORPUSCULAR HEMOGLOBIN 29.3 UUG (27.0-31.0); MEAN CORPUSCULAR HGB CONC 33 g/dL (32.0-37.0); MEAN CORPUSCULAR VOLUME 87.7 FL (82.0-92.0); PLATELET COUNT (AUTO) 90 K/UL (150-450); WHITE BLOOD COUNT (AUTO) 10.5 K/UL (4.0-11.2)
[2016-11-25 03:25] LABS: HEMOGLOBIN 6.6 G/DL (14.0-18.0); RED BLOOD CELL COUNT(AUTO) 2.24 MIL/UL (4.7-6.1)
[2016-11-25 03:26] LABS: HEMATOCRIT 19.7 % (40-50)
[2016-11-25] MEDS ORDERED: DIPH50VI4 IVP (03:34)
[2016-11-25] MEDS ORDERED: CLON0.1T PO (03:34)
[2016-11-25] MEDS ORDERED: HYDR2VIA2 IVP (03:34)
[2016-11-25 03:39] LABS: BILIRUBIN,DIRECT 1.5 mg/dL (0.0-0.2); BILIRUBIN,TOTAL 2.1 mg/dL (0.2-1.0); CREATININE 5.9 mg/dL (0.6-1.3); POTASSIUM 5.1 mmol/L (3.5-5.1); TOTAL PROTEIN, SERUM 7.7 g/dL (6.4-8.2)
--- NOTE | 2016-11-25 04:20 | NUR ---
Call placed to [facility] nephrology, Dr. Greer will be paged.
--- NOTE | 2016-11-25 04:54 | NUR ---
2ND Call placed to [facility] nephrology, Dr. Greer will be paged.
[2016-11-25 05:10] LABS: BAND % (MANUAL) 1 % (0-10); EOSINOPHILS % (MANUAL) 6 % (0-8); LYMPHOCYTES % (MANUAL) 26 % (20-40); MONOCYTES % (MANUAL) 8 % (2-10); NEUTROPHILS % (MANUAL) 59 % (42-75)
--- NOTE | 2016-11-25 06:00 | NUR ---
Pt. admitted to TELE , under care of Dr. Sebastian, Belongs List completed, pt is alert, awaker, oriented x 4, no resp distress noted or reported upon assessment...
--- NOTE | 2016-11-25 06:10 | NUR ---
RECEIVED PATIENT VIA GURNEY FROM ER. PATIENT IS A/O X3. C/O PAIN UPON ARRIVAL TO FLOOR. ON O2 2L NC SATING. PATIENT IS REFUSING TELE. CALLED OUT TO DR. MCKEON FOR ADMISSION ORDERS. WAITING FOR CALL BACK. CALL LIGHT IN REACH. ALL NEEDS ATTENDED. WILL CONTINUE TO MONITOR AND ASSESS.
[2016-11-25] MEDS: CARVEDILOL 25 MG TABLET PO SCH ×2 (09:15→17:31)
[2016-11-25] MEDS ORDERED: PHENYLEPHRINE 0.25% NS PRN (09:15)
[2016-11-25] MEDS: CLONIDINE HCL 0.1 MG TABLET PO SCH ×3 (09:15→22:00)
[2016-11-25] MEDS ORDERED: ACETAMINOPHEN 325 MG TABLET PO PRN (09:15)
[2016-11-25] MEDS: BENAZEPRIL HCL 20 MG TABLET PO SCH (09:15)
[2016-11-25] MEDS: MINOXIDIL 2.5 MG TABLET PO SCH ×3 (09:15→22:00)
[2016-11-25] MEDS: AMLODIPINE 10 MG TABLET PO SCH (09:15)
[2016-11-25] MEDS ORDERED: CLONIDINE HCL 0.1 MG TABLET PO PRN (09:15)
[2016-11-25] MEDS: GABAPENTIN 100 MG CAPSULE PO SCH ×3 (10:54→17:24)
[2016-11-25] MEDS: CINACALCET HCL 30 MG TABLET PO SCH (10:55)
[2016-11-25] MEDS: CALCIUM ACETATE 667 MG CAPSULE PO SCH ×3 (10:55→17:24)
[2016-11-25] MEDS: LACTOBACILLUS RHAMNOSUS GG 1 EACH CAPSULE PO SCH ×2 (10:55→17:24)
[2016-11-25] MEDS: ASCORBIC ACID 250 MG TABLET PO SCH (10:56)
[2016-11-25] MEDS: diphenhydrAMINE 50 MG/1 ML VIAL IV PRN ×2 (10:58→15:48)
[2016-11-25] MEDS: HYDROMORPHONE 2 MG/1 ML DISP.SYRIN IV PRN ×3 (10:59→16:40)
[2016-11-25] MEDS ORDERED: NORMAL SALINE FLUSH 10 ML DISP.SYRIN IV PRN (11:15)
[2016-11-25] MEDS: FOLIC ACID/VITAMIN B COMP W-C TABLET PO SCH (11:28)
[2016-11-25] MEDS: PANTOPRAZOLE SODIUM 40 MG TABLET.DR PO SCH (11:29)
[2016-11-25] MEDS: HYDROXYUREA 500 MG CAPSULE PO SCH (11:30)
[2016-11-25] MEDS: PROTEIN SUPPLEMENT (PROSTAT) 30 ML LIQUID PO SCH ×2 (12:59→17:31)
--- NOTE | 2016-11-25 13:42 | NUR ---
pt on dialysis at this time.
[2016-11-25] MEDS: NORMAL SALINE FLUSH 10 ML DISP.SYRIN IV SCH ×2 (14:16→22:16)
--- NOTE | 2016-11-25 17:34 | NUR ---
Pt alert and received hemodialysis today. Tolerated 3 liters out. Monitored BP. Held Dilauded due to low SBP <100. Pt less edematous to lower extremities. Continue to monitor for pain management. Pt refused Coreg due to low blood pressure post hemodialysis. No s/s of distress at this time.
[2016-11-25 19:51] LABS: THYROID STIMULATING HORMONE 3.895 mIU/mL (0.358-3.740)
[2016-11-25 20:36] LABS: URIC ACID 6.6 mg/dL (3.5-7.2)
--- NOTE | 2016-11-26 04:15 | NUR ---
PT C/O OF SEVERE PAIN. BP 88/37. CALL PLACED TO . DR. STEVENS RETURNED CALL AND OK TO MEDICATED PT BP RCHECKED UP TO 92/42. DILUADID 1.5MG IV PUSH GIVEN ORDERED. WILL CONTINUES TO MONITOR BP.
[2016-11-26] MEDS: HYDROMORPHONE 2 MG/1 ML DISP.SYRIN IV PRN ×6 (04:35→22:11)
[2016-11-26 05:00] VITALS: BP 99/42
[2016-11-26] MEDS: NORMAL SALINE FLUSH 10 ML DISP.SYRIN IV SCH ×3 (06:00→22:05)
[2016-11-26] MEDS: MINOXIDIL 2.5 MG TABLET PO SCH ×3 (06:00→22:00)
[2016-11-26] MEDS: CLONIDINE HCL 0.1 MG TABLET PO SCH ×3 (06:00→22:00)
[2016-11-26] MEDS: PANTOPRAZOLE SODIUM 40 MG TABLET.DR PO SCH (06:48)
[2016-11-26 07:29] LABS: WHITE BLOOD COUNT (AUTO) 8.6 K/UL (4.0-11.2)
[2016-11-26 07:39] LABS: BILIRUBIN,TOTAL 1.7 mg/dL (0.2-1.0); CREATININE 5.5 mg/dL (0.6-1.3); MAGNESIUM 2.2 mg/dL (1.8-2.4); PHOSPHOROUS 6.8 mg/dL (2.5-4.9); POTASSIUM 4.9 mmol/L (3.5-5.1); TOTAL PROTEIN, SERUM 7.3 g/dL (6.4-8.2)
[2016-11-26 07:41] LABS: MEAN CORPUSCULAR HEMOGLOBIN 30.7 UUG (27.0-31.0); MEAN CORPUSCULAR HGB CONC 35 g/dL (32.0-37.0); MEAN CORPUSCULAR VOLUME 86.9 FL (82.0-92.0); PLATELET COUNT (AUTO) 85 K/UL (150-450)
[2016-11-26 07:48] LABS: HEMATOCRIT 20.8 % (40-50); HEMOGLOBIN 7.3 G/DL (14.0-18.0); RED BLOOD CELL COUNT(AUTO) 2.39 MIL/UL (4.7-6.1)
--- NOTE | 2016-11-26 07:54 | NUR ---
PT SLEEPING IN BED, AWAKENS TO TOUCH, NO NEEDS AT THIS TIME, BP CHECKED 83/51, WILL MONITOR CLOSELY
[2016-11-26] MEDS: CARVEDILOL 25 MG TABLET PO SCH ×2 (08:00→17:09)
[2016-11-26] MEDS: BENAZEPRIL HCL 20 MG TABLET PO SCH (08:26)
[2016-11-26] MEDS: AMLODIPINE 10 MG TABLET PO SCH (08:26)
[2016-11-26] MEDS: LACTOBACILLUS RHAMNOSUS GG 1 EACH CAPSULE PO SCH ×2 (08:53→17:40)
[2016-11-26] MEDS: CINACALCET HCL 30 MG TABLET PO SCH (08:53)
[2016-11-26] MEDS: ASCORBIC ACID 250 MG TABLET PO SCH (08:53)
[2016-11-26] MEDS: PROTEIN SUPPLEMENT (PROSTAT) 30 ML LIQUID PO SCH ×3 (08:53→17:00)
[2016-11-26] MEDS: GABAPENTIN 100 MG CAPSULE PO SCH ×3 (08:53→17:40)
[2016-11-26] MEDS: CALCIUM ACETATE 667 MG CAPSULE PO SCH ×3 (08:53→17:40)
[2016-11-26] MEDS: FOLIC ACID/VITAMIN B COMP W-C TABLET PO SCH (08:53)
[2016-11-26] MEDS: HYDROXYUREA 500 MG CAPSULE PO SCH (08:54)
--- NOTE | 2016-11-26 08:59 | NUR ---
PT AWAKE IN BED, EATING BREAKFAST. BP 93/46. REQUESTING PAIN MEDICATION. WILL CALL
--- NOTE | 2016-11-26 10:38 | NUR ---
SECOND CALL PLACED TO [facility] REGARDING H&H AND PAIN
[2016-11-26 10:43] LABS: EOSINOPHILS % (MANUAL) 4 % (0-8); LYMPHOCYTES % (MANUAL) 15 % (20-40); MONOCYTES % (MANUAL) 14 % (2-10); NEUTROPHILS % (MANUAL) 67 % (42-75)
--- NOTE | 2016-11-26 11:10 | NUR ---
SPOKE WITH DR MCKEON. ORDERED 1 UNIT OF PRBC TO BE GIVEN DURING HD. ORDERS PLACED. WILL CONTINUE TO MONITOR CLOSELY
[2016-11-26 11:47] VITALS: BP 100/55
--- NOTE | 2016-11-26 11:49 | NUR ---
PT BP 100/55. AWAKE IN BED WATCHING TV
--- NOTE | 2016-11-26 13:53 | NUR ---
PT BP 102/45. EATING FOOD THAT PT HAD DELIVERED
[2016-11-26 15:27] VITALS: BP 73/36
--- NOTE | 2016-11-26 15:30 | NUR ---
PT RECEIVING DIALYSIS, 1 UNIT PRBC TRANSFUSING AT THIS TIME. BP 73/36. WILL MONITOR CLOSELY
[2016-11-26 15:53] VITALS: BP 74/37
--- NOTE | 2016-11-26 15:54 | NUR ---
1 UNIT TRANSFUSED, STILL ON HD. BP STILL LOW. WILL CONTINUE TO MONITOR CLOSELY
--- NOTE | 2016-11-26 18:43 | NUR ---
PT BP 101/50. REQUESTING DILAUDID. 1.5MG IV GIVEN ORDERED. PT AWAKE IN BED EATING DINNER.
[2016-11-26 20:00] VITALS: BP 107/47
[2016-11-26] MEDS: diphenhydrAMINE 50 MG/1 ML VIAL IV PRN (23:22)
[2016-11-27] MEDS: HYDROMORPHONE 2 MG/1 ML DISP.SYRIN IV PRN ×5 (03:21→21:38)
[2016-11-27] MEDS: CLONIDINE HCL 0.1 MG TABLET PO SCH ×3 (05:28→21:15)
[2016-11-27] MEDS: MINOXIDIL 2.5 MG TABLET PO SCH ×3 (05:28→21:14)
[2016-11-27] MEDS: NORMAL SALINE FLUSH 10 ML DISP.SYRIN IV SCH ×3 (05:28→21:14)
--- NOTE | 2016-11-27 06:00 | NUR ---
HELD BP MEDS DUE TO DECREASED BP. PATIENT IS ALERT, IN NO ACUTE DISTRESS. NOTED MINIMAL BLEEDING ON NOEMI AV SHUNT, REINFORCED PRESSURE DRESSING. WILL CONTINUE TO MONITOR.
[2016-11-27 06:01] VITALS: BP 105/62
[2016-11-27] MEDS: PANTOPRAZOLE SODIUM 40 MG TABLET.DR PO SCH (06:34)
[2016-11-27 07:08] LABS: VIT D, 25-HYDROXY 6.6 ng/mL (30.0-100.0)
--- NOTE | 2016-11-27 07:45 | NUR ---
Awake, alert, O2 at 2L/NC, on moderate high back rest.
[2016-11-27] MEDS: CARVEDILOL 25 MG TABLET PO SCH ×2 (08:00→17:40)
[2016-11-27] MEDS: PROTEIN SUPPLEMENT (PROSTAT) 30 ML LIQUID PO SCH ×3 (08:00→17:00)
[2016-11-27 08:20] VITALS: BP 108/58
[2016-11-27] MEDS: CALCIUM ACETATE 667 MG CAPSULE PO SCH ×3 (08:22→17:40)
[2016-11-27] MEDS: LACTOBACILLUS RHAMNOSUS GG 1 EACH CAPSULE PO SCH ×2 (08:23→17:40)
[2016-11-27] MEDS: FOLIC ACID/VITAMIN B COMP W-C TABLET PO SCH (08:23)
[2016-11-27] MEDS: GABAPENTIN 100 MG CAPSULE PO SCH ×3 (08:23→17:40)
[2016-11-27] MEDS: CINACALCET HCL 30 MG TABLET PO SCH (08:23)
[2016-11-27] MEDS: ASCORBIC ACID 250 MG TABLET PO SCH (08:24)
[2016-11-27] MEDS: BENAZEPRIL HCL 20 MG TABLET PO SCH (08:25)
[2016-11-27] MEDS: AMLODIPINE 10 MG TABLET PO SCH (08:25)
[2016-11-27] MEDS: HYDROXYUREA 500 MG CAPSULE PO SCH (08:30)
--- NOTE | 2016-11-27 09:00 | NUR ---
BP medication not given, noted decreased BP, will continue to monitor
[2016-11-27 11:41] VITALS: BP 100/63
[2016-11-27] MEDS: diphenhydrAMINE 50 MG/1 ML VIAL IV PRN ×3 (13:05→21:38)
--- NOTE | 2016-11-27 14:00 | NUR ---
Assisted out of by PT, ambulated outside of room, then became weak.
[2016-11-27 15:57] VITALS: BP 98/50
--- NOTE | 2016-11-27 18:56 | NUR ---
Central line dressing changed. Kept dry and comfortable.
[2016-11-27 20:34] VITALS: BP 88/34
[2016-11-28] MEDS: diphenhydrAMINE 50 MG/1 ML VIAL IV PRN ×5 (04:16→21:28)
[2016-11-28] MEDS: HYDROMORPHONE 2 MG/1 ML DISP.SYRIN IV PRN ×5 (04:22→21:29)
[2016-11-28 04:30] VITALS: BP 110/58
[2016-11-28 05:11] LABS: HAPTOGLOBIN <10 mg/dL (34-200)
[2016-11-28] MEDS: MINOXIDIL 2.5 MG TABLET PO SCH ×3 (06:00→21:40)
[2016-11-28] MEDS: CLONIDINE HCL 0.1 MG TABLET PO SCH ×3 (06:00→21:39)
[2016-11-28] MEDS: PANTOPRAZOLE SODIUM 40 MG TABLET.DR PO SCH (06:17)
[2016-11-28] MEDS: NORMAL SALINE FLUSH 10 ML DISP.SYRIN IV SCH ×3 (06:17→21:28)
[2016-11-28 07:12] LABS: BASOPHILS % (AUTO) 0.1 % (0.0-2.0); EOSINOPHILS # (AUTO) 0.3 K/uL (0.0-0.7); EOSINOPHILS % (AUTO) 3.1 % (0.0-7.0); LYMPHOCYTES # (AUTO) 2.3 K/UL (0.8-4.8); LYMPHOCYTES % (AUTO) 21.4 % (20.5-51.5); MEAN CORPUSCULAR HEMOGLOBIN 29.1 UUG (27.0-31.0); MEAN CORPUSCULAR HGB CONC 33 g/dL (32.0-37.0); MEAN CORPUSCULAR VOLUME 88.3 FL (82.0-92.0); MONOCYTES # (AUTO) 1.8 K/UL (0.1-1.30); MONOCYTES % (AUTO) 16.7 % (0.0-11.0); NEUTROPHILS # (AUTO) 6.2 K/UL (1.8-8.9); NEUTROPHILS % (AUTO) 58.7 % (38.5-71.5); WHITE BLOOD COUNT (AUTO) 10.6 K/UL (4.0-11.2)
[2016-11-28 07:20] LABS: HEMATOCRIT 24.3 % (40-50); RED BLOOD CELL COUNT(AUTO) 2.75 MIL/UL (4.7-6.1)
[2016-11-28 07:21] LABS: PLATELET COUNT (AUTO) 57 K/UL (150-450)
[2016-11-28] MEDS: CARVEDILOL 25 MG TABLET PO SCH ×2 (08:00→17:25)
[2016-11-28] MEDS: CALCIUM ACETATE 667 MG CAPSULE PO SCH ×3 (08:26→17:27)
[2016-11-28] MEDS: CINACALCET HCL 30 MG TABLET PO SCH (08:27)
[2016-11-28] MEDS: GABAPENTIN 100 MG CAPSULE PO SCH ×3 (08:28→17:27)
[2016-11-28] MEDS: ASCORBIC ACID 250 MG TABLET PO SCH (08:28)
[2016-11-28] MEDS: LACTOBACILLUS RHAMNOSUS GG 1 EACH CAPSULE PO SCH ×2 (08:29→17:27)
[2016-11-28] MEDS: HYDROXYUREA 500 MG CAPSULE PO SCH (08:30)
[2016-11-28] MEDS: PROTEIN SUPPLEMENT (PROSTAT) 30 ML LIQUID PO SCH ×3 (08:31→17:24)
[2016-11-28] MEDS: AMLODIPINE 10 MG TABLET PO SCH (08:32)
[2016-11-28] MEDS: BENAZEPRIL HCL 20 MG TABLET PO SCH (08:32)
[2016-11-28] MEDS: FOLIC ACID/VITAMIN B COMP W-C TABLET PO SCH (08:36)
[2016-11-28 09:27] LABS: EOSINOPHILS % (MANUAL) 2 % (0-8); LYMPHOCYTES % (MANUAL) 26 % (20-40); MONOCYTES % (MANUAL) 11 % (2-10); NEUTROPHILS % (MANUAL) 61 % (42-75)
[2016-11-28 11:13] VITALS: BP 115/71
[2016-11-28 15:12] VITALS: BP 116/62
--- NOTE | 2016-11-28 19:30 | NUR ---
PATIENT IS ON 02 2L NC WITH HUMIDIFIER.
--- NOTE | 2016-11-28 19:30 | NUR ---
RECEIVED PATIENT LAYING IN BED. NO ACUTE DISTRESS NOTED. A&OX'S 4. AV SHUNT ON THE RIGHT UPPER ARM PATENT AND INTACT. LEFT FEMORAL TRIPLE LUMEN IV PATENT AND INTACT. PATIENT COMPLAINS OF BACK PAIN 10/20, WILL REVIEW MEDS, WILL GIVE MEDS ORDERED. NOTED PITTING EDEMA ON THE RIGHT FA +1-+2. SAFETY INITIATED. CALL LIGHT WITHIN REACH. WILL CONTINUE TO MONITOR.
[2016-11-28 20:00] VITALS: BP 101/53
--- NOTE | 2016-11-28 20:29 | NUR ---
DISCUSSED RIGHT FA +1-+2 PITTING EDEMA WITH CHARGE NURSE RAMON.
[2016-11-29] MEDS: HYDROMORPHONE 2 MG/1 ML DISP.SYRIN IV PRN ×5 (01:27→23:34)
[2016-11-29] MEDS: diphenhydrAMINE 50 MG/1 ML VIAL IV PRN ×5 (01:27→23:34)
[2016-11-29 04:53] VITALS: BP 104/62
[2016-11-29] MEDS: MINOXIDIL 2.5 MG TABLET PO SCH ×3 (06:00→22:00)
[2016-11-29] MEDS: CLONIDINE HCL 0.1 MG TABLET PO SCH ×3 (06:00→22:00)
[2016-11-29] MEDS: PANTOPRAZOLE SODIUM 40 MG TABLET.DR PO SCH (06:08)
[2016-11-29] MEDS: NORMAL SALINE FLUSH 10 ML DISP.SYRIN IV SCH ×3 (06:08→21:08)
--- NOTE | 2016-11-29 06:32 | NUR ---
PATIENT SLEPT INTERMITTENTLY T/O SHIFT. PATIENT FREQUENTLY ASKS FOR PAIN MEDICATION. MEDS GIVEN ORDERED. STATED RELIEF. RIGHT UPPER ARM AV FISTULA PATENT AND INTACT. TRIPLE LUMEN IV ON THE LEFT FEMORAL PATENT AND INTACT. PATIENT IS ON 02 2L NC. HELP ALL B/P MEDS DUE ON MY SHIFT BECAUSE BP WAS LOW (HIGH 90'S/ LOW 60'S). ALL NEEDS MET.
--- NOTE | 2016-11-29 07:30 | NUR ---
sleeping for now. no distress noted
[2016-11-29] MEDS: PROTEIN SUPPLEMENT (PROSTAT) 30 ML LIQUID PO SCH ×3 (08:00→17:00)
[2016-11-29] MEDS: CINACALCET HCL 30 MG TABLET PO SCH (08:26)
[2016-11-29] MEDS: GABAPENTIN 100 MG CAPSULE PO SCH ×3 (08:26→17:39)
[2016-11-29] MEDS: FOLIC ACID/VITAMIN B COMP W-C TABLET PO SCH (08:26)
[2016-11-29] MEDS: CALCIUM ACETATE 667 MG CAPSULE PO SCH ×3 (08:26→17:39)
[2016-11-29] MEDS: ASCORBIC ACID 250 MG TABLET PO SCH (08:26)
[2016-11-29] MEDS: AMLODIPINE 10 MG TABLET PO SCH (08:27)
[2016-11-29] MEDS: LACTOBACILLUS RHAMNOSUS GG 1 EACH CAPSULE PO SCH ×2 (08:27→17:39)
[2016-11-29] MEDS: CARVEDILOL 25 MG TABLET PO SCH ×2 (08:27→17:41)
[2016-11-29] MEDS: BENAZEPRIL HCL 20 MG TABLET PO SCH (08:28)
--- NOTE | 2016-11-29 08:30 | NUR ---
awake, blood drawn for lab sent for cbc. ate well for breakfast. med for pain and itchiness, appreciative of care
[2016-11-29] MEDS: HYDROXYUREA 500 MG CAPSULE PO SCH (08:31)
--- NOTE | 2016-11-29 09:36 | NUR ---
sleeping comfortably. no respiratory distress noted
[2016-11-29 09:50] LABS: BASOPHILS % (AUTO) 0.2 % (0.0-2.0); EOSINOPHILS # (AUTO) 0.2 K/uL (0.0-0.7); LYMPHOCYTES # (AUTO) 1.6 K/UL (0.8-4.8); MEAN CORPUSCULAR HEMOGLOBIN 28.8 UUG (27.0-31.0); MEAN CORPUSCULAR HGB CONC 33 g/dL (32.0-37.0); MEAN CORPUSCULAR VOLUME 86.2 FL (82.0-92.0); MONOCYTES # (AUTO) 1.6 K/UL (0.1-1.30); MONOCYTES % (AUTO) 14.7 % (0.0-11.0); NEUTROPHILS # (AUTO) 7.6 K/UL (1.8-8.9); NEUTROPHILS % (AUTO) 68.1 % (38.5-71.5); RED BLOOD CELL COUNT(AUTO) 2.76 MIL/UL (4.7-6.1)
[2016-11-29 09:54] LABS: PLATELET COUNT (AUTO) 52 K/UL (150-450)
[2016-11-29 09:59] LABS: HEMATOCRIT 23.7 % (40-50); HEMOGLOBIN 7.9 G/DL (14.0-18.0)
[2016-11-29 10:59] VITALS: BP 93/73
[2016-11-29 11:51] LABS: EOSINOPHILS % (MANUAL) 3 % (0-8); LYMPHOCYTES % (MANUAL) 15 % (20-40); MONOCYTES % (MANUAL) 9 % (2-10); NEUTROPHILS % (MANUAL) 73 % (42-75)
[2016-11-29 13:02] VITALS: BP 113/56
--- NOTE | 2016-11-29 13:32 | NUR ---
pain 5/10 , feeling better from discomfort. friend at bedside to bring in paperwork supplies. patient glad of visit and friend appreciative of care.
[2016-11-29 15:20] VITALS: BP 113/56
--- NOTE | 2016-11-29 17:49 | NUR ---
med x 1 for pain , pending relief . aware of dialysis today
--- NOTE | 2016-11-29 19:41 | NUR ---
RECEIVED PATIENT LAYING IN BED. NO ACUTE DISTRESS NOTED. LEFT FEMORAL TRIPLE LUMEN IV PATENT AND INTACT. 02 2L NC. NOTED PITTED EDEMA ON BILATERAL LEGS AND RIGHT ARM. SAFETY INITIATED. CALL LIGHT WITHIN REACH. WILL CONTINUE TO MONITOR.
[2016-11-29 19:50] VITALS: BP 103/47
--- NOTE | 2016-11-29 21:05 | NUR ---
HEMODIALYSIS UNDERWAY WITH MAR BRIZUELA ORDERED.
--- NOTE | 2016-11-29 23:34 | NUR ---
HEMODIALYSIS COMPLETED. 3L OUTPUT. TOLERATED WELL.
--- NOTE | 2016-11-29 23:45 | NUR ---
PT RECEIVED IN BED, AWAKE. A/OX4. ABLE TO MAKE NEEDS KNOWN. V/S STABLE. IN NO ACUTE DISTRESS. NO C/O PAIN AT THIS TIME. SAFETY MEASURE IMPLEMENTED. CALL LIGHT WITHIN REACH.
[2016-11-30] MEDS: diphenhydrAMINE 50 MG/1 ML VIAL IV PRN ×4 (03:20→23:30)
[2016-11-30] MEDS: HYDROMORPHONE 2 MG/1 ML DISP.SYRIN IV PRN ×4 (03:21→23:30)
[2016-11-30 04:24] VITALS: BP 102/48
[2016-11-30] MEDS: CLONIDINE HCL 0.1 MG TABLET PO SCH ×3 (06:00→21:43)
[2016-11-30] MEDS: MINOXIDIL 2.5 MG TABLET PO SCH ×3 (06:00→21:42)
[2016-11-30] MEDS: NORMAL SALINE FLUSH 10 ML DISP.SYRIN IV SCH ×3 (06:04→21:44)
[2016-11-30] MEDS: PANTOPRAZOLE SODIUM 40 MG TABLET.DR PO SCH (06:04)
--- NOTE | 2016-11-30 06:29 | NUR ---
END OF SHIFT NOTES. PT SLEPT INTERMITTENTLY THROUGHOUT SHIFT. IN STABLE CONDITION. CONSENT SIGNED. PT C/O OF PAIN THROUGHOUT SHIFT. ADMINISTERED PAIN MEDICATION ORDERED. NEEDS ATTENDED. SAFETY MAINTAINED. CALL LIGHT WITHIN REACH.
--- NOTE | 2016-11-30 07:30 | NUR ---
on bed, resting well . no distress noted, comfortable. aware for paracentesis today, pending time. verbalized understanding
[2016-11-30 07:31] LABS: MEAN CORPUSCULAR HEMOGLOBIN 29.6 UUG (27.0-31.0); MEAN CORPUSCULAR HGB CONC 34 g/dL (32.0-37.0); MEAN CORPUSCULAR VOLUME 86.6 FL (82.0-92.0); WHITE BLOOD COUNT (AUTO) 8.8 K/UL (4.0-11.2)
[2016-11-30 07:42] LABS: HEMATOCRIT 21.1 % (40-50); HEMOGLOBIN 7.3 G/DL (14.0-18.0); PLATELET COUNT (AUTO) 48 K/UL (150-450); RED BLOOD CELL COUNT(AUTO) 2.44 MIL/UL (4.7-6.1)
[2016-11-30] MEDS: PROTEIN SUPPLEMENT (PROSTAT) 30 ML LIQUID PO SCH ×3 (08:00→17:00)
[2016-11-30] MEDS: CARVEDILOL 25 MG TABLET PO SCH ×2 (08:00→17:28)
[2016-11-30 08:22] LABS: EOSINOPHILS % (MANUAL) 4 % (0-8); LYMPHOCYTES % (MANUAL) 18 % (20-40); MONOCYTES % (MANUAL) 9 % (2-10); NEUTROPHILS % (MANUAL) 69 % (42-75)
[2016-11-30] MEDS: LACTOBACILLUS RHAMNOSUS GG 1 EACH CAPSULE PO SCH ×2 (08:59→17:42)
[2016-11-30] MEDS: CALCIUM ACETATE 667 MG CAPSULE PO SCH ×3 (08:59→17:42)
[2016-11-30] MEDS: AMLODIPINE 10 MG TABLET PO SCH (08:59)
[2016-11-30] MEDS: ASCORBIC ACID 250 MG TABLET PO SCH (08:59)
[2016-11-30] MEDS: GABAPENTIN 100 MG CAPSULE PO SCH ×3 (08:59→17:42)
[2016-11-30] MEDS: FOLIC ACID/VITAMIN B COMP W-C TABLET PO SCH (08:59)
[2016-11-30] MEDS: CINACALCET HCL 30 MG TABLET PO SCH (08:59)
[2016-11-30] MEDS: BENAZEPRIL HCL 20 MG TABLET PO SCH (09:02)
[2016-11-30] MEDS: HYDROXYUREA 500 MG CAPSULE PO SCH (09:03)
--- NOTE | 2016-11-30 10:48 | NUR ---
watching tv, denies distress relief from pain med verbalized
[2016-11-30 11:47] VITALS: BP 103/50
--- NOTE | 2016-11-30 13:02 | NUR ---
aware for dialysis today and paracentesis, verbalized understanding
--- NOTE | 2016-11-30 14:00 | NUR ---
having dialysis , tolerating well
--- NOTE | 2016-11-30 14:41 | NUR ---
The patient is on dialysis until 4:00PM. Unable to perform ultrasound.
[2016-11-30 16:00] VITALS: BP 111/49
--- NOTE | 2016-11-30 16:25 | NUR ---
tolerated dialysis, 4l obtained
--- NOTE | 2016-11-30 16:25 | NUR ---
sleeping comfortably. no distress noted.
--- NOTE | 2016-11-30 17:29 | NUR ---
patient sleeping comfortably, friend at bedside, supportive of patient care
[2016-12-01] MEDS: diphenhydrAMINE 50 MG/1 ML VIAL IV PRN ×4 (03:30→16:32)
[2016-12-01] MEDS: HYDROMORPHONE 2 MG/1 ML DISP.SYRIN IV PRN ×4 (03:30→16:32)
--- NOTE | 2016-12-01 04:50 | NUR ---
PT ASLEEP IN BED. APPEARS COMFORTABLE. BP 90'S/50'S. S/P HD WITH 4L OUT. CATAPRESS HELD. PT C/O GENERALIZED PAIN. PAIN MEDICATION GIVEN ORDERED WITH SHORT-TERM RELIEF . WILL CONTINUE TO MONITOR BP AND PAIN.
[2016-12-01] MEDS: MINOXIDIL 2.5 MG TABLET PO SCH ×2 (06:00→13:32)
[2016-12-01] MEDS: CLONIDINE HCL 0.1 MG TABLET PO SCH ×2 (06:00→13:32)
[2016-12-01] MEDS: NORMAL SALINE FLUSH 10 ML DISP.SYRIN IV SCH ×2 (06:25→13:33)
[2016-12-01] MEDS: PANTOPRAZOLE SODIUM 40 MG TABLET.DR PO SCH (06:29)
[2016-12-01 07:34] LABS: MEAN CORPUSCULAR HEMOGLOBIN 28.5 UUG (27.0-31.0); MEAN CORPUSCULAR HGB CONC 33 g/dL (32.0-37.0); MEAN CORPUSCULAR VOLUME 86.3 FL (82.0-92.0); WHITE BLOOD COUNT (AUTO) 8.5 K/UL (4.0-11.2)
[2016-12-01 07:46] LABS: HEMATOCRIT 21.1 % (40-50); PLATELET COUNT (AUTO) 46 K/UL (150-450); RED BLOOD CELL COUNT(AUTO) 2.45 MIL/UL (4.7-6.1)
[2016-12-01] MEDS: CARVEDILOL 25 MG TABLET PO SCH ×2 (08:00→17:38)
[2016-12-01] MEDS: BENAZEPRIL HCL 20 MG TABLET PO SCH (08:22)
[2016-12-01] MEDS: AMLODIPINE 10 MG TABLET PO SCH (08:22)
[2016-12-01] MEDS: CALCIUM ACETATE 667 MG CAPSULE PO SCH ×3 (08:32→16:32)
[2016-12-01] MEDS: FOLIC ACID/VITAMIN B COMP W-C TABLET PO SCH (08:32)
[2016-12-01] MEDS: HYDROXYUREA 500 MG CAPSULE PO SCH (08:32)
[2016-12-01] MEDS: PROTEIN SUPPLEMENT (PROSTAT) 30 ML LIQUID PO SCH ×3 (08:33→16:33)
[2016-12-01] MEDS: LACTOBACILLUS RHAMNOSUS GG 1 EACH CAPSULE PO SCH ×2 (08:33→16:32)
[2016-12-01] MEDS: ASCORBIC ACID 250 MG TABLET PO SCH (08:33)
[2016-12-01] MEDS: GABAPENTIN 100 MG CAPSULE PO SCH ×3 (08:33→16:32)
[2016-12-01] MEDS: CINACALCET HCL 30 MG TABLET PO SCH (08:33)
--- NOTE | 2016-12-01 09:00 | NUR ---
CRITICAL LAB PAGED TO THE DR [facility] DIRECTOR
[2016-12-01 10:07] LABS: LYMPHOCYTES % (MANUAL) 37 % (20-40); MONOCYTES % (MANUAL) 1 % (2-10); NEUTROPHILS % (MANUAL) 62 % (42-75)
[2016-12-01 11:52] VITALS: BP 116/65
[2016-12-01 15:57] VITALS: BP 121/73
--- NOTE | 2016-12-01 17:59 | NUR ---
PER C/M "OK TO D/C THE PT" THE MARILEERadha ADAM IS TAKING THE PT BACK. WILL START THE D/C
--- NOTE | 2016-12-01 18:43 | NUR ---
PT REFUSED TO HAVE PICTURE TAKEN OF HIS ARM. PT STATES "IM IN SO MUCH PAIN, HOW CAN I BE DISCHARGED?" WILL PAGE DR MCKEON ABOUT THE PT'S CONCERN AND PAIN
--- NOTE | 2016-12-01 18:53 | NUR ---
PAGED DR MCKEON IS PAGED IN REGARDS OF PT'S CONCERN ABOUT PITTING EDEMA ON HIS ABDOMEN AND PERSISTENT PAIN.
--- NOTE | 2016-12-01 19:00 | NUR ---
PT IS LAYING IN BED COMFORTABLY. NO S/S OF RESPIRATORY DISTRESS NOTED. IS PAGED FOR PAIN MEDICATION FOR THE PT. ALL SAFETY NEEDS ARE MET. PT REPORT IS GIVEN TO NOC NURSE. IV INTACT/PATENT. NO S/S OF BLEEDING NOTED. PT IS ON 2L NC
--- NOTE | 2016-12-01 19:30 | NUR ---
RECEIVED PATIENT LAYING COMFORTABLY IN BED. NO ACUTE DISTRESS NOTED. NO BLEEDING NOTED. PATIENT IS ON 02 2L NC. ORDERS OF D/C TO [facility] IN [place]. LEFT FEMORAL IV PATENT AND INTACT. AV SHUNT IN THE RIGHT UPPER ARM PATENT AND INTACT. NOTED EDEMA ON BILATERAL LEGS, RIGHT ARM AND ABDOMEN. SAFETY INITIATED. CALL LIGHT WITHIN REACH. PATIENT C/O PAIN AND EDEMA, TOO EARLY TO GIVE PAIN MEDS, AM MAR WHITE PAGED DR. PAGE, NO CALL BACK YET. WILL CONTINUE TO MONITOR.
--- NOTE | 2016-12-01 19:50 | NUR ---
D/C PROTOCOL FOLLOWED. VS STABLE. NO ACTIVE BLEEDING NOTED. IV SITE PATENT AND INTACT. AV SHUNT ON RIGHT UPPER ARM, PATENT AND INTACT. NO ACUTE DISTRESS NOTED. BELONGINGS LIST COMPLETED.
== END 2016-12-01 19:50 | DRG 662 ==
LOC: ER 02:51 → TELE 05:28 → MED 09:00
PROVIDERS: ADMIT Internal Medicine; ATTEND Internal Medicine
PROC: 30243N1 Transfusion of Nonautologous Red Blood Cells into Central Vein, Percutaneous Approach (ICD-10-PCS; principal; 2016-11-25)
PROC: 5A1D60Z (ICD-10-PCS; principal; 2016-11-25)
DX: D57.00 Hb-SS disease with crisis, unspecified (principal); I50.43 Acute on chronic combined systolic (congestive) and diastolic (congestive) heart failure; N18.6 End stage renal disease; D69.6 Thrombocytopenia, unspecified; R18.8 Other ascites; E46 Unspecified protein-calorie malnutrition; E83.51 Hypocalcemia; I13.2 Hypertensive heart and chronic kidney disease with heart failure and with stage 5 chronic kidney disease, or end stage renal disease; Z99.2 Dependence on renal dialysis; G89.29 Other chronic pain; D50.0 Iron deficiency anemia secondary to blood loss (chronic); Z96.643 Presence of artificial hip joint, bilateral; Z79.899 Other long term (current) drug therapy; R04.0 Epistaxis; K80.20 Calculus of gallbladder without cholecystitis without obstruction; K21.9 Gastro-esophageal reflux disease without esophagitis; J98.11 Atelectasis; Z87.01 Personal history of pneumonia (recurrent); Z68.30 Body mass index [BMI] 30.0-30.9, adult; D75.9 Disease of blood and blood-forming organs, unspecified; D63.1 Anemia in chronic kidney disease
CPT/HCPCS: 36415; 70030-TC; 71010; 82306; 82747; 83010; 83550; 83615; 83735; 84100; 84443; 84550; 85014; 85025; 85651; 85730; 86850; 86900; 86901; 86920; 87040; 90937; 93005; 97110; 97116; 97530; A4663; J1170; J1200; J2405; J3490; J7050; P9016-BL; P9021

== ENCOUNTER 2016-12-31 17:55 | Inpatient (IN) | payer MEDICARE, MEDICAID ==
[~2016-12-31] VITALS: Ht 170.2 cm; Wt 84.1 kg
[~2016-12-31 17:55] MED LIST changes: +CLON0.1T PO; +DIPH50VI4 IVP; -HYDR2DIS IV; +HYDR2VIA2 IVP; -PHEN15SP11 NS
[2016-12-31] MEDS ORDERED: IPRA0.2S6 NEB (18:27)
[2016-12-31] MEDS ORDERED: BISA10SU8 RC (18:27)
[2016-12-31] MEDS ORDERED: LACT1CAP39 PO (18:27)
[2016-12-31] MEDS ORDERED: [UNRECOGNIZED DRUG - CODE] TP (18:27)
[2016-12-31] MEDS ORDERED: LACT10SO PO (18:27)
[2016-12-31] MEDS ORDERED: ALBU1.257 NEB (18:27)
--- NOTE | 2016-12-31 18:37 | NUR ---
PT IS IN ROOM #1A. DR MCDONOUGH EVALUATED THE PT.
--- NOTE | 2016-12-31 19:17 | NUR ---
REPORT GIVEN TO WE[employer] ASSEMBLY LINE WORKER RN.
--- NOTE | 2016-12-31 20:27 | NUR ---
Pt. admitted to TELE , under care of Dr. HAGEN Belongs List completed REPORT GIVEN TO MAR ROBISON
--- NOTE | 2016-12-31 21:00 | NUR ---
ADMITTED PATIENT FROM ER VIA GUERNEY, DROWSY BUT ABLE TO TRANSFER SELF TO BED WITH MINIMAL ASSIST. ROUTINE ADMISSION CARE DONE. PLAN OF CARE INITIATED.
[2016-12-31 21:30] VITALS: BP 94/59
--- NOTE | 2016-12-31 21:30 | NUR ---
Patient on deep sleep after Dilaudid was given prior to transfer here in the floor. Consent for blood transfusion was not obtain at this time. Charge nurse aware.
[2016-12-31 23:46] VITALS: BP 121/78
[2017-01-01] VITALS (11 sets, daily range): BP systolic 95–123; BP diastolic 46–87
--- NOTE | 2017-01-01 00:32 | NUR ---
Patient complaint ol low back pain in scale of 8/10, Dilaudid 1mg and Benadryl 25 mg IVP given as ordered. Will monitor.
--- NOTE | 2017-01-01 00:38 | NUR ---
Patient awakened, blood transfusion consent signed. Awaiting charge nurse to come back from break for double checking purposes.
--- NOTE | 2017-01-01 01:13 | NUR ---
Blood transfusion initiated as ordered. VS taken and recorded. Will monitor.
--- NOTE | 2017-01-01 01:35 | NUR ---
No s/s of adverse reaction noted. Will continue to monitor.
--- NOTE | 2017-01-01 03:00 | NUR ---
Blood transfusion completed without s/s of adverse reaction noted. Pt tolerated procedure well.
[2017-01-01 07:02] LABS: HEMOGLOBIN 7.1 G/DL (14.0-18.0); MEAN CORPUSCULAR HEMOGLOBIN 28.7 UUG (27.0-31.0); MEAN CORPUSCULAR HGB CONC 34 g/dL (32.0-37.0); MEAN CORPUSCULAR VOLUME 85.6 FL (82.0-92.0); PLATELET COUNT (AUTO) 117 K/UL (150-450)
[2017-01-01 07:05] LABS: WHITE BLOOD COUNT (AUTO) 12.4 K/UL (4.0-11.2)
[2017-01-01 07:07] LABS: RED BLOOD CELL COUNT(AUTO) 2.46 MIL/UL (4.7-6.1)
[2017-01-01 07:09] LABS: HEMATOCRIT 21.1 % (40-50)
--- NOTE | 2017-01-01 07:25 | NUR ---
CRITICAL VALUE RECEIVED FROM LAB ( RBC 2.46, H/H 7.1/21.1). NOT REPORTED TO MD, TRENDING TO RIGHT DIRECTION. cHARGE NURSE AWARE.
--- NOTE | 2017-01-01 08:00 | NUR ---
awake alert and oriented, states pain much lesser, on 3l/nc 02, denies of dyspnea/chest pain, tele SR 70's, explained plan of care- verbalized understanding, left femoral central line- triple lumen intact and patent- dsg dry and intact, left upper arm shunt with good thrill/bruit, call light within reach
[2017-01-01 08:06] LABS: POTASSIUM 4.6 mmol/L (3.5-5.1)
[2017-01-01 08:46] LABS: EOSINOPHILS % (MANUAL) 2 % (0-8); LYMPHOCYTES % (MANUAL) 17 % (20-40); MONOCYTES % (MANUAL) 13 % (2-10); NEUTROPHILS % (MANUAL) 68 % (42-75)
--- NOTE | 2017-01-01 09:13 | NUR ---
RT NOT AWARE OF TX. RT WILL START PT TX AT 1100.
--- NOTE | 2017-01-01 09:44 | NUR ---
medicated with Dilaudid 1 mg iv for c/o pain on lower back and legs- continue to monitor
--- NOTE | 2017-01-01 10:30 | NUR ---
seen by Zenaida Soto EXTENSION AGENT- see notes, stool for OB to be collected- pt informed.
[2017-01-01 11:06] LABS: BILIRUBIN,DIRECT 0.6 mg/dL (0.0-0.2); BILIRUBIN,TOTAL 1.3 mg/dL (0.2-1.0); TOTAL PROTEIN, SERUM 8.7 g/dL (6.4-8.2)
--- NOTE | 2017-01-01 11:30 | NUR ---
dialysis nurse here at bedside
--- NOTE | 2017-01-01 12:30 | NUR ---
dialysis in progress, vss
--- NOTE | 2017-01-01 13:40 | NUR ---
dialysis completed- removed 4 liters per HD nurse- tolerated well- lunch served
--- NOTE | 2017-01-01 18:29 | NUR ---
resting in bed, states pain lesser 2/10, all needs attended and met, no bleeding noted, call light within reach
--- NOTE | 2017-01-01 19:35 | NUR ---
PT RECEIVED IN BED, AWAKE. A/OX4. ABLE TO MAKE NEEDS KNOWN. V/S STABLE. IN NO ACUTE DISTRESS. NO C/O PAIN AT THIS TIME. PT NOEMI INTACT AND PATENT, BRUIT HEARD. LEFT FEMORAL TRIPLE LUMEN INTACT/PATENT, HEP-LOCKED. PT IS ON 3L NC WITH 97% SATURATION, WNL. 73 SINUS RHYTHM ON THE TELE MONITOR. SAFETY MEASURES IMPLEMENTED. CALL LIGHT WITHIN REACH.
[2017-01-02] VITALS (10 sets, daily range): BP systolic 96–119; BP diastolic 51–68
--- NOTE | 2017-01-02 05:48 | NUR ---
END OF SHIFT NOTES. PT SLEPT INTERMITTENTLY THROUGHOUT SHIFT. IN STABLE CONDITION. SINUS RHYTHM 70 ON THE TELE MONITOR. LEFT FEMORAL TRIPLE LUMEN, INTACT AND PATENT. PAIN MANAGED. ALL NEEDS ATTENDED. SAFETY MAINTAINED. CALL LIGHT WITHIN REACH.
[2017-01-02 06:24] LABS: CREATININE 4.1 mg/dL (0.6-1.3); MAGNESIUM 1.9 mg/dL (1.8-2.4); PHOSPHOROUS 5.9 mg/dL (2.5-4.9); POTASSIUM 4.1 mmol/L (3.5-5.1)
[2017-01-02 07:16] LABS: BASOPHILS # (AUTO) 0.1 K/uL (0.0-8.0); EOSINOPHILS # (AUTO) 0.3 K/uL (0.0-0.7); EOSINOPHILS % (AUTO) 2.9 % (0.0-7.0); LYMPHOCYTES % (AUTO) 21.4 % (20.5-51.5); MEAN CORPUSCULAR HEMOGLOBIN 29.7 uug (23.8-33.4); MEAN CORPUSCULAR HGB CONC 34 g/dL (32.5-36.3); MEAN CORPUSCULAR VOLUME 87.8 fL (73.0-96.2); MONOCYTES # (AUTO) 1.5 K/uL (2.0-10.0); MONOCYTES % (AUTO) 16.2 % (0.0-11.0); NEUTROPHILS # (AUTO) 5.6 K/uL (1.8-8.9); NEUTROPHILS % (AUTO) 58.5 % (38.5-71.5); PLATELET COUNT (AUTO) 86 K/uL (152-348); WHITE BLOOD COUNT (AUTO) 9.6 K/uL (3.6-10.2)
[2017-01-02 07:37] LABS: RED BLOOD CELL COUNT(AUTO) 2.14 MIL/uL (4.06-5.63)
[2017-01-02 07:38] LABS: HEMATOCRIT 18.8 % (36.7-47.1)
[2017-01-02 07:44] LABS: HEMOGLOBIN 6.4 g/dL (12.5-16.3)
--- NOTE | 2017-01-02 08:00 | NUR ---
awake alert, denies of pain a this time, on 3l/nc, generalized edema noted, right upper arm shunt with dsg- dry and intact, left femoral central line in place and patent, explained plan of care- verbalized understanding, no bleeding noted, call light within reach
--- NOTE | 2017-01-02 09:30 | NUR ---
Zenaida Soto CLIENT SERVER PROGRAMMER here and informed of H/H today- 6.4/18.8
[2017-01-02 09:36] LABS: EOSINOPHILS % (MANUAL) 2 % (0-8); LYMPHOCYTES % (MANUAL) 22 % (20-40); MONOCYTES % (MANUAL) 4 % (2-10); NEUTROPHILS % (MANUAL) 72 % (42-75)
--- NOTE | 2017-01-02 10:45 | NUR ---
c/o pain on the lower bacl and leegs- medicated with Dilaudid 1 mg iv as prn, also medicated for itching with Benadryl 25 mg iv as prn
--- NOTE | 2017-01-02 13:00 | NUR ---
dialysis in progress, no distress noted
--- NOTE | 2017-01-02 14:15 | NUR ---
seen by Dr Mancilla with orders- to get 1 unit PRBC
--- NOTE | 2017-01-02 15:15 | NUR ---
unit of blood givein by Dialysis nurse, vsremedios- will continue to monitor for any reactions
--- NOTE | 2017-01-02 15:30 | NUR ---
vss, no blood reactions noted
--- NOTE | 2017-01-02 15:37 | NUR ---
blood transfusion completed
--- NOTE | 2017-01-02 15:40 | NUR ---
dialysis completed, tolerated well, removed 3.7 liters per dialysis nurse
--- NOTE | 2017-01-02 19:00 | NUR ---
no distress noted, all needs attended and met, no bleeding noted, call light within reach
[2017-01-03] VITALS: BP 106/63
--- NOTE | 2017-01-03 03:41 | NUR ---
COMPLAINT OF LOWER BACK PAIN, GIVEN DILAUDID ROUND THE CLOCK PRN ORDERED. ON NC 2LPM O2 SATS AT 100% NO RESPIRATORY DISTRESS ABLE TO CLEAR SECRETIONS. OTHERWISE VS WITHIN NORMAL LIMITS. NO SIGNS OF ACTIVE BLEEDING AT THIS TIME, WILL RECHECK HGB THIS MORNING. CALL LIGHT WITHIN REACH.
[2017-01-03 04:00] VITALS: BP 114/69
[2017-01-03 06:39] LABS: BASOPHILS # (AUTO) 0.1 K/uL (0.0-8.0); BASOPHILS % (AUTO) 0.6 % (0.0-2.0); EOSINOPHILS # (AUTO) 0.3 K/uL (0.0-0.7); LYMPHOCYTES # (AUTO) 2.3 K/uL (20.0-40.0); LYMPHOCYTES % (AUTO) 20.9 % (20.5-51.5); MEAN CORPUSCULAR HEMOGLOBIN 30.1 uug (23.8-33.4); MEAN CORPUSCULAR HGB CONC 34 g/dL (32.5-36.3); MEAN CORPUSCULAR VOLUME 87.9 fL (73.0-96.2); MONOCYTES # (AUTO) 1.8 K/uL (2.0-10.0); MONOCYTES % (AUTO) 16.5 % (0.0-11.0); NEUTROPHILS # (AUTO) 6.4 K/uL (1.8-8.9); PLATELET COUNT (AUTO) 78 K/uL (152-348); WHITE BLOOD COUNT (AUTO) 10.9 K/uL (3.6-10.2)
[2017-01-03 06:52] LABS: HEMATOCRIT 20.5 % (36.7-47.1); RED BLOOD CELL COUNT(AUTO) 2.33 MIL/uL (4.06-5.63)
--- NOTE | 2017-01-03 07:06 | NUR ---
HELD CATAPRES THIS MORNING BP OF 96/58 NO DIZZINESS PER PATIENT REPORT. CHANGE DRESSING ON LEFT FEMORAL CVL. CALL LIGHT WITHIN REACH.
[2017-01-03 07:28] LABS: BASOPHILS % (MANUAL) 1 % (0-2); EOSINOPHILS % (MANUAL) 1 % (0-8); LYMPHOCYTES % (MANUAL) 21 % (20-40); MONOCYTES % (MANUAL) 4 % (2-10); NEUTROPHILS % (MANUAL) 73 % (42-75)
--- NOTE | 2017-01-03 08:00 | NUR ---
AWAKE ALERT COOPERATE WELL NO PAIN ,SOB ON FALL PRECAUTION CALL HORTON IN REACH AND BED ALARM ON
--- NOTE | 2017-01-03 10:00 | NUR ---
MELIDA GUTIERREZ SEE PATIENT AND LAB RESULT THIS AM NEW ORDER FOR AM LAB
[2017-01-03 11:16] VITALS: BP 115/76
--- NOTE | 2017-01-03 13:00 | NUR ---
EAT LUNCH WELL NO N/V OR ABD PAIN RESTING QUIET AND WELL
[2017-01-03 15:30] VITALS: BP 112/66
--- NOTE | 2017-01-03 17:20 | NUR ---
CONDITION STABLE PAIN UNDER CONTROL, NO BLEEDING NOTED SAFETY MEASURE PROVIDED CALL HORTON IN REACH AND BED ALARM ON RESTING WELL MOST OF THE TIME TODAY NO SOB CONTINUE O2 AT 2L AND HHN BY RT GIVEN ORDER
[2017-01-03 19:35] LABS: *OCCULT BLOOD STOOL POSITIVE (NEGATIVE)
--- NOTE | 2017-01-03 19:44 | NUR ---
RECD PT IN BED , SLEEPING, NO ACUTE SSX OF ACUTE DISTRESS, EASILY AROUSABLE.
[2017-01-03 20:04] VITALS: BP 98/60
[2017-01-03 22:00] VITALS: BP 100/64
--- NOTE | 2017-01-03 23:13 | NUR ---
RESTING IN BED, NO VOICED COMPLAINTS AT THIS TIME, NO HYPERTENSIVE PROBLEMS NOTED. HS SNACKS TAKEN WELL.KEPT WARM AND COMFORTABLE.
[2017-01-04] VITALS (9 sets, daily range): BP systolic 101–142; BP diastolic 43–66
--- NOTE | 2017-01-04 03:00 | NUR ---
MEDICATED WITH BENADRYL 25 MG IV FOR ITCHING AND DILAUDID 1 MG IV FOR GEN PAIN 11/20,MEDS GIVEN THRU LEFT GROIN CENTRAL LINE.,
--- NOTE | 2017-01-04 04:05 | NUR ---
SLEPT AT LONG INTERVALS,TRIPLE LUMEN LINE ON LEFT GROIN INTACT AND PATENT,NO BLEEDING NOTED.STILL ANURIC.VITAL SIGNS STABLE.UNEVENTFUL NITE.
[2017-01-04 06:44] LABS: CREATININE 5.7 mg/dL (0.6-1.3); MAGNESIUM 2.1 mg/dL (1.8-2.4); PHOSPHOROUS 4.6 mg/dL (2.5-4.9); POTASSIUM 4.4 mmol/L (3.5-5.1)
[2017-01-04 06:52] LABS: BASOPHILS # (AUTO) 0.1 K/uL (0.0-8.0); BASOPHILS % (AUTO) 0.6 % (0.0-2.0); EOSINOPHILS # (AUTO) 0.4 K/uL (0.0-0.7); LYMPHOCYTES # (AUTO) 2.6 K/uL (20.0-40.0); LYMPHOCYTES % (AUTO) 24.5 % (20.5-51.5); MEAN CORPUSCULAR HEMOGLOBIN 29.7 uug (23.8-33.4); MEAN CORPUSCULAR HGB CONC 34 g/dL (32.5-36.3); MEAN CORPUSCULAR VOLUME 87.2 fL (73.0-96.2); MONOCYTES # (AUTO) 1.7 K/uL (2.0-10.0); MONOCYTES % (AUTO) 15.7 % (0.0-11.0); NEUTROPHILS # (AUTO) 5.8 K/uL (1.8-8.9); NEUTROPHILS % (AUTO) 55.2 % (38.5-71.5); PLATELET COUNT (AUTO) 68 K/uL (152-348); WHITE BLOOD COUNT (AUTO) 10.5 K/uL (3.6-10.2)
[2017-01-04 07:03] LABS: HEMOGLOBIN 6.7 g/dL (12.5-16.3); RED BLOOD CELL COUNT(AUTO) 2.25 MIL/uL (4.06-5.63)
[2017-01-04 07:04] LABS: HEMATOCRIT 19.6 % (36.7-47.1)
--- NOTE | 2017-01-04 07:10 | NUR ---
BLOOD WORKS DONE ,AWAITING RESULT,MEDICATED WITH DILAUDID AND BENADRYL ,WILL REASSESS FOR EFFECTIVENESS.REPORT TO AM NURSE, IN APPARENTLY FAIR CONDITION.
--- NOTE | 2017-01-04 08:00 | NUR ---
awake alert cooperate well no sob or pain continue o2 at 2l o2 sat was 96% on fall precaution call lao in reach
--- NOTE | 2017-01-04 08:30 | NUR ---
lab result of hb/hct REPORT TO Christi GREEN AND ORDER TO GIVE ONE UNIT OF PRBC TODAY
[2017-01-04 09:33] LABS: BASOPHILS % (MANUAL) 1 % (0-2); EOSINOPHILS % (MANUAL) 3 % (0-8); LYMPHOCYTES % (MANUAL) 29 % (20-40); MONOCYTES % (MANUAL) 11 % (2-10); NEUTROPHILS % (MANUAL) 56 % (42-75)
--- NOTE | 2017-01-04 10:00 | NUR ---
dr sanabria was here and order hd today
--- NOTE | 2017-01-04 10:30 | NUR ---
HD AT BEDSIDE GARCIA PROCEDURE WELL VS STABLE PAIN UNDER CONTROL
--- NOTE | 2017-01-04 13:00 | NUR ---
HD COMPLETE TAKE OUT 2500ML VS TAKEN STABLE EAT LUNCH AT THIS TIME
--- NOTE | 2017-01-04 15:10 | NUR ---
START BLOOD TRANSFUSION TODAY ORDER VS STABLE RESTING WELL
--- NOTE | 2017-01-04 18:00 | NUR ---
BLOOD TRANSFUSION COMPLETE NO REACTION VS STABLE
--- NOTE | 2017-01-04 18:20 | NUR ---
STABLE HEMODYNAMIC PAIN UNDER CONTROL SAFETY MEASURE PROVIDED BED ALARM ON AND CALL HORTON IN REACH
[2017-01-05 05:57] VITALS: BP 112/74
--- NOTE | 2017-01-05 06:00 | NUR ---
NSG: ALL NEEDS ATTENDED. NO ACUTE DISTRESS NOTED. RECEIVED PAIN MEDS AND BENADRYL NEEDED. PT COMFORTABLE AT THIS TIME. V/S STABLE. CONT TO WITH TREATMENT PLAN.
[2017-01-05 07:46] LABS: BASOPHILS % (AUTO) 0.2 % (0.0-2.0); EOSINOPHILS # (AUTO) 0.5 K/uL (0.0-0.7); EOSINOPHILS % (AUTO) 3.9 % (0.0-7.0); HEMOGLOBIN 7.3 G/DL (14.0-18.0); LYMPHOCYTES # (AUTO) 2.4 K/UL (0.8-4.8); LYMPHOCYTES % (AUTO) 20.3 % (20.5-51.5); MEAN CORPUSCULAR HEMOGLOBIN 28.5 UUG (27.0-31.0); MEAN CORPUSCULAR HGB CONC 33 g/dL (32.0-37.0); MEAN CORPUSCULAR VOLUME 86.6 FL (82.0-92.0); MONOCYTES # (AUTO) 1.8 K/UL (0.1-1.30); MONOCYTES % (AUTO) 15.6 % (0.0-11.0); PLATELET COUNT (AUTO) 66 K/UL (150-450); RED BLOOD CELL COUNT(AUTO) 2.56 MIL/UL (4.7-6.1); WHITE BLOOD COUNT (AUTO) 11.7 K/UL (4.0-11.2)
[2017-01-05 08:02] LABS: HEMATOCRIT 22.1 % (40-50)
--- NOTE | 2017-01-05 08:16 | NUR ---
awake alert and oriented, medicated for pain and itching, on 3l/nc, informed of plan for egd and colonoscopy in am, needs attended, call light within reach
--- NOTE | 2017-01-05 10:00 | NUR ---
citrate of magnesium started
[2017-01-05 10:38] LABS: BASOPHILS % (MANUAL) 0 % (0-2); EOSINOPHILS % (MANUAL) 5 % (0-8); LYMPHOCYTES % (MANUAL) 25 % (20-40); MONOCYTES % (MANUAL) 11 % (2-10); NEUTROPHILS % (MANUAL) 59 % (42-75)
--- NOTE | 2017-01-05 11:00 | NUR ---
report given to Rob MANUEL for continuity of care, resting in bed, no distress noted, call light within reach
[2017-01-05 11:46] VITALS: BP 121/77
[2017-01-05 15:42] VITALS: BP 145/80
--- NOTE | 2017-01-05 19:00 | NUR ---
RECD PT IN BED,RESTING QUIETLY,NO OMPLAINTS PRESENTED AT THIS TIME, NEEDS ATTENDED TO, NO ACUTE DISTRESS NOTED.
[2017-01-05 20:00] VITALS: BP 103/63
--- NOTE | 2017-01-05 21:00 | NUR ---
1 BOTTLE MAG CITRATE 296ML. TAKEN,TOLERATED WELL, SLEPT AT SHORT INTERVALS.
--- NOTE | 2017-01-05 22:00 | NUR ---
PT WENT TO BR , USING A WALKER , CONTINUES TO TAKE MAG CITRATE,JUST MEDICATED WITH DILAUDID AND BENADRYL,WILL EVAL EFFECTIVENESS OF MEDS LATER. FOR EGD IN AM.PT STATED THAT HE WILL SIGN CONSENT TOMORROW.FECAL MATERIAL CHECKED FOR CLARITY, STILL BROWNISH IN COLOR. ADVISED TO TAKE THE 3RD BOTTLE OF MAG CITRATE.
--- NOTE | 2017-01-05 22:00 | NUR ---
COREG AND CATAPRES HELD DUE TO LOW BP.
[2017-01-06 06:35] LABS: BASOPHILS % (AUTO) 0.3 % (0.0-2.0); EOSINOPHILS # (AUTO) 0.5 K/uL (0.0-0.7); EOSINOPHILS % (AUTO) 3.6 % (0.0-7.0); HEMOGLOBIN 7.3 G/DL (14.0-18.0); LYMPHOCYTES # (AUTO) 2.3 K/UL (0.8-4.8); LYMPHOCYTES % (AUTO) 18.2 % (20.5-51.5); MEAN CORPUSCULAR HEMOGLOBIN 29.5 UUG (27.0-31.0); MEAN CORPUSCULAR HGB CONC 34 g/dL (32.0-37.0); MEAN CORPUSCULAR VOLUME 86.5 FL (82.0-92.0); MONOCYTES # (AUTO) 1.9 K/UL (0.1-1.30); NEUTROPHILS # (AUTO) 8.1 K/UL (1.8-8.9); NEUTROPHILS % (AUTO) 62.9 % (38.5-71.5); PLATELET COUNT (AUTO) 60 K/UL (150-450)
[2017-01-06 06:46] LABS: CREATININE 6.4 mg/dL (0.6-1.3); MAGNESIUM 2.8 mg/dL (1.8-2.4); PHOSPHOROUS 4.2 mg/dL (2.5-4.9); POTASSIUM 4.8 mmol/L (3.5-5.1)
--- NOTE | 2017-01-06 06:51 | NUR ---
CONSENT SIGNED FOR EGD.,RESTING IN BED,NO VOICED COMPLAINTS,REPORT TO AM NURSE GIVEN.UNEVENTFUL NITE, BLOOD DRAWS DONE.
[2017-01-06 07:11] LABS: RED BLOOD CELL COUNT(AUTO) 2.46 MIL/UL (4.7-6.1)
[2017-01-06 07:13] LABS: HEMATOCRIT 21.2 % (40-50)
--- NOTE | 2017-01-06 08:30 | NUR ---
Pt had a BM with SOFT Brownish stool. Called DR Smith GI that pt is not clear with BM prep. Spoke with DR Marsh if ok to give another mag citrate -current mag of 2.8 (dr marsh aware) OK per Dr marsh to give another Mag Citrate x 1. Put pt back on clear liquid discussed with pt importance of not eating any solid foods. Pt agreeable with clear liquid diet. Will monitor pt's BM. 0900 Dr smith canceled GI procedure for today. Notifed GI lab team. Notifed [facility] dialysis nurse so pt can be dialized earlier.
[2017-01-06 09:46] LABS: LYMPHOCYTES % (MANUAL) 17 % (20-40); MONOCYTES % (MANUAL) 5 % (2-10); NEUTROPHILS % (MANUAL) 76 % (42-75)
[2017-01-06 09:47] LABS: EOSINOPHILS % (MANUAL) 2 % (0-8)
--- NOTE | 2017-01-06 10:00 | NUR ---
Dialysis started. Pt is in no acute distress. Call light is within reach.
[2017-01-06 10:01] LABS: WHITE BLOOD COUNT (AUTO) 12.8 K/UL (4.0-11.2)
[2017-01-06 11:35] VITALS: BP 111/65
--- NOTE | 2017-01-06 13:00 | NUR ---
Dialysis done took 5 liters out. Pt tolerated dialysis. Pt is in no acute distress. Pt having bms still brown and not clear. Will continue to monitor.
[2017-01-06 16:02] VITALS: BP 124/80
--- NOTE | 2017-01-06 18:00 | NUR ---
Spoke with DR lucas GI new orders received and carried out. Notified pt had multiple bowel movements but still not clear. Call light is within reach.
[2017-01-06 20:00] VITALS: BP 122/66
--- NOTE | 2017-01-06 22:30 | NUR ---
On clear liquid diet for procedure in G.I procedure in AM. Patient tolerated lactulose p.o. Medicated for pain PRN.
--- NOTE | 2017-01-07 | NUR ---
Instructed patient to be NPO, patient verbalized understanding. Had BM x3, formed stool noted.
--- NOTE | 2017-01-07 03:00 | NUR ---
Dark yellow liquid stool noted.
[2017-01-07 05:47] VITALS: BP 114/70
[2017-01-07 06:58] LABS: BILIRUBIN,TOTAL 1.7 mg/dL (0.2-1.0); CREATININE 5.7 mg/dL (0.6-1.3); MAGNESIUM 2.7 mg/dL (1.8-2.4); PHOSPHOROUS 4.2 mg/dL (2.5-4.9); POTASSIUM 4.8 mmol/L (3.5-5.1); TOTAL PROTEIN, SERUM 7.9 g/dL (6.4-8.2)
[2017-01-07 07:11] LABS: BASOPHILS % (AUTO) 0.1 % (0.0-2.0); EOSINOPHILS # (AUTO) 0.3 K/uL (0.0-0.7); EOSINOPHILS % (AUTO) 2.9 % (0.0-7.0); LYMPHOCYTES % (AUTO) 16.7 % (20.5-51.5); MEAN CORPUSCULAR HEMOGLOBIN 29.1 UUG (27.0-31.0); MEAN CORPUSCULAR HGB CONC 34 g/dL (32.0-37.0); MEAN CORPUSCULAR VOLUME 85.1 FL (82.0-92.0); MONOCYTES # (AUTO) 1.5 K/UL (0.1-1.30); MONOCYTES % (AUTO) 12.3 % (0.0-11.0); NEUTROPHILS # (AUTO) 8.1 K/UL (1.8-8.9); PLATELET COUNT (AUTO) 53 K/UL (150-450); WHITE BLOOD COUNT (AUTO) 11.9 K/UL (4.0-11.2)
[2017-01-07 07:19] LABS: HEMOGLOBIN 6.9 G/DL (14.0-18.0); RED BLOOD CELL COUNT(AUTO) 2.35 MIL/UL (4.7-6.1)
--- NOTE | 2017-01-07 08:00 | NUR ---
Pt is in no acute distress. Discussed plan of care with patient re: keeping NPO status, possible EGD colonoscopy procedure today, pain management, fall precaution. Pt agreeable with plan of care. Will f/u with Dr lucas re: what time procedure for egd and colonoscopy. .
--- NOTE | 2017-01-07 08:30 | NUR ---
Called nursing finishing and shipping supervisor if any scheduled procedure for pt - no call in from DR smith. Called dr smith if he is going to do procedure today and that pt was kept npo after midnight. Per DR smith Procedure will be today and that he will call in to schedule procedure. 900 Dr Smith Scheduled procedure for 1330. Consent signed.
[2017-01-07 11:11] VITALS: BP 102/66
[2017-01-07 11:21] LABS: EOSINOPHILS % (MANUAL) 4 % (0-8); LYMPHOCYTES % (MANUAL) 13 % (20-40); MONOCYTES % (MANUAL) 14 % (2-10); NEUTROPHILS % (MANUAL) 69 % (42-75)
--- NOTE | 2017-01-07 15:00 | NUR ---
Received pt back from recovery. Pt alert and oriented x 4. Call light is within reach.
[2017-01-07 15:24] VITALS: BP 113/68
--- NOTE | 2017-01-07 18:26 | NUR ---
Pt tolerating renal diet. Pt's pain managed. No fall noted this shift.
--- NOTE | 2017-01-07 20:00 | NUR ---
RECEIVED SHIFT REPORT FROM PREVIOUS SHIFT. PATIENT IN STABLE CONDITION, NO SIGNS OF DISTRESS. NO COMPLAINTS OF CHEST PAIN. PATIENT COMPLAINED OF DRYNESS IN NARES. HUMIDIFIER CONNECTED AND WORKING FOR PATIENT. PATIENT ASKED FOR PAIN MEDICATION FOR LOWER BACK PAIN, PAIN OF 9/10 ON PAIN SCALE. PAIN MEDICATION ADMINISTERED, TOLERATED PAIN. FALL PRECAUTION IMPLEMENTED. BED ALARM ON, IN LOW POSITION. PATIENT UNDERSTANDS THE USE OF CALL LIGHT FOR ASSISTANCE TO RESTROOM. SAFETY AND COMFORT PROVIDED TO PATIENT.
[2017-01-07 20:20] VITALS: BP 114/77
--- NOTE | 2017-01-07 21:00 | NUR ---
COREG HELD DUE TO LOW BP
--- NOTE | 2017-01-07 22:00 | NUR ---
CATAPRES HELD DUE TO LOW BP.
[2017-01-08 04:57] VITALS: BP 113/74
--- NOTE | 2017-01-08 05:35 | NUR ---
PATIENT WOKE UP ONCE DURING THE NIGHT TO ASK FOR PAIN MEDICATION. BP CHECKED, PAIN MEDICATION ADMINISTERED. PAIN LEVEL TOLERABLE FOR PATIENT. FALL PRECAUTION CONTINUED TO BE IMPLEMENTED. NO FALLS NOTED DURING SHIFT.
--- NOTE | 2017-01-08 05:45 | NUR ---
CLONIDINE NOT ADMINISTERED TO PATIENT DUE TO LOW BP.
--- NOTE | 2017-01-08 06:29 | NUR ---
PATIENT SLEPT INTERMITTENTLY T/O SHIFT. NO ACUTE DISTRESS NOTED. PATIENT IS ON 02 2L NC. C/O BACK PAIN 12/21 Q4H. PAIN MEDS GIVEN. STATED RELIEF. HELD B/P MEDS BECAUSE B/P WAS LOW. REFUSED RT TX. NOTED 3 LUMEN LEFT FEMORAL LINE, PATENT AND INTACT. NOTED GENERALIZED EDEMA. ALL NEEDS MET.
--- NOTE | 2017-01-08 07:14 | NUR ---
RECEIVED REPORT FROM THE HEAD PIECE ASSEMBLER NURSE, PATIENT IN BED SLEEPING, NO EVIDENCE OF DISTRESS NOTED. BED IN LOW POSITION, SIDE RAILS UP X2.
[2017-01-08 08:42] LABS: HEMOGLOBIN 7.1 G/DL (14.0-18.0); MEAN CORPUSCULAR HEMOGLOBIN 28.8 UUG (27.0-31.0); MEAN CORPUSCULAR HGB CONC 33 g/dL (32.0-37.0); MEAN CORPUSCULAR VOLUME 86.5 FL (82.0-92.0); PLATELET COUNT (AUTO) 60 K/UL (150-450); WHITE BLOOD COUNT (AUTO) 10.4 K/UL (4.0-11.2)
[2017-01-08 08:59] LABS: HEMATOCRIT 21.3 % (40-50); RED BLOOD CELL COUNT(AUTO) 2.47 MIL/UL (4.7-6.1)
--- NOTE | 2017-01-08 09:00 | NUR ---
Patient had dialysis today and 2.5Liters were removed. Patient tolerated well, all morning medications were witheld to be administered after dialysis.
[2017-01-08 12:03] VITALS: BP 125/64
[2017-01-08 14:48] LABS: BASOPHILS % (MANUAL) 1 % (0-2); EOSINOPHILS % (MANUAL) 5 % (0-8); LYMPHOCYTES % (MANUAL) 20 % (20-40); MONOCYTES % (MANUAL) 9 % (2-10); MYELOCYTES % 2 % (0-0); NEUTROPHILS % (MANUAL) 63 % (42-75)
[2017-01-08 15:47] VITALS: BP 126/79
--- NOTE | 2017-01-08 18:17 | NUR ---
Patient had intermittent pain throughout the day, which was relieved with medication for short periods of time. Patient currently in bed, no evidence of distress noted, bed in low position, side rails up x2. Patient refuses to follow a renal diet and orders food to his room from outside the hospital.
--- NOTE | 2017-01-08 19:30 | NUR ---
RECEIVED PATIENT LAYING COMFORTABLY IN BED. NO ACUTE DISTRESS NOTED. PATIENT IS ON 02 2L NC. A&O X4. SKIN INTACT. NOTED GENERALIZED EDEMA. C/O BACK PAIN 09/20. WILL REVIEW MEDS AND WILL GIVE MEDS ORDERED. NOTED RIGHT AV SHUNT PATENT AND INTACT. NOTED LEFT FEMORAL TRIPLE LUMEN LINE PATENT AND INTACT. AMBULATE WITH ASSIST. SAFETY INITIATED. CALL LIGHT WITHIN REACH. WILL CONTINUE TO MONITOR.
[2017-01-08 20:22] VITALS: BP 122/68
--- NOTE | 2017-01-09 00:14 | NUR ---
Pt asleep. No distress noted. HHN tx not given. MAR Salter was in the room with RT.
--- NOTE | 2017-01-09 03:48 | NUR ---
Pt asleep. No distress noted. HHN tx not given. RN Joie aware.
[2017-01-09 04:00] VITALS: BP 112/79
--- NOTE | 2017-01-09 06:12 | NUR ---
patient slept intermittently t/o shift. c/o 01/20 low back pain t/o shift, meds given, stated relief. on O2 2L NC. noted generalized edema. no episodes of epistaxis on my shift. anuric. patient does not follow renal diet per MD orders. continuously eats delivered food from outside. safety and comfort measures maintained t/o shift. all meds given as ordered. all needs met.
--- NOTE | 2017-01-09 07:20 | NUR ---
RECEIVED REPORT FROM GIS ANALYST NURSE, PATIENT IN BED SLEEPING, NO EVIDENCE OF DISTRESS NOTED, BED IN LOW POSITION, SIDE RAILS UP X2.
[2017-01-09 07:41] LABS: BASOPHILS # (AUTO) 0.1 K/uL (0.0-8.0); BASOPHILS % (AUTO) 0.8 % (0.0-2.0); EOSINOPHILS # (AUTO) 0.3 K/uL (0.0-0.7); EOSINOPHILS % (AUTO) 3.8 % (0.0-7.0); LYMPHOCYTES # (AUTO) 1.9 K/uL (20.0-40.0); LYMPHOCYTES % (AUTO) 21.5 % (20.5-51.5); MEAN CORPUSCULAR HEMOGLOBIN 29.7 uug (23.8-33.4); MEAN CORPUSCULAR HGB CONC 34 g/dL (32.5-36.3); MEAN CORPUSCULAR VOLUME 86.7 fL (73.0-96.2); MONOCYTES # (AUTO) 1.3 K/uL (2.0-10.0); MONOCYTES % (AUTO) 14.9 % (0.0-11.0); NEUTROPHILS # (AUTO) 5.1 K/uL (1.8-8.9); WHITE BLOOD COUNT (AUTO) 8.6 K/uL (3.6-10.2)
[2017-01-09 07:56] LABS: HEMOGLOBIN 7.2 g/dL (12.5-16.3); PLATELET COUNT (AUTO) 43 K/uL (152-348)
[2017-01-09 07:57] LABS: BILIRUBIN,TOTAL 1.6 mg/dL (0.2-1.0); CREATININE 6.3 mg/dL (0.6-1.3); MAGNESIUM 2.5 mg/dL (1.8-2.4); PHOSPHOROUS 5.8 mg/dL (2.5-4.9); POTASSIUM 5.1 mmol/L (3.5-5.1); TOTAL PROTEIN, SERUM 7.9 g/dL (6.4-8.2)
[2017-01-09 07:57] LABS: RED BLOOD CELL COUNT(AUTO) 2.42 MIL/uL (4.06-5.63)
[2017-01-09] MEDS ORDERED: PANT40TA2 PO (08:19)
[2017-01-09 08:58] LABS: BAND % (MANUAL) 2 % (0-10); BASOPHILS % (MANUAL) 1 % (0-2); EOSINOPHILS % (MANUAL) 3 % (0-8); LYMPHOCYTES % (MANUAL) 22 % (20-40); MONOCYTES % (MANUAL) 12 % (2-10); NEUTROPHILS % (MANUAL) 60 % (42-75)
[2017-01-09 10:57] VITALS: BP 122/61
--- NOTE | 2017-01-09 15:00 | NUR ---
PATIENT HAD DIALYSIS TODAY AND 3 LITERS REMOVED PER DIALYSIS NURSE. PATIENT TOLERATED WELL.
[2017-01-09 15:01] VITALS: BP 114/46
--- NOTE | 2017-01-09 17:33 | NUR ---
PATIENT IS CURRENTLY RESTING IN BED, REQUESTING PAIN MEDICATION FOR SEVERE PAIN. dILAUDID AND BENADRYL ADMINISTERED. DISCHARGE TEACHING PERFORMED, ALL QUESTIONS ANSWERED.
--- NOTE | 2017-01-09 18:38 | NUR ---
report given to local [place] truck driver, patient transported to [facility] facility./
== END 2017-01-09 18:30 | DRG 377 ==
LOC: ER 18:01 → TELE 20:40 → MED 01-03 12:47
PROVIDERS: ADMIT Internal Medicine; ATTEND Internal Medicine
DX: K29.71 Gastritis, unspecified, with bleeding (principal); N18.6 End stage renal disease; I13.2 Hypertensive heart and chronic kidney disease with heart failure and with stage 5 chronic kidney disease, or end stage renal disease; D57.00 Hb-SS disease with crisis, unspecified; D69.6 Thrombocytopenia, unspecified; E46 Unspecified protein-calorie malnutrition; R16.2 Hepatomegaly with splenomegaly, not elsewhere classified; I50.32 Chronic diastolic (congestive) heart failure; K80.20 Calculus of gallbladder without cholecystitis without obstruction; Z99.2 Dependence on renal dialysis; G40.909 Epilepsy, unspecified, not intractable, without status epilepticus; K21.0 Gastro-esophageal reflux disease with esophagitis; G89.4 Chronic pain syndrome; Z68.29 Body mass index [BMI] 29.0-29.9, adult; E83.19 Other disorders of iron metabolism; K44.9 Diaphragmatic hernia without obstruction or gangrene; K64.8 Other hemorrhoids; R04.0 Epistaxis; Z79.899 Other long term (current) drug therapy; Z96.643 Presence of artificial hip joint, bilateral
CPT/HCPCS: 36415; 71010; 83550; 83735; 84100; 85025; 86850; 86900; 86901; 86920; 90937; 93005; 94640; 94664; 97110; 97116; 97530; A4217; A4663; C9113; J1170; J1200; J2405; J3490; J3590; J7040; J7050; P9016-BL; P9021

== ENCOUNTER 2017-01-14 20:05 | Inpatient (IN) | payer MEDICARE, MEDICAID ==
[~2017-01-14] VITALS: Ht 172.7 cm; Wt 74.9 kg
[~2017-01-14 20:05] MED LIST changes: +ALBU1.257 NEB; +BISA10SU8 RC; +IPRA0.2S6 NEB; +LACT10SO PO; +LACT1CAP39 PO; -LACT1CAP57 PO; -MINO2.5T PO; +[UNRECOGNIZED DRUG - CODE] TP
[2017-01-14] MEDS ORDERED: HYDROMORPHONE 1 MG/1 ML DISP.SYRIN IV ONE (20:45)
[2017-01-14] MEDS ORDERED: diphenhydrAMINE 50 MG/1 ML VIAL IV ONE (20:45)
[2017-01-14] MEDS ORDERED: ONDANSETRON IV *ER 4 MG/2 ML VIAL IV ONE (20:45)
[2017-01-14 20:50] LABS: MEAN CORPUSCULAR HEMOGLOBIN 29.4 UUG (27.0-31.0); MEAN CORPUSCULAR HGB CONC 35 g/dL (32.0-37.0); MEAN CORPUSCULAR VOLUME 83.6 FL (82.0-92.0); PLATELET COUNT (AUTO) 90 K/UL (150-450); WHITE BLOOD COUNT (AUTO) 12.3 K/UL (4.0-11.2)
[2017-01-14 20:56] LABS: HEMOGLOBIN 5.7 G/DL (14.0-18.0); RED BLOOD CELL COUNT(AUTO) 1.93 MIL/UL (4.7-6.1)
[2017-01-14 20:57] LABS: HEMATOCRIT 16.1 % (40-50)
[2017-01-14 21:03] LABS: CREATININE 4.9 mg/dL (0.6-1.3)
[2017-01-14 21:09] LABS: BILIRUBIN,DIRECT 1.6 mg/dL (0.0-0.2); BILIRUBIN,TOTAL 2.3 mg/dL (0.2-1.0); TOTAL PROTEIN, SERUM 8.1 g/dL (6.4-8.2)
[2017-01-14] MEDS ORDERED: diphenhydrAMINE 50 MG/1 ML VIAL ONE (21:10)
[2017-01-14] MEDS ORDERED: HYDROMORPHONE 2 MG/1 ML DISP.SYRIN ONE (21:10)
[2017-01-14] MEDS ORDERED: ONDANSETRON 4 MG/2 ML VIAL ONE (21:11)
--- NOTE | 2017-01-14 22:27 | NUR ---
Pt. admitted to telemetry , under care of Dr. Anderson. Dx: Anemia Belongs List completed
[2017-01-14 22:41] LABS: BAND % (MANUAL) 3 % (0-10); EOSINOPHILS % (MANUAL) 2 % (0-8); LYMPHOCYTES % (MANUAL) 21 % (20-40); MONOCYTES % (MANUAL) 8 % (2-10); MYELOCYTES % 1 % (0-0); NEUTROPHILS % (MANUAL) 65 % (42-75)
[2017-01-14 22:45] VITALS: BP 103/57
--- NOTE | 2017-01-14 22:45 | NUR ---
ADMITTED IN TELE UNIT UNDER DR. STEVENS, BELONGING LIST DONE. BODY CHECK DONE PATIENT HAS R CHEST FAY CATH WITH DRESSING, PATIENT ALSO HAS LEFT FEMORAL PICC LINE. KEPT HOB ELEVATED, ON 3 LITERS NC. OXYGEN. SAT 92-95%. DR STEVENS AWARE OF ADMISSION.
[2017-01-15] VITALS (10 sets, daily range): BP systolic 80–118; BP diastolic 40–64
[2017-01-15] MEDS ORDERED: HYDROMORPHONE 1 MG/1 ML DISP.SYRIN IV PRN (00:45)
[2017-01-15] MEDS ORDERED: IPRATROPIUM BROMIDE 0.5 MG/2.5 ML NEBU NEB PRN (00:45)
--- NOTE | 2017-01-15 04:00 | NUR ---
PATIENT FAY CATH DRESSING SOAK WITH FRESH BLOOD, DRESSING WAS CHANGED, PLACE ICE PACK, NO FURTHER BLEEDING NOTED, CONT TO MONITOR.
[2017-01-15] MEDS ORDERED: HYDROMORPHONE 2 MG/1 ML DISP.SYRIN ONE (05:34)
[2017-01-15] MEDS ORDERED: diphenhydrAMINE 50 MG/1 ML VIAL ONE (05:35)
[2017-01-15] MEDS: diphenhydrAMINE 50 MG/1 ML VIAL IV PRN ×3 (05:36→20:51)
--- NOTE | 2017-01-15 08:46 | NUR ---
A/A/o times 4 eating breakfast, no c/o awaiting for blood to be released,to give during hd
[2017-01-15] MEDS ORDERED: LACTULOSE 20 G/30 ML LIQUID UDC PO PRN (09:15)
[2017-01-15] MEDS ORDERED: ACETAMINOPHEN 325 MG TABLET PO PRN (09:15)
[2017-01-15] MEDS ORDERED: CLONIDINE HCL 0.1 MG TABLET PO PRN (09:15)
[2017-01-15] MEDS: CARVEDILOL 25 MG TABLET PO SCH ×2 (09:15→20:52)
[2017-01-15] MEDS ORDERED: BISACODYL 10 MG SUPP.RECT RC PRN (09:15)
[2017-01-15] MEDS: HYDROMORPHONE 2 MG/1 ML DISP.SYRIN IV PRN ×3 (10:02→20:38)
[2017-01-15] MEDS: CALCIUM ACETATE 667 MG CAPSULE PO SCH ×3 (10:05→17:06)
[2017-01-15] MEDS: CINACALCET HCL 30 MG TABLET PO SCH (10:05)
[2017-01-15] MEDS: FOLIC ACID/VITAMIN B COMP W-C TABLET PO SCH (10:05)
[2017-01-15] MEDS: AMLODIPINE 10 MG TABLET PO SCH (10:05)
[2017-01-15] MEDS: GABAPENTIN 100 MG CAPSULE PO SCH ×3 (10:06→17:06)
[2017-01-15] MEDS: CLONIDINE HCL 0.1 MG TABLET PO SCH ×3 (10:06→21:47)
[2017-01-15] MEDS: ASCORBIC ACID 250 MG TABLET PO SCH (10:06)
[2017-01-15] MEDS: LACTOBACILLUS RHAMNOSUS GG 1 EACH CAPSULE PO SCH ×2 (10:07→20:51)
[2017-01-15] MEDS: BENAZEPRIL HCL 20 MG TABLET PO SCH (10:07)
[2017-01-15] MEDS: PANTOPRAZOLE SODIUM 40 MG TABLET.DR PO SCH ×2 (10:08→17:06)
[2017-01-15] MEDS: ALBUTEROL SULFATE 1.25 MG/3 ML NEBU NEB SCH ×4 (11:30→22:36)
[2017-01-15] MEDS: IPRATROPIUM BROMIDE 0.5 MG/2.5 ML NEBU NEB SCH ×4 (11:30→22:36)
[2017-01-15] MEDS: HYDROXYUREA 500 MG CAPSULE PO SCH (12:50)
[2017-01-15] MEDS: PROTEIN SUPPLEMENT (PROSTAT) 30 ML LIQUID PO SCH ×2 (12:51→16:53)
[2017-01-15] MEDS: EPOETIN ALFA 20,000 UNIT/ML ML SQ SCH (16:53)
--- NOTE | 2017-01-15 18:03 | NUR ---
Slepof and on.2 units of blood given during dialysis. 5L removed during hd.Medicating as needed for back pain
[2017-01-15] MEDS ORDERED: VANCOMYCIN IV 1 G in PREMIXED 0 EACH IV SCH (22:30)
[2017-01-15] MEDS ORDERED: VANCOMYCIN IV 200 ML ONE (23:36)
[2017-01-16] VITALS (8 sets, daily range): BP systolic 88–111; BP diastolic 50–75
[2017-01-16] MEDS: diphenhydrAMINE 50 MG/1 ML VIAL IV PRN ×4 (01:37→22:57)
[2017-01-16] MEDS: HYDROMORPHONE 2 MG/1 ML DISP.SYRIN IV PRN ×4 (01:37→22:57)
[2017-01-16] MEDS: IPRATROPIUM BROMIDE 0.5 MG/2.5 ML NEBU NEB SCH ×6 (03:05→23:46)
[2017-01-16] MEDS: ALBUTEROL SULFATE 1.25 MG/3 ML NEBU NEB SCH ×6 (03:05→23:46)
--- NOTE | 2017-01-16 04:27 | NUR ---
AAOX4 ON OXYGEN @ 2L VIA NASAL CANNULA. VS TAKEN BP 11/7/ HR 80 RESP 20 PULSE OX 98% ATTENDED TO NEEDS. LAB CALLED, BLOOD CULTURES. GRAM +COCCI IN CLUSTERS. DR HENDRIX AWARE. STARTED ON VANCOMYCIN PER PHARMACY TO DOSE. GIVEN 1 GM VANCOMYCIN VIA LEFT FEMORAL LINE. DILAUDID 1MG IV GIVEN ORDERED WELL BENADRYL 25MG. TELEMETRY D'C. NO ACUTE DISTRESS NOTED. WILL MONITOR BP. PATIENT GOES TO DIALYSIS. HAD DIALYSIS YESTERDAY(01/15) PATIENT ANURIC. LATEST BP 98/68 HR 93 RESP 18 TEMP 96.8 PULSE OX 99% ON 2 L VIA NASAL CANNULA.
[2017-01-16] MEDS: CLONIDINE HCL 0.1 MG TABLET PO SCH ×3 (06:00→22:00)
--- NOTE | 2017-01-16 06:31 | NUR ---
CLONIDINE HELD BP 98/63.PATIENT ASYMPTOMATIC.
[2017-01-16 07:00] LABS: BASOPHILS # (AUTO) 0.1 K/uL (0.0-8.0); BASOPHILS % (AUTO) 1.1 % (0.0-2.0); EOSINOPHILS # (AUTO) 0.2 K/uL (0.0-0.7); LYMPHOCYTES # (AUTO) 1.8 K/uL (20.0-40.0); LYMPHOCYTES % (AUTO) 17.4 % (20.5-51.5); MEAN CORPUSCULAR HEMOGLOBIN 29.4 uug (23.8-33.4); MEAN CORPUSCULAR HGB CONC 35 g/dL (32.5-36.3); MONOCYTES # (AUTO) 1.2 K/uL (2.0-10.0); MONOCYTES % (AUTO) 11.6 % (0.0-11.0); NEUTROPHILS # (AUTO) 7.2 K/uL (1.8-8.9); NEUTROPHILS % (AUTO) 67.9 % (38.5-71.5); PLATELET COUNT (AUTO) 78 K/uL (152-348); WHITE BLOOD COUNT (AUTO) 10.6 K/uL (3.6-10.2)
[2017-01-16 07:04] LABS: BILIRUBIN,TOTAL 1.9 mg/dL (0.2-1.0); CREATININE 4.9 mg/dL (0.6-1.3); MAGNESIUM 2.2 mg/dL (1.8-2.4); PHOSPHOROUS 7.1 mg/dL (2.5-4.9); POTASSIUM 4.7 mmol/L (3.5-5.1); TOTAL PROTEIN, SERUM 8.1 g/dL (6.4-8.2)
[2017-01-16 07:34] LABS: HEMOGLOBIN 6.4 g/dL (12.5-16.3); RED BLOOD CELL COUNT(AUTO) 2.18 MIL/uL (4.06-5.63)
[2017-01-16 07:35] LABS: HEMATOCRIT 18.6 % (36.7-47.1)
--- NOTE | 2017-01-16 07:40 | NUR ---
DOCTOR STEVE HENDRIX NOTIFIED OF HEMAGLOBIN 6.4 AND HEMATOCRIT 18.6 WITH ORDERS FOR 1 UNIT OF PACKED RED BLOOD CELLS TO BE INFUSED OVER A 4 HOUR PERIOD, ORDER PLACED.
[2017-01-16] MEDS: PROTEIN SUPPLEMENT (PROSTAT) 30 ML LIQUID PO SCH ×3 (08:00→17:00)
--- NOTE | 2017-01-16 08:52 | NUR ---
2 POSITIVE BLOOD CULTURES FOR GRAM POSITIVE COCCI CLUSTERS MALENA, DOCTOR KAYLEE NOTIED AT [id number] NO NEW ORDERS
[2017-01-16] MEDS: CARVEDILOL 25 MG TABLET PO SCH ×2 (09:00→21:00)
[2017-01-16] MEDS: BENAZEPRIL HCL 20 MG TABLET PO SCH (09:00)
[2017-01-16] MEDS: AMLODIPINE 10 MG TABLET PO SCH (09:00)
--- NOTE | 2017-01-16 09:00 | NUR ---
PATIENT REFUSED PROSTAT. COREG, CATAPRESS, BENAZPRIL, AND NORVASC HELD DUES TO PATIENT BLOOD PRESSURE OF 88/56
[2017-01-16] MEDS: FOLIC ACID/VITAMIN B COMP W-C TABLET PO SCH (10:13)
[2017-01-16] MEDS: CALCIUM ACETATE 667 MG CAPSULE PO SCH ×3 (10:13→18:11)
[2017-01-16] MEDS: LACTOBACILLUS RHAMNOSUS GG 1 EACH CAPSULE PO SCH ×2 (10:13→22:56)
[2017-01-16] MEDS: GABAPENTIN 100 MG CAPSULE PO SCH ×3 (10:13→18:11)
[2017-01-16] MEDS: CINACALCET HCL 30 MG TABLET PO SCH (10:13)
[2017-01-16] MEDS: PANTOPRAZOLE SODIUM 40 MG TABLET.DR PO SCH ×2 (10:14→18:11)
[2017-01-16] MEDS: ASCORBIC ACID 250 MG TABLET PO SCH (10:14)
[2017-01-16] MEDS: HYDROXYUREA 500 MG CAPSULE PO SCH (13:47)
[2017-01-16 14:02] LABS: EOSINOPHILS % (MANUAL) 3 % (0-8); LYMPHOCYTES % (MANUAL) 21 % (20-40); MONOCYTES % (MANUAL) 9 % (2-10); NEUTROPHILS % (MANUAL) 67 % (42-75)
--- NOTE | 2017-01-16 16:19 | NUR ---
Clinical Pharmacy Note: Vancomycin Pharmacy to dose Subjective: To start vanco in this 46 yo gentleman on HD for indication of "SI" (running fevers) Objective: height 172cm Weight 72 kg BUN 71 Scr 4.9 (on HD) Wbc 10.6 temp 99 vanco 1gm in ER 01/15 @ 2330 Assessment/Plan As patient is on HD, will assess daily for HD to dose per pre-HD level. no HD for today, first dose given near midnight yesterday. Will see if on HD tomorrow and order pre-HD level and dose per protocol. Will continue to follow
--- NOTE | 2017-01-16 19:40 | NUR ---
PT RECEIVED IN BED, AWAKE. A/OX4. ABLE TO MAKE NEEDS KNOWN. V/S STABLE. IN NO ACUTE DISTRESS. NO C/O PAIN AT THIS TIME. LEFT FEMORAL TRIPLE LUMEN I/P. RIGHT UPPER SHUNT, BRUIT FELT. PT ON 2L NC. NO C/O SOB AT THIS TIME. SAFETY MEASURES IMPLEMENTED. CALL LIGHT WITHIN REACH. WILL CONT TO MONITOR.
--- NOTE | 2017-01-16 22:00 | NUR ---
PT BP MEDS HELD. PT BP 107/50
[2017-01-16] MEDS ORDERED: VANCOMYCIN IV 1 G in PREMIXED 0 EACH IV SCH (22:30)
[2017-01-17] MEDS: IPRATROPIUM BROMIDE 0.5 MG/2.5 ML NEBU NEB SCH ×6 (03:26→22:52)
[2017-01-17] MEDS: ALBUTEROL SULFATE 1.25 MG/3 ML NEBU NEB SCH ×6 (03:26→22:52)
[2017-01-17 04:00] VITALS: BP 120/60
[2017-01-17] MEDS: HYDROMORPHONE 2 MG/1 ML DISP.SYRIN IV PRN ×5 (04:30→22:07)
[2017-01-17] MEDS: diphenhydrAMINE 50 MG/1 ML VIAL IV PRN ×5 (04:30→22:07)
[2017-01-17] MEDS: CLONIDINE HCL 0.1 MG TABLET PO SCH ×3 (05:46→22:00)
--- NOTE | 2017-01-17 06:20 | NUR ---
END OF SHIFT NOTES. PT SLEPT INTERMITTENTLY THROUGHOUT SHIFT. IN STABLE CONDITION. PAIN MANAGED VERBALIZED BY PT STATING RELIEF OF PAIN AND 5/10 ON THE PAIN SCALE. PT CONT TO BE ON 2L NC. NO C/O SOB. PICC INTACT AND PATENT. ALL NEEDS ATTENDED. SAFETY MAINTAINED. CALL LIGHT WITHIN REACH.
[2017-01-17] MEDS: PROTEIN SUPPLEMENT (PROSTAT) 30 ML LIQUID PO SCH ×3 (08:00→17:00)
[2017-01-17] MEDS: AMLODIPINE 10 MG TABLET PO SCH (09:00)
[2017-01-17] MEDS: BENAZEPRIL HCL 20 MG TABLET PO SCH (09:00)
[2017-01-17] MEDS: GABAPENTIN 100 MG CAPSULE PO SCH ×3 (09:27→17:48)
[2017-01-17] MEDS: PANTOPRAZOLE SODIUM 40 MG TABLET.DR PO SCH ×2 (09:27→17:48)
[2017-01-17] MEDS: CALCIUM ACETATE 667 MG CAPSULE PO SCH ×3 (09:27→17:49)
[2017-01-17] MEDS: ASCORBIC ACID 250 MG TABLET PO SCH (09:27)
[2017-01-17] MEDS: FOLIC ACID/VITAMIN B COMP W-C TABLET PO SCH (09:27)
[2017-01-17] MEDS: CINACALCET HCL 30 MG TABLET PO SCH (09:27)
[2017-01-17] MEDS: LACTOBACILLUS RHAMNOSUS GG 1 EACH CAPSULE PO SCH ×2 (09:27→22:05)
[2017-01-17] MEDS: CARVEDILOL 25 MG TABLET PO SCH ×2 (09:30→21:00)
[2017-01-17] MEDS: HYDROXYUREA 500 MG CAPSULE PO SCH (09:34)
[2017-01-17 11:03] VITALS: BP 100/53
[2017-01-17 15:12] VITALS: BP 95/68
--- NOTE | 2017-01-17 15:18 | NUR ---
Clinical Pharmacy Note: Vancomycin Pharmacy to dose Subjective: 46 yo male on HD for indication of "SI" (running fevers) Objective: height 172cm Weight 72 kg temp 98.1 vanco 1gm in ER 01/15 @ 2330 Assessment/Plan As patient is on HD, will assess daily for HD to dose per pre-HD level. no HD for today. Will see if on HD tomorrow and order pre-HD level and dose per protocol. Will continue to follow
--- NOTE | 2017-01-17 18:44 | NUR ---
18:45 PT RESTING WELL IN BED ABLE TO MAKE NEEDS KNOWN. VSS. PORT DRESSING CHANGED FLUSHING WELL WITH GOOD BLOOD RETURN. CONTINUES WITH PAIN MANAGEMENT. G/C STABLE.
--- NOTE | 2017-01-17 19:40 | NUR ---
PT RECEIVED IN BED, ASLEEP. EASY TO WAKE. A/OX4. ABLE TO MAKE NEEDS KNOWN. V/S STABLE. IN NO ACUTE DISTRESS. NO C/O PAIN AT THIS TIME. LEFT FEMORAL PICC INTACT/PATENT. RIGHT CHEST PORTACATH INTACT/PATENT. AV SHUNT, BRUIT FELT. PT ON 2L NC. NO C/O SOB. SAFETY MEASURES IMPLEMENTED. CALL LIGHT WITHIN REACH. WILL CONT TO MONITOR.
--- NOTE | 2017-01-17 19:55 | NUR ---
PT REFUSED HHN TREATMENT. IN STABLE CONDITION.
--- NOTE | 2017-01-17 19:58 | NUR ---
Pt refused HHN tx. No distress noted. RN Dagmar galarza.
[2017-01-17 20:10] VITALS: BP 96/60
--- NOTE | 2017-01-17 22:53 | NUR ---
Pt refused HHN tx. No distress noted. MAR Leavitt notified.
[2017-01-18] MEDS: HYDROMORPHONE 2 MG/1 ML DISP.SYRIN IV PRN ×5 (01:50→21:12)
[2017-01-18] MEDS: diphenhydrAMINE 50 MG/1 ML VIAL IV PRN ×5 (01:50→21:12)
[2017-01-18] MEDS: IPRATROPIUM BROMIDE 0.5 MG/2.5 ML NEBU NEB SCH ×6 (03:30→22:56)
[2017-01-18] MEDS: ALBUTEROL SULFATE 1.25 MG/3 ML NEBU NEB SCH ×6 (03:30→22:56)
--- NOTE | 2017-01-18 03:43 | NUR ---
Pt asleep. No distress noted. HHN tx not given. RN Zhanna galarza.
[2017-01-18] MEDS: CLONIDINE HCL 0.1 MG TABLET PO SCH ×3 (05:36→22:00)
[2017-01-18 06:52] VITALS: BP 109/60
--- NOTE | 2017-01-18 07:00 | NUR ---
END OF SHIFT NOTES. PT SLEPT INTERMITTENTLY THROUGHOUT SHIFT. IN STABLE CONDITION. PAIN MANAGED VERBALIZED BY PATIENTS RELIEF OF PAIN. CONT TO REFUSE BREATHING TX THROUGHOUT NIGHT. NO C/O SOB. ON 3L NC. ALL NEEDS ATTENDED. SAFETY MAINTAINED.
[2017-01-18] MEDS: PROTEIN SUPPLEMENT (PROSTAT) 30 ML LIQUID PO SCH ×3 (08:00→16:53)
--- NOTE | 2017-01-18 08:00 | NUR ---
resting quiet no sob or pain on fall precaution bed alarm on and call light in reach
[2017-01-18 08:22] LABS: MEAN CORPUSCULAR HEMOGLOBIN 29.7 UUG (27.0-31.0); MEAN CORPUSCULAR HGB CONC 35 g/dL (32.0-37.0); MEAN CORPUSCULAR VOLUME 85.1 FL (82.0-92.0); PLATELET COUNT (AUTO) 81 K/UL (150-450); WHITE BLOOD COUNT (AUTO) 12.7 K/UL (4.0-11.2)
[2017-01-18 08:30] LABS: HEMATOCRIT 21.2 % (40-50); HEMOGLOBIN 7.4 G/DL (14.0-18.0); RED BLOOD CELL COUNT(AUTO) 2.49 MIL/UL (4.7-6.1)
--- NOTE | 2017-01-18 08:30 | NUR ---
LAB RESULT OF CBC THIS AM NOTIFY DR MCKEON ORDER HD TODAY
[2017-01-18] MEDS: BENAZEPRIL HCL 20 MG TABLET PO SCH ×2 (09:00→14:00)
[2017-01-18] MEDS: CARVEDILOL 25 MG TABLET PO SCH ×2 (09:00→21:11)
[2017-01-18] MEDS: AMLODIPINE 10 MG TABLET PO SCH (09:00)
--- NOTE | 2017-01-18 09:00 | NUR ---
START HD AT THIS TIME GARCIA PROCEDURE WELL
[2017-01-18 09:31] LABS: BILIRUBIN,TOTAL 1.8 mg/dL (0.2-1.0); CREATININE 6.3 mg/dL (0.6-1.3); MAGNESIUM 2.2 mg/dL (1.8-2.4); PHOSPHOROUS 6.9 mg/dL (2.5-4.9); POTASSIUM 5.6 mmol/L (3.5-5.1)
[2017-01-18] MEDS ORDERED: CELLULOSE,OXIDIZED 2x3 MC ONE (10:59)
--- NOTE | 2017-01-18 11:45 | NUR ---
HD FINISHED TAKE OUT 2400ML CONDITION STABLE PAIN MED GIVEN REQUEST
[2017-01-18] MEDS: CINACALCET HCL 30 MG TABLET PO SCH (11:48)
[2017-01-18] MEDS: GABAPENTIN 100 MG CAPSULE PO SCH ×3 (11:49→18:06)
[2017-01-18] MEDS: FOLIC ACID/VITAMIN B COMP W-C TABLET PO SCH (11:49)
[2017-01-18] MEDS: PANTOPRAZOLE SODIUM 40 MG TABLET.DR PO SCH ×2 (11:49→18:06)
[2017-01-18] MEDS: LACTOBACILLUS RHAMNOSUS GG 1 EACH CAPSULE PO SCH ×2 (11:49→21:11)
[2017-01-18] MEDS: CALCIUM ACETATE 667 MG CAPSULE PO SCH ×3 (11:50→18:07)
[2017-01-18] MEDS: ASCORBIC ACID 250 MG TABLET PO SCH (11:51)
[2017-01-18] MEDS: HYDROXYUREA 500 MG CAPSULE PO SCH (11:51)
[2017-01-18 11:53] VITALS: BP 101/62
--- NOTE | 2017-01-18 12:13 | NUR ---
Clinical Pharmacy Note: Vancomycin Pharmacy to dose Subjective: To continue vancomycin for this 46 yo male on HD for indication of bacteremia, line sepsis Objective: height 172cm Weight 72 kg temp 98.1 Vanco pre-HD level: 8.2 Assessment/Plan As patient is on HD, will assess daily for HD to dose per pre-HD level. Since vanco re-HD is below 15 mcg/ml, will give vanco 1gm IVPB x1 today post HD. Pharmacy to order pre-HD level (level not yet ordered) and dose per protocol. Will continue to follow Addendum: 01/18/17 at 1220 by PASCUAL PARRISH ADM BUN 86, SRC 6.3, WBC 12.7 TEMP 98.6
[2017-01-18] MEDS ORDERED: VANCOMYCIN IV 1 G in PREMIXED 0 EACH IV ONE (14:00)
--- NOTE | 2017-01-18 14:00 | NUR ---
D/C CENTRAL LINE TRIPLE LUMEN ON LEFT GROIN AND PRESSURE DSG APPLY NO BLEEDING NOTED
[2017-01-18 14:02] LABS: EOSINOPHILS % (MANUAL) 1 % (0-8); LYMPHOCYTES % (MANUAL) 19 % (20-40); MONOCYTES % (MANUAL) 9 % (2-10); NEUTROPHILS % (MANUAL) 71 % (42-75)
--- NOTE | 2017-01-18 15:00 | NUR ---
DR LINK WAS HERE AND SEEN PATIENT AND LAB RESULT NEW ORDER IN CHART BLOOD CULTURE ANOTHER ONE SENT TO LAB ORDER
[2017-01-18 15:21] VITALS: BP 142/84
--- NOTE | 2017-01-18 17:30 | NUR ---
STABLE CONDITION PAIN UNDER CONTROL NO RESPIRATORY DISTRESS CONTINUE O2 AT 3 L/MIN O2 SAT WAS 96% AND KEEP HOB UP 45 DEGREE SAFETY MEASURE PROVIDED CALL LIGHT WITHIN REACH AND BED ALARM ON
--- NOTE | 2017-01-18 19:40 | NUR ---
PT RECEIVED IN BED, AWAKE. A/OX4. ABLE TO MAKE NEEDS KNOWN. V/S STABLE. IN NO ACUTE DISTRESS. NO C/O PAIN AT THIS TIME. PORTACATH INTACT/PATENT, HEP-LOCKED. ON 3L NC, NO C/O SOB. DRESSING ON LEFT FEMORAL REGION, C/D/I. AV SHUNT ON NOEMI DRESSING C/D/I. SAFETY MEASURES IMPLEMENTED. CALL LIGHT WITHIN REACH.
[2017-01-18 20:00] VITALS: BP 124/51
[2017-01-18] MEDS ORDERED: MEROPENEM 500 MG in IV NORMAL SALINE 50 ML IV SCH (21:00)
[2017-01-18 22:00] VITALS: BP 106/66
[2017-01-19] MEDS: HYDROMORPHONE 2 MG/1 ML DISP.SYRIN IV PRN ×6 (01:14→22:20)
[2017-01-19] MEDS: diphenhydrAMINE 50 MG/1 ML VIAL IV PRN ×4 (01:14→22:19)
[2017-01-19] MEDS ORDERED: diphenhydrAMINE 50 MG/1 ML VIAL ONE (01:23)
[2017-01-19] MEDS: ALBUTEROL SULFATE 1.25 MG/3 ML NEBU NEB SCH ×6 (02:52→22:50)
[2017-01-19] MEDS: IPRATROPIUM BROMIDE 0.5 MG/2.5 ML NEBU NEB SCH ×6 (02:52→22:50)
[2017-01-19] MEDS: CLONIDINE HCL 0.1 MG TABLET PO SCH ×3 (05:48→21:14)
[2017-01-19 06:21] VITALS: BP 110/62
--- NOTE | 2017-01-19 06:25 | NUR ---
END OF SHIFT NOTES. PT SLEPT INTERMITTENTLY THROUGHOUT SHIFT. IN STABLE CONDITION. IV ABX INFUSED. PORTACATH I/P. IV ABX INFUSED. CONT 3L NC, NO C/O SOB. ALL NEEDS ATTENDED. SAFETY MAINTAINED. CALL LIGHT WITHIN
--- NOTE | 2017-01-19 07:33 | NUR ---
PT RECEIVED IN BED, AWAKE. A/OX4. ABLE TO MAKE NEEDS KNOWN. V/S STABLE. IN NO ACUTE DISTRESS. NO C/O PAIN AT THIS TIME. PORTAL CATH INTACT/PATENT, HEP-LOCKED. ON 3L NC, NO C/O SOB. AV SHUNT ON R U A DRESSING C/D/I. SAFETY MEASURES IMPLEMENTED. CALL LIGHT WITHIN REACH.
[2017-01-19] MEDS: LACTOBACILLUS RHAMNOSUS GG 1 EACH CAPSULE PO SCH ×2 (08:06→21:12)
[2017-01-19] MEDS: ASCORBIC ACID 250 MG TABLET PO SCH (08:06)
[2017-01-19] MEDS: FOLIC ACID/VITAMIN B COMP W-C TABLET PO SCH (08:06)
[2017-01-19] MEDS: CINACALCET HCL 30 MG TABLET PO SCH (08:07)
[2017-01-19] MEDS: AMLODIPINE 10 MG TABLET PO SCH (08:07)
[2017-01-19] MEDS: CARVEDILOL 25 MG TABLET PO SCH ×2 (08:07→20:09)
[2017-01-19] MEDS: GABAPENTIN 100 MG CAPSULE PO SCH ×3 (08:07→16:28)
[2017-01-19] MEDS: PANTOPRAZOLE SODIUM 40 MG TABLET.DR PO SCH ×2 (08:08→16:28)
[2017-01-19] MEDS: CALCIUM ACETATE 667 MG CAPSULE PO SCH ×3 (08:08→16:28)
[2017-01-19] MEDS: BENAZEPRIL HCL 20 MG TABLET PO SCH (08:08)
[2017-01-19] MEDS: HYDROXYUREA 500 MG CAPSULE PO SCH (08:12)
[2017-01-19] MEDS: PROTEIN SUPPLEMENT (PROSTAT) 30 ML LIQUID PO SCH ×3 (08:13→16:29)
[2017-01-19 11:26] VITALS: BP 101/61
--- NOTE | 2017-01-19 14:48 | NUR ---
linical Pharmacy Note: Vancomycin Pharmacy to dose Subjective: To continue vancomycin for this 46 yo male on HD for indication of bacteremia, line sepsis Objective: height 172cm Weight 72 kg temp 98.6 Assessment/Plan No HD today. No additional doses needed at this time. Will order next random level prior to next dialysis
[2017-01-19] MEDS: EPOETIN ALFA 20,000 UNIT/ML ML SQ SCH (15:04)
--- NOTE | 2017-01-19 15:29 | NUR ---
START HD AT THIS TIME GARCIA PROCEDURE WELL
[2017-01-19 15:44] VITALS: BP_SYST 114; BP_SYST 88; BP_DIAS 48; BP_DIAS 65
--- NOTE | 2017-01-19 17:04 | NUR ---
HD FINISHED TAKE OUT 3.5 litter. CONDITION STABLE
[2017-01-19 18:10] VITALS: BP 105/43
--- NOTE | 2017-01-19 19:30 | NUR ---
Pt alert, awake in room with 02 2L/min. No acute distress at this time. Mayuri catch noted to chest. BP 105/64. HOB elevated 30 degrees. No c/o pain at this time. Call light placed within reach. Continue to monitor.
[2017-01-19 20:29] VITALS: BP 105/64
[2017-01-19] MEDS ORDERED: CEFAZOLIN IV SCH (21:00)
[2017-01-19] MEDS ORDERED: DEXTROSE 5% IV SCH (21:00)
[2017-01-19] MEDS: CEFAZOLIN 1 G in PREMIXED 1 EACH IV SCH (21:13)
[2017-01-20] VITALS (9 sets, daily range): BP systolic 96–118; BP diastolic 46–65
--- NOTE | 2017-01-20 00:31 | NUR ---
Pt in room asleep at this time. Pain medication Dilaudid and Benadryl effective. No acute distress noted. Pt repositioned. Continue to monitor.
[2017-01-20] MEDS: diphenhydrAMINE 50 MG/1 ML VIAL IV PRN ×5 (02:57→21:05)
[2017-01-20] MEDS: HYDROMORPHONE 2 MG/1 ML DISP.SYRIN IV PRN ×5 (02:58→21:05)
[2017-01-20] MEDS: ALBUTEROL SULFATE 1.25 MG/3 ML NEBU NEB SCH ×6 (03:10→23:18)
[2017-01-20] MEDS: IPRATROPIUM BROMIDE 0.5 MG/2.5 ML NEBU NEB SCH ×6 (03:10→23:18)
[2017-01-20] MEDS: CLONIDINE HCL 0.1 MG TABLET PO SCH ×3 (06:00→22:00)
--- NOTE | 2017-01-20 06:11 | NUR ---
Pt in room asleep at this time. No reaction to current IV Ancef antibiotics. BP 102/63. Routine morning Clonidine held at this time. No c/o pain or discomfort. Continue to monitor. Call light within reach.
[2017-01-20 06:41] LABS: BASOPHILS # (AUTO) 0.1 K/uL (0.0-8.0); BASOPHILS % (AUTO) 0.7 % (0.0-2.0); EOSINOPHILS # (AUTO) 0.4 K/uL (0.0-0.7); EOSINOPHILS % (AUTO) 3.7 % (0.0-7.0); LYMPHOCYTES # (AUTO) 1.7 K/uL (20.0-40.0); LYMPHOCYTES % (AUTO) 15.5 % (20.5-51.5); MEAN CORPUSCULAR HEMOGLOBIN 29.6 uug (23.8-33.4); MEAN CORPUSCULAR HGB CONC 35 g/dL (32.5-36.3); MEAN CORPUSCULAR VOLUME 84.9 fL (73.0-96.2); MONOCYTES # (AUTO) 1.1 K/uL (2.0-10.0); MONOCYTES % (AUTO) 9.8 % (0.0-11.0); NEUTROPHILS # (AUTO) 7.6 K/uL (1.8-8.9); NEUTROPHILS % (AUTO) 70.3 % (38.5-71.5); PLATELET COUNT (AUTO) 78 K/uL (152-348)
--- NOTE | 2017-01-20 07:10 | NUR ---
RECEIVED REPORT FROM BASKET BRAIDER NURSE, PATIENT IN BED AWAKE, NO EVIDENCE OF DISTRESS NOTED, BED IN LOW POSITION, SIDE RAIL UP X2.
[2017-01-20 07:40] LABS: RED BLOOD CELL COUNT(AUTO) 2.13 MIL/uL (4.06-5.63)
[2017-01-20 07:44] LABS: HEMOGLOBIN 6.3 g/dL (12.5-16.3)
[2017-01-20 07:46] LABS: HEMATOCRIT 18.1 % (36.7-47.1)
[2017-01-20] MEDS: LACTOBACILLUS RHAMNOSUS GG 1 EACH CAPSULE PO SCH ×2 (08:37→21:05)
[2017-01-20] MEDS: FOLIC ACID/VITAMIN B COMP W-C TABLET PO SCH (08:38)
[2017-01-20] MEDS: CINACALCET HCL 30 MG TABLET PO SCH (08:38)
[2017-01-20] MEDS: AMLODIPINE 10 MG TABLET PO SCH (08:38)
[2017-01-20] MEDS: PANTOPRAZOLE SODIUM 40 MG TABLET.DR PO SCH ×2 (08:42→16:56)
[2017-01-20] MEDS: BENAZEPRIL HCL 20 MG TABLET PO SCH (08:42)
[2017-01-20] MEDS: GABAPENTIN 100 MG CAPSULE PO SCH ×3 (08:42→16:56)
[2017-01-20] MEDS: ASCORBIC ACID 250 MG TABLET PO SCH (08:43)
[2017-01-20] MEDS: CALCIUM ACETATE 667 MG CAPSULE PO SCH ×3 (08:44→16:56)
[2017-01-20] MEDS: CARVEDILOL 25 MG TABLET PO SCH ×2 (08:45→21:05)
[2017-01-20] MEDS: HYDROXYUREA 500 MG CAPSULE PO SCH (08:49)
[2017-01-20] MEDS: PROTEIN SUPPLEMENT (PROSTAT) 30 ML LIQUID PO SCH ×3 (08:50→16:56)
[2017-01-20 11:25] LABS: EOSINOPHILS % (MANUAL) 2 % (0-8); LYMPHOCYTES % (MANUAL) 14 % (20-40); MONOCYTES % (MANUAL) 6 % (2-10); NEUTROPHILS % (MANUAL) 78 % (42-75); WHITE BLOOD COUNT (AUTO) 10.8 K/uL (3.6-10.2)
--- NOTE | 2017-01-20 11:47 | NUR ---
Dr. Shaikh referred patient to Dr. Richards for placement of right arm Fistulagram. Dr. Richards would like to transfer patient to [facility] tomorrow 01/21/17. Procedure schedule for 12 pm. is requesting patient arrive at 9 am. Transportation has been set up for 8 am pickup and will call for return upon finishing procedure. Awaiting call from MAJOR Grace at [facility] to get authorization. Once received will call Nadine at [facility] to inform and give auth # and get bed # along with bed type required for patient. Patient aware of plan at this time.
--- NOTE | 2017-01-20 15:36 | NUR ---
Clinical Pharmacy Note: Vancomycin Pharmacy to dose Subjective: To continue vancomycin for this 46 yo male on HD for indication of bacteremia, line sepsis Objective: height 172cm Weight 72 kg BUN 86 (01/18) SRCR 6.3 (01/18) WBC 10.8 temp 98.4 Vanco pre-HD level: 16 Assessment/Plan As patient is on HD, will assess daily for HD to dose per pre-HD level. Since vanco re-HD is between 15 -20 mcg/ml, will give vanco 0.5gm IVPB x1 today post HD. Pharmacy to order pre-HD level (level not yet ordered) and dose per protocol. Will continue to follow
--- NOTE | 2017-01-20 17:30 | NUR ---
PATIENT RECEIVING DIALYSIS, AND BLOOD ADMINISTERED AT THE SAME TIME. NO REACTIONS NOTED. ALL PATIENT NEEDS MET.
--- NOTE | 2017-01-20 19:45 | NUR ---
PT RECEIVED IN BED, AWAKE. A/OX4. ABLE TO MAKE NEEDS KNOWN. PT ON HEMODIALYSIS. V/S STABLE. IN NO ACUTE DISTRESS. NO C/O PAIN AT THIS TIME. PORTACATH INTACT/PATENT. SAFETY MEASURE IMPLEMENTED. CALL LIGHT WITHIN REACH.
--- NOTE | 2017-01-20 19:53 | NUR ---
PATIENT IS IN BED ASLEEP, NO EVIDENCE OF DISTRESS NOTED, BED IN LOW POSITION, SIDE RAILS UP X2, CALL LIGHT IN REACH. ALL NEEDS MET.
[2017-01-20] MEDS ORDERED: VANCOMYCIN IV 500 MG in IV DEXTROSE 5% 100 ML IV ONE (21:00)
[2017-01-20] MEDS: CEFAZOLIN 1 G in PREMIXED 1 EACH IV SCH (21:05)
--- NOTE | 2017-01-20 23:10 | NUR ---
RT IN WITH PT. PT REFUSES BREATHING TX. IN STABLE CONDITION. WILL CONT TO MONITOR.
--- NOTE | 2017-01-21 | NUR ---
PT NOW NPO. ALL FOOD AND FLUIDS REMOVED FROM BEDSIDE.
[2017-01-21] MEDS: diphenhydrAMINE 50 MG/1 ML VIAL IV PRN ×5 (00:50→22:45)
[2017-01-21] MEDS: HYDROMORPHONE 2 MG/1 ML DISP.SYRIN IV PRN ×6 (00:51→22:45)
[2017-01-21] MEDS: IPRATROPIUM BROMIDE 0.5 MG/2.5 ML NEBU NEB SCH ×6 (03:15→22:57)
[2017-01-21] MEDS: ALBUTEROL SULFATE 1.25 MG/3 ML NEBU NEB SCH ×6 (03:16→22:57)
[2017-01-21 05:04] VITALS: BP 130/78
[2017-01-21] MEDS: CLONIDINE HCL 0.1 MG TABLET PO SCH ×3 (06:00→22:00)
[2017-01-21 06:34] LABS: BASOPHILS % (AUTO) 0.3 % (0.0-2.0); EOSINOPHILS # (AUTO) 0.3 K/uL (0.0-0.7); EOSINOPHILS % (AUTO) 2.8 % (0.0-7.0); HEMATOCRIT 23.2 % (36.7-47.1); HEMOGLOBIN 8.1 g/dL (12.5-16.3); LYMPHOCYTES # (AUTO) 1.7 K/uL (20.0-40.0); LYMPHOCYTES % (AUTO) 16.5 % (20.5-51.5); MEAN CORPUSCULAR HEMOGLOBIN 29.4 uug (23.8-33.4); MEAN CORPUSCULAR HGB CONC 35 g/dL (32.5-36.3); MEAN CORPUSCULAR VOLUME 84.1 fL (73.0-96.2); MONOCYTES # (AUTO) 1.1 K/uL (2.0-10.0); MONOCYTES % (AUTO) 10.7 % (0.0-11.0); NEUTROPHILS # (AUTO) 7.2 K/uL (1.8-8.9); NEUTROPHILS % (AUTO) 69.7 % (38.5-71.5); PLATELET COUNT (AUTO) 80 K/uL (152-348); RED BLOOD CELL COUNT(AUTO) 2.75 MIL/uL (4.06-5.63); WHITE BLOOD COUNT (AUTO) 10.3 K/uL (3.6-10.2)
--- NOTE | 2017-01-21 06:55 | NUR ---
END OF SHIFT NOTES. PT SLEPT INTERMITTENTLY THROUGHOUT SHIFT. IN STABLE CONDITION. PORTACATH INTACT AND PATENT. NPO SINCE MIDNIGHT. PAIN MANAGED. ADMINISTERED PAIN MEDICATION ORDERED. ALL NEEDS ATTENDED. SAFETY MAINTAINED. CALL LIGHT WITHIN REACH.
[2017-01-21 07:05] LABS: BILIRUBIN,TOTAL 1.5 mg/dL (0.2-1.0); CREATININE 5.7 mg/dL (0.6-1.3); PHOSPHOROUS 5.9 mg/dL (2.5-4.9); POTASSIUM 4.4 mmol/L (3.5-5.1); TOTAL PROTEIN, SERUM 8.2 g/dL (6.4-8.2)
--- NOTE | 2017-01-21 07:40 | NUR ---
PATIENT IS IN BED ASLEEP, NO EVIDENCE OF DISTRESS NOTED, BED IN LOW POSITION, SIDE RAILS UP X2, CALL LIGHT IN REACH. ALL NEEDS MET.
[2017-01-21] MEDS: CALCIUM ACETATE 667 MG CAPSULE PO SCH ×3 (08:35→18:16)
[2017-01-21] MEDS: FOLIC ACID/VITAMIN B COMP W-C TABLET PO SCH (08:35)
[2017-01-21] MEDS: PANTOPRAZOLE SODIUM 40 MG TABLET.DR PO SCH ×2 (08:35→18:16)
[2017-01-21] MEDS: CINACALCET HCL 30 MG TABLET PO SCH (08:35)
[2017-01-21] MEDS: AMLODIPINE 10 MG TABLET PO SCH (08:35)
[2017-01-21] MEDS: ASCORBIC ACID 250 MG TABLET PO SCH (08:35)
[2017-01-21] MEDS: LACTOBACILLUS RHAMNOSUS GG 1 EACH CAPSULE PO SCH ×2 (08:35→21:49)
[2017-01-21] MEDS: GABAPENTIN 100 MG CAPSULE PO SCH ×3 (08:36→18:16)
[2017-01-21] MEDS: PROTEIN SUPPLEMENT (PROSTAT) 30 ML LIQUID PO SCH ×3 (08:36→18:17)
[2017-01-21] MEDS: BENAZEPRIL HCL 20 MG TABLET PO SCH (08:36)
[2017-01-21] MEDS: CARVEDILOL 25 MG TABLET PO SCH ×2 (08:36→21:00)
[2017-01-21] MEDS: HYDROXYUREA 500 MG CAPSULE PO SCH (08:41)
[2017-01-21 10:14] LABS: BAND % (MANUAL) 1 % (0-10); EOSINOPHILS % (MANUAL) 7 % (0-8); LYMPHOCYTES % (MANUAL) 18 % (20-40); MONOCYTES % (MANUAL) 5 % (2-10); NEUTROPHILS % (MANUAL) 69 % (42-75)
[2017-01-21 11:10] VITALS: BP 121/72
[2017-01-21 15:17] VITALS: BP 127/64
--- NOTE | 2017-01-21 16:00 | NUR ---
Pt in room calm, cooperative, in no distress. Call light placed within reach. Oxygen 2L/min noted
--- NOTE | 2017-01-21 16:37 | NUR ---
Clinical Pharmacy Note: Vancomycin Pharmacy to dose Subjective: To continue vancomycin for this 46 yo male on HD for indication of bacteremia, line sepsis Objective: height 172cm Weight 72 kg BUN 65 SRCR 5.7 WBC 10.3 temp 98.8 Assessment/Plan As patient is on HD, will assess daily for HD to dose per pre-HD level. No HD scheduled today so no dose will be given. Last dose was vanc 0.5gm IVPB x1 yesterday post HD. Pharmacy to order pre-HD level (level not yet ordered) and dose per protocol. Will continue to follow
[2017-01-21 20:00] VITALS: BP 122/66
[2017-01-21] MEDS: CEFAZOLIN 1 G in PREMIXED 1 EACH IV SCH (21:49)
--- NOTE | 2017-01-21 22:30 | NUR ---
Pt's blood pressure routine medications held. BP 111/64. Minimal active bleeding noted to fistula site. Dressing reinforced to area. Pt tolerated well but requests pain medication and Benadryl. Call light placed within reach. No acute distress at this time.
--- NOTE | 2017-01-22 01:00 | NUR ---
Pt asleep at this time. No acute distress noted. Continue to monitor. Call light placed within reach.
[2017-01-22] MEDS: IPRATROPIUM BROMIDE 0.5 MG/2.5 ML NEBU NEB SCH ×6 (03:04→22:48)
[2017-01-22] MEDS: ALBUTEROL SULFATE 1.25 MG/3 ML NEBU NEB SCH ×6 (03:05→22:48)
[2017-01-22] MEDS: diphenhydrAMINE 50 MG/1 ML VIAL IV PRN ×5 (04:13→20:32)
[2017-01-22] MEDS: HYDROMORPHONE 2 MG/1 ML DISP.SYRIN IV PRN ×5 (04:14→20:32)
--- NOTE | 2017-01-22 04:38 | NUR ---
Reinforced dressing to right upper arm. 4x4 gauze applied and wrapped with kerlix. Pt Tolerated well and requested Dilauded and Benadryl. States pain 8/10 generalized.
[2017-01-22 04:55] VITALS: BP 116/63
[2017-01-22] MEDS: CLONIDINE HCL 0.1 MG TABLET PO SCH ×3 (05:25→22:00)
--- NOTE | 2017-01-22 08:30 | NUR ---
awake alert and oriented, small amount of dried blood noted on av shunt dsg, on 2l/nc, medicated with Dilaudid 1 mg iv and Benadryl 25 mg iv for c/o lower back and right arm pain and itching, safety measures maintained
[2017-01-22] MEDS: CARVEDILOL 25 MG TABLET PO SCH ×2 (08:31→20:43)
[2017-01-22] MEDS: PROTEIN SUPPLEMENT (PROSTAT) 30 ML LIQUID PO SCH ×3 (08:31→17:24)
[2017-01-22] MEDS: CALCIUM ACETATE 667 MG CAPSULE PO SCH ×3 (08:32→17:23)
[2017-01-22] MEDS: FOLIC ACID/VITAMIN B COMP W-C TABLET PO SCH (08:32)
[2017-01-22] MEDS: ASCORBIC ACID 250 MG TABLET PO SCH (08:32)
[2017-01-22] MEDS: GABAPENTIN 100 MG CAPSULE PO SCH ×3 (08:32→17:24)
[2017-01-22] MEDS: CINACALCET HCL 30 MG TABLET PO SCH (08:32)
[2017-01-22] MEDS: LACTOBACILLUS RHAMNOSUS GG 1 EACH CAPSULE PO SCH ×2 (08:32→20:32)
[2017-01-22] MEDS: PANTOPRAZOLE SODIUM 40 MG TABLET.DR PO SCH ×2 (08:32→17:24)
[2017-01-22] MEDS: HYDROXYUREA 500 MG CAPSULE PO SCH (08:34)
[2017-01-22] MEDS: BENAZEPRIL HCL 20 MG TABLET PO SCH (08:42)
[2017-01-22] MEDS: AMLODIPINE 10 MG TABLET PO SCH (08:43)
[2017-01-22 11:07] VITALS: BP 117/73
--- NOTE | 2017-01-22 13:00 | NUR ---
dialysis nurse at bedside to do hemodialysis
--- NOTE | 2017-01-22 15:03 | NUR ---
Clinical Pharmacy Note: Vancomycin Pharmacy to dose Subjective: To continue vancomycin for this 46 yo male on HD for indication of bacteremia, line sepsis Objective: height 172cm Weight 72 kg BUN 65 (01/21) SRCR 5.7 (01/21) WBC 10.3 (01/21) temp 98.8 Post-HD level: 13.5 (today @1420) Assessment/Plan As patient is on HD, will assess daily for HD to dose per pre-HD level. No am labs today and HD received per patient, thus post-HD level drawn. Based on level, vanc 0.5gm IVPB x1 will be given when HD done. Pharmacy to continue order pre-HD level and dose per protocol. Will continue to follow
[2017-01-22 15:18] VITALS: BP 118/74
[2017-01-22] MEDS: EPOETIN ALFA 20,000 UNIT/ML ML SQ SCH (15:26)
--- NOTE | 2017-01-22 15:40 | NUR ---
dialysis completed- HD nurse removed 4 liters of fluid- tolerated fairly, dsg at the av shunt site dry at this time
[2017-01-22] MEDS ORDERED: VANCOMYCIN IV 500 MG in IV DEXTROSE 5% 100 ML IV ONE (17:00)
--- NOTE | 2017-01-22 18:02 | NUR ---
resting in bed, no distress noted, no bleeding noted on the av shunt site, dsg dry and intact, all needs attended and met, call light within reach
--- NOTE | 2017-01-22 19:30 | NUR ---
Pt alert awake in room eating dinner. Continues on oxygen 2L/min via n/c. No acute distress. requests pain medication and Benadryl 2030 for next dose. No active bleeding noted to right upper arm. Denies any dizziness or headaches at this time. HOB elevated 45 degrees. Call light placed within reach.
[2017-01-22] MEDS: CEFAZOLIN 1 G in PREMIXED 1 EACH IV SCH (20:34)
[2017-01-23] MEDS: HYDROMORPHONE 2 MG/1 ML DISP.SYRIN IV PRN ×5 (00:30→16:47)
[2017-01-23] MEDS: diphenhydrAMINE 50 MG/1 ML VIAL IV PRN ×6 (00:30→16:47)
--- NOTE | 2017-01-23 01:00 | NUR ---
Pt in room asleep at this time. No acute distress. Pt repositioned and elevated HOB 15 degrees.
[2017-01-23] MEDS: ALBUTEROL SULFATE 1.25 MG/3 ML NEBU NEB SCH ×4 (03:11→15:28)
[2017-01-23] MEDS: IPRATROPIUM BROMIDE 0.5 MG/2.5 ML NEBU NEB SCH ×4 (03:11→15:28)
[2017-01-23] MEDS: CLONIDINE HCL 0.1 MG TABLET PO SCH ×2 (05:31→14:00)
[2017-01-23] MEDS: PROTEIN SUPPLEMENT (PROSTAT) 30 ML LIQUID PO SCH ×3 (07:12→17:00)
--- NOTE | 2017-01-23 07:30 | NUR ---
Pt alert awake and cooperative in room. No acute distress noted. No active bleeding to right upper shunt. Oxygen at 2L/min via n/c 96%. BP noted 126/73. Requested Dilauded due to chronic pain to back and right arm 11/20 and Benadryl. BP 126/73. Continue to monitor.
[2017-01-23] MEDS: CINACALCET HCL 30 MG TABLET PO SCH (08:36)
[2017-01-23] MEDS: FOLIC ACID/VITAMIN B COMP W-C TABLET PO SCH (08:37)
[2017-01-23] MEDS: ASCORBIC ACID 250 MG TABLET PO SCH (08:37)
[2017-01-23] MEDS: LACTOBACILLUS RHAMNOSUS GG 1 EACH CAPSULE PO SCH (08:37)
[2017-01-23] MEDS: GABAPENTIN 100 MG CAPSULE PO SCH ×3 (08:37→16:53)
[2017-01-23] MEDS: PANTOPRAZOLE SODIUM 40 MG TABLET.DR PO SCH ×2 (08:37→16:53)
[2017-01-23] MEDS: HYDROXYUREA 500 MG CAPSULE PO SCH (08:39)
[2017-01-23] MEDS: CARVEDILOL 25 MG TABLET PO SCH (08:48)
[2017-01-23] MEDS: BENAZEPRIL HCL 20 MG TABLET PO SCH (08:49)
[2017-01-23] MEDS: AMLODIPINE 10 MG TABLET PO SCH (08:50)
[2017-01-23] MEDS: CALCIUM ACETATE 667 MG CAPSULE PO SCH ×3 (08:58→16:53)
[2017-01-23] MEDS ORDERED: VANC500F2 IV (09:02)
[2017-01-23] MEDS ORDERED: CEFA1PIG IV (09:02)
[2017-01-23 11:56] VITALS: BP 94/58
--- NOTE | 2017-01-23 12:47 | NUR ---
Clinical Pharmacy Note: Vancomycin Pharmacy to dose Subjective: To continue vancomycin for this 46 yo male on HD for indication of bacteremia, line sepsis Objective: height 172cm Weight 72 kg BUN 65 (01/21) SRCR 5.7 (01/21) WBC 10.3 (01/21) temp 98.6 Assessment/Plan As patient is on HD, will assess daily for HD to dose per pre-HD level. No HD scheduled today so no dose will be given. Last dose was vanc 0.5gm IVPB x1 yesterday post HD. Pharmacy to order pre-HD level (level not yet ordered) and dose per protocol. Will continue to follow
--- NOTE | 2017-01-23 14:15 | NUR ---
RECEIVED PT REPORT AT 1300, GAVE REPORT TO TO THE AM NURSE. NO CHANGES NOTED. NO S/S OF RESPIRATORY DISTRESS NOTE. NO PAIN NOTED. ALL SAFETY NEEDS ARE MET.
[2017-01-23 15:31] VITALS: BP 133/78
== END 2017-01-23 18:30 | DRG 662 ==
LOC: ER 20:09 → TELE 22:18 → MED 01-15 20:59
PROVIDERS: ADMIT Internal Medicine Nephrology; ATTEND Internal Medicine
PROC: 30243N1 Transfusion of Nonautologous Red Blood Cells into Central Vein, Percutaneous Approach (ICD-10-PCS; principal; 2017-01-15)
PROC: 5A1D70Z Performance of Urinary Filtration, Intermittent, Less than 6 Hours Per Day (ICD-10-PCS; principal; 2017-01-15)
PROC: 06PYX3Z Removal of Infusion Device from Lower Vein, External Approach (ICD-10-PCS; 2017-01-17)
DX: D57.00 Hb-SS disease with crisis, unspecified (principal); A41.2 Sepsis due to unspecified staphylococcus; A41.59 Other Gram-negative sepsis; I13.2 Hypertensive heart and chronic kidney disease with heart failure and with stage 5 chronic kidney disease, or end stage renal disease; J18.9 Pneumonia, unspecified organism; K29.71 Gastritis, unspecified, with bleeding; T80.211A Bloodstream infection due to central venous catheter, initial encounter; N18.6 End stage renal disease; D68.9 Coagulation defect, unspecified; N25.81 Secondary hyperparathyroidism of renal origin; D69.6 Thrombocytopenia, unspecified; I50.32 Chronic diastolic (congestive) heart failure; K80.20 Calculus of gallbladder without cholecystitis without obstruction; D63.1 Anemia in chronic kidney disease; Z99.2 Dependence on renal dialysis; Z96.643 Presence of artificial hip joint, bilateral; Z79.899 Other long term (current) drug therapy; N50.89 Other specified disorders of the male genital organs; G89.4 Chronic pain syndrome; M89.9 Disorder of bone, unspecified; N28.89 Other specified disorders of kidney and ureter; Z86.718 Personal history of other venous thrombosis and embolism; Z79.891 Long term (current) use of opiate analgesic; I27.20 Pulmonary hypertension, unspecified; I25.2 Old myocardial infarction; I07.1 Rheumatic tricuspid insufficiency; E46 Unspecified protein-calorie malnutrition; G40.909 Epilepsy, unspecified, not intractable, without status epilepticus; N28.1 Cyst of kidney, acquired
CPT/HCPCS: 36415; 70030-TC; 71010; 83605; 83690; 83735; 84100; 85025; 85730; 86850; 86900; 86901; 86920; 87040; 87077; 90937; 93005; 93307; 94640; 94664; A4663; J0690; J0885; J1170; J1200; J2185; J2405; J3370; J3490; J3590; J7040; J7050; J7060; P9016-BL; P9021